=== PATIENT | female | born 1940 | race Caucasian/White ===

== ENCOUNTER 2018-11-26 09:30 | Inpatient (IN) | payer MEDICARE, OTHER ==
[2018-11-25 14:56] VITALS: BMI 33.2
[~2018-11-26] VITALS: Ht 152.4 cm; Wt 77.8 kg
[2018-12-07] MEDS ORDERED: AMLO-147 PO (13:09)
[2018-12-07] MEDS ORDERED: FLUT1AER INHALATION (13:09)
[2018-12-07] MEDS ORDERED: ALPR0.254 PO (13:09)
[2018-12-07] MEDS ORDERED: CYAN500T17 PO (13:09)
[2018-12-07] MEDS ORDERED: ROSU40TA35 PO (13:09)
[2018-12-07] MEDS ORDERED: ZOLP10TA5 PO (13:09)
[2018-12-07] MEDS ORDERED: [UNRECOGNIZED DRUG - CODE] IV (13:09)
[2018-12-07] MEDS ORDERED: ASPI-903 PO (13:09)
[2018-12-07] MEDS ORDERED: CHOL100062 PO (13:12)
[2018-12-07] MEDS ORDERED: MAGN400T27 PO (13:12)
[2018-12-07] MEDS ORDERED: DENO60DI SQ (13:12)
[2018-12-07] MEDS ORDERED: METO-448 PO (13:12)
[2018-12-07] MEDS ORDERED: OLME1TAB27 PO (13:14)
[2018-12-07] MEDS ORDERED: PREG50CA PO ×2 (13:15)
[2018-12-07] MEDS ORDERED: LACTATED RINGER'S 1,000 ML IV SCH (14:00)
[2018-12-07 14:08] VITALS: BP 141/63; PULSE 72; RESP 16; Ht 152.4 cm; Wt 77.8 kg
[2018-12-07] MEDS ORDERED: GELATIN SIZE 100 SPONGE ONE ×3 (14:15→20:48)
[2018-12-07] MEDS ORDERED: THROMBIN (BOVINE) 5,000 UNIT VIAL TP ONE ×5 (14:15→22:27)
[2018-12-07] MEDS ORDERED: HEPARIN 1000 UNITS/ML 10 ML INJ ONE ×4 (14:16→20:48)
[2018-12-07] MEDS ORDERED: CEFAZOLIN 1 GM INJ ONE ×3 (14:16→20:34)
[2018-12-07] MEDS ORDERED: ALBUTEROL 0.083% (NEB) 2.5 MG/3 ML AMP HHN PRN ×2 (15:30→19:30)
[2018-12-07] MEDS ORDERED: HYDROmorphONE 1 MG/5 ML IV SYRINGE IV PRN ×3 (15:30)
[2018-12-07] MEDS ORDERED: MEPERIDINE 25 MG INJ IV PRN ×2 (15:30→19:30)
[2018-12-07] MEDS ORDERED: hydrALAzine 20 MG INJ IV PRN ×2 (15:30→19:30)
[2018-12-07] MEDS ORDERED: IPRATROPIUM (NEB) 0.5 MG/2.5 ML AMP HHN PRN ×2 (15:30→19:30)
[2018-12-07] MEDS ORDERED: EPHEDrine 25 MG/5 ML SYG IV PRN ×2 (15:30→19:30)
[2018-12-07] MEDS ORDERED: FENTAnyl 50 MCG/ML VIAL IV PRN ×6 (15:30→19:30)
[2018-12-07] MEDS ORDERED: MIDAZOLAM 1 MG/ML 2 ML INJ IV PRN ×2 (15:30→19:30)
[2018-12-07] MEDS ORDERED: ONDANSETRON 4 MG INJ IV PRN ×2 (15:30→19:30)
[2018-12-07] MEDS ORDERED: DIPHENHYDRAMINE 50 MG INJ IV PRN ×2 (15:30→19:30)
[2018-12-07] MEDS ORDERED: TRIMETHOBENZAMIDE 100 MG/ML VIAL IM PRN ×2 (15:30→19:30)
[2018-12-07] MEDS ORDERED: LABETALOL HCL 20MG INJ IV PRN ×2 (15:30→19:30)
--- NOTE | 2018-12-07 15:30 | PREAC ---
Date/Time of Note Date/Time of Note DATE: 12/07/18 TIME: 15: Anesthesia Eval and Record Evaluation Time Pre-Procedure Interview DATE: 12/07/18 TIME: 15: Age 77 Sex female NPO: 8 hrs Preoperative diagnosis LUMBAR MECHANICAL PAIN Planned procedure ANTERIOR LUMBAR CORPECTOMY, DISCECTOMY AND POSSIBLE FUSION L2-S1 Past Medical History Past Medical History: Includes Cardio: HTN, Other (MVP) Pulm: Other (PULMONARY FIBROSIS) Musculoskeletal: Rheumatoid arthritis Renal: CKD Surgery & Anesthesia Issues No known issue Meds Anticoagulation: No Beta Eleni within 24 hr: Yes Reported Medications Pregabalin* (Lyrica*) 50 Mg Capsule, 100 MG PO QHS, CAP 12/07/18 Pregabalin* (Lyrica*) 50 Mg Capsule, 50 MG PO QAM, CAP 12/07/18 Olmesartan/Hydrochlorothiazide (Benicar Hct 40-25 mg Tablet) 1 Each Tablet, 1 TAB PO DAILY, TAB 12/07/18 Metoprolol Tartrate* (Lopressor*) 25 Mg Tab, 12.5 MG PO BID, #60 TAB 12/07/18 Denosumab (Prolia) 60 Mg/1 Ml Disp.syrin, 60 MG SQ [id number] 12/07/18 Cholecalciferol* (Vitamin D3*) 1,000 Unit Tablet, 1000 UNIT PO DAILY, TAB 12/07/18 Magnesium Oxide* (Mag-Oxide*) 400 Mg Tablet, 300 MG PO DAILY, TAB 12/07/18 Cyanocobalamin (Vitamin B-12) (B-12) 500 Mcg Tablet, 100 MCG PO DAILY, TAB 12/07/18 Rituximab (Rituxan) 10 Mg/Ml Soln, 500 MG IV as directed 12/07/18 Rosuvastatin Calcium* (Crestor*) 40 Mg Tablet, 40 MG PO QHS, #30 TAB 12/07/18 Aspirin* (Aspirin* Chew) 81 Mg Tab.chew, 81 MG PO DAILY, TAB.CHEW 12/07/18 Alprazolam* (Alprazolam*) 0.25 Mg Tablet, 0.25 MG PO TID PRN for ANXIETY, TAB 12/07/18 Zolpidem Tartrate* (Zolpidem Tartrate*) 10 Mg Tablet, 10 MG PO QHS PRN for INSOMNIA, #30 TAB 12/07/18 Amlodipine Besylate* (Amlodipine Besylate*) 10 Mg Tablet, 10 MG PO DAILY, #30 TAB 12/07/18 Fluticasone-Vilanterol (Breo Ellipta Inhaler) 100-25 Mcg/Actuation Aer.pow.ba, 1 PUFF INHALATION DAILY PRN for SHORTNESS OF BREATH, #1 INHALER 12/07/18 Current Medications Lactated Ringer's 1,000 ml @ 25 mls/hr Q24H IV Last administered on 12/07/18at 13:58; Admin Dose 25 MLS/HR; Start 12/07/18 at 14:00 Meds reviewed: Yes Allergies Coded Allergies: tramadol (Verified Allergy, Unknown, Rash, 12/07/18) Allergies Reviewed: Yes Labs/Studies Labs Reviewed: Reviewed by anesthesiologist Result Diagram: 12/07/18 1340 12/07/18 1340 Laboratory Tests 12/07/18 13:40 Blood Bank Test 12/07/18 13:40 Antibody Screen NEGATIVE Blood Product Summary Counts Blood Type A POSITIVE Crossmatch Red Blood Cells test: Negative Studies: ECG (SR AT 86 BPM, PVC), CXR (Two nodular opacities projecting over the right lower lung measuring 8 mm and 14 mm, suggestive of pulmonary nodules. MILD CARDIOMEGALY) Pre-procedure Exam Last vitals Vital Signs Date Temp Pulse Resp B/P (MAP) Pulse Ox O2 O2 Flow FiO2 Time Delivery Rate 12/07/18 97.7 72 16 141/63 96 Room Air 14:08 (89) Airway: Adequate mouth opening, Adequate thyromental dist Mallampati: Mallampati II Teeth: Normal Lung: Normal Heart: Normal ASA Physical Status ASA physical status: 3 Emergency: None Planned Anesthetic General/MAC: ETT, A Line Planned Pain Management Parenteral pain med Pre-operative Attestations Prior to commencing anesthesia and surgery, the patient was re-evaluated, there was verification of: *The patient's identity *The results of appropriate recent lab work and preoperative vital signs *The above evaluation not changing prior to induction *Anesthetic plan, risk benefits, alternative and complications discussed with patient/family; questions answered; patient/family understands, accepts and wishes to proceed. Drew Cannon M.D. Dec 07, 2018 15:30
--- NOTE | 2018-12-07 15:32 | HPN ---
Date/Time of Note Date/Time of Note DATE: 12/07/18 TIME: 15:30 Interval H&P Admission Note Pt. seen H&P reviewed: No system changes Neurosurgery Preop Note Patient seen and examined Extensive d/w patient during preop meeting about all available options including surgery vs no surgery. Overall risk/complications 3-5% as preprinted in my office consent form thoroughly discussed. All questions answered and no guarantees given. Patient understands her surgery will be staged with anterior portion today with posterior fixation to follow in 1-2 days. FAZAL CASTILLO MD Dec 07, 2018 15:32
[2018-12-07] MEDS ORDERED: MIDAZOLAM 1 MG/ML 2 ML INJ ONE ×2 (15:52→20:34)
[2018-12-07] MEDS ORDERED: GLYCOPYRROLATE 0.4 MG INJ ONE ×2 (15:52→20:34)
[2018-12-07] MEDS ORDERED: ROCURONIUM 50 MG INJ ONE ×2 (15:52→20:34)
[2018-12-07] MEDS ORDERED: PROPOFOL 20 ML ONE ×2 (15:52→20:34)
[2018-12-07] MEDS ORDERED: ONDANSETRON 4 MG INJ ONE ×2 (15:52→20:34)
[2018-12-07] MEDS ORDERED: NEOSTIGMINE 3 MG/3 ML SYRINGE ONE ×2 (15:52→20:34)
[2018-12-07] MEDS ORDERED: DEXAMETHASONE 4 MG/ML 5 ML INJ ONE ×2 (15:52→20:34)
[2018-12-07] MEDS ORDERED: EPHEDrine 25 MG/5 ML SYG ONE (16:00)
[2018-12-07] MEDS ORDERED: DESFLURANE 15 MIN ONE (16:00)
[2018-12-07] MEDS ORDERED: SUGAMMADEX SODIUM 200 MG/2 ML VIAL IV ONE ×2 (16:00→18:52)
[2018-12-07] MEDS ORDERED: HYDROmorphONE 0.2 MG/ML PCA IV SCH (17:30)
[2018-12-07] MEDS ORDERED: NACL 0.9% 3 ML SYG IV SCH (17:30)
[2018-12-07] MEDS ORDERED: NALOXONE (0.4 MG/ML) INJ IV PRN (17:30)
[2018-12-07] MEDS: DOCUSATE SODIUM 100 MG CAP PO SCH ×2 (17:30→21:00)
[2018-12-07] MEDS ORDERED: SURGIFOAM POWDER 1 GM KIT ONE (17:41)
[2018-12-07] MEDS: CEFAZOLIN 2 GM/50 ML (PMX) 50 ML IVPB SCH (18:00)
[2018-12-07] MEDS: NS + KCL 20 MEQ 1,000 ML IV SCH (18:30)
[2018-12-07] MEDS ORDERED: BACITRACIN/POLYMYXIN 28.35 GM OINT TOP ONE (18:41)
[2018-12-07] MEDS ORDERED: FENTAnyl 50 MCG/ML VIAL ONE (18:51)
--- NOTE | 2018-12-07 18:52 | OPPN ---
Date/Time of Note Date/Time of Note DATE: 12/07/18 TIME: 18:50 Operative Report Preoperative Diagnosis Mechanical LBP and LE radic Postoperative Diagnosis Same Operation/Procedure Performed ALIF L3,4 and L5 S1 Surgeon see signature line assistant boiler operator Malekmehr Second assist: SHERYL VELÁZQUEZ NP Anesthesia: general Estimated blood loss: 150 - 200 ml's Transfusion Required none Specimen Disk , bone, ligament L3,4 and L5S1 Grafts/Implants Peek cage screws, formagraft Complications none FAZAL CASTILLO MD Dec 07, 2018 18:52
[2018-12-07] MEDS ORDERED: HALOPERIDOL 5 MG INJ IV PRN (19:30)
[2018-12-07] MEDS ORDERED: HYDROmorphONE 0.5 MG/0.5 ML SYG IV PRN ×3 (19:30)
[2018-12-07] MEDS ORDERED: METOCLOPRAMIDE 10 MG INJ IV PRN (19:30)
[2018-12-07] MEDS: HYDROmorphONE 1 MG/ML SYG IV PRN ×2 (19:33→23:08)
--- NOTE | 2018-12-07 19:51 | PREAC ---
Date/Time of Note Date/Time of Note DATE: 12/07/18 TIME: 19:49 Anesthesia Eval and Record Evaluation Time Pre-Procedure Interview DATE: 12/07/18 TIME: 19:49 Age 77 Sex female NPO: 8 hrs Preoperative diagnosis POST ALIF, PULSELESS ON THE LEFT LEG Planned procedure EXPLORATORY LAP, POSSIBLE THROMBECTOMY Past Medical History Past Medical History: Includes Cardio: HTN Pulm: Other (PULMONARY FIBROSIS) Musculoskeletal: Rheumatoid arthritis Renal: CKD GI: Obesity Surgery & Anesthesia Issues No known issue Meds Anticoagulation: No Beta Eleni within 24 hr: Yes Reported Medications Pregabalin* (Lyrica*) 50 Mg Capsule, 100 MG PO QHS, CAP 12/07/18 Pregabalin* (Lyrica*) 50 Mg Capsule, 50 MG PO QAM, CAP 12/07/18 Olmesartan/Hydrochlorothiazide (Benicar Hct 40-25 mg Tablet) 1 Each Tablet, 1 TAB PO DAILY, TAB 12/07/18 Metoprolol Tartrate* (Lopressor*) 25 Mg Tab, 12.5 MG PO BID, #60 TAB 12/07/18 Denosumab (Prolia) 60 Mg/1 Ml Disp.syrin, 60 MG SQ [id number] 12/07/18 Cholecalciferol* (Vitamin D3*) 1,000 Unit Tablet, 1000 UNIT PO DAILY, TAB 12/07/18 Magnesium Oxide* (Mag-Oxide*) 400 Mg Tablet, 300 MG PO DAILY, TAB 12/07/18 Cyanocobalamin (Vitamin B-12) (B-12) 500 Mcg Tablet, 100 MCG PO DAILY, TAB 12/07/18 Rituximab (Rituxan) 10 Mg/Ml Soln, 500 MG IV as directed 12/07/18 Rosuvastatin Calcium* (Crestor*) 40 Mg Tablet, 40 MG PO QHS, #30 TAB 12/07/18 Aspirin* (Aspirin* Chew) 81 Mg Tab.chew, 81 MG PO DAILY, TAB.CHEW 12/07/18 Alprazolam* (Alprazolam*) 0.25 Mg Tablet, 0.25 MG PO TID PRN for ANXIETY, TAB 12/07/18 Zolpidem Tartrate* (Zolpidem Tartrate*) 10 Mg Tablet, 10 MG PO QHS PRN for INSOMNIA, #30 TAB 12/07/18 Amlodipine Besylate* (Amlodipine Besylate*) 10 Mg Tablet, 10 MG PO DAILY, #30 TA B 12/07/18 Fluticasone-Vilanterol (Breo Ellipta Inhaler) 100-25 Mcg/Actuation Aer.pow.ba, 1 PUFF INHALATION DAILY PRN for SHORTNESS OF BREATH, #1 INHALER 12/07/18 Current Medications Hydromorphone HCl (Dilaudid) 0.2 mg PACU PRN IV MILD PAIN 1-3; Start 12/07/18 at 15:30; Stop 12/07/18 at 21:00 Hydromorphone HCl (Dilaudid) 0.4 mg PACU PRN IV MOD PAIN 4-6; Start 12/07/18 at 15:30; Stop 12/07/18 at 21:00 Fentanyl (Sublimaze) 25 mcg PACU ORDER PRN IV MILD PAIN 1-3; Start 12/07/18 at 15:30; Stop 12/07/18 at 21:00 Fentanyl (Sublimaze) 50 mcg PACU ORDER PRN IV MOD PAIN 4-6; Start 12/07/18 at 15:30; Stop 12/07/18 at 21:00 Fentanyl (Sublimaze) 75 mcg PACU ORDER PRN IV SEVERE PAIN 7-10; Start 12/07/18 at 15:30; Stop 12/07/18 at 21:00 Ondansetron HCl (Zofran Inj) 4 mg PACU ORDER PRN IV NAUSEA/VOMITING; Start 12/07/18 at 15:30; Stop 12/07/18 at 21:00 Trimethobenzamide HCl (Tigan) 200 mg PACU ORDER PRN IM NAUSEA/VOMITING; Start 12/07/18 at 15:30; Stop 12/07/18 at 21:00 Labetalol HCl (Labetalol) 5 mg PACU ORDER PRN IV HIGH BLOOD PRESSURE; Start 12/07/18 at 15:30; Stop 12/07/18 at 21:00 Hydralazine HCl (Apresoline) 5 mg PACU ORDER PRN IV HIGH BLOOD PRESSURE; Start 12/07/18 at 15:30; Stop 12/07/18 at 21:00 Ephedrine Sulfate 5 mg PACU ORDER PRN IV BLOOD PRESSURE SUPPORT; Start 12/07/18 at 15:30; Stop 12/07/18 at 21:00 Albuterol (Proventil 0.083% (Neb)) 2.5 mg PACU ORDER PRN HHN .WHEEZING; Start 12/07/18 at 15:30; Stop 12/07/18 at 21:00 Ipratropium [place] (Atrovent 0.02% (Neb)) 0.5 mg PACU ORDER PRN HHN .WHEEZING; Start 12/07/18 at 15:30; Stop 12/07/18 at 21:00 Meperidine HCl (Demerol) 25 mg PACU ORDER PRN IV .RIGORS; Start 12/07/18 at 15:30; Stop 12/07/18 at 21:00 Diphenhydramine HCl (Benadryl) 25 mg PACU ORDER PRN IV .PRURITUS; Start 12/07/18 at 15:30; Stop 12/07/18 at 21:00 Midazolam HCl (Versed) 0.5 mg PACU ORDER PRN IV .ANXIETY; Start 12/07/18 at 15:30; Stop 12/07/18 at 21:00 Acetaminophen/ Hydrocodone Bitart ([place] (5/325)) 1 tab Q4H PRN PO .PAIN 1-5; Start 12/07/18 at 17:30 Docusate Sodium (Colace) 100 mg BID PO ; Start 12/07/18 at 17:30 IV Flush (NS 3 ml) 3 ml PER PROTOCOL IV ; Start 12/07/18 at 17:30 Hydromorphone HCl (Dilaudid CUSTOMS AGENT) Q4PCA IV ; Start 12/07/18 at 17:30 Naloxone HCl (Narcan) 0.2 mg Q2M PRN IV RR 8 BREATHS/MIN OR LESS; Start 12/07/18 at 17:30 Cefazolin Sodium/ Dextrose 50 ml @ 100 mls/hr Q8 IVPB ; Start 12/07/18 at 18:00; Stop 12/12/18 at 22:00 Potassium Chloride/Sodium Chloride 1,000 ml @ 100 mls/hr Q10H IV ; Start 12/07/18 at 18:30 Hydromorphone HCl (Dilaudid) 0.6 mg PACU PRN IV SEVERE PAIN 7-10 Last administered on 12/07/18at 19:33; Admin Dose 0.6 MG; Start 12/07/18 at 19:30; Stop 12/07/18 at 23:59 Hydromorphone HCl (Dilaudid) 0.2 mg ICU RECOVERY PRN IV MILD PAIN LEVEL 1-3; Start 12/07/18 at 19:30; Stop 12/08/18 at 01:30 Hydromorphone HCl (Dilaudid) 0.4 mg ICU RECOVERY PRN IV MODERATE PAIN LEVEL 4-6; Start 12/07/18 at 19:30; Stop 12/08/18 at 01:30 Hydromorphone HCl (Dilaudid) 0.6 mg ICU RECOVERY PRN IV SEVERE PAIN LEVEL 7-10; Start 12/07/18 at 19:30; Stop 12/08/18 at 01:30 Fentanyl (Sublimaze) 25 mcg ICU RECOVERY PRN IV MILD PAIN LEVEL 1-3; Start 12/07/18 at 19:30; Stop 12/08/18 at 01:30 Fentanyl (Sublimaze) 50 mcg ICU RECOVERY PRN IV MODERATE PAIN LEVEL 4-6; Start 12/07/18 at 19:30; Stop 12/08/18 at 01:30 Fentanyl (Sublimaze) 75 mcg ICU RECOVERY PRN IV SEVERE PAIN LEVEL 7-10; Start at 19:30; Stop 12/08/18 at 01:30 Ondansetron HCl (Zofran Inj) 4 mg ICU RECOVERY PRN IV NAUSEA/VOMITING; Start 12/07/18 at 19:30; Stop 12/08/18 at 01:30 Metoclopramide HCl (Reglan) 10 mg ICU RECOVERY PRN IV NAUSEA AND/OR VOMITING; Start 12/07/18 at 19:30; Stop 12/08/18 at 01:30 Trimethobenzamide HCl (Tigan) 200 mg ICU RECOVERY PRN IM NAUSEA AND/OR VOMITING; Start 12/07/18 at 19:30; Stop 12/08/18 at 01:30 Haloperidol (Haldol) 1 mg ICU RECOVERY PRN IV NAUSEA AND/OR VOMITING; Start 12/07/18 at 19:30; Stop 12/08/18 at 01:30 Labetalol HCl (Labetalol) 5 mg ICU RECOVERY PRN IV HIGH BLOOD PRESSURE; Start 12/07/18 at 19:30; Stop 12/08/18 at 01:30 Hydralazine HCl (Apresoline) 5 mg ICU RECOVERY PRN IV HIGH BLOOD PRESSURE; Start 12/07/18 at 19:30; Stop 12/08/18 at 01:30 Ephedrine Sulfate 5 mg PACU ORDER PRN IV BLOOD PRESSURRE SUPPORT; Start 12/07/18 at 19:30; Stop 12/08/18 at 01:30 Albuterol (Proventil 0.083% (Neb)) 2.5 mg ICU RECOVERY PRN HHN .WHEEZING; Start 12/07/18 at 19:30; Stop 12/08/18 at 01:30 Ipratropium [place] (Atrovent 0.02% (Neb)) 0.5 mg ICU RECOVERY PRN HHN .WHEEZING; Start 12/07/18 at 19:30; Stop 12/08/18 at 01:30 Meperidine HCl (Demerol) 25 mg ICU RECOVERY PRN IV .RIGORS; Start 12/07/18 at 19:30; Stop 12/08/18 at 01:30 Diphenhydramine HCl (Benadryl) 25 mg ICU RECOVERY PRN IV .PRURITUS; Start 12/07/18 at 19:30; Stop 12/08/18 at 01:30 Midazolam HCl (Versed) 0.5 mg ICU RECOVERY PRN IV .ANXIETY; Start 12/07/18 at 19:30; Stop 12/08/18 at 01:30 Meds reviewed: Yes Allergies Coded Allergies: tramadol (Verified Allergy, Unknown, Rash, 12/07/18) Allergies Reviewed: Yes Labs/Studies Labs Reviewed: Reviewed by anesthesiologist Result Diagram: 12/07/18 1340 12/07/18 1340 Laboratory Tests 12/07/18 13:40 Blood Bank Test 12/07/18 13:40 Antibody Screen NEGATIVE Blood Product Summary Counts Blood Type A POSITIVE Crossmatch Red Blood Cells test: N/A Pre-procedure Exam Last vitals Vital Signs Date Temp Pulse Resp B/P (MAP) Pulse Ox O2 O2 Flow FiO2 Time Delivery Rate 12/07/18 98.0 19:15 12/07/18 72 16 141/63 96 Room Air 14:08 (89) Airway: Adequate mouth opening, Adequate thyromental dist Mallampati: Mallampati II Teeth: Normal Lung: Normal Heart: Normal ASA Physical Status ASA physical status: 3 Emergency: E Planned Anesthetic General/MAC: ETT Planned Pain Management Parenteral pain med Pre-operative Attestations Prior to commencing anesthesia and surgery, the patient was re-evaluated, there was verification of: *The patient's identity *The results of appropriate recent lab work and preoperative vital signs *The above evaluation not changing prior to induction *Anesthetic plan, risk benefits, alternative and complications discussed with patient/family; questions answered; patient/family understands, accepts and wishes to proceed. Drew Cannon M.D. Dec 07, 2018 19:51
[2018-12-07] MEDS ORDERED: IOHEXOL 300MG/ML 30 ML BTL ONE ×2 (20:21→22:52)
[2018-12-07] MEDS ORDERED: PAPAVERINE 60 MG INJ ONE (22:53)
[2018-12-08] VITALS (78 sets, daily range): BP systolic 81–139; BP diastolic 43–78; PULSE 61–108; RESP 8–26
[2018-12-08] MEDS: NS + KCL 20 MEQ 1,000 ML IV SCH ×4 (05:10→23:56)
[2018-12-08] MEDS: CEFAZOLIN 2 GM/50 ML (PMX) 50 ML IVPB SCH ×3 (05:10→21:53)
[2018-12-08] MEDS: HYDROmorphONE 0.5 MG/0.5 ML SYG IV PRN ×5 (08:57→23:57)
[2018-12-08] MEDS: DOCUSATE SODIUM 100 MG CAP PO SCH ×2 (09:00→20:03)
--- NOTE | 2018-12-08 10:31 | CONS ---
DATE OF ADMISSION: 12/07/2018 DATE OF CONSULTATION: REASON FOR CONSULTATION: Evaluation for an anterior retroperitoneal exposure, interbody fusion of maritza mbosacral spine. HISTORY OF PRESENT ILLNESS: This is a 77-year-old female with a history of degenerative disk disease , lumbosacral spine, who is being evaluated by the neurosurgery service to undergo anterior retroperi toneal exposure and interbody fusion of lumbosacral spine. The patient previously has had a fusion f rom the back at the level of L4-L5. PAST MEDICAL HISTORY: Significant for hypertension. PAST SURGICAL HISTORY: 1. Fusion posteriorly L4-L5. 2. Hysterectomy. ALLERGIES: NONE. SOCIAL HISTORY: No smoking, drinking, or drug use. MEDICATIONS: List reviewed. PHYSICAL EXAMINATION: VITAL SIGNS: Blood pressure is 132/68, pulse is 80, respirations 18, temperature is 98.2. HEENT: Normocephalic, atraumatic. PERRLA. NECK: Supple. No JVD. No carotid bruits. CARDIOVASCULAR: Normal S1, S2. No murmurs, gallops, or rubs. LUNGS: Clear. ABDOMEN: Soft. EXTREMITIES: Warm. There are palpable pedal pulses. IMPRESSION: Degenerative disk disease, lumbosacral spine. RECOMMENDATIONS: We will proceed with anterior retroperitoneal exposure, interbody fusion, L3-L4 and L5-S1. Risks, benefits, complications, and alternative therapies explained to the patient, consent obtained. Risks and benefits of the exposure that were explained to the patient included, but were n ot limited to, bleeding, infection, damage to bowel, damage to ureter, wound infection, wound dehisce nce, DVT, PE, loss of limb, loss of life, high-risk nature of the operation fully explained to the pa jessica. All questions answered. Dictated By: EVIE ARTHUR MD FM/NTS Conf#: [id number] DID#: [id number] CC: FAZAL CASTILLO MD;*EndCC*
--- NOTE | 2018-12-08 11:17 | OPR ---
DATE OF OPERATION: PREOPERATIVE DIAGNOSIS: Degenerative disk disease, lumbosacral spine. POSTOPERATIVE DIAGNOSIS: Degenerative disk disease, lumbosacral spine. OPERATIONS PERFORMED: 1. Anterior retroperitoneal exposure, interbody fusion, L3-L4. 2. Anterior retroperitoneal exposure, interbody fusion, L5-S1. SURGEON: Evie Ibrahim MD CO-SURGEON: Rashaad Castillo MD ESTIMATED BLOOD LOSS: 150 mL. INFORMED CONSENT: Risks, benefits, complications, alternative therapies, high-risk nature of the ope ration fully explained to the patient, consent obtained. Risks and benefits that were explained to t he patient included, but were not limited to, bleeding, infection, damage to the bowel, damage to the ureter, wound infection, wound dehiscence, DVT, PE, loss of limb, loss of life, need for further driss geries. High-risk nature of the operation fully explained and stressed. Adequate time was given to the patient to ask all her questions and we proceeded. DESCRIPTION OF PROCEDURE: The patient was placed in supine position. I made a 12 cm incision in lef t paramedian lower abdomen longitudinally. The incision was taken down to subcutaneous tissue, which was then opened using electrocautery. Left anterior rectus sheath was opened in the direction of th e wound. The tissues appeared to have very poor integrity. The left rectus muscle was gently dissec leo laterally and the posterior rectus sheath was incised superiorly. At this time, retroperitoneal space was entered. Again, the tissue turgor appeared to be very poor. Bookwalter retractor was plac ed, gently retracting the bowel contents to the right, left rectus muscle to the left. I identified the left ureter, psoas muscle, sympathetic chain and the left common iliac artery and vein were gentl y dissected using a peanut dissector. The left iliolumbar veins and the middle sacral vessels were l igated using 2-0 silk ties and titanium clips. The lowest segmental vessels on the left side, both t he artery and the vein, were ligated using titanium clips. At this time, very gently the iliac vesse ls on the left and the vena cava and aorta were dissected off of the spine using a peanut dissector. Mobilization of the aorta and vena cava superiorly and left iliac vessels inferiorly was completed. Gently, the aorta and vena cava were retracted to the right side. Exposure for L3-L4 was obtained i n this manner. Exposure for L5-S1 was obtained between the right and left common iliac artery and ve in. We used Hernandez retractors to gently retract the vessels back for exposure. At this time, we p roceeded with the diskectomy and placement of the new cages. Please refer to Dr. Castillo's dictation f or the details of that operation. After all x-rays were satisfactorily read by Dr. Castillo, needle cou nts and sponge counts were correct. There was good pulsation in the left common iliac artery and ex ternal iliac artery. There was no evidence of any bleeding. Posterior rectus sheath was closed usin g 0 Vicryl suture in running fashion. Anterior rectus sheath was closed using number 1 Vicryl suture in a running fashion, interrupted sutures in the middle. Subcutaneous tissues were closed using 2-0 Vicryl suture in running fashion and the skin was closed using marcos. Dictated By: EVIE SHAVER/CARMINA Conf#: [id number] DID#: [id number] CC: RASHAAD CASTILLO MD;*EndCC*
--- NOTE | 2018-12-08 11:40 | OPR ---
DATE OF OPERATION: PREOPERATIVE DIAGNOSIS: Ischemic left lower extremity. POSTOPERATIVE DIAGNOSIS: Ischemic left lower extremity. OPERATIONS PERFORMED: 1. Thrombectomy, left iliac artery. 2. Intraoperative left lower extremity angiogram. 3. Interpretation and supervision of angiogram. SURGEON: Evie Ibrahim MD TREE SCOUT: Rashaad Castillo MD INDICATIONS FOR PROCEDURE: This is a 77-year-old female with a history of rheumatoid arthritis and d egenerative disk disease, pulmonary fibrosis, mild renal failure who had undergone an anterior retrop eritoneal exposure, interbody fusion at the levels of L3-L4 and L5-S1. Subsequently, immediately pos toperatively, the patient had weakness in the left lower extremity. It was initially thought that th e patient had neurological deficits related to the spine surgery. There was a weak left femoral puls e. The patient was transported to the intensive care unit in anticipation to getting a CAT scan; how ever, upon my examination, again in the ICU, the patient's pulses in the left lower extremity could n ot be obtained. Left foot appeared to be cold compared to the right side. Pulses on the right side were intact. The patient was immediately taken back to the operating room for exploration and establ ishment of the circulation. I had a short talk with the patient and explained the procedure to her. INFORMED CONSENT: Risks, benefits, complications, alternative therapies, high-risk nature of the ope ration explained to the patient. Again, the possibility of infection, bleeding, DVT, PE, loss of vaca b, loss of life, and neurological deficits explained and stressed. DESCRIPTION OF PROCEDURE: The patient was taken to the operating room. The patient was prepped and draped in usual sterile fashion. An antibiotic was given. The abdominal wound was opened. Bookwalt er retractor was placed, retracting the bowel contents to the right, left rectus muscle to the left. I palpated the left common iliac artery, external iliac artery. There was no pulsation in it. The patient was given 5000 units of IV heparin and the left external iliac artery was opened perpendicula r to the vessel. Large amounts of clot were removed. Junior catheter first 4-Japanese, next 3-Japanese were applied distally. Large amounts of clot were removed. The same was applied proximally. There appeared to be also a local dissection and endarterectomy had to be done as well. The plaque was ta cked down using multiple interrupted 6-0 Prolene distally, and the vessel was reapproximated using in terrupted 6-0 Prolene in a horizontal mattress fashion. This was done after giving the patient 5000 units of IV heparin, and after injecting heparinized saline into the vessels just before they were be ing closed, a vascular clamp had been applied, which were now removed after the repair was done. The re was a good pulsation in the external iliac artery all the way in the pelvis. At this time, I coul d also palpate the femoral artery in the groin, which I could not palpate before. An arterial line w as placed in the left common femoral artery using ultrasound guidance. Angiogram was done, which was completely patent - left external iliac artery, femoral artery, superficial femoral artery, poplitea l artery, and trifurcation with 3-vessel runoff to the foot with the posterior tibial artery wrapped around all the way down to the toes as the major blood vessel flow to the foot. Doppler signals were also obtained at the posterior tibial artery, which appeared to be biphasic. Doppler signals in the femoral artery appeared to be triphasic. The femoral line was immediately removed. No evidence of any bleeding was noted. The Bookwalter retractor was removed. Anterior rectus sheath was closed usi ng a number 1 Vicryl suture in running fashion. Subcutaneous tissues were irrigated and closed in 2 layers of 2-0 Vicryl suture for subcutaneous and marcos for the skin. The patient woke up in the op erating room and was able to follow command, move the toes, wiggle the toes bilaterally, dorsiflex an d plantar flex the foot bilaterally, and bend the knee bilaterally - all on command. EBL was 450 mL. Son was contacted. The condition was reported to him. Dictated By: EVIE SHAVER/CARMINA Conf#: [id number] DID#: [id number] CC: RASHAAD CASTILLO MD;*EndCC*
--- NOTE | 2018-12-08 12:20 | PN ---
Date/Time of Note Date/Time of Note DATE: 12/08/18 TIME: 12:12 Assessment/Plan VTE Prophylaxis Risk score ([place] [facility] risk: 12 SCD applied (from [facility] [place] Yes SCD contraindicated: low risk/ambulating Pharmacological prophylaxis: NA/contraindicated Pharm contraindication: low risk/ambulating Lines/Catheters IV C[facility]ter Type (from [facility] A Line Central line still needed: No Urinary Cath still in place: No Assessment/Plan Assessment/Plan Neurosurgery Progress S: s/p ALIF and Ex lap . POD #1 increasing strength to left leg and strong left PT/DP slight numbness/tingling plan Cont icu obs neurovascular / doppler checks Q1h cont supportive care will eventually need posterior fixation early next week to complete fusion. Result Diagram: 12/08/18 0500 12/08/18 0500 Results 24hrs Laboratory Tests Test 12/07/18 13:40 12/07/18 20:42 12/08/18 01:27 12/08/18 04:56 White Blood Count 13.2 H 13.9 H 18.1 #H Red Blood Count 4.22 2.83 #L 3.84 #L Hemoglobin 12.3 8.4 #L 11.2 #L Hematocrit 38.7 26.2 #L 35.5 #L Mean Corpuscular 91.7 92.6 92.4 Volume Mean Corpuscular 29.1 29.7 29.2 Hemoglobin Mean Corpuscular 31.8 L 32.1 31.5 L Hemoglobin Concen t Red Cell 14.1 13.8 14.8 H Distribution Width Platelet Count 274 160 # 169 Mean Platelet 12.0 H 12.4 H 11.8 H Volume Immature 0.300 0.700 H 0.800 H Granulocytes % Neutrophils % 61.4 84.4 H 86.4 H Lymphocytes % 24.0 8.8 L 6.7 L Monocytes % 11.2 H 5.3 5.6 Eosinophils % 2.4 0.5 0.1 Basophils % 0.7 0.3 0.4 Nucleated Red 0.0 0.0 0.0 Blood Cells % Immature 0.040 H 0.100 H 0.140 H Granulocytes # Neutrophils # 8.1 H 11.7 H 15.7 H Lymphocytes # 3.2 H 1.2 1.2 Monocytes # 1.5 H 0.7 1.0 H Eosinophils # 0.3 0.1 0.0 Basophils # 0.1 0.0 0.1 Nucleated Red 0.0 0.0 0.0 Blood Cells # CBC Results 1 *H Faxed/Phoned Prothrombin Time 12.9 Prothrombin Time 1.0 Ratio INR International 0.96 Normalized Ratio Activated 35.4 H Partial Thrombopl ast Time Sodium Level 140 145 H Potassium Level 3.9 4.2 Chloride Level 105 111 H Carbon Dioxide 27 23 Level Anion Gap 8 11 Blood Urea 33 H 22 #H Nitrogen Creatinine 1.31 H 0.88 Est Glomerular Filtrat Rate mL/min Glucose Level 108 171 Calcium Level 9.3 6.8 L Total Bilirubin 0.5 Direct Bilirubin 0.00 Indirect 0.5 Bilirubin Aspartate Amino 17 Transf (AST/SGOT) Alanine 25 Aminotransferase (ALT/SGPT) Alkaline 36 L Phosphatase Total Protein 6.9 Albumin 3.7 Globulin 3.20 Albumin/Globulin 1.15 Ratio Lab Scanned BLOOD TRANSFUSIO Report N Test 12/08/18 05:00 Hemoglobin 11.2 L Hematocrit 34.8 L Sodium Level 141 Potassium Level 4.4 Chloride Level 111 H Carbon Dioxide 24 Level Anion Gap 6 Blood Urea 21 H Nitrogen Creatinine 0.98 Est Glomerular Filtrat Rate mL/min Glucose Level 154 Calcium Level 7.0 L Subjective 24 Hr Interval Summary Free Text/Dictation Neurosurgery Progress S: s/p ALIF and Ex lap . POD #1 increasing strength to left leg and strong left PT/DP slight numbness/tingling Exam/Review of Systems Exam Vitals Vital Signs Date Temp Pulse Resp B/P (MAP) Pulse Ox O2 O2 Flow FiO2 Time Delivery Rate 12/08/18 62 13 107/48 98 Nasal 2.0 11:45 (67) Cannula 12/08/18 98.4 08:00 Intake and Output 12/07/18 12/07/18 12/08/18 1515:00 23:00 07:00 IntakeIntake Total 3100 ml 3810 ml OutputOutput Total 450 ml 1910 ml BalanceBalance 2650 ml 1900 ml Constitutional: alert Psych: no complaints Neurological: other (MS: AAOX4 no slurred speach noted CN: PERRL M: FC x 4, left leg anti-gravity with good strength 4+/5 , 5/5 DP/PT S: slight numbness/tinglng strong Left DP/PT doppler ) Results Results 24hrs Laboratory Tests Test 12/07/18 13:40 12/07/18 20:42 12/08/18 01:27 12/08/18 04:56 White Blood Count 13.2 H 13.9 H 18.1 #H Red Blood Count 4.22 2.83 #L 3.84 #L Hemoglobin 12.3 8.4 #L 11.2 #L Hematocrit 38.7 26.2 #L 35.5 #L Mean Corpuscular 91.7 92.6 92.4 Volume Mean Corpuscular 29.1 29.7 29.2 Hemoglobin Mean Corpuscular 31.8 L 32.1 31.5 L Hemoglobin Concen t Red Cell 14.1 13.8 14.8 H Distribution Width Platelet Count 274 160 # 169 Mean Platelet 12.0 H 12.4 H 11.8 H Volume Immature 0.300 0.700 H 0.800 H Granulocytes % Neutrophils % 61.4 84.4 H 86.4 H Lymphocytes % 24.0 8.8 L 6.7 L Monocytes % 11.2 H 5.3 5.6 Eosinophils % 2.4 0.5 0.1 Basophils % 0.7 0.3 0.4 Nucleated Red 0.0 0.0 0.0 Blood Cells % Immature 0.040 H 0.100 H 0.140 H Granulocytes # Neutrophils # 8.1 H 11.7 H 15.7 H Lymphocytes # 3.2 H 1.2 1.2 Monocytes # 1.5 H 0.7 1.0 H Eosinophils # 0.3 0.1 0.0 Basophils # 0.1 0.0 0.1 Nucleated Red 0.0 0.0 0.0 Blood Cells # CBC Results 1 *H Faxed/Phoned Prothrombin Time 12.9 Prothrombin Time 1.0 Ratio INR International 0.96 Normalized Ratio Activated 35.4 H Partial Thrombopl ast Time Sodium Level 140 145 H Potassium Level 3.9 4.2 Chloride Level 105 111 H Carbon Dioxide 27 23 Level Anion Gap 8 11 Blood Urea 33 H 22 #H Nitrogen Creatinine 1.31 H 0.88 Est Glomerular Filtrat Rate mL/min Glucose Level 108 171 Calcium Level 9.3 6.8 L Total Bilirubin 0.5 Direct Bilirubin 0.00 Indirect 0.5 Bilirubin Aspartate Amino 17 Transf (AST/SGOT) Alanine 25 Aminotransferase (ALT/SGPT) Alkaline 36 L Phosphatase Total Protein 6.9 Albumin 3.7 Globulin 3.20 Albumin/Globulin 1.15 Ratio Lab Scanned BLOOD TRANSFUSIO Report N Test 12/08/18 05:00 Hemoglobin 11.2 L Hematocrit 34.8 L Sodium Level 141 Potassium Level 4.4 Chloride Level 111 H Carbon Dioxide 24 Level Anion Gap 6 Blood Urea 21 H Nitrogen Creatinine 0.98 Est Glomerular Filtrat Rate mL/min Glucose Level 154 Calcium Level 7.0 L Medications Medication Current Medications Acetaminophen/ Hydrocodone Bitart ([place] (5/325)) 1 tab Q4H PRN PO .PAIN 1-5; Start 12/07/18 at 17:30 Docusate Sodium (Colace) 100 mg BID PO ; Start 12/07/18 at 17:30 IV Flush (NS 3 ml) 3 ml PER PROTOCOL IV ; Start 12/07/18 at 17:30 Naloxone HCl (Narcan) 0.2 mg Q2M PRN IV RR 8 BREATHS/MIN OR LESS; Start 12/07/18 at 17:30 Cefazolin Sodium/ Dextrose 50 ml @ 100 mls/hr Q8 IVPB Last administered on 12/08/18at 05:10; Admin Dose 100 MLS/HR; Start 12/07/18 at 18:00; Stop 12/12/18 at 22:00 Potassium Chloride/Sodium Chloride 1,000 ml @ 100 mls/hr Q10H IV Last administ ered on 12/08/18at 11:43; Admin Dose 100 MLS/HR; Start 12/07/18 at 18:30 Hydromorphone HCl (Dilaudid) 0.5 mg Q1H PRN IV SEVERE PAIN LEVEL 7-10 Last administered on 12/08/18at 08:57; Admin Dose 0.5 MG; Start 12/08/18 at 09:00 SHERYL VELÁZQUEZ NP Dec 08, 2018 12:20
--- NOTE | 2018-12-08 13:25 | PN ---
Date/Time of Note Date/Time of Note DATE: 12/08/18 TIME: 13:24 Assessment/Plan Lines/Catheters IV Catheter Type (from Nrsg): A Line Robbins in Place (from Nrsg): Yes Assessment/Plan Assessment/Plan SP ALIF and thrombectomt left CA pt with palpable left DPA and strong PT doppler signals will continue supp care Start Diet Subjective 24 Hr Interval Summary Constitutional: improved Pain Control: mild Exam/Review of Systems Vital Signs Vitals Vital Signs Date Temp Pulse Resp B/P (MAP) Pulse Ox O2 O2 Flow FiO2 Time Delivery Rate 12/08/18 64 21 133/48 98 Nasal 2.0 12:15 (76) Cannula 12/08/18 98.2 12:00 Intake and Output 12/07/18 12/07/18 12/08/18 1515:00 23:00 07:00 IntakeIntake Total 3100 ml 3810 ml OutputOutput Total 450 ml 1985 ml BalanceBalance 2650 ml 1825 ml Exam Eyes: nl conjunctiva, EOMI, nl lids, nl sclera ENMT: nl external ears & nose, nl lips & teeth, nl nasal mucosa & septum, mucosa pink and moist Neck: supple, non-tender Respiratory: clear to auscultation, normal air movement Cardiovascular: regular rate and rhythm, nl pulses Gastrointestinal: soft, nl liver, spleen, non-tender Musculoskeletal: nl extremities to inspection, nl gait and stance Extremities: normal pulses Results Result Diagram: 12/08/18 0500 12/08/18 0500 EVIE ARTHUR MD Dec 08, 2018 13:25
[2018-12-08] MEDS ORDERED: ALPRAZOLAM 0.25 MG TAB PO PRN (14:30)
--- NOTE | 2018-12-08 14:41 | HP ---
Date/Time of Note Date/Time of Note DATE: 12/08/18 TIME: 14:33 Assessment/Plan VTE Prophylaxis Risk score (from Ns)>0 risk: 12 SCD applied (from Ns): Yes Pharmacological prophylaxis: NA/contraindicated Pharm contraindication: surgical contra Lines/Catheters IV [facility] Type (from [facility]): A Line Urinary Cath still in place: Yes Reason Cath still needed: urinary retention Assessment/Plan Hospital Course Patient is awake alert, complains of mild left hip pain, denies any shortness of breath denies any chest pain. Continue ICU monitoring. Assessment/Plan - S/p anterior retroperitoneal interbody fusion of L3-S1 by Dr. Lobato. Continue IV fluids and postoperative antibiotic. - Status post left iliac artery thrombectomy by Dr. Ibrahim. Neurovascular check bilateral lower extremities every hour. - HTN, continue metoprolol. - RA, patient follows with Dr. Saldivar in rheumatology consultation, gets injection with rituximab - Asthma, stable, continue Breo Ellipta as needed. Further recommendations based on clinical course. Plan of care discussed with Dr. Whatley. Result Diagram: 12/08/18 0500 12/08/18 0500 Results 24hrs Laboratory Tests Test 12/07/18 20:42 12/08/18 01:27 12/08/18 04:56 12/08/18 05:00 White Blood Count 13.9 H 18.1 #H Red Blood Count 2.83 #L 3.84 #L Hemoglobin 8.4 #L 11.2 #L 11.2 L Hematocrit 26.2 #L 35.5 #L 34.8 L Mean Corpuscular 92.6 92.4 Volume Mean Corpuscular 29.7 29.2 Hemoglobin Mean Corpuscular 32.1 31.5 L Hemoglobin Concen t Red Cell 13.8 14.8 H Distribution Width Platelet Count 160 # 169 Mean Platelet 12.4 H 11.8 H Volume Immature 0.700 H 0.800 H Granulocytes % Neutrophils % 84.4 H 86.4 H Lymphocytes % 8.8 L 6.7 L Monocytes % 5.3 5.6 Eosinophils % 0.5 0.1 Basophils % 0.3 0.4 Nucleated Red 0.0 0.0 Blood Cells % Immature 0.100 H 0.140 H Granulocytes # Neutrophils # 11.7 H 15.7 H Lymphocytes # 1.2 1.2 Monocytes # 0.7 1.0 H Eosinophils # 0.1 0.0 Basophils # 0.0 0.1 Nucleated Red 0.0 0.0 Blood Cells # Sodium Level 145 H 141 Potassium Level 4.2 4.4 Chloride Level 111 H 111 H Carbon Dioxide 23 24 Level Anion Gap 11 6 Blood Urea 22 #H 21 H Nitrogen Creatinine 0.88 0.98 Est Glomerular Filtrat Rate mL/min Glucose Level 171 154 Calcium Level 6.8 L 7.0 L Lab Scanned BLOOD TRANSFUSIO Report N HPI/ROS Admit Date/Time Admit Date/Time Dec 07, 2018 at 12:52 Hx of Present Illness The patient is a very pleasant 78-year-old female with history of hypertension, rheumatoid arthritis, asthma, osteoporosis, and GERD. Patient with prior lumbar surgery was evaluated by Dr Lobato for mechanical lower back pain with lower extremities a radiculopathy. Patient was brought to the hospital and underwent anterior retroperitoneal interbody fusion of L3-S1 by Dr. Lobato with anterior retroperitoneal exposure by Dr. Ibrahim. Postoperatively patient was noted to have left lower extremity weakness and ischemia. Patient was brought to the operating room and underwent intraoperative left lower extremity angiogram followed by left iliac artery thrombectomy b Dr Ibrahim. Patient is seen in the ICU, patient pain is adequately controlled pulses present bilaterally, bilateral lower extremities warm to touch. Patient denies any fever chills denies any nausea vomiting denies any shortness of breath denies any chest pain. ROS 12 point review of systems negative except for that mentioned in HPI PMH/Family/Social Past Medical History Medical History: GERD, hypertension, other (Asthma, rheumatoid arthritis, osteoporosis) Medications Current Medications Acetaminophen/ Hydrocodone Bitart ([place] (5/325)) 1 tab Q4H PRN PO .PAIN 1-5; Start 12/07/18 at 17:30 Docusate Sodium (Colace) 100 mg BID PO ; Start 12/07/18 at 17:30 IV Flush (NS 3 ml) 3 ml PER PROTOCOL IV ; Start 12/07/18 at 17:30 Naloxone HCl (Narcan) 0.2 mg Q2M PRN IV RR 8 BREATHS/MIN OR LESS; Start 12/07/18 at 17:30 Cefazolin Sodium/ Dextrose 50 ml @ 100 mls/hr Q8 IVPB Last administered on 12/08/18at 05:10; Admin Dose 100 MLS/HR; Start 12/07/18 at 18:00; Stop 12/12/18 at 22:00 Potassium Chloride/Sodium Chloride 1,000 ml @ 100 mls/hr Q10H IV Last administered on 12/08/18at 11:43; Admin Dose 100 MLS/HR; Start 12/07/18 at 18:30 Hydromorphone HCl (Dilaudid) 0.5 mg Q1H PRN IV SEVERE PAIN LEVEL 7-10 Last administered on 12/08/18at 14:17; Admin Dose 0.5 MG; Start 12/08/18 at 09:00 Alprazolam (Xanax) 0.25 mg TID PRN PO ANXIETY; Start 12/08/18 at 14:30 Metoprolol Tartrate (Lopressor) 12.5 mg BID PO ; Start 12/08/18 at 21:00 Pregabalin (Lyrica) 50 mg QAM PO ; Start 12/09/18 at 09:00 Pregabalin (Lyrica) 100 mg QHS PO ; Start 12/08/18 at 21:00 Rosuvastatin Calcium (Crestor) 40 mg QHS PO ; Start 12/08/18 at 21:00 Zolpidem Tartrate (Ambien) 10 mg QHS PRN PO INSOMNIA; Start 12/08/18 at 14:30 Coded Allergies: tramadol (Verified Allergy, Unknown, Rash, 12/07/18) Past Surgical History Past Surgical Hx: other (Status post lumbar surgery, status post hysterectomy, status post right knee replacement, status post left ankle surgery) Family History Significant Family History: no pertinent family hx Social History Alcohol Use: rarely Smoking Status: Never smoker Drug Use: none Exam/Review of Systems Vital Signs Vitals Vital Signs Date Temp Pulse Resp B/P (MAP) Pulse Ox O2 O2 Flow FiO2 Time Delivery Rate 12/08/18 108 13:17 12/08/18 21 133/48 98 Nasal 2.0 12:15 (76) Cannula 12/08/18 98.2 12:00 Intake and Output 12/07/18 12/07/18 12/08/18 1515:00 23:00 07:00 IntakeIntake Total 3100 ml 3810 ml OutputOutput Total 450 ml 1985 ml BalanceBalance 2650 ml 1825 ml Exam Constitutional: alert, oriented Head: normocephalic Neck: supple Respiratory: clear to auscultation Cardiovascular: regular rate and rhythm Gastrointestinal: soft, non-tender Musculoskeletal: nl extremities to inspection, other (Status post lumbar spine surgery with midline abdominal incision covered with dressing) Extremities: normal pulses, other Skin: nl JEMAL Frias Dec 08, 2018 14:41
[2018-12-08] MEDS: PREGABALIN 50 MG CAP PO SCH (20:04)
[2018-12-08] MEDS: ROSUVASTATIN CALCIUM 40 MG TABLET PO SCH (20:06)
[2018-12-08] MEDS: METOPROLOL 25 MG TAB PO SCH (20:06)
--- NOTE | 2018-12-08 20:07 | PAC ---
Date/Time of Note Date/Time of Note DATE: 12/08/18 TIME: 20:07 Post-Anesthesia Notes Post-Anesthesia Note Last documented vital signs Vital Signs Date Temp Pulse Resp B/P (MAP) Pulse Ox O2 O2 Flow FiO2 Time Delivery Rate 12/08/18 71 16 95/65 (75) 98 Nasal 2.0 19:00 Cannula 12/08/18 98.3 16:00 Activity: WNL Respiratory function: WNL Cardiovascular function: WNL Mental status: Baseline Pain reasonably controlled: Yes Hydration appropriate: Yes Nausea/Vomiting absent: Yes Drew Cannon M.D. Dec 08, 2018 20:07
[2018-12-09] VITALS (21 sets, daily range): BP systolic 92–150; BP diastolic 47–78; PULSE 60–95; RESP 13–33
[2018-12-09] MEDS: ZOLPIDEM 5 MG TAB PO PRN (02:35)
[2018-12-09] MEDS: CEFAZOLIN 2 GM/50 ML (PMX) 50 ML IVPB SCH ×3 (05:17→22:47)
[2018-12-09] MEDS: HYDROmorphONE 0.5 MG/0.5 ML SYG IV PRN ×5 (06:52→21:23)
[2018-12-09] MEDS: DOCUSATE SODIUM 100 MG CAP PO SCH ×2 (09:22→21:22)
[2018-12-09] MEDS: PREGABALIN 50 MG CAP PO SCH ×2 (09:22→23:09)
[2018-12-09] MEDS: METOPROLOL 25 MG TAB PO SCH ×2 (09:23→21:22)
[2018-12-09] MEDS: NS + KCL 20 MEQ 1,000 ML IV SCH ×2 (09:25→22:47)
--- NOTE | 2018-12-09 11:50 | PN ---
Date/Time of Note Date/Time of Note DATE: 12/09/18 TIME: 11:45 Assessment/Plan VTE Prophylaxis Risk score (from Ns)>0 risk: 8 SCD applied (from Ns): Yes Pharmacological prophylaxis: NA/contraindicated Pharm contraindication: surgical contra Lines/Catheters IV Catheter Type (from Nrsg): A Line Urinary Cath still in place: Yes Reason Cath still needed: urinary retention Assessment/Plan Hospital Course Patient is awake alert, stated that she is hungry and asking to progress diet patient is currently on clear liquid, okay to progress diet to full liquids. Right lower extremity is warm to touch with present pulse, continue ICU care. Assessment/Plan - S/p anterior retroperitoneal interbody fusion of L3-S1 by Dr. Lobato. Continue IV fluids and postoperative antibiotic. Continue [place] and Dilaudid for pain. Plan for posterior fusion next week. - Status post left iliac artery thrombectomy by Dr. Ibrahim. Neurovascular check bilateral lower extremities every hour. - HTN, continue metoprolol. Will resume patient's Norvasc, Cozaar, and hydrochlorothiazide with parameters. - RA, patient gets injection with rituximab, follows with Dr. Saldivar as an outpatient. - Asthma, stable, continue Breo Ellipta as needed. Further recommendations based on clinical course. Plan of care discussed with Dr. Whatley. Result Diagram: 12/08/18 0500 12/08/18 0500 Exam/Review of Systems Exam Vitals Vital Signs Date Temp Pulse Resp B/P (MAP) Pulse Ox O2 O2 Flow FiO2 Time Delivery Rate 12/09/18 86 17 143/56 09:00 (85) 12/09/18 97 Nasal 08:00 Cannula 12/09/18 3.0 08:00 12/09/18 98.9 04:00 Intake and Output 12/08/18 12/08/18 12/09/18 1515:00 23:00 07:00 IntakeIntake Total 900 ml 800 ml 400 ml OutputOutput Total 700 ml 465 ml 425 ml BalanceBalance 200 ml 335 ml -25 ml Exam Constitutional: alert, oriented Head: normocephalic Neck: supple Respiratory: clear to auscultation Cardiovascular: regular rate and rhythm Gastrointestinal: soft, non-tender Musculoskeletal: nl extremities to inspection, other (Status post surgery with midline abdominal incision covered with dry clean dressing) Extremities: normal pulses, other Skin: nl turgor Medications Medication Current Medications Acetaminophen/ Hydrocodone Bitart ([place] (5/325)) 1 tab Q4H PRN PO .PAIN 1-5; Start 12/07/18 at 17:30 Docusate Sodium (Colace) 100 mg BID PO Last administered on 12/09/18 09:22; Admin Dose 100 MG; Start 12/07/18 at 17:30 IV Flush (NS 3 ml) 3 ml PER PROTOCOL IV ; Start 12/07/18 at 17:30 Naloxone HCl (Narcan) 0.2 mg Q2M PRN IV RR 8 BREATHS/MIN OR LESS; Start 12/07/18 at 17:30 Cefazolin Sodium/ Dextrose 50 ml @ 100 mls/hr Q8 IVPB Last administered on at 05:17; Admin Dose 100 MLS/HR; Start 12/07/18 at 18:00; Stop 12/12/18 at 22:00 Potassium Chloride/Sodium Chloride 1,000 ml @ 100 mls/hr Q10H IV Last administered on 12/09/18 09:25; Admin Dose 100 MLS/HR; Start 12/07/18 at 18:30 Hydromorphone HCl (Dilaudid) 0.5 mg Q1H PRN IV SEVERE PAIN LEVEL 7-10 Last administered on 12/09/18 11:13; Admin Dose 0.5 MG; Start 12/08/18 at 09:00 Alprazolam (Xanax) 0.25 mg TID PRN PO ANXIETY; Start 12/08/18 at 14:30 Metoprolol Tartrate (Lopressor) 12.5 mg BID PO Last administered on 12/09/18 09:23; Admin Dose 12.5 MG; Start 12/08/18 at 21:00 Pregabalin (Lyrica) 50 mg QAM PO Last administered on 12/09/18 09:22; Admin Dose 50 MG; Start 12/09/18 at 09:00 Pregabalin (Lyrica) 100 mg QHS PO Last administered on 12/08/18 20:04; Admin Dose 100 MG; Start 12/08/18 at 21:00 Rosuvastatin Calcium (Crestor) 40 mg QHS PO Last administered on 12/08/18at 2 0:06; Admin Dose 40 MG; Start 12/08/18 at 21:00 Zolpidem Tartrate (Ambien) 10 mg QHS PRN PO INSOMNIA Last administered on 12/09/18at 02:35; Admin Dose 10 MG; Start 12/08/18 at 14:30 Amlodipine Besylate (Norvasc) 10 mg DAILY PO ; Start 12/10/18 at 09:00 Losartan Potassium (Cozaar) 100 mg DAILY PO ; Start 12/10/18 at 09:00 Hydrochlorothiazide (Hydrochlorothiazide) 25 mg DAILY PO ; Start 12/10/18 at 09:00 JEMAL THOMPSON Dec 09, 2018 11:50
--- NOTE | 2018-12-09 13:40 | PN ---
Date/Time of Note Date/Time of Note DATE: 12/09/18 TIME: 13:37 Assessment/Plan VTE Prophylaxis Risk score (from Ns)>0 risk: 8 SCD applied (from Ns): Yes SCD contraindicated: low risk/ambulating Pharmacological prophylaxis: NA/contraindicated Pharm contraindication: low risk/ambulating Lines/Catheters IV Catheter Type (from Nrsg): A Line Central line still needed: No Urinary Cath still in place: No Assessment/Plan Assessment/Plan impression anterior lumbar decompression and fusion s/p thrombectomy vss hh stable plan cont supportive care okay for oob with lso brace plan for posterior fixation next week Thursday or Thursday Result Diagram: 12/08/18 0500 12/08/18 0500 Subjective 24 Hr Interval Summary Free Text/Dictation Neurosurgery S: patient doing well Lower ext pulses now palpable. Exam/Review of Systems Exam Vitals Vital Signs Date Temp Pulse Resp B/P (MAP) Pulse Ox O2 O2 Flow FiO2 Time Delivery Rate 12/09/18 89 12:00 12/09/18 99.2 16 95/53 (67) 98 Nasal 12:00 Cannula 12/09/18 3.0 08:00 Intake and Output 12/08/18 12/08/18 12/09/18 1515:00 23:00 07:00 IntakeIntake Total 900 ml 800 ml 400 ml OutputOutput Total 700 ml 465 ml 425 ml BalanceBalance 200 ml 335 ml -25 ml Neurological: other (MS: AAOX4 CN:PERRL M: FC x 4 , incresing strength Left DP/PT now palpable , good cap refill and warm to touch ) Medications Medication Current Medications Acetaminophen/ Hydrocodone Bitart ([place] (5/325)) 1 tab Q4H PRN PO .PAIN 1-5; Start 12/07/18 at 17:30 Docusate Sodium (Colace) 100 mg BID PO Last administered on 12/09/18at 09:22; Admin Dose 100 MG; Start 12/07/18 at 17:30 IV Flush (NS 3 ml) 3 ml PER PROTOCOL IV ; Start 12/07/18 at 17:30 Naloxone HCl (Narcan) 0.2 mg Q2M PRN IV RR 8 BREATHS/MIN OR LESS; Start 12/07/18 at 17:30 Cefazolin Sodium/ Dextrose 50 ml @ 100 mls/hr Q8 IVPB Last administered on 12/09/18 05:17; Admin Dose 100 MLS/HR; Start 12/07/18 at 18:00; Stop 12/12/18 at 22:00 Potassium Chloride/Sodium Chloride 1,000 ml @ 100 mls/hr Q10H IV Last administered on 12/09/18at 09:25; Admin Dose 100 MLS/HR; Start 12/07/18 at 18:30 Hydromorphone HCl (Dilaudid) 0.5 mg Q1H PRN IV SEVERE PAIN LEVEL 7-10 Last administered on 12/09/18 11:13; Admin Dose 0.5 MG; Start 12/08/18 at 09:00 Alprazolam (Xanax) 0.25 mg TID PRN PO ANXIETY; Start 12/08/18 at 14:30 Metoprolol Tartrate (Lopressor) 12.5 mg BID PO Last administered on 12/09/18 09:23; Admin Dose 12.5 MG; Start 12/08/18 at 21:00 Pregabalin (Lyrica) 50 mg QAM PO Last administered on 12/09/18 09:22; Admin Dose 50 MG; Start 12/09/18 at 09:00 Pregabalin (Lyrica) 100 mg QHS PO Last administered on 12/08/18at 20:04; Admin Dose 100 MG; Start 12/08/18 at 21:00 Rosuvastatin Calcium (Crestor) 40 mg QHS PO Last administered on 12/08/18at 20:06; Admin Dose 40 MG; Start 12/08/18 at 21:00 Zolpidem Tartrate (Ambien) 10 mg QHS PRN PO INSOMNIA Last administered on 12/09/18at 02:35; Admin Dose 10 MG; Start 12/08/18 at 14:30 Amlodipine Besylate (Norvasc) 10 mg DAILY PO ; Start 12/10/18 at 09:00 Losartan Potassium (Cozaar) 100 mg DAILY PO ; Start 12/10/18 at 09:00 Hydrochlorothiazide (Hydrochlorothiazide) 25 mg DAILY PO ; Start 12/10/18 at 09:00 Aspirin (Aspirin) 81 mg DAILY PO ; Start 12/10/18 at 09:00 SHERYL VELÁZQUEZ NP Dec 09, 2018 13:40
[2018-12-09] MEDS: HYDROCODONE/APAP (5/325) TAB PO PRN (16:05)
[2018-12-09] MEDS: ROSUVASTATIN CALCIUM 40 MG TABLET PO SCH (21:22)
--- NOTE | 2018-12-09 21:33 | PN ---
Date/Time of Note Date/Time of Note DATE: 12/09/18 TIME: 21:31 Assessment/Plan Lines/Catheters IV Catheter Type (from Nrsg): A Line Robbins in Place (from Nrsg): No Assessment/Plan Assessment/Plan SP ALIF and thrombectomy left CA pt with palpable left DPA and strong PT doppler signals will continue supp care Adv Diet Subjective 24 Hr Interval Summary Constitutional: improved Pain Control: mild Exam/Review of Systems Vital Signs Vitals Vital Signs Date Temp Pulse Resp B/P (MAP) Pulse Ox O2 O2 Flow FiO2 Time Delivery Rate 12/09/18 98.8 72 20 125/69 100 20:00 (87) 12/09/18 Nasal 12:00 Cannula 12/09/18 3.0 08:00 Intake and Output 12/08/18 12/08/18 12/09/18 1515:00 23:00 07:00 IntakeIntake Total 900 ml 800 ml 400 ml OutputOutput Total 700 ml 465 ml 425 ml BalanceBalance 200 ml 335 ml -25 ml Exam Neck: supple, non-tender Respiratory: clear to auscultation, normal air movement Cardiovascular: regular rate and rhythm, nl pulses Gastrointestinal: soft, nl liver, spleen, non-tender Musculoskeletal: nl extremities to inspection, nl gait and stance Extremities: normal pulses Results Result Diagram: 12/08/18 0500 12/08/18 0500 EVIE ARTHUR MD Dec 09, 2018 21:33
[2018-12-10] VITALS (10 sets, daily range): BP systolic 121–150; BP diastolic 57–63; PULSE 72–151; RESP 19–20
[2018-12-10] MEDS: HYDROmorphONE 0.5 MG/0.5 ML SYG IV PRN (00:30)
[2018-12-10] MEDS: ZOLPIDEM 5 MG TAB PO PRN (02:21)
[2018-12-10] MEDS: HYDROCODONE/APAP (5/325) TAB PO PRN ×5 (05:22→22:43)
[2018-12-10] MEDS: NS + KCL 20 MEQ 1,000 ML IV SCH ×2 (06:30→13:21)
[2018-12-10] MEDS: CEFAZOLIN 2 GM/50 ML (PMX) 50 ML IVPB SCH ×3 (06:32→21:01)
--- NOTE | 2018-12-10 07:34 | PN ---
Date/Time of Note Date/Time of Note DATE: 12/10/18 TIME: 07:33 Assessment/Plan VTE Prophylaxis Risk score (from Nsg)>0 risk: 8 SCD applied (from Nsg): Yes Lines/Catheters IV Catheter Type (from Nrsg): A Line Urinary Cath still in place: Yes Reason Cath still needed: urinary retention Assessment/Plan Assessment/Plan - S/p anterior retroperitoneal interbody fusion of L3-S1 by Dr. Lobato. Continue IV fluids and postoperative antibiotic. Continue [place] and Dilaudid for pain. Plan for posterior fusion next week. - Status post left iliac artery thrombectomy by Dr. Ibrahim. Neurovascular check bilateral lower extremities every hour. - HTN, continue metoprolol. Will resume patient's Norvasc, Cozaar, and hydrochlorothiazide with parameters. - RA, patient gets injection with rituximab, follows with Dr. Saldivar as an outpatient. - Asthma, stable, continue Breo Ellipta as needed. Further recommendations based on clinical course. Plan of care discussed with Dr. Whatley. Result Diagram: 12/10/18 0620 12/10/18 0620 Results 24hrs Laboratory Tests Test 12/10/18 06:20 White Blood Count 13.4 #H Red Blood Count 3.34 L Hemoglobin 9.9 L Hematocrit 31.7 L Mean Corpuscular Volume 94.9 Mean Corpuscular Hemoglobin 29.6 Mean Corpuscular Hemoglobin Concent 31.2 L Red Cell Distribution Width 15.3 H Platelet Count 124 #L Mean Platelet Volume 12.1 H Immature Granulocytes % 0.900 H Neutrophils % 69.4 Lymphocytes % 17.0 Monocytes % 11.6 H Eosinophils % 0.7 Basophils % 0.4 Nucleated Red Blood Cells % 0.0 Immature Granulocytes # 0.120 H Neutrophils # 9.3 H Lymphocytes # 2.3 Monocytes # 1.6 H Eosinophils # 0.1 Basophils # 0.1 Nucleated Red Blood Cells # 0.0 Sodium Level 143 Potassium Level 4.3 Chloride Level 112 H Carbon Dioxide Level 23 Anion Gap 8 Blood Urea Nitrogen 14 Creatinine 0.89 Est Glomerular Filtrat Rate mL/min Glucose Level 75 Calcium Level 6.6 L Exam/Review of Systems Exam Vitals Vital Signs Date Temp Pulse Resp B/P (MAP) Pulse Ox O2 O2 Flow FiO2 Time Delivery Rate 12/10/18 100.6 88 20 125/58 96 07:19 (80) 12/09/18 Nasal 12:00 Cannula 12/09/18 3.0 08:00 Intake and Output 12/09/18 12/09/18 12/10/18 1515:00 23:00 07:00 IntakeIntake Total 1195 ml 250 ml 250 ml OutputOutput Total 520 ml 300 ml 900 ml BalanceBalance 675 ml -50 ml -650 ml Results Results 24hrs Laboratory Tests Test 12/10/18 06:20 White Blood Count 13.4 #H Red Blood Count 3.34 L Hemoglobin 9.9 L Hematocrit 31.7 L Mean Corpuscular Volume 94.9 Mean Corpuscular Hemoglobin 29.6 Mean Corpuscular Hemoglobin Concent 31.2 L Red Cell Distribution Width 15.3 H Platelet Count 124 #L Mean Platelet Volume 12.1 H Immature Granulocytes % 0.900 H Neutrophils % 69.4 Lymphocytes % 17.0 Monocytes % 11.6 H Eosinophils % 0.7 Basophils % 0.4 Nucleated Red Blood Cells % 0.0 Immature Granulocytes # 0.120 H Neutrophils # 9.3 H Lymphocytes # 2.3 Monocytes # 1.6 H Eosinophils # 0.1 Basophils # 0.1 Nucleated Red Blood Cells # 0.0 Sodium Level 143 Potassium Level 4.3 Chloride Level 112 H Carbon Dioxide Level 23 Anion Gap 8 Blood Urea Nitrogen 14 Creatinine 0.89 Est Glomerular Filtrat Rate mL/min Glucose Level 75 Calcium Level 6.6 L Medications Medication Current Medications Acetaminophen/ Hydrocodone Bitart ([place] (5/325)) 1 tab Q4H PRN PO .PAIN 1-5 Last administered on 12/10/18at 05:22; Admin Dose 1 TAB; Start 12/07/18 at 17:30 Docusate Sodium (Colace) 100 mg BID PO Last administered on 12/09/18at 21:22; Admin Dose 100 MG; Start 12/07/18 at 17:30 IV Flush (NS 3 ml) 3 ml PER PROTOCOL IV ; Start 12/07/18 at 17:30 Naloxone HCl (Narcan) 0.2 mg Q2M PRN IV RR 8 BREATHS/MIN OR LESS; Start 12/07/18 at 17:30 Cefazolin Sodium/ Dextrose 50 ml @ 100 mls/hr Q8 IVPB Last administered on 12/10/18at 06:32; Admin Dose 100 MLS/HR; Start 12/07/18 at 18:00; Stop 12/12/18 at 22:00 Potassium Chloride/Sodium Chloride 1,000 ml @ 100 mls/hr Q10H IV Last administered on 12/09/18at 22:47; Admin Dose 100 MLS/HR; Start 12/07/18 at 18:30 Alprazolam (Xanax) 0.25 mg TID PRN PO ANXIETY; Start 12/08/18 at 14:30 Metoprolol Tartrate (Lopressor) 12.5 mg BID PO Last administered on 12/09/18 21:22; Admin Dose 12.5 MG; Start 12/08/18 at 21:00 Pregabalin (Lyrica) 50 mg QAM PO Last administered on 12/09/18 09:22; Admin Dose 50 MG; Start 12/09/18 at 09:00 Pregabalin (Lyrica) 100 mg QHS PO Last administered on 12/09/18at 23:09; Admin Dose 100 MG; Start 12/08/18 at 21:00 Rosuvastatin Calcium (Crestor) 40 mg QHS PO Last administered on 12/09/18 21:22; Admin Dose 40 MG; Start 12/08/18 at 21:00 Zolpidem Tartrate (Ambien) 10 mg QHS PRN PO INSOMNIA Last administered on 12/10/18at 02:21; Admin Dose 10 MG; Start 12/08/18 at 14:30 Amlodipine Besylate (Norvasc) 10 mg DAILY PO ; Start 12/10/18 at 09:00 Losartan Potassium (Cozaar) 100 mg DAILY PO ; Start 12/10/18 at 09:00 Hydrochlorothiazide (Hydrochlorothiazide) 25 mg DAILY PO ; Start 12/10/18 at 09:00 Aspirin (Aspirin) 81 mg DAILY PO ; Start 12/10/18 at 09:00 Hydromorphone HCl (Dilaudid) 0.5 mg Q3 PRN IV SEVERE PAIN LEVEL 7-10 Last administered on 12/10/18 00:30; Admin Dose 0.5 MG; Start 12/09/18 at 15:30 DEJA HERRERA Dec 10, 2018 07:34
[2018-12-10] MEDS: AMLODIPINE 10 MG TAB PO SCH (08:46)
[2018-12-10] MEDS: HYDROCHLOROTHIAZIDE 25 MG TAB PO SCH (08:47)
[2018-12-10] MEDS: LOSARTAN 50 MG TAB PO SCH (08:47)
[2018-12-10] MEDS: METOPROLOL 25 MG TAB PO SCH ×2 (08:48→20:50)
[2018-12-10] MEDS: ASPIRIN 81 MG TAB PO SCH (08:49)
[2018-12-10] MEDS: PREGABALIN 50 MG CAP PO SCH ×2 (08:49→20:50)
[2018-12-10] MEDS: DOCUSATE SODIUM 100 MG CAP PO SCH ×2 (08:49→20:49)
[2018-12-10] MEDS ORDERED: HYDROCHLOROTHIAZIDE PO SCH (09:00)
[2018-12-10] MEDS ORDERED: OLMESARTAN PO SCH (09:00)
[2018-12-10] MEDS ORDERED: [UNRECOGNIZED DRUG - OTHER] PO SCH (09:00)
--- NOTE | 2018-12-10 12:01 | PN ---
Date/Time of Note Date/Time of Note DATE: 12/10/18 TIME: 12:00 Assessment/Plan Lines/Catheters IV Catheter Type (from Nrsg): A Line Robbins in Place (from Nrsg): Yes Assessment/Plan Assessment/Plan SP ALIF and thrombectomy left CA pt with palpable left DPA and strong PT doppler signals will continue supp care Adv Diet Subjective 24 Hr Interval Summary Constitutional: improved Pain Control: mild Exam/Review of Systems Vital Signs Vitals Vital Signs Date Temp Pulse Resp B/P (MAP) Pulse Ox O2 O2 Flow FiO2 Time Delivery Rate 12/10/18 97.5 72 20 128/61 95 Nasal 11:08 (83) Cannula 12/09/18 3.0 08:00 Intake and Output 12/09/18 12/09/18 12/10/18 1515:00 23:00 07:00 IntakeIntake Total 1195 ml 250 ml 250 ml OutputOutput Total 520 ml 300 ml 900 ml BalanceBalance 675 ml -50 ml -650 ml Exam ENMT: nl external ears & nose, nl lips & teeth, nl nasal mucosa & septum, mucosa pink and moist Neck: supple, non-tender Respiratory: clear to auscultation, normal air movement Cardiovascular: regular rate and rhythm, nl pulses Gastrointestinal: soft, nl liver, spleen, non-tender Musculoskeletal: nl extremities to inspection, nl gait and stance Results Result Diagram: 12/10/1861912/10/18619 EVIE ARTHUR MD Dec 10, 2018 12:01
[2018-12-10] MEDS: ROSUVASTATIN CALCIUM 40 MG TABLET PO SCH (20:50)
[2018-12-11] VITALS (13 sets, daily range): BP systolic 115–159; BP diastolic 58–80; PULSE 75–152; RESP 18–20
[2018-12-11] MEDS: CALCIUM GLUCONATE 10% 1 GM in DEXTROSE 5% 100 ML IVPB SCH ×2 (01:14→03:09)
[2018-12-11] MEDS: ZOLPIDEM 5 MG TAB PO PRN ×2 (01:14→21:37)
[2018-12-11] MEDS: CEFAZOLIN 2 GM/50 ML (PMX) 50 ML IVPB SCH ×3 (05:51→22:21)
[2018-12-11] MEDS: ASPIRIN 81 MG TAB PO SCH (08:59)
[2018-12-11] MEDS: DOCUSATE SODIUM 100 MG CAP PO SCH ×2 (08:59→21:31)
[2018-12-11] MEDS ORDERED: POTASSIUM PHOSPHATE 20 MM in SOD CHLORIDE 0.9% 250 ML IVPB ONE (09:00)
[2018-12-11] MEDS ORDERED: MAGNESIUM SULFATE 4 GM/100 ML 100 ML IVPB ONE (09:00)
[2018-12-11] MEDS: PREGABALIN 50 MG CAP PO SCH ×2 (09:00→21:00)
[2018-12-11] MEDS: AMLODIPINE 10 MG TAB PO SCH (09:00)
[2018-12-11] MEDS: HYDROCHLOROTHIAZIDE 25 MG TAB PO SCH (09:01)
[2018-12-11] MEDS: METOPROLOL 25 MG TAB PO SCH ×2 (09:01→21:32)
[2018-12-11] MEDS: LOSARTAN 50 MG TAB PO SCH (09:02)
[2018-12-11] MEDS: HYDROCODONE/APAP (5/325) TAB PO PRN ×2 (09:02→21:37)
--- NOTE | 2018-12-11 13:38 | CONS ---
Consultation Date/Type/Reason Admit Date/Time Dec 07, 2018 at 12:52 Type of Consult Cardiology Date/Time of Note DATE: 12/11/18 TIME: 13:37 Hx of Present Illness 78 yo with known arrhythmia per self report - here with SVT at 150 - likely a. tach vs MAT - related to pulmonary physiology most likely - BB ok for now, avoid albuterol, will follow with ECHO - not a. fib - no indication for global anti- coag based on SVT - full note dictated # [id number] thank you Past Medical History Home Meds Reported Medications Pregabalin* (Lyrica*) 50 Mg Capsule, 100 MG PO QHS, CAP 12/07/18 Pregabalin* (Lyrica*) 50 Mg Capsule, 50 MG PO QAM, CAP 12/07/18 Olmesartan/Hydrochlorothiazide (Benicar Hct 40-25 mg Tablet) 1 Each Tablet, 1 TAB PO DAILY, TAB 12/07/18 Metoprolol Tartrate* (Lopressor*) 25 Mg Tab, 12.5 MG PO BID, #60 TAB 12/07/18 Denosumab (Prolia) 60 Mg/1 Ml Disp.syrin, 60 MG SQ [id number] 12/07/18 Cholecalciferol* (Vitamin D3*) 1,000 Unit Tablet, 1000 UNIT PO DAILY, TAB 12/07/18 Magnesium Oxide* (Mag-Oxide*) 400 Mg Tablet, 300 MG PO DAILY, TAB 12/07/18 Cyanocobalamin (Vitamin B-12) (B-12) 500 Mcg Tablet, 100 MCG PO DAILY, TAB 12/07/18 Rituximab (Rituxan) 10 Mg/Ml Soln, 500 MG IV as directed 12/07/18 Rosuvastatin Calcium* (Crestor*) 40 Mg Tablet, 40 MG PO QHS, #30 TAB 12/07/18 Aspirin* (Aspirin* Chew) 81 Mg Tab.chew, 81 MG PO DAILY, TAB.CHEW 12/07/18 Alprazolam* (Alprazolam*) 0.25 Mg Tablet, 0.25 MG PO TID PRN for ANXIETY, TAB 12/07/18 Zolpidem Tartrate* (Zolpidem Tartrate*) 10 Mg Tablet, 10 MG PO QHS PRN for INSOMNIA, #30 TAB 12/07/18 Amlodipine Besylate* (Amlodipine Besylate*) 10 Mg Tablet, 10 MG PO DAILY, #30 TAB 12/07/18 Fluticasone-Vilanterol (Breo Ellipta Inhaler) 100-25 Mcg/Actuation Aer.pow.ba, 1 PUFF INHALATION DAILY PRN for SHORTNESS OF BREATH, #1 INHALER 12/07/18 Medications Current Medications Acetaminophen/ Hydrocodone Bitart ([place] (5/325)) 1 tab Q4H PRN PO .PAIN 1-5 Last administered on 12/11/18 09:02; Admin Dose 1 TAB; Start 12/07/18 at 17:30 Docusate Sodium (Colace) 100 mg BID PO Last administered on 12/11/18 08:59; Admin Dose 100 MG; Start 12/07/18 at 17:30 IV Flush (NS 3 ml) 3 ml PER PROTOCOL IV ; Start 12/07/18 at 17:30 Naloxone HCl (Narcan) 0.2 mg Q2M PRN IV RR 8 BREATHS/MIN OR LESS; Start 12/07/18 at 17:30 Cefazolin Sodium/ Dextrose 50 ml @ 100 mls/hr Q8 IVPB Last administered on 12/11/18 13:33; Admin Dose 100 MLS/HR; Start 12/07/18 at 18:00; Stop 12/12/18 at 22:00 Alprazolam (Xanax) 0.25 mg TID PRN PO ANXIETY; Start 12/08/18 at 14:30 Metoprolol Tartrate (Lopressor) 12.5 mg BID PO Last administered on 12/11/18 09:01; Admin Dose 12.5 MG; Start 12/08/18 at 21:00 Pregabalin (Lyrica) 50 mg QAM PO Last administered on 12/10/18 08:49; Admin Dose 50 MG; Start 12/09/18 at 09:00 Pregabalin (Lyrica) 100 mg QHS PO Last administered on 12/10/18 20:50; Admin Dose 100 MG; Start 12/08/18 at 21:00 Rosuvastatin Calcium (Crestor) 40 mg QHS PO Last administered on 12/10/18 20:5 0; Admin Dose 40 MG; Start 12/08/18 at 21:00 Zolpidem Tartrate (Ambien) 10 mg QHS PRN PO INSOMNIA Last administered on 12/11/18 01:14; Admin Dose 10 MG; Start 12/08/18 at 14:30 Amlodipine Besylate (Norvasc) 10 mg DAILY PO Last administered on 12/11/18 09:00; Admin Dose 10 MG; Start 12/10/18 at 09:00 Losartan Potassium (Cozaar) 100 mg DAILY PO Last administered on 12/11/18 09:02; Admin Dose 100 MG; Start 12/10/18 at 09:00 Hydrochlorothiazide (Hydrochlorothiazide) 25 mg DAILY PO Last administered on 12/11/18 09:01; Admin Dose 25 MG; Start 12/10/18 at 09:00 Aspirin (Aspirin) 81 mg DAILY PO Last administered on 12/11/18 08:59; Admin Dose 81 MG; Start 12/10/18 at 09:00 Hydromorphone HCl (Dilaudid) 0.5 mg Q3 PRN IV SEVERE PAIN LEVEL 7-10 Last administered on 12/10/18at 00:30; Admin Dose 0.5 MG; Start 12/09/18 at 15:30 Allergies: Coded Allergies: tramadol (Verified Allergy, Unknown, Rash, 12/07/18) Past Surgical History Past Surgical Hx: other (Status post lumbar surgery, status post hysterectomy, status post right knee replacement, status post left ankle surgery) Social History Alcohol Use: rarely Smoking Status: Never smoker Drug Use: none Exam/Review of Systems Vital Signs Vitals Vital Signs Date Temp Pulse Resp B/P (MAP) Pulse Ox O2 O2 Flow FiO2 Time Delivery Rate 12/11/18 82 12:00 12/11/18 98.9 20 115/58 96 Nasal 11:22 (77) Cannula 12/11/18 2.0 06:00 Intake and Output 12/10/18 12/10/18 12/11/18 1515:00 23:00 07:00 IntakeIntake Total 1250 ml 450 ml OutputOutput Total 1450 ml 2100 ml BalanceBalance -200 ml -1650 ml Labs Result Diagram: 12/11/18 0530 12/11/18 0530 Results 24hrs Laboratory Tests Test 12/11/18 05:30 White Blood Count 10.5 # Red Blood Count 3.75 L Hemoglobin 10.8 L Hematocrit 34.5 L Mean Corpuscular Volume 92.0 Mean Corpuscular Hemoglobin 28.8 L Mean Corpuscular Hemoglobin Concent 31.3 L Red Cell Distribution Width 14.6 H Platelet Count 136 L Mean Platelet Volume 11.9 H Immature Granulocytes % 0.800 H Neutrophils % 65.1 Lymphocytes % 19.2 Monocytes % 11.1 H Eosinophils % 3.3 Basophils % 0.5 Nucleated Red Blood Cells % 0.0 Immature Granulocytes # 0.080 H Neutrophils # 6.8 Lymphocytes # 2.0 Monocytes # 1.2 H Eosinophils # 0.4 Basophils # 0.1 Nucleated Red Blood Cells # 0.0 Sodium Level 137 Potassium Level 3.7 Chloride Level 104 Carbon Dioxide Level 25 Anion Gap 8 Blood Urea Nitrogen 12 Creatinine 0.78 Est Glomerular Filtrat Rate mL/min Glucose Level 93 Calcium Level 7.7 L Phosphorus Level 1.4 L Magnesium Level 1.4 L Medications Medications Current Medications Acetaminophen/ Hydrocodone Bitart ([place] (5/325)) 1 tab Q4H PRN PO .PAIN 1-5 Last administered on 12/11/18 09:02; Admin Dose 1 TAB; Start 12/07/18 at 17:30 Docusate Sodium (Colace) 100 mg BID PO Last administered on 12/11/18 08:59; Admin Dose 100 MG; Start 12/07/18 at 17:30 IV Flush (NS 3 ml) 3 ml PER PROTOCOL IV ; Start 12/07/18 at 17:30 Naloxone HCl (Narcan) 0.2 mg Q2M PRN IV RR 8 BREATHS/MIN OR LESS; Start 12/07/18 at 17:30 Cefazolin Sodium/ Dextrose 50 ml @ 100 mls/hr Q8 IVPB Last administered on 12/11/18 13:33; Admin Dose 100 MLS/HR; Start 12/07/18 at 18:00; Stop 12/12/18 at 22:00 Alprazolam (Xanax) 0.25 mg TID PRN PO ANXIETY; Start 12/08/18 at 14:30 Metoprolol Tartrate (Lopressor) 12.5 mg BID PO Last administered on 12/11/18 09:01; Admin Dose 12.5 MG; Start 12/08/18 at 21:00 Pregabalin (Lyrica) 50 mg QAM PO Last administered on 12/10/18 08:49; Admin Dose 50 MG; Start 12/09/18 at 09:00 Pregabalin (Lyrica) 100 mg QHS PO Last administered on 12/10/18 20:50; Admin Dose 100 MG; Start 12/08/18 at 21:00 Rosuvastatin Calcium (Crestor) 40 mg QHS PO Last administered on 12/10/18 20:50; Admin Dose 40 MG; Start 12/08/18 at 21:00 Zolpidem Tartrate (Ambien) 10 mg QHS PRN PO INSOMNIA Last administered on 12/11/18 01:14; Admin Dose 10 MG; Start 12/08/18 at 14:30 Amlodipine Besylate (Norvasc) 10 mg DAILY PO Last administered on 12/11/18 09 :00; Admin Dose 10 MG; Start 12/10/18 at 09:00 Losartan Potassium (Cozaar) 100 mg DAILY PO Last administered on 12/11/18 09:02; Admin Dose 100 MG; Start 12/10/18 at 09:00 Hydrochlorothiazide (Hydrochlorothiazide) 25 mg DAILY PO Last administered on 12/11/18 09:01; Admin Dose 25 MG; Start 12/10/18 at 09:00 Aspirin (Aspirin) 81 mg DAILY PO Last administered on 12/11/18 08:59; Admin Dose 81 MG; Start 12/10/18 at 09:00 Hydromorphone HCl (Dilaudid) 0.5 mg Q3 PRN IV SEVERE PAIN LEVEL 7-10 Last administered on 12/10/18 00:30; Admin Dose 0.5 MG; Start 12/09/18 at 15:30 NATASHA STEELE MD Dec 11, 2018 13:38
[2018-12-11] MEDS ORDERED: BISACODYL (EC) 5 MG TAB PO ONE (14:30)
--- NOTE | 2018-12-11 18:51 | PN ---
Date/Time of Note Date/Time of Note DATE: 12/11/18 TIME: 18:49 Assessment/Plan Lines/Catheters IV Catheter Type (from Nrsg): Saline Lock Robbins in Place (from Nrsg): Yes Assessment/Plan Assessment/Plan SP ALIF and thrombectomy left CA pt with palpable left DPA and strong PT doppler signals Patient is able to dorsiflex and plantarflex left foot No signs of ischemia will continue supp care Further care with neurosurgery service Subjective 24 Hr Interval Summary Constitutional: no complaints, improved, ambulates, BM, flatus, urine output Pain Control: mild Exam/Review of Systems Vital Signs Vitals Vital Signs Date Temp Pulse Resp B/P (MAP) Pulse Ox O2 O2 Flow FiO2 Time Delivery Rate 12/11/18 93 16:00 12/11/18 98.0 20 131/66 96 Nasal 15:26 (87) Cannula 12/11/18 2.0 06:00 Intake and Output 12/10/18 12/10/18 12/11/18 1515:00 23:00 07:00 IntakeIntake Total 1250 ml 450 ml OutputOutput Total 1450 ml 2100 ml BalanceBalance -200 ml -1650 ml Exam Eyes: nl conjunctiva, EOMI, nl lids, nl sclera ENMT: nl external ears & nose, nl lips & teeth, nl nasal mucosa & septum, mucosa pink and moist Neck: supple, non-tender Respiratory: clear to auscultation, normal air movement Cardiovascular: regular rate and rhythm, nl pulses Gastrointestinal: soft, nl liver, spleen, non-tender Musculoskeletal: nl extremities to inspection, nl gait and stance Results Result Diagram: 12/11/1830 12/11/1830 EVIE ARTHUR MD Dec 11, 2018 18:51
[2018-12-11] MEDS: ROSUVASTATIN CALCIUM 40 MG TABLET PO SCH (21:31)
--- NOTE | 2018-12-11 21:33 | CONS ---
DATE OF ADMISSION: 12/07/2018 DATE OF CONSULTATION: 12/11/2018 TYPE OF CONSULTATION: Cardiology. REFERRING PHYSICIAN: Dr. Brendon Whatley MD REASON FOR EVALUATION: Supraventricular tachycardia. HISTORY OF PRESENT ILLNESS: Ms. Alvarado is a 77-year-old woman with history of hypertension, dyslipid emia, history of rheumatoid arthritis, history of asthma, history of recent back surgery as well as D VT, who comes into hospital now for evaluation of back pain. I have been asked to see patient in [facility] because she had several episodes of supraventricular tachycardia with tachycardic rate abou t 150. It is not really sustained for greater than 10 seconds. I do appreciate a sinus impulse whic h is most consistent with atrial tachycardia, like possibly multifocal atrial tachycardia. There are not enough beats to make a diagnosis. The patient has known pulmonary disease and this is the most likely precipitating cause. The patient tells me that she has a bed worker in outpatient, Dr. Jorge ravi, who has been treating her for some kind of arrhythmia, so I do think the finding is new. Currentl y, the patient is hemodynamically stable. I do not think we should try to harshly to maintain her in sinus rhythm as the episodes of brief. I think a small dose of beta josefina and albuterol avoidance might be the most reasonable strategy at this particular point. I am going to see if the patient cohen d a recent 2D echo to assess ejection fraction and provide recommendation as necessary. PAST MEDICAL HISTORY: 1. Hypertension. 2. Dyslipidemia. 3. History of asthma. 4. History of rheumatoid arthritis. 5. History of recent back surgery. 6. Recent history of DVT. ALLERGIES: PATIENT ALLERGIC TO TRAMADOL. SOCIAL HISTORY: The patient does not smoke, does not drink, does not use drugs. FAMILY HISTORY: Negative for sudden cardiac or premature coronary artery disease. MEDICATIONS: Include: 1. Amlodipine 10 mg p.o. once a day. 2. Losartan 100 mg p.o. once a day for high blood pressure. 3. Aspirin 81 mg a day. 4. Lyrica 50 mg. 5. Metoprolol titrate 12.5 mg p.o. b.i.d. 6. Lovastatin. 7. Alprazolam. 8. Zolpidem. 9. Naloxone. REVIEW OF SYSTEMS: CONSTITUTIONAL: No fevers, no chills, no recent weight changes. HEENT: No change in vision or hearing. CARDIAC: Chest pain reported now. GASTROINTESTINAL: No nausea, vomiting, diarrhea, constipation. GENITOURINARY: No dysuria, hematuria. NEUROLOGIC: Status post back surgery with left-sided weakness. PHYSICAL EXAMINATION: VITAL SIGNS: Temperature 98.9, heart rate is 82, blood pressure 115/58. GENERAL: She is a well-nourished woman in no acute distress, alert and oriented x2 to 3, although so mewhat forgetful. HEENT: Head is normocephalic. Eyes anicteric. NECK: Supple. JVD 6 to 7 cm. There is no lymphadenopathy or thyromegaly. HEART: Regular, soft holosystolic murmur. PMI is minimally displaced. There is no S3. LUNGS: Coarse to bases. ABDOMEN: Distended. Bowel sounds are present. There is no hepatosplenomegaly. EXTREMITIES: Show trace edema. LABORATORY DATA: White blood cell count 10.5, hemoglobin is 10.8, platelets 136. INR is 0.9. Sodiu m 137, potassium 3.7. Her BUN 12, creatinine 0.7. ASSESSMENT AND PLAN: 1. Supraventricular tachycardia. Her supraventricular tachycardia is most likely atrial tachycardia versus multifocal atrial tachycardia, which is a fairly similar diagnosis. Both of these rhythms ar e related to likely increased pulmonary pressures and pulmonary physiology. I think at this point th e patient is hemodynamically stable. I think beta josefina is a good idea for now. I would recommend avoidance of albuterol. We will follow up with a 2D echo per recommendation as necessary. There is no indication for global anticoagulation in regards to this supraventricular arrhythmia. 2. Hypertension. Blood pressure modestly well controlled. Continue to adjust medications as needed . 3. History of deep vein thrombosis/pulmonary embolus, status post thrombectomy. Primary team follow s. Dr. Ibrahim is assessing after the procedure. 4. Laboratory studies per primary team. Continue to adjust medications as needed. 5. Anemia. Hemoglobin is stable, no signs of bleeding now. I would like to thank Dr. Whatley for referring this patient for my evaluation. Dictated By: NATASHA STEELE MD ML/CARMINA Conf#: [id number] DID#: [id number] CC: FAZAL CASTILLO MD;*EndCC*
[2018-12-12] VITALS (14 sets, daily range): BP systolic 98–153; BP diastolic 52–82; PULSE 76–164; RESP 18–20
[2018-12-12] MEDS: HYDROCODONE/APAP (5/325) TAB PO PRN ×2 (05:50→18:07)
[2018-12-12] MEDS: CEFAZOLIN 2 GM/50 ML (PMX) 50 ML IVPB SCH ×3 (05:50→21:21)
--- NOTE | 2018-12-12 07:39 | PN ---
Date/Time of Note Date/Time of Note DATE: 12/12/18 TIME: 07:35 Assessment/Plan VTE Prophylaxis Risk score (from Nsg)>0 risk: 16 SCD applied (from Nsg): Yes Lines/Catheters IV Catheter Type (from Nrsg): Saline Lock Urinary Cath still in place: Yes Assessment/Plan Assessment/Plan -Hypomag - Mag replaced -- Hypophosphatemia - K Phos given - S/p anterior retroperitoneal interbody fusion of L3-S1 by Dr. Lobato. Continue IV fluids and postoperative antibiotic. Continue [place] and Dilaudid for pain. Plan for posterior fusion next week. - Status post left iliac artery thrombectomy by Dr. Ibrahim. Neurovascular check bilateral lower extremities every hour. - HTN, continue metoprolol. Will resume patient's Norvasc, Cozaar, and hydrochlorothiazide with parameters. - RA, patient gets injection with rituximab, follows with Dr. Saldivar as an outpatient. - Asthma, stable, continue Breo Ellipta as needed. Further recommendations based on clinical course. Plan of care discussed with Dr. Whatley. Result Diagram: 12/11/1830 12/12/1831 Results 24hrs Laboratory Tests Test 12/12/18 05:31 Sodium Level 139 Potassium Level 3.9 Chloride Level 98 Carbon Dioxide Level 33 H Anion Gap 8 Blood Urea Nitrogen 11 Creatinine 0.82 Est Glomerular Filtrat Rate mL/min Glucose Level 94 Calcium Level 8.5 Phosphorus Level 2.1 L Magnesium Level 1.7 Thyroid Stimulating Hormone (TSH) Pending Subjective 24 Hr Interval Summary Free Text/Dictation 12/11/2018 eNTRY Exam/Review of Systems Exam Vitals Vital Signs Date Temp Pulse Resp B/P (MAP) Pulse Ox O2 O2 Flow FiO2 Time Delivery Rate 12/12/18 2.0 04:20 12/12/18 93 04:04 12/12/18 99.1 20 153/73 96 04:00 (99) 12/11/18 Nasal 15:26 Cannula Intake and Output 12/11/18 12/11/18 12/12/18 1515:00 23:00 07:00 IntakeIntake Total 150 ml 905 ml 400 ml OutputOutput Total 1800 ml 400 ml 2700 ml BalanceBalance -1650 ml 505 ml -2300 ml Results Results 24hrs Laboratory Tests Test 12/12/18 05:31 Sodium Level 139 Potassium Level 3.9 Chloride Level 98 Carbon Dioxide Level 33 H Anion Gap 8 Blood Urea Nitrogen 11 Creatinine 0.82 Est Glomerular Filtrat Rate mL/min Glucose Level 94 Calcium Level 8.5 Phosphorus Level 2.1 L Magnesium Level 1.7 Thyroid Stimulating Hormone (TSH) Pending Medications Medication Current Medications Acetaminophen/ Hydrocodone Bitart ([place] (5/325)) 1 tab Q4H PRN PO .PAIN 1-5 Last administered on 12/12/18 05:50; Admin Dose 1 TAB; Start 12/07/18 at 17:30 Docusate Sodium (Colace) 100 mg BID PO Last administered on 12/11/18 21:31; Admin Dose 100 MG; Start 12/07/18 at 17:30 IV Flush (NS 3 ml) 3 ml PER PROTOCOL IV ; Start 12/07/18 at 17:30 Naloxone HCl (Narcan) 0.2 mg Q2M PRN IV RR 8 BREATHS/MIN OR LESS; Start 12/07/18 at 17:30 Cefazolin Sodium/ Dextrose 50 ml @ 100 mls/hr Q8 IVPB Last administered on 12/12/18 05:50; Admin Dose 100 MLS/HR; Start 12/07/18 at 18:00; Stop 12/12/18 at 22:00 Alprazolam (Xanax) 0.25 mg TID PRN PO ANXIETY; Start 12/08/18 at 14:30 Metoprolol Tartrate (Lopressor) 12.5 mg BID PO Last administered on 12/11/18 21:32; Admin Dose 12.5 MG; Start 12/08/18 at 21:00 Pregabalin (Lyrica) 50 mg QAM PO Last administered on 12/10/18 08:49; Admin Dose 50 MG; Start 12/09/18 at 09:00 Pregabalin (Lyrica) 100 mg QHS PO Last administered on 12/10/18 20:50; Admin Dose 100 MG; Start 12/08/18 at 21:00 Rosuvastatin Calcium (Crestor) 40 mg QHS PO Last administered on 12/11/18at 2 1:31; Admin Dose 40 MG; Start 12/08/18 at 21:00 Zolpidem Tartrate (Ambien) 10 mg QHS PRN PO INSOMNIA Last administered on 12/11/18 21:37; Admin Dose 10 MG; Start 12/08/18 at 14:30 Amlodipine Besylate (Norvasc) 10 mg DAILY PO Last administered on 12/11/18 09:00; Admin Dose 10 MG; Start 12/10/18 at 09:00 Losartan Potassium (Cozaar) 100 mg DAILY PO Last administered on 12/11/18 09:02; Admin Dose 100 MG; Start 12/10/18 at 09:00 Hydrochlorothiazide (Hydrochlorothiazide) 25 mg DAILY PO Last administered on 12/11/18 09:01; Admin Dose 25 MG; Start 12/10/18 at 09:00 Aspirin (Aspirin) 81 mg DAILY PO Last administered on 12/11/18 08:59; Admin Dose 81 MG; Start 12/10/18 at 09:00 Hydromorphone HCl (Dilaudid) 0.5 mg Q3 PRN IV SEVERE PAIN LEVEL 7-10 Last administered on 12/10/18 00:30; Admin Dose 0.5 MG; Start 12/09/18 at 15:30 DEJA HERRERA Dec 12, 2018 07:38
--- NOTE | 2018-12-12 07:40 | PN ---
Date/Time of Note Date/Time of Note DATE: 12/12/18 TIME: 07:39 Assessment/Plan VTE Prophylaxis Risk score (from Nsg)>0 risk: 16 SCD applied (from Nsg): Yes Lines/Catheters IV Catheter Type (from Nrsg): Saline Lock Urinary Cath still in place: Yes Assessment/Plan Assessment/Plan -Hypomagnesium- resolved -- Hypophosphatemia - will give K Phos; am phos level - S/p anterior retroperitoneal interbody fusion of L3-S1 by Dr. Lobato. Continue IV fluids and postoperative antibiotic. Continue [place] and Dilaudid for pain. Plan for posterior fusion next week. - Status post left iliac artery thrombectomy by Dr. Ibrahim. Neurovascular check bilateral lower extremities every hour. - HTN, continue metoprolol. Will resume patient's Norvasc, Cozaar, and hydrochlorothiazide with parameters. - RA, patient gets injection with rituximab, follows with Dr. Saldivar as an outpatient. - Asthma, stable, continue Breo Ellipta as needed. Further recommendations based on clinical course. Plan of care discussed with Dr. Whatley. Result Diagram: 12/11/1830 12/12/18 0531 Results 24hrs Laboratory Tests Test 12/12/18 05:31 Sodium Level 139 Potassium Level 3.9 Chloride Level 98 Carbon Dioxide Level 33 H Anion Gap 8 Blood Urea Nitrogen 11 Creatinine 0.82 Est Glomerular Filtrat Rate mL/min Glucose Level 94 Calcium Level 8.5 Phosphorus Level 2.1 L Magnesium Level 1.7 Thyroid Stimulating Hormone (TSH) Pending Exam/Review of Systems Exam Vitals Vital Signs Date Temp Pulse Resp B/P (MAP) Pulse Ox O2 O2 Flow FiO2 Time Delivery Rate 12/12/18 2.0 04:20 12/12/18 93 04:04 12/12/18 99.1 20 153/73 96 04:00 (99) 12/11/18 Nasal 15:26 Cannula Intake and Output 12/11/18 12/11/18 12/12/18 1515:00 23:00 07:00 IntakeIntake Total 150 ml 905 ml 400 ml OutputOutput Total 1800 ml 400 ml 2700 ml BalanceBalance -1650 ml 505 ml -2300 ml Results Results 24hrs Laboratory Tests Test 12/12/18 05:31 Sodium Level 139 Potassium Level 3.9 Chloride Level 98 Carbon Dioxide Level 33 H Anion Gap 8 Blood Urea Nitrogen 11 Creatinine 0.82 Est Glomerular Filtrat Rate mL/min Glucose Level 94 Calcium Level 8.5 Phosphorus Level 2.1 L Magnesium Level 1.7 Thyroid Stimulating Hormone (TSH) Pending Medications Medication Current Medications Acetaminophen/ Hydrocodone Bitart ([place] (5/325)) 1 tab Q4H PRN PO .PAIN 1-5 Last administered on 12/12/18 05:50; Admin Dose 1 TAB; Start 12/07/18 at 17:30 Docusate Sodium (Colace) 100 mg BID PO Last administered on 12/11/18 21:31; Admin Dose 100 MG; Start 12/07/18 at 17:30 IV Flush (NS 3 ml) 3 ml PER PROTOCOL IV ; Start 12/07/18 at 17:30 Naloxone HCl (Narcan) 0.2 mg Q2M PRN IV RR 8 BREATHS/MIN OR LESS; Start 12/07/18 at 17:30 Cefazolin Sodium/ Dextrose 50 ml @ 100 mls/hr Q8 IVPB Last administered on 12/12/18 05:50; Admin Dose 100 MLS/HR; Start 12/07/18 at 18:00; Stop 12/12/18 at 22:00 Alprazolam (Xanax) 0.25 mg TID PRN PO ANXIETY; Start 12/08/18 at 14:30 Metoprolol Tartrate (Lopressor) 12.5 mg BID PO Last administered on 12/11/18 21:32; Admin Dose 12.5 MG; Start 12/08/18 at 21:00 Pregabalin (Lyrica) 50 mg QAM PO Last administered on 12/10/18 08:49; Admin Dose 50 MG; Start 12/09/18 at 09:00 Pregabalin (Lyrica) 100 mg QHS PO Last administered on 12/10/18 20:50; Admin Dose 100 MG; Start 12/08/18 at 21:00 Rosuvastatin Calcium (Crestor) 40 mg QHS PO Last administered on 12/11/18 21:31; Admin Dose 40 MG; Start 12/08/18 at 21:00 Zolpidem Tartrate (Ambien) 10 mg QHS PRN PO INSOMNIA Last administered on 12/11/18 21:37; Admin Dose 10 MG; Start 12/08/18 at 14:30 Amlodipine Besylate (Norvasc) 10 mg DAILY PO Last administered on 12/11/18 09:00; Admin Dose 10 MG; Start 12/10/18 at 09:00 Losartan Potassium (Cozaar) 100 mg DAILY PO Last administered on 12/11/18 09:02; Admin Dose 100 MG; Start 12/10/18 at 09:00 Hydrochlorothiazide (Hydrochlorothiazide) 25 mg DAILY PO Last administered on 12/11/18 09:01; Admin Dose 25 MG; Start 12/10/18 at 09:00 Aspirin (Aspirin) 81 mg DAILY PO Last administered on 12/11/18 08:59; Admin Dose 81 MG; Start 12/10/18 at 09:00 Hydromorphone HCl (Dilaudid) 0.5 mg Q3 PRN IV SEVERE PAIN LEVEL 7-10 Last administered on 12/10/18 00:30; Admin Dose 0.5 MG; Start 12/09/18 at 15:30 DEJA HERRERA Dec 12, 2018 07:40
[2018-12-12] MEDS: HYDROmorphONE 0.5 MG/0.5 ML SYG IV PRN (08:15)
[2018-12-12] MEDS: LOSARTAN 50 MG TAB PO SCH (08:15)
[2018-12-12] MEDS: DOCUSATE SODIUM 100 MG CAP PO SCH ×2 (08:15→21:20)
[2018-12-12] MEDS: ASPIRIN 81 MG TAB PO SCH (08:16)
[2018-12-12] MEDS: AMLODIPINE 10 MG TAB PO SCH (08:16)
[2018-12-12] MEDS: HYDROCHLOROTHIAZIDE 25 MG TAB PO SCH (08:16)
[2018-12-12] MEDS: METOPROLOL 25 MG TAB PO SCH ×2 (08:16→21:20)
[2018-12-12] MEDS: PREGABALIN 50 MG CAP PO SCH ×2 (08:37→21:20)
[2018-12-12] MEDS: AMIODARONE 200 MG TAB PO SCH ×3 (08:38→21:21)
[2018-12-12] MEDS: ENOXAPARIN 80 MG/0.8 ML SYG SC SCH ×2 (08:46→21:39)
[2018-12-12] MEDS ORDERED: AMIODARONE 200 MG TAB PO SCH (09:00)
[2018-12-12] MEDS ORDERED: ENOXAPARIN 100 MG/ML SYG SC SCH (09:00)
[2018-12-12] MEDS ORDERED: POTASSIUM PHOSPHATE 15 MM in SOD CHLORIDE 0.9% 250 ML IVPB ONE (09:00)
--- NOTE | 2018-12-12 14:47 | CONS ---
Consult Date/Type/Reason Admit Date/Time Dec 07, 2018 at 12:52 Initial Consult Date Date/Time of Note DATE: 12/12/18 TIME: 14:44 Subjective I was called by tele staff to tell me pt is in a. fib with RVR - loaded with amiodarone and Lovenox for CVA protection - I reviewd rhythm strips carefully - still feel that regularity supports a. tach vs atypical a. f more then a. fib - now converted to sinus - will complete amio Rx - outpt EPS advised. ROS: No fever, no chills, no nausea, no vomiting, no diarrhea/constipation No recent weight changes No chest pain, no PND, no orthopnea No dizziness, blurred vision No thirst, no heat or cold intolerance Objective Vitals Vital Signs Date Temp Pulse Resp B/P (MAP) Pulse Ox O2 O2 Flow FiO2 Time Delivery Rate 12/12/18 98.0 76 18 98/52 (67) 98 12:15 12/12/18 Nasal 3.0 10:16 Cannula Intake and Output 12/11/18 12/11/18 12/12/18 1515:00 23:00 07:00 IntakeIntake Total 150 ml 905 ml 400 ml OutputOutput Total 1800 ml 400 ml 2700 ml BalanceBalance -1650 ml 505 ml -2300 ml Exam General: WN/WD/NAD, AOx 3 HEENT: Unicetric/atraumatic/EOMI (follow commands) NECK: JVD elevated, no thyromegaly Lymph: no lymphadenopathy HEART: regular with no S3, II/ systolic murmur at apex LUNGS: Coarse sounds ABD: soft, NT, ND, +BS : Intact Neuro: non focal SKIN: chronic changes EXT: trace edema Results/Medications Result Diagram: 12/11/1852912/12/18 0531 Results 24 hrs Laboratory Tests Test 12/12/18 05:31 Sodium Level 139 Potassium Level 3.9 Chloride Level 98 Carbon Dioxide Level 33 H Anion Gap 8 Blood Urea Nitrogen 11 Creatinine 0.82 Est Glomerular Filtrat Rate mL/min Glucose Level 94 Calcium Level 8.5 Phosphorus Level 2.1 L Magnesium Level 1.7 Thyroid Stimulating Hormone (TSH) 1.610 Home Meds Reported Medications Pregabalin* (Lyrica*) 50 Mg Capsule, 100 MG PO QHS, CAP 12/07/18 Pregabalin* (Lyrica*) 50 Mg Capsule, 50 MG PO QAM, CAP 12/07/18 Olmesartan/Hydrochlorothiazide (Benicar Hct 40-25 mg Tablet) 1 Each Tablet, 1 TAB PO DAILY, TAB 12/07/18 Metoprolol Tartrate* (Lopressor*) 25 Mg Tab, 12.5 MG PO BID, #60 TAB 12/07/18 Denosumab (Prolia) 60 Mg/1 Ml Disp.syrin, 60 MG SQ [id number] 12/07/18 Cholecalciferol* (Vitamin D3*) 1,000 Unit Tablet, 1000 UNIT PO DAILY, TAB 12/07/18 Magnesium Oxide* (Mag-Oxide*) 400 Mg Tablet, 300 MG PO DAILY, TAB 12/07/18 Cyanocobalamin (Vitamin B-12) (B-12) 500 Mcg Tablet, 100 MCG PO DAILY, TAB 12/07/18 Rituximab (Rituxan) 10 Mg/Ml Soln, 500 MG IV as directed 12/07/18 Rosuvastatin Calcium* (Crestor*) 40 Mg Tablet, 40 MG PO QHS, #30 TAB 12/07/18 Aspirin* (Aspirin* Chew) 81 Mg Tab.chew, 81 MG PO DAILY, TAB.CHEW 12/07/18 Alprazolam* (Alprazolam*) 0.25 Mg Tablet, 0.25 MG PO TID PRN for ANXIETY, TAB 12/07/18 Zolpidem Tartrate* (Zolpidem Tartrate*) 10 Mg Tablet, 10 MG PO QHS PRN for INS OMNIA, #30 TAB 12/07/18 Amlodipine Besylate* (Amlodipine Besylate*) 10 Mg Tablet, 10 MG PO DAILY, #30 TAB 12/07/18 Fluticasone-Vilanterol (Breo Ellipta Inhaler) 100-25 Mcg/Actuation Aer.pow.ba, 1 PUFF INHALATION DAILY PRN for SHORTNESS OF BREATH, #1 INHALER 12/07/18 Medications Current Medications Acetaminophen/ Hydrocodone Bitart ([place] (5/325)) 1 tab Q4H PRN PO .PAIN 1-5 Last administered on 12/12/18at 05:50; Admin Dose 1 TAB; Start 12/07/18 at 17:30 Docusate Sodium (Colace) 100 mg BID PO Last administered on 12/12/18 08:15; Admin Dose 100 MG; Start 12/07/18 at 17:30 IV Flush (NS 3 ml) 3 ml PER PROTOCOL IV ; Start 12/07/18 at 17:30 Naloxone HCl (Narcan) 0.2 mg Q2M PRN IV RR 8 BREATHS/MIN OR LESS; Start 12/07/18 at 17:30 Cefazolin Sodium/ Dextrose 50 ml @ 100 mls/hr Q8 IVPB Last administered on 11/21 13:58; Admin Dose 100 MLS/HR; Start 12/07/18 at 18:00; Stop 12/12/18 at 22:00 Alprazolam (Xanax) 0.25 mg TID PRN PO ANXIETY; Start 12/08/18 at 14:30 Metoprolol Tartrate (Lopressor) 12.5 mg BID PO Last administered on 12/12/18 08:16; Admin Dose 12.5 MG; Start 12/08/18 at 21:00 Pregabalin (Lyrica) 50 mg QAM PO Last administered on 12/12/18 08:37; Admin Dose 50 MG; Start 12/09/18 at 09:00 Pregabalin (Lyrica) 100 mg QHS PO Last administered on 12/10/18 20:50; Admin Dose 100 MG; Start 12/08/18 at 21:00 Rosuvastatin Calcium (Crestor) 40 mg QHS PO Last administered on 12/11/18 21:31; Admin Dose 40 MG; Start 12/08/18 at 21:00 Zolpidem Tartrate (Ambien) 10 mg QHS PRN PO INSOMNIA Last administered on 12/11/18 21:37; Admin Dose 10 MG; Start 12/08/18 at 14:30 Amlodipine Besylate (Norvasc) 10 mg DAILY PO Last administered on 12/12/18 08:16; Admin Dose 10 MG; Start 12/10/18 at 09:00 Losartan Potassium (Cozaar) 100 mg DAILY PO Last administered on 12/12/18 08:15; Admin Dose 100 MG; Start 12/10/18 at 09:00 Hydrochlorothiazide (Hydrochlorothiazide) 25 mg DAILY PO Last administered on 12/12/18 08:16; Admin Dose 25 MG; Start 12/10/18 at 09:00 Aspirin (Aspirin) 81 mg DAILY PO Last administered on 12/12/18at 08:16; Admin Dose 81 MG; Start 12/10/18 at 09:00 Hydromorphone HCl (Dilaudid) 0.5 mg Q3 PRN IV SEVERE PAIN LEVEL 7-10 Last administered on 12/12/18at 08:15; Admin Dose 0.5 MG; Start 12/09/18 at 15:30 Amiodarone HCl (Cordarone) 200 mg BID PO ; Start 12/13/18 at 09:00; Stop 12/20/18 at 08:59 Enoxaparin Sodium (Lovenox) 80 mg Q12 SC Last administered on 12/12/18at 08:46; Admin Dose 80 MG; Start 12/12/18 at 08:30 Amiodarone HCl (Cordarone) 400 mg TID PO Last administered on 12/12/18at 13:58; Admin Dose 400 MG; Start 12/12/18 at 08:30; Stop 12/13/18 at 08:29 Assessment/Plan Hospital Course (Demo Recall) 1. Supraventricular tachycardia. Her supraventricular tachycardia is most likely atrial tachycardia versus multifocal atrial tachycardia, which is a fairly similar diagnosis. Both of these rhythms are related to likely increased pulmonary pressures and pulmonary physiology. I think at this point the patient is hemodynamically stable. I think beta josefina is a good idea for now. I would recommend avoidance of albuterol. We will follow up with a 2D echo per recommendation as necessary. There is no indication for global anticoagulation in regards to this supraventricular arrhythmia- I was called by tele staff to tell me pt is in a. fib with RVR - loaded with amiodarone and Lovenox for CVA protection - I reviewd rhythm strips carefully - still feel that regularity supports a. tach vs atypical a. f more then a. fib - now converted to sinus - will complete amio Rx - outpt EPS advised. 2. Hypertension. Blood pressure modestly well controlled. Continue to adjust medications as needed. Well controlled. 3. History of deep vein thrombosis/pulmonary embolus, status post thrombectomy. Primary team follows. Dr. Ibrahim is assessing after the procedure. Hope tolerated lovenox now. 4. Laboratory studies per primary team. Continue to adjust medications as needed. 5. Anemia. Hemoglobin is stable, no signs of bleeding now. Monitor H/H daily. NATASHA STEELE MD Dec 12, 2018 14:47
[2018-12-12] MEDS: ROSUVASTATIN CALCIUM 40 MG TABLET PO SCH (21:19)
[2018-12-12] MEDS: ZOLPIDEM 5 MG TAB PO PRN (23:59)
[2018-12-13] VITALS (12 sets, daily range): BP systolic 105–134; BP diastolic 56–68; PULSE 60–84; RESP 18–20
[2018-12-13] MEDS: AMLODIPINE 10 MG TAB PO SCH (08:43)
[2018-12-13] MEDS: AMIODARONE 200 MG TAB PO SCH ×2 (08:43→21:19)
[2018-12-13] MEDS: DOCUSATE SODIUM 100 MG CAP PO SCH ×2 (08:43→21:20)
[2018-12-13] MEDS: PREGABALIN 50 MG CAP PO SCH ×2 (08:44→21:21)
[2018-12-13] MEDS: HYDROCHLOROTHIAZIDE 25 MG TAB PO SCH (08:44)
[2018-12-13] MEDS: METOPROLOL 25 MG TAB PO SCH ×2 (08:44→21:20)
[2018-12-13] MEDS: LOSARTAN 50 MG TAB PO SCH (08:44)
[2018-12-13] MEDS: HYDROCODONE/APAP (5/325) TAB PO PRN ×3 (08:45→19:17)
[2018-12-13] MEDS: ASPIRIN 81 MG TAB PO SCH (08:45)
[2018-12-13] MEDS: ENOXAPARIN 80 MG/0.8 ML SYG SC SCH ×2 (08:52→21:39)
--- NOTE | 2018-12-13 11:14 | CONS ---
Assessment/Plan Assessment/Plan Hospital Course (Demo Recall) IMP: 1.SVT-? AT versus MFAT per EP. No recurrence. NL TSH 2.Arterial insuff LLE s/p thrombectomy 3.HTN 4.H/O CAD Recc: -Tele -Continue BB with slight increase -Continue losartan/CCB/HCTZ -Continue statin -Will f/u echo -Continue po amio loading for now on lovenox Consultation Date/Type/Reason Admit Date/Time Dec 07, 2018 at 12:52 Initial Consult Date 12/11/18 Type of Consult Cardiology Reason for Consultation SVT Requesting Provider: BRIAN GRIFFIN MD Date/Time of Note DATE: 12/13/18 TIME: 11:10 Exam/Review of Systems Vital Signs Vitals Vital Signs Date Temp Pulse Resp B/P (MAP) Pulse Ox O2 O2 Flow FiO2 Time Delivery Rate 12/13/18 3.0 09:07 12/13/18 84 08:03 12/13/18 Nasal 07:43 Cannula 12/13/18 98.0 18 133/62 98 07:30 (85) Intake and Output 12/12/18 12/12/18 12/13/18 1515:00 23:00 07:00 IntakeIntake Total 1195 ml 360 ml OutputOutput Total 1000 ml 1450 ml BalanceBalance 195 ml -1090 ml Exam Exam Review of Systems: CONSTITUTIONAL: No fevers, chills. PULMONARY: No sob CARDIOVASCULAR: No chest pain/palpitations GASTROINTESTINAL: No nausea/vomiting. GENITOURINARY: No hematuria/dysuria. MUSCULOSKELETAL: No myagias/arthalgias. PSYCHIATRIC: The patient denies depression. NEUROLOGIC: No weakness Constitutional: alert, oriented Psych: no complaints Head: normocephalic ENMT: mucosa pink and moist Neck: supple, jvd Respiratory: clear to auscultation (9 cm water) Cardiovascular: regular rate and rhythm Gastrointestinal: soft, non-tender Musculoskeletal: muscle tone (normal) Extremities: edema (none) Labs Result Diagram: 12/13/18 0548 12/13/18 0548 Results 24hrs Laboratory Tests Test 12/13/18 05:48 White Blood Count 8.5 Red Blood Count 3.88 L Hemoglobin 11.2 L Hematocrit 35.0 L Mean Corpuscular Volume 90.2 Mean Corpuscular Hemoglobin 28.9 L Mean Corpuscular Hemoglobin Concent 32.0 Red Cell Distribution Width 14.3 Platelet Count 198 # Mean Platelet Volume 11.3 H Immature Granulocytes % 1.100 H Neutrophils % 57.3 Lymphocytes % 19.9 Monocytes % 15.4 H Eosinophils % 5.6 Basophils % 0.7 Nucleated Red Blood Cells % 0.0 Immature Granulocytes # 0.090 H Neutrophils # 4.9 Lymphocytes # 1.7 Monocytes # 1.3 H Eosinophils # 0.5 Basophils # 0.1 Nucleated Red Blood Cells # 0.0 Sodium Level 137 Potassium Level 3.5 Chloride Level 98 Carbon Dioxide Level 30 Anion Gap 9 Blood Urea Nitrogen 16 Creatinine 0.86 Est Glomerular Filtrat Rate mL/min Glucose Level 77 Calcium Level 7.8 L Phosphorus Level 2.6 Medications Medications Current Medications Acetaminophen/ Hydrocodone Bitart ([place] (5/325)) 1 tab Q4H PRN PO .PAIN 1-5 Last administered on 12/13/18 08:45; Admin Dose 1 TAB; Start 12/07/18 at 17:30 Docusate Sodium (Colace) 100 mg BID PO Last administered on 12/13/18 08:43; Admin Dose 100 MG; Start 12/07/18 at 17:30 IV Flush (NS 3 ml) 3 ml PER PROTOCOL IV ; Start 12/07/18 at 17:30 Naloxone HCl (Narcan) 0.2 mg Q2M PRN IV RR 8 BREATHS/MIN OR LESS; Start 12/07/18 at 17:30 Alprazolam (Xanax) 0.25 mg TID PRN PO ANXIETY; Start 12/08/18 at 14:30 Metoprolol Tartrate (Lopressor) 12.5 mg BID PO Last administered on 12/13/18 08:44; Admin Dose 12.5 MG; Start 12/08/18 at 21:00 Pregabalin (Lyrica) 50 mg QAM PO Last administered on 12/13/18 08:44; Admin Dose 50 MG; Start 12/09/18 at 09:00 Pregabalin (Lyrica) 100 mg QHS PO Last administered on 12/12/18 21:20; Admin Dose 100 MG; Start 12/08/18 at 21:00 Rosuvastatin Calcium (Crestor) 40 mg QHS PO Last administered on 12/12/18 21:19; Admin Dose 40 MG; Start 12/08/18 at 21:00 Zolpidem Tartrate (Ambien) 10 mg QHS PRN PO INSOMNIA Last administered on 12/12/18 23:59; Admin Dose 10 MG; Start 12/08/18 at 14:30 Amlodipine Besylate (Norvasc) 10 mg DAILY PO Last administered on 12/13/18 08:43; Admin Dose 10 MG; Start 12/10/18 at 09:00 Losartan Potassium (Cozaar) 100 mg DAILY PO Last administered on 12/13/18 08:44; Admin Dose 100 MG; Start 12/10/18 at 09:00 Hydrochlorothiazide (Hydrochlorothiazide) 25 mg DAILY PO Last administered on 12/13/18 08:44; Admin Dose 25 MG; Start 12/10/18 at 09:00 Aspirin (Aspirin) 81 mg DAILY PO Last administered on 12/13/18 08:45; Admin Dose 81 MG; Start 12/10/18 at 09:00 Hydromorphone HCl (Dilaudid) 0.5 mg Q3 PRN IV SEVERE PAIN LEVEL 7-10 Last administered on 12/12/18 08:15; Admin Dose 0.5 MG; Start 12/09/18 at 15:30 Amiodarone HCl (Cordarone) 200 mg BID PO Last administered on 12/13/18 08:43; Admin Dose 200 MG; Start 12/13/18 at 09:00; Stop 12/20/18 at 08:59 Enoxaparin Sodium (Lovenox) 80 mg Q12 SC Last administered on 12/13/18 08:52; Admin Dose 80 MG; Start 12/12/18 at 08:30 BALTA DAVIDSON Dec 13, 2018 11:14
--- NOTE | 2018-12-13 16:59 | PN ---
Date/Time of Note Date/Time of Note DATE: 12/13/18 TIME: 16:54 Assessment/Plan VTE Prophylaxis Risk score (from Nsg)>0 risk: 16 SCD applied (from Nsg): Yes Pharmacological prophylaxis: LMWH Lines/Catheters IV Catheter Type (from Nrsg): Saline Lock Urinary Cath still in place: Yes Reason Cath still needed: urinary retention Assessment/Plan Hospital Course Patient is awake alert, pain is adequately controlled, left lower extremity is warm to touch, pulses present. Continue patient's on full liquid diet. plan for posterior fusion this week. Assessment/Plan -Episode of SVT on 12/11, continue amiodarone and metoprolol. Dr. Soriano is following in cardiology consultation. - S/p anterior retroperitoneal interbody fusion of L3-S1 by Dr. Lobato. Continue IV fluids and postoperative antibiotic. Continue [place] and Dilaudid for pain. Plan for posterior fusion this week. - Status post left iliac artery thrombectomy by Dr. Ibrahim. Neurovascular check bilateral lower extremities every hour. - HTN, continue metoprolol, Norvasc, Cozaar, and hydrochlorothiazide with parameters. - RA, patient gets injection with rituximab, follows with Dr. Saldivar as an outpatient. - Asthma, stable, continue Breo Ellipta as needed. Further recommendations based on clinical course. Plan of care discussed with Dr. Whatley. Result Diagram: 12/13/18 0548 12/13/18 0548 Results 24hrs Laboratory Tests Test 12/13/18 05:48 White Blood Count 8.5 Red Blood Count 3.88 L Hemoglobin 11.2 L Hematocrit 35.0 L Mean Corpuscular Volume 90.2 Mean Corpuscular Hemoglobin 28.9 L Mean Corpuscular Hemoglobin Concent 32.0 Red Cell Distribution Width 14.3 Platelet Count 198 # Mean Platelet Volume 11.3 H Immature Granulocytes % 1.100 H Neutrophils % 57.3 Lymphocytes % 19.9 Monocytes % 15.4 H Eosinophils % 5.6 Basophils % 0.7 Nucleated Red Blood Cells % 0.0 Immature Granulocytes # 0.090 H Neutrophils # 4.9 Lymphocytes # 1.7 Monocytes # 1.3 H Eosinophils # 0.5 Basophils # 0.1 Nucleated Red Blood Cells # 0.0 Sodium Level 137 Potassium Level 3.5 Chloride Level 98 Carbon Dioxide Level 30 Anion Gap 9 Blood Urea Nitrogen 16 Creatinine 0.86 Est Glomerular Filtrat Rate mL/min Glucose Level 77 Calcium Level 7.8 L Phosphorus Level 2.6 Exam/Review of Systems Exam Vitals Vital Signs Date Temp Pulse Resp B/P (MAP) Pulse Ox O2 O2 Flow FiO2 Time Delivery Rate 12/13/18 98.0 69 18 105/56 98 16:06 (72) 12/13/18 3.0 09:07 12/13/18 Nasal 07:43 Cannula Intake and Output 12/12/18 12/12/18 12/13/18 1515:00 23:00 07:00 IntakeIntake Total 1195 ml 360 ml OutputOutput Total 1000 ml 1450 ml BalanceBalance 195 ml -1090 ml Exam Constitutional: alert, oriented Respiratory: clear to auscultation Cardiovascular: regular rate and rhythm Gastrointestinal: soft, non-tender Musculoskeletal: nl extremities to inspection, other (Status post surgery with midline abdominal incision covered with dry clean dressing) Extremities: normal pulses, other Skin: nl turgor Results Results 24hrs Laboratory Tests Test 12/13/18 05:48 White Blood Count 8.5 Red Blood Count 3.88 L Hemoglobin 11.2 L Hematocrit 35.0 L Mean Corpuscular Volume 90.2 Mean Corpuscular Hemoglobin 28.9 L Mean Corpuscular Hemoglobin Concent 32.0 Red Cell Distribution Width 14.3 Platelet Count 198 # Mean Platelet Volume 11.3 H Immature Granulocytes % 1.100 H Neutrophils % 57.3 Lymphocytes % 19.9 Monocytes % 15.4 H Eosinophils % 5.6 Basophils % 0.7 Nucleated Red Blood Cells % 0.0 Immature Granulocytes # 0.090 H Neutrophils # 4.9 Lymphocytes # 1.7 Monocytes # 1.3 H Eosinophils # 0.5 Basophils # 0.1 Nucleated Red Blood Cells # 0.0 Sodium Level 137 Potassium Level 3.5 Chloride Level 98 Carbon Dioxide Level 30 Anion Gap 9 Blood Urea Nitrogen 16 Creatinine 0.86 Est Glomerular Filtrat Rate mL/min Glucose Level 77 Calcium Level 7.8 L Phosphorus Level 2.6 Medications Medication Current Medications Acetaminophen/ Hydrocodone Bitart ([place] (5/325)) 1 tab Q4H PRN PO .PAIN 1-5 Last administered on 12/13/18at 13:23; Admin Dose 1 TAB; Start 12/07/18 at 17:30 Docusate Sodium (Colace) 100 mg BID PO Last administered on 12/13/18 08:43; Admin Dose 100 MG; Start 12/07/18 at 17:30 IV Flush (NS 3 ml) 3 ml PER PROTOCOL IV ; Start 12/07/18 at 17:30 Naloxone HCl (Narcan) 0.2 mg Q2M PRN IV RR 8 BREATHS/MIN OR LESS; Start at 17:30 Alprazolam (Xanax) 0.25 mg TID PRN PO ANXIETY; Start 12/08/18 at 14:30 Pregabalin (Lyrica) 50 mg QAM PO Last administered on 12/13/18 08:44; Admin Dose 50 MG; Start 12/09/18 at 09:00 Pregabalin (Lyrica) 100 mg QHS PO Last administered on 12/12/18 21:20; Admin Dose 100 MG; Start 12/08/18 at 21:00 Rosuvastatin Calcium (Crestor) 40 mg QHS PO Last administered on 12/12/18 21:19; Admin Dose 40 MG; Start 12/08/18 at 21:00 Zolpidem Tartrate (Ambien) 10 mg QHS PRN PO INSOMNIA Last administered on 12/12/18 23:59; Admin Dose 10 MG; Start 12/08/18 at 14:30 Amlodipine Besylate (Norvasc) 10 mg DAILY PO Last administered on 12/13/18 08:43; Admin Dose 10 MG; Start 12/10/18 at 09:00 Losartan Potassium (Cozaar) 100 mg DAILY PO Last administered on 12/13/18 08:44; Admin Dose 100 MG; Start 12/10/18 at 09:00 Hydrochlorothiazide (Hydrochlorothiazide) 25 mg DAILY PO Last administered on 12/13/18 08:44; Admin Dose 25 MG; Start 12/10/18 at 09:00 Aspirin (Aspirin) 81 mg DAILY PO Last administered on 12/13/18 08:45; Admin Dose 81 MG; Start 12/10/18 at 09:00 Hydromorphone HCl (Dilaudid) 0.5 mg Q3 PRN IV SEVERE PAIN LEVEL 7-10 Last administered on 12/12/18 08:15; Admin Dose 0.5 MG; Start 12/09/18 at 15:30 Amiodarone HCl (Cordarone) 200 mg BID PO Last administered on 12/13/18at 08:43; Admin Dose 200 MG; Start 12/13/18 at 09:00; Stop 12/20/18 at 08:59 Enoxaparin Sodium (Lovenox) 80 mg Q12 SC Last administered on 12/13/18at 08:52; Admin Dose 80 MG; Start 12/12/18 at 08:30 Metoprolol Tartrate (Lopressor) 25 mg BID PO ; Start 12/13/18 at 21:00 JEMAL THOMPSON Dec 13, 2018 16:59
[2018-12-13] MEDS: ROSUVASTATIN CALCIUM 40 MG TABLET PO SCH (21:18)
[2018-12-14] VITALS (10 sets, daily range): BP systolic 107–133; BP diastolic 52–67; PULSE 60–90; RESP 18–20
[2018-12-14] MEDS: ZOLPIDEM 5 MG TAB PO PRN (00:14)
--- NOTE | 2018-12-14 08:00 | RADRPT ---
Echocardiogram Report Patient Name: MELYSSA AVITIAPatient ID: [id number] : 1940 ([id number] )Study Date: 12/11/2018 9:27:12 AM Gender: FAccession #: [id number] Tech: Erika Patrick [facility] Location: [id number]- Ref.Physician: BRIAN GRIFFIN Height(Cm): BSA: Weight(Kg): Quality: Technically Difficult StudyOrder Physician: BRIAN GRIFFIN Account #: Procedures: Echocardiographic Report: Transthoracic echocardiogram with complete 2D, M-Mode, and doppler examination. Indications: Arrythmia. Measurements: 2D/M Mode Doppler Measurement Value Normal Range Measurement Value Normal Range LVIDd 2D 4.2 [ 3.8 - 5.2 ] cm AV Peak Robinson 1.8 [ 100.0 - 170.0 ] cm/sec LVIDs 2D 2.8 [ 2.2 - 3.5 ] cm AV Peak PG 13.0 [ 2.0 - 9.0 ] mmHg LVPWd 2D 0.9 [ 0.6 - 0.9 ] cm LVOT Peak Robinson 0.8 [ 70.0 - 110.0 ] cm/sec IVSd 2D 1.1 [ 0.6 - 0.9 ] cm LVOT Peak PG 2.0 [ 2.0 - 6.0 ] mmHg IVS/LVPW 2D 1.1 ratio TR Peak Robinson 2.2 [ 100.0 - 280.0 ] cm/sec AoR Diam 2D 3.0 [ 2.3 - 3.1 ] cm TR Peak PG 19.0 mmHg LA/Ao 2D 1 ratio LA Dimen 2D 3.2 [ 2.7 - 3.8 ] cm Findings: Left Ventricle: Normal left ventricular systolic function. Normal left ventricular cavity size. Normal left ventricular wall thickness. Ejection fraction is visually estimated at 55-60 %. Right Ventricle: Normal right ventricular size. Normal right ventricular systolic function. Left Atrium: The left atrium is normal in size. Right Atrium: The right atrium is normal in size. Mitral Valve: Normal appearance of the mitral valve. Trace mitral regurgitation. Aortic Valve: Normal appearance of the aortic valve. No aortic regurgitation. Tricuspid Valve: Normal appearance of the tricuspid valve. There is trace tricuspid regurgitation. Pulmonic Valve: Normal pulmonic valve appearance. No evidence of pulmonic regurgitation. Pericardium: Normal pericardium with no significant pericardial effusion. Aorta: Normal aortic root. IVC: The IVC is not well visualized. Conclusions: Normal left ventricular systolic function. Normal left ventricular cavity size. Normal left ventricular wall thickness. Ejection fraction is visually estimated at 55-60 %. Normal appearance of the mitral valve. Trace mitral regurgitation. Normal appearance of the tricuspid valve. There is trace tricuspid regurgitation. Electronically Signed By: Jabari Soriano 2018-12-13 14:05:27 PDT
[2018-12-14] MEDS: HYDROCHLOROTHIAZIDE 25 MG TAB PO SCH (08:28)
[2018-12-14] MEDS: ASPIRIN 81 MG TAB PO SCH (08:29)
[2018-12-14] MEDS: DOCUSATE SODIUM 100 MG CAP PO SCH ×2 (08:29→21:41)
[2018-12-14] MEDS: HYDROCODONE/APAP (5/325) TAB PO PRN ×4 (08:29→21:57)
[2018-12-14] MEDS: LOSARTAN 50 MG TAB PO SCH (08:29)
[2018-12-14] MEDS: PREGABALIN 50 MG CAP PO SCH ×2 (08:29→21:41)
[2018-12-14] MEDS: METOPROLOL 25 MG TAB PO SCH ×2 (08:29→21:00)
[2018-12-14] MEDS: AMLODIPINE 10 MG TAB PO SCH (08:29)
[2018-12-14] MEDS: AMIODARONE 200 MG TAB PO SCH ×2 (08:30→21:42)
[2018-12-14] MEDS: ENOXAPARIN 80 MG/0.8 ML SYG SC SCH ×2 (08:32→21:53)
--- NOTE | 2018-12-14 13:42 | CONS ---
Consult Date/Type/Reason Admit Date/Time Dec 07, 2018 at 12:52 Initial Consult Date Requesting Provider: BRIAN GRIFFIN MD Date/Time of Note DATE: 12/14/18 TIME: 13:40 Subjective NO acute events - pt converted to sinus - con't amio load as per prior orders - no CP now - feels better overall - outpt EPS advised ROS: No fever, no chills, no nausea, no vomiting, no diarrhea/constipation No recent weight changes No chest pain, no PND, no orthopnea No dizziness, blurred vision No thirst, no heat or cold intolerance Objective Vitals Vital Signs Date Temp Pulse Resp B/P (MAP) Pulse Ox O2 O2 Flow FiO2 Time Delivery Rate 12/14/18 61 12:01 12/14/18 98.0 18 107/56 98 11:39 (73) 12/14/18 Nasal 2.0 07:33 Cannula Intake and Output 12/13/18 12/13/18 12/14/18 1515:00 23:00 07:00 IntakeIntake Total 800 ml 100 ml OutputOutput Total 1000 ml 1400 ml BalanceBalance -200 ml -1300 ml Exam General: WN/WD/NAD, AOx 3 HEENT: Unicetric/atraumatic/EOMI (follow commands) NECK: JVD elevated, no thyromegaly Lymph: no lymphadenopathy HEART: regular with no S3, II/ systolic murmur at apex LUNGS: Coarse sounds ABD: soft, NT, ND, +BS : Intact Neuro: non focal - post op SKIN: chronic changes EXT: trace edema Results/Medications Result Diagram: 12/13/18 0548 12/14/18 0539 Results 24 hrs Laboratory Tests Test 12/14/18 05:39 Sodium Level 136 Potassium Level 3.6 Chloride Level 96 L Carbon Dioxide Level 35 H Anion Gap 5 Blood Urea Nitrogen 18 Creatinine 0.91 Est Glomerular Filtrat Rate mL/min Glucose Level 92 Calcium Level 8.0 L Home Meds Reported Medications Pregabalin* (Lyrica*) 50 Mg Capsule, 100 MG PO QHS, CAP 12/07/18 Pregabalin* (Lyrica*) 50 Mg Capsule, 50 MG PO QAM, CAP 12/07/18 Olmesartan/Hydrochlorothiazide (Benicar Hct 40-25 mg Tablet) 1 Each Tablet, 1 TAB PO DAILY, TAB 12/07/18 Metoprolol Tartrate* (Lopressor*) 25 Mg Tab, 12.5 MG PO BID, #60 TAB 12/07/18 Denosumab (Prolia) 60 Mg/1 Ml Disp.syrin, 60 MG SQ [id number] 12/07/18 Cholecalciferol* (Vitamin D3*) 1,000 Unit Tablet, 1000 UNIT PO DAILY, TAB 12/07/18 Magnesium Oxide* (Mag-Oxide*) 400 Mg Tablet, 300 MG PO DAILY, TAB 12/07/18 Cyanocobalamin (Vitamin B-12) (B-12) 500 Mcg Tablet, 100 MCG PO DAILY, TAB 12/07/18 Rituximab (Rituxan) 10 Mg/Ml Soln, 500 MG IV as directed 12/07/18 Rosuvastatin Calcium* (Crestor*) 40 Mg Tablet, 40 MG PO QHS, #30 TAB 12/07/18 Aspirin* (Aspirin* Chew) 81 Mg Tab.chew, 81 MG PO DAILY, TAB.CHEW 12/07/18 Alprazolam* (Alprazolam*) 0.25 Mg Tablet, 0.25 MG PO TID PRN for ANXIETY, TAB 12/07/18 Zolpidem Tartrate* (Zolpidem Tartrate*) 10 Mg Tablet, 10 MG PO QHS PRN for INSOMNIA, #30 TAB 12/07/18 Amlodipine Besylate* (Amlodipine Besylate*) 10 Mg Tablet, 10 MG PO DAILY, #30 TAB 12/07/18 Fluticasone-Vilanterol (Breo Ellipta Inhaler) 100-25 Mcg/Actuation Aer.pow.ba, 1 PUFF INHALATION DAILY PRN for SHORTNESS OF BREATH, #1 INHALER 12/07/18 Medications Current Medications Acetaminophen/ Hydrocodone Bitart ([place] (5/325)) 1 tab Q4H PRN PO .PAIN 1-5 Last administered on 12/14/18at 08:29; Admin Dose 1 TAB; Start 12/07/18 at 17:30 Docusate Sodium (Colace) 100 mg BID PO Last administered on 12/14/18at 08:29; Admin Dose 100 MG; Start 12/07/18 at 17:30 IV Flush (NS 3 ml) 3 ml PER PROTOCOL IV ; Start 12/07/18 at 17:30 Naloxone HCl (Narcan) 0.2 mg Q2M PRN IV RR 8 BREATHS/MIN OR LESS; Start 12/07/18 at 17:30 Alprazolam (Xanax) 0.25 mg TID PRN PO ANXIETY; Start 12/08/18 at 14:30 Pregabalin (Lyrica) 50 mg QAM PO Last administered on 12/14/18 08:29; Admin Dose 50 MG; Start 12/09/18 at 09:00 Pregabalin (Lyrica) 100 mg QHS PO Last administered on 12/13/18 21:21; Admin Dose 100 MG; Start 12/08/18 at 21:00 Rosuvastatin Calcium (Crestor) 40 mg QHS PO Last administered on 12/13/18 21:18; Admin Dose 40 MG; Start 12/08/18 at 21:00 Zolpidem Tartrate (Ambien) 10 mg QHS PRN PO INSOMNIA Last administered on 12/14/18 00:14; Admin Dose 10 MG; Start 12/08/18 at 14:30 Amlodipine Besylate (Norvasc) 10 mg DAILY PO Last administered on 12/14/18 08:29; Admin Dose 10 MG; Start 12/10/18 at 09:00 Losartan Potassium (Cozaar) 100 mg DAILY PO Last administered on 12/14/18 08 :29; Admin Dose 100 MG; Start 12/10/18 at 09:00 Hydrochlorothiazide (Hydrochlorothiazide) 25 mg DAILY PO Last administered on 12/14/18 08:28; Admin Dose 25 MG; Start 12/10/18 at 09:00 Aspirin (Aspirin) 81 mg DAILY PO Last administered on 12/14/18 08:29; Admin Dose 81 MG; Start 12/10/18 at 09:00 Hydromorphone HCl (Dilaudid) 0.5 mg Q3 PRN IV SEVERE PAIN LEVEL 7-10 Last administered on 12/12/18 08:15; Admin Dose 0.5 MG; Start 12/09/18 at 15:30 Amiodarone HCl (Cordarone) 200 mg BID PO Last administered on 12/14/18 08:30; Admin Dose 200 MG; Start 12/13/18 at 09:00; Stop 7/1/19 at 08:59 Enoxaparin Sodium (Lovenox) 80 mg Q12 SC Last administered on 12/14/18at 08:32; Admin Dose 80 MG; Start 12/12/18 at 08:30 Metoprolol Tartrate (Lopressor) 25 mg BID PO Last administered on 12/14/18at 08:29; Admin Dose 25 MG; Start 12/13/18 at 21:00 Assessment/Plan Hospital Course (Demo Recall) 1. Supraventricular tachycardia. Her supraventricular tachycardia is most likely atrial tachycardia versus multifocal atrial tachycardia, which is a fairly similar diagnosis. Both of these rhythms are related to likely increased pulmonary pressures and pulmonary physiology. I think at this point the patient is hemodynamically stable. I think beta josefina is a good idea for now. I would recommend avoidance of albuterol. We will follow up with a 2D echo per recommendation as necessary. There is no indication for global anticoagulation in regards to this supraventricular arrhythmia- I was called by tele staff to tell me pt is in a. fib with RVR - loaded with amiodarone and Lovenox for CVA protection - I reviewd rhythm strips carefully - still feel that regularity supports a. tach vs atypical a. f more then a. fib - now converted to sinus - will complete amio Rx - outpt EPS advised. In sinus now . 2. Hypertension. Blood pressure modestly well controlled. Continue to adjust medications as needed. Well controlled. Rate controlled. 3. History of deep vein thrombosis/pulmonary embolus, status post thrombectomy. Primary team follows. Dr. Ibrahim is assessing after the procedure - anti- coag per vascular team. 4. Laboratory studies per primary team. Continue to adjust medications as needed. 5. Anemia. Hemoglobin is stable, no signs of bleeding now. Monitor H/H daily. NO bleeding. NATASHA STEELE MD Dec 14, 2018 13:42
--- NOTE | 2018-12-14 16:47 | PN ---
Date/Time of Note Date/Time of Note DATE: 12/14/18 TIME: 16:46 Assessment/Plan VTE Prophylaxis Risk score (from Ns)>0 risk: 16 SCD applied (from Ns): Yes Pharmacological prophylaxis: NA/contraindicated Pharm contraindication: surgical contra Lines/Catheters IV Catheter Type (from Nrsg): Saline Lock Urinary Cath still in place: Yes Reason Cath still needed: urinary retention Assessment/Plan Hospital Course Field remains hemodynamically stable, afebrile, pain is adequately controlled, plan for posterior fusion tomorrow. Assessment/Plan -Episode of SVT on 12/11, continue amiodarone and metoprolol. Dr. Soriano is fol lowing in cardiology consultation. - S/p anterior retroperitoneal interbody fusion of L3-S1 by Dr. Lobato. Continue IV fluids and postoperative antibiotic. Continue [place] and Dilaudid for pain. Plan for posterior fusion this week. - Status post left iliac artery thrombectomy by Dr. Ibrahim. Neurovascular check bilateral lower extremities every hour. - HTN, continue metoprolol, Norvasc, Cozaar, and hydrochlorothiazide with parameters. - RA, patient gets injection with rituximab, follows with Dr. Saldivar as an outpatient. - Asthma, stable, continue Breo Ellipta as needed. Further recommendations based on clinical course. Plan of care discussed with Dr. Whatley. Result Diagram: 12/13/18 0548 12/14/18 0539 Results 24hrs Laboratory Tests Test 12/14/18 05:39 Sodium Level 136 Potassium Level 3.6 Chloride Level 96 L Carbon Dioxide Level 35 H Anion Gap 5 Blood Urea Nitrogen 18 Creatinine 0.91 Est Glomerular Filtrat Rate mL/min Glucose Level 92 Calcium Level 8.0 L Exam/Review of Systems Exam Vitals Vital Signs Date Temp Pulse Resp B/P (MAP) Pulse Ox O2 O2 Flow FiO2 Time Delivery Rate 12/14/18 98.0 78 18 112/67 98 16:15 (82) 12/14/18 Nasal 2.0 07:33 Cannula Intake and Output 12/13/18 12/13/18 12/14/18 1515:00 23:00 07:00 IntakeIntake Total 800 ml 100 ml OutputOutput Total 1000 ml 1400 ml BalanceBalance -200 ml -1300 ml Exam Constitutional: alert, oriented Respiratory: clear to auscultation Cardiovascular: regular rate and rhythm Gastrointestinal: soft, non-tender Musculoskeletal: nl extremities to inspection, other (Status post surgery with midline abdominal incision covered with dry clean dressing) Extremities: normal pulses, other Skin: nl turgor Results Results 24hrs Laboratory Tests Test 12/14/18 05:39 Sodium Level 136 Potassium Level 3.6 Chloride Level 96 L Carbon Dioxide Level 35 H Anion Gap 5 Blood Urea Nitrogen 18 Creatinine 0.91 Est Glomerular Filtrat Rate mL/min Glucose Level 92 Calcium Level 8.0 L Medications Medication Current Medications Acetaminophen/ Hydrocodone Bitart ([place] (5/325)) 1 tab Q4H PRN PO .PAIN 1-5 Last administered on 12/14/18 13:47; Admin Dose 1 TAB; Start 12/07/18 at 17:30 Docusate Sodium (Colace) 100 mg BID PO Last administered on 12/14/18 08:29; Admin Dose 100 MG; Start 12/07/18 at 17:30 IV Flush (NS 3 ml) 3 ml PER PROTOCOL IV ; Start 12/07/18 at 17:30 Naloxone HCl (Narcan) 0.2 mg Q2M PRN IV RR 8 BREATHS/MIN OR LESS; Start 12/07/18 at 17:30 Alprazolam (Xanax) 0.25 mg TID PRN PO ANXIETY; Start 12/08/18 at 14:30 Pregabalin (Lyrica) 50 mg QAM PO Last administered on 12/14/18 08:29; Admin Dose 50 MG; Start 12/09/18 at 09:00 Pregabalin (Lyrica) 100 mg QHS PO Last administered on 12/13/18 21:21; Admin Dose 100 MG; Start 12/08/18 at 21:00 Rosuvastatin Calcium (Crestor) 40 mg QHS PO Last administered on 12/13/18 21:18; Admin Dose 40 MG; Start 12/08/18 at 21:00 Zolpidem Tartrate (Ambien) 10 mg QHS PRN PO INSOMNIA Last administered on 12/14/18 00:14; Admin Dose 10 MG; Start 12/08/18 at 14:30 Amlodipine Besylate (Norvasc) 10 mg DAILY PO Last administered on 12/14/18 08:29; Admin Dose 10 MG; Start 12/10/18 at 09:00 Losartan Potassium (Cozaar) 100 mg DAILY PO Last administered on 12/14/18 08:29; Admin Dose 100 MG; Start 12/10/18 at 09:00 Hydrochlorothiazide (Hydrochlorothiazide) 25 mg DAILY PO Last administered on 12/14/18 08:28; Admin Dose 25 MG; Start 12/10/18 at 09:00 Aspirin (Aspirin) 81 mg DAILY PO Last administered on 12/14/18 08:29; Admin Dose 81 MG; Start 12/10/18 at 09:00 Hydromorphone HCl (Dilaudid) 0.5 mg Q3 PRN IV SEVERE PAIN LEVEL 7-10 Last administered on 12/12/18 08:15; Admin Dose 0.5 MG; Start 12/09/18 at 15:30 Amiodarone HCl (Cordarone) 200 mg BID PO Last administered on 12/14/18 08:30; Admin Dose 200 MG; Start 12/13/18 at 09:00; Stop 12/20/18 at 08:59 Enoxaparin Sodium (Lovenox) 80 mg Q12 SC Last administered on 12/14/18 08:32; Admin Dose 80 MG; Start 12/12/18 at 08:30 Metoprolol Tartrate (Lopressor) 25 mg BID PO Last administered on 12/14/18 08:29; Admin Dose 25 MG; Start 12/13/18 at 21:00 JEMAL THOMPSON Dec 14, 2018 16:47
--- NOTE | 2018-12-14 18:22 | PREAC ---
Date/Time of Note Date/Time of Note DATE: 12/14/18 TIME: 18:20 Anesthesia Eval and Record Evaluation Time Pre-Procedure Interview DATE: 12/14/18 TIME: 18:20 Age 78 Sex female NPO: 8 hrs Preoperative diagnosis MECHANICAL PAIN Planned procedure BILATERAL POSTERIOR LUMBAR LAMINECTOMY Past Medical History Past Medical History: Includes Cardio: HTN, Dyslipidemia Endo: Other (PULMONARY FIBROSIS) Pulm: Asthma Musculoskeletal: Rheumatoid arthritis Renal: CKD GI: Obesity Heme: Anemia Surgery & Anesthesia Issues No known issue Meds Anticoagulation: No Beta Eleni within 24 hr: Yes Reported Medications Pregabalin* (Lyrica*) 50 Mg Capsule, 100 MG PO QHS, CAP 12/07/18 Pregabalin* (Lyrica*) 50 Mg Capsule, 50 MG PO QAM, CAP 12/07/18 Olmesartan/Hydrochlorothiazide (Benicar Hct 40-25 mg Tablet) 1 Each Tablet, 1 TAB PO DAILY, TAB 12/07/18 Metoprolol Tartrate* (Lopressor*) 25 Mg Tab, 12.5 MG PO BID, #60 TAB 12/07/18 Denosumab (Prolia) 60 Mg/1 Ml Disp.syrin, 60 MG SQ [id number] 12/07/18 Cholecalciferol* (Vitamin D3*) 1,000 Unit Tablet, 1000 UNIT PO DAILY, TAB 12/07/18 Magnesium Oxide* (Mag-Oxide*) 400 Mg Tablet, 300 MG PO DAILY, TAB 12/07/18 Cyanocobalamin (Vitamin B-12) (B-12) 500 Mcg Tablet, 100 MCG PO DAILY, TAB 12/07/18 Rituximab (Rituxan) 10 Mg/Ml Soln, 500 MG IV as directed 12/07/18 Rosuvastatin Calcium* (Crestor*) 40 Mg Tablet, 40 MG PO QHS, #30 TAB 12/07/18 Aspirin* (Aspirin* Chew) 81 Mg Tab.chew, 81 MG PO DAILY, TAB.CHEW 12/07/18 Alprazolam* (Alprazolam*) 0.25 Mg Tablet, 0.25 MG PO TID PRN for ANXIETY, TAB 12/07/18 Zolpidem Tartrate* (Zolpidem Tartrate*) 10 Mg Tablet, 10 MG PO QHS PRN for INSOMNIA, #30 TAB 12/07/18 Amlodipine Besylate* (Amlodipine Besylate*) 10 Mg Tablet, 10 MG PO DAILY, #30 TAB 12/07/18 Fluticasone-Vilanterol (Breo Ellipta Inhaler) 100-25 Mcg/Actuation Aer.pow.ba, 1 PUFF INHALATION DAILY PRN for SHORTNESS OF BREATH, #1 INHALER 12/07/18 Current Medications Acetaminophen/ Hydrocodone Bitart ([place] (5/325)) 1 tab Q4H PRN PO .PAIN 1-5 Last administered on 12/14/18 17:41; Admin Dose 1 TAB; Start 12/07/18 at 17:30 Docusate Sodium (Colace) 100 mg BID PO Last administered on 12/14/18 08:29; Admin Dose 100 MG; Start 12/07/18 at 17:30 IV Flush (NS 3 ml) 3 ml PER PROTOCOL IV ; Start 12/07/18 at 17:30 Naloxone HCl (Narcan) 0.2 mg Q2M PRN IV RR 8 BREATHS/MIN OR LESS; Start 12/07/18 at 17:30 Alprazolam (Xanax) 0.25 mg TID PRN PO ANXIETY; Start 12/08/18 at 14:30 Pregabalin (Lyrica) 50 mg QAM PO Last administered on 12/14/18 08:29; Admin Dose 50 MG; Start 12/09/18 at 09:00 Pregabalin (Lyrica) 100 mg QHS PO Last administered on 12/13/18 21:21; Admin Dose 100 MG; Start 12/08/18 at 21:00 Rosuvastatin Calcium (Crestor) 40 mg QHS PO Last administered on 12/13/18 21:18; Admin Dose 40 MG; Start 12/08/18 at 21:00 Zolpidem Tartrate (Ambien) 10 mg QHS PRN PO INSOMNIA Last administered on 12/14/18 00:14; Admin Dose 10 MG; Start 12/08/18 at 14:30 Amlodipine Besylate (Norvasc) 10 mg DAILY PO Last administered on 12/14/18 08:29; Admin Dose 10 MG; Start 12/10/18 at 09:00 Losartan Potassium (Cozaar) 100 mg DAILY PO Last administered on 12/14/18 08:29; Admin Dose 100 MG; Start 12/10/18 at 09:00 Hydrochlorothiazide (Hydrochlorothiazide) 25 mg DAILY PO Last administered on 12/14/18 08:28; Admin Dose 25 MG; Start 12/10/18 at 09:00 Aspirin (Aspirin) 81 mg DAILY PO Last administered on 12/14/18 08:29; Admin Dose 81 MG; Start 12/10/18 at 09:00 Hydromorphone HCl (Dilaudid) 0.5 mg Q3 PRN IV SEVERE PAIN LEVEL 7-10 Last administered on 12/12/18at 08:15; Admin Dose 0.5 MG; Start 12/09/18 at 15:30 Amiodarone HCl (Cordarone) 200 mg BID PO Last administered on 12/14/18 08:30; Admin Dose 200 MG; Start 12/13/18 at 09:00; Stop 12/20/18 at 08:59 Enoxaparin Sodium (Lovenox) 80 mg Q12 SC Last administered on 12/14/18 08:32; Admin Dose 80 MG; Start 12/12/18 at 08:30 Metoprolol Tartrate (Lopressor) 25 mg BID PO Last administered on 12/14/18 08:29; Admin Dose 25 MG; Start 12/13/18 at 21:00 Meds reviewed: Yes Allergies Coded Allergies: tramadol (Verified Allergy, Unknown, Rash, 12/07/18) Allergies Reviewed: Yes Labs/Studies Labs Reviewed: Reviewed by anesthesiologist Result Diagram: 12/13/18 0548 12/14/18 0539 Laboratory Tests 12/14/18 05:39 test: N/A Studies: ECG (a-fib), CXR (Mild cardiomegaly. Aortic atherosclerosis.), 2D Echo (EF 55-60%) Pre-procedure Exam Last vitals Vital Signs Date Temp Pulse Resp B/P (MAP) Pulse Ox O2 O2 Flow FiO2 Time Delivery Rate 12/14/18 3.0 18:01 12/14/18 98.0 78 18 112/67 98 16:15 (82) 12/14/18 Nasal 07:33 Cannula Airway: Adequate mouth opening Mallampati: Mallampati II Teeth: Normal Lung: Normal Heart: Normal ASA Physical Status ASA physical status: 3 Emergency: None Planned Anesthetic General/MAC: ETT Pre-operative Attestations Prior to commencing anesthesia and surgery, the patient was re-evaluated, there was verification of: *The patient's identity *The results of appropriate recent lab work and preoperative vital signs *The above evaluation not changing prior to induction *Anesthetic plan, risk benefits, alternative and complications discussed with patient/family; questions answered; patient/family understands, accepts and wishes to proceed. LISA MCCORMICK Dec 14, 2018 18:22
--- NOTE | 2018-12-14 19:54 | PN ---
Date/Time of Note Date/Time of Note DATE: 12/14/18 TIME: 19:46 Assessment/Plan VTE Prophylaxis Risk score (from Ns)>0 risk: 16 SCD applied (from Ns): Yes SCD contraindicated: DVT Pharmacological prophylaxis: other (lovenox) Pharm contraindication: low risk/ambulating Lines/Catheters IV Catheter Type (from Nrsg): Saline Lock Central line still needed: No Urinary Cath still in place: No Reason Cath still needed: urinary retention (dc when ambulai) Assessment/Plan Assessment/Plan Impression s/p anterior lumbar interbody and fusion s/p Left common iliac artery thrombectomy increasing strength to left lower ext left dp/pt pulses palpable Plan cont supportive care candidate for posterior fixation L2-S1 . Discussed in detail with Dr. Ibrahim and suggest posterior fixation be placed on hold x 10 days to allow full recovery of thrombectomy surgical site. cont asa and lovenox pt/ot with LSO brace dc silver when appropriate Rehab vs SNF placement and will bring back in 10 -12 days post thrombectomy Result Diagram: 12/13/18 0548 12/14/18 0539 Results 24hrs Laboratory Tests Test 12/14/18 05:39 Sodium Level 136 Potassium Level 3.6 Chloride Level 96 L Carbon Dioxide Level 35 H Anion Gap 5 Blood Urea Nitrogen 18 Creatinine 0.91 Est Glomerular Filtrat Rate mL/min Glucose Level 92 Calcium Level 8.0 L Subjective 24 Hr Interval Summary Free Text/Dictation Neurosurgery Update Left leg increasing strength and improving numbness/tingling. Exam/Review of Systems Exam Vitals Vital Signs Date Temp Pulse Resp B/P (MAP) Pulse Ox O2 O2 Flow FiO2 Time Delivery Rate 12/14/18 3.0 18:01 12/14/18 98.0 78 18 112/67 98 16:15 (82) 12/14/18 Nasal 07:33 Cannula Intake and Output 12/13/18 12/13/18 12/14/18 1515:00 23:00 07:00 IntakeIntake Total 800 ml 100 ml OutputOutput Total 1000 ml 1400 ml BalanceBalance -200 ml -1300 ml Neurological: other (MS: AAOX4 CN: PERRL M: fc x 4 , increasing stength x 4, Left left hip flexor/ham/quad 4+/5 left DP/PT good palpable pulses ) Results Results 24hrs Laboratory Tests Test 12/14/18 05:39 Sodium Level 136 Potassium Level 3.6 Chloride Level 96 L Carbon Dioxide Level 35 H Anion Gap 5 Blood Urea Nitrogen 18 Creatinine 0.91 Est Glomerular Filtrat Rate mL/min Glucose Level 92 Calcium Level 8.0 L Medications Medication Current Medications Acetaminophen/ Hydrocodone Bitart ([place] (5/325)) 1 tab Q4H PRN PO .PAIN 1-5 Last administered on 12/14/18 17:41; Admin Dose 1 TAB; Start 12/07/18 at 17:30 Docusate Sodium (Colace) 100 mg BID PO Last administered on 12/14/18 08:29; Admin Dose 100 MG; Start 12/07/18 at 17:30 IV Flush (NS 3 ml) 3 ml PER PROTOCOL IV ; Start 12/07/18 at 17:30 Naloxone HCl (Narcan) 0.2 mg Q2M PRN IV RR 8 BREATHS/MIN OR LESS; Start 12/07/18 at 17:30 Alprazolam (Xanax) 0.25 mg TID PRN PO ANXIETY; Start 12/08/18 at 14:30 Pregabalin (Lyrica) 50 mg QAM PO Last administered on 12/14/18 08:29; Admin Dose 50 MG; Start 12/09/18 at 09:00 Pregabalin (Lyrica) 100 mg QHS PO Last administered on 12/13/18 21:21; Admin Dose 100 MG; Start 12/08/18 at 21:00 Rosuvastatin Calcium (Crestor) 40 mg QHS PO Last administered on 12/13/18 21:18; Admin Dose 40 MG; Start 12/08/18 at 21:00 Zolpidem Tartrate (Ambien) 10 mg QHS PRN PO INSOMNIA Last administered on 12/14/18 00:14; Admin Dose 10 MG; Start 12/08/18 at 14:30 Amlodipine Besylate (Norvasc) 10 mg DAILY PO Last administered on 12/14/18 08:29; Admin Dose 10 MG; Start 12/10/18 at 09:00 Losartan Potassium (Cozaar) 100 mg DAILY PO Last administered on 12/14/18 08:29; Admin Dose 100 MG; Start 12/10/18 at 09:00 Hydrochlorothiazide (Hydrochlorothiazide) 25 mg DAILY PO Last administered on 12/14/18 08:28; Admin Dose 25 MG; Start 12/10/18 at 09:00 Hydromorphone HCl (Dilaudid) 0.5 mg Q3 PRN IV SEVERE PAIN LEVEL 7-10 Last administered on 12/12/18 08:15; Admin Dose 0.5 MG; Start 12/09/18 at 15:30 Amiodarone HCl (Cordarone) 200 mg BID PO Last administered on 12/14/18 08:30; Admin Dose 200 MG; Start 12/13/18 at 09:00; Stop 12/20/18 at 08:59 Metoprolol Tartrate (Lopressor) 25 mg BID PO Last administered on 12/14/18 08:29; Admin Dose 25 MG; Start 12/13/18 at 21:00 FAZAL CASTILLO MD Dec 14, 2018 19:54
[2018-12-14] MEDS: ROSUVASTATIN CALCIUM 40 MG TABLET PO SCH (21:41)
[2018-12-15] VITALS (10 sets, daily range): BP systolic 93–144; BP diastolic 46–65; PULSE 61–82; RESP 18–22
[2018-12-15] MEDS: ZOLPIDEM 5 MG TAB PO PRN ×2 (01:57→23:49)
[2018-12-15] MEDS: DOCUSATE SODIUM 100 MG CAP PO SCH ×2 (09:12→20:13)
[2018-12-15] MEDS: AMLODIPINE 10 MG TAB PO SCH (09:12)
[2018-12-15] MEDS: METOPROLOL 25 MG TAB PO SCH ×2 (09:13→20:13)
[2018-12-15] MEDS: HYDROCHLOROTHIAZIDE 25 MG TAB PO SCH (09:13)
[2018-12-15] MEDS: LOSARTAN 50 MG TAB PO SCH (09:14)
[2018-12-15] MEDS: ASPIRIN 81 MG TAB PO SCH (09:14)
[2018-12-15] MEDS: ENOXAPARIN 80 MG/0.8 ML SYG SC SCH ×2 (09:14→20:28)
[2018-12-15] MEDS: AMIODARONE 200 MG TAB PO SCH (09:14)
[2018-12-15] MEDS: PREGABALIN 50 MG CAP PO SCH ×2 (09:14→20:12)
[2018-12-15] MEDS: HYDROCODONE/APAP (5/325) TAB PO PRN (12:38)
--- NOTE | 2018-12-15 14:38 | CONS ---
Assessment/Plan Assessment/Plan Hospital Course (Demo Recall) IMP: 1.SVT-? AT versus MFAT per EP. No significant recurrence. NL TSH. Having occasional PAC's and PVC's but no sig runs 2.Arterial insuff LLE s/p thrombectomy 3.HTN 4.H/O CAD 5. post-op s/p anterior lumbar interbody and fusion Recc: -Tele -Continue BB and follow HR/rhythm -Continue losartan/CCB/HCTZ -Continue statin -Continue po amio but will decrease to daily and continue lovenox Consultation Date/Type/Reason Admit Date/Time Dec 07, 2018 at 12:52 Initial Consult Date 12/11/18 Type of Consult Cardiology Reason for Consultation SVT Requesting Provider: BRIAN GRIFFIN MD Date/Time of Note DATE: 12/15/18 TIME: 14:35 Exam/Review of Systems Vital Signs Vitals Vital Signs Date Temp Pulse Resp B/P (MAP) Pulse Ox O2 O2 Flow FiO2 Time Delivery Rate 12/15/18 71 12:00 12/15/18 98.0 20 116/52 96 Nasal 2.0 11:26 (73) Cannula Intake and Output 12/14/18 12/14/18 12/15/18 1515:00 23:00 07:00 IntakeIntake Total 340 ml 820 ml 60 ml OutputOutput Total 1300 ml 950 ml BalanceBalance 340 ml -480 ml -890 ml Exam Exam Review of Systems: CONSTITUTIONAL: No fevers, chills. PULMONARY: No sob CARDIOVASCULAR: No chest pain/palpitations GASTROINTESTINAL: No nausea/vomiting. GENITOURINARY: No hematuria/dysuria. MUSCULOSKELETAL: mild back pain PSYCHIATRIC: The patient denies depression. NEUROLOGIC: No weakness Constitutional: alert Psych: no complaints Head: normocephalic ENMT: mucosa pink and moist Neck: supple, jvd (9 cm water) Respiratory: clear to auscultation Cardiovascular: regular rate and rhythm Gastrointestinal: soft, non-tender Musculoskeletal: muscle tone (normal) Extremities: edema (none) Neurological: other (No focal deficits) Labs Result Diagram: 12/13/18 0548 12/14/18 0539 Medications Medications Current Medications Acetaminophen/ Hydrocodone Bitart ([place] (5/325)) 1 tab Q4H PRN PO .PAIN 1-5 Last administered on 12/15/18 12:38; Admin Dose 1 TAB; Start 12/07/18 at 17:30 Docusate Sodium (Colace) 100 mg BID PO Last administered on 12/15/18 09:12; Admin Dose 100 MG; Start 12/07/18 at 17:30 IV Flush (NS 3 ml) 3 ml PER PROTOCOL IV ; Start 12/07/18 at 17:30 Naloxone HCl (Narcan) 0.2 mg Q2M PRN IV RR 8 BREATHS/MIN OR LESS; Start 12/07/18 at 17:30 Alprazolam (Xanax) 0.25 mg TID PRN PO ANXIETY; Start 12/08/18 at 14:30 Pregabalin (Lyrica) 50 mg QAM PO Last administered on 12/15/18 09:14; Admin Dose 50 MG; Start 12/09/18 at 09:00 Pregabalin (Lyrica) 100 mg QHS PO Last administered on 12/14/18 21:41; Admin Dose 100 MG; Start 12/08/18 at 21:00 Rosuvastatin Calcium (Crestor) 40 mg QHS PO Last administered on 12/14/18 21:41; Admin Dose 40 MG; Start 12/08/18 at 21:00 Zolpidem Tartrate (Ambien) 10 mg QHS PRN PO INSOMNIA Last administered on 12/15/18 01:57; Admin Dose 10 MG; Start 12/08/18 at 14:30 Amlodipine Besylate (Norvasc) 10 mg DAILY PO Last administered on 12/15/18 09:12; Admin Dose 10 MG; Start 12/10/18 at 09:00 Losartan Potassium (Cozaar) 100 mg DAILY PO Last administered on 12/15/18 09:14; Admin Dose 100 MG; Start 12/10/18 at 09:00 Hydrochlorothiazide (Hydrochlorothiazide) 25 mg DAILY PO Last administered on 12/15/18 09:13; Admin Dose 25 MG; Start 12/10/18 at 09:00 Hydromorphone HCl (Dilaudid) 0.5 mg Q3 PRN IV SEVERE PAIN LEVEL 7-10 Last administered on 12/12/18 08:15; Admin Dose 0.5 MG; Start 12/09/18 at 15:30 Amiodarone HCl (Cordarone) 200 mg BID PO Last administered on 12/15/18 09:14; Admin Dose 200 MG; Start 12/13/18 at 09:00; Stop 12/20/18 at 08:59 Metoprolol Tartrate (Lopressor) 25 mg BID PO Last administered on 12/15/18 09:13; Admin Dose 25 MG; Start 12/13/18 at 21:00 Enoxaparin Sodium (Lovenox) 80 mg BID SC Last administered on 12/15/18 09:14; Admin Dose 80 MG; Start 12/14/18 at 21:00 Aspirin (Aspirin) 81 mg DAILY PO Last administered on 12/15/18 09:14; Admin Dose 81 MG; Start 12/15/18 at 09:00 BALTA DAVIDSON Dec 15, 2018 14:38
[2018-12-15] MEDS: HYDROmorphONE 0.5 MG/0.5 ML SYG IV PRN ×2 (14:52→20:13)
--- NOTE | 2018-12-15 18:08 | PN ---
Date/Time of Note Date/Time of Note DATE: 12/15/18 TIME: 18:04 Assessment/Plan VTE Prophylaxis Risk score (from Ns)>0 risk: 17 [place] [facility] [place] contraindicated: other Pharmacological prophylaxis: LMWH Lines/Catheters [facility] [place] Lock [place] line still needed: Yes Urinary Cath still in place: No Assessment/Plan Hospital Course Per vascular surgery recommendation posterior portion of the surgery can be performed in 10 days after thrombectomy. Patient remains hemodynamically stable afebrile, sinus rhythm with occasional PVCs. Acute rehab eval versus short term SNF. Assessment/Plan - Episode of SVT on 12/11, continue amiodarone and metoprolol. Dr. Soriano is following in cardiology consultation. - S/p anterior retroperitoneal interbody fusion of L3-S1 by Dr. Lobato. Continue IV fluids and postoperative antibiotic. Continue [place] and Dilaudid for pain. - Status post left iliac artery thrombectomy by Dr. Ibrahim. Neurovascular check bilateral lower extremities every hour. - HTN, continue metoprolol, Norvasc, Cozaar, and hydrochlorothiazide with parameters. - RA, patient gets injection with rituximab, follows with Dr. Saldivar as an outpatient. - Asthma, stable, continue Breo Ellipta as needed. Further recommendations based on clinical course. Plan of care discussed with Dr. Whatley. Result Diagram: 12/13/18 0548 12/14/18 0539 Exam/Review of Systems Exam Vitals Vital Signs Date Temp Pulse Resp B/P (MAP) Pulse Ox O2 O2 Flow FiO2 Time Delivery Rate 12/15/18 98.0 72 18 93/55 (68) 92 Nasal 2.0 14:59 Cannula Intake and Output 12/14/18 12/14/18 12/15/18 1515:00 23:00 07:00 IntakeIntake Total 340 ml 820 ml 60 ml OutputOutput Total 1300 ml 950 ml BalanceBalance 340 ml -480 ml -890 ml Exam Constitutional: alert, oriented Respiratory: clear to auscultation Cardiovascular: regular rate and rhythm Gastrointestinal: soft, non-tender Musculoskeletal: nl extremities to inspection, other (Status post surgery with midline abdominal incision covered with dry clean dressing) Extremities: normal pulses, other Skin: nl turgor Medications Medication Current Medications Acetaminophen/ Hydrocodone Bitart ([place] (5/325)) 1 tab Q4H PRN PO .PAIN 1-5 Last administered on 12/15/18 12:38; Admin Dose 1 TAB; Start 12/07/18 at 17:30 Docusate Sodium (Colace) 100 mg BID PO Last administered on 12/15/18 09:12; Admin Dose 100 MG; Start 12/07/18 at 17:30 IV Flush (NS 3 ml) 3 ml PER PROTOCOL IV ; Start 12/07/18 at 17:30 Naloxone HCl (Narcan) 0.2 mg Q2M PRN IV RR 8 BREATHS/MIN OR LESS; Start 12/07/18 at 17:30 Alprazolam (Xanax) 0.25 mg TID PRN PO ANXIETY; Start 12/08/18 at 14:30 Pregabalin (Lyrica) 50 mg QAM PO Last administered on 12/15/18 09:14; Admin Dose 50 MG; Start 12/09/18 at 09:00 Pregabalin (Lyrica) 100 mg QHS PO Last administered on 12/14/18 21:41; Admin Dose 100 MG; Start 12/08/18 at 21:00 Rosuvastatin Calcium (Crestor) 40 mg QHS PO Last administered on 12/14/18 21:41; Admin Dose 40 MG; Start 12/08/18 at 21:00 Zolpidem Tartrate (Ambien) 10 mg QHS PRN PO INSOMNIA Last administered on 12/15/18 01:57; Admin Dose 10 MG; Start 12/08/18 at 14:30 Amlodipine Besylate (Norvasc) 10 mg DAILY PO Last administered on 12/15/18 09:12; Admin Dose 10 MG; Start 12/10/18 at 09:00 Losartan Potassium (Cozaar) 100 mg DAILY PO Last administered on 12/15/18 09:14; Admin Dose 100 MG; Start 12/10/18 at 09:00 Hydrochlorothiazide (Hydrochlorothiazide) 25 mg DAILY PO Last administered on 12/15/18 09:13; Admin Dose 25 MG; Start 12/10/18 at 09:00 Hydromorphone HCl (Dilaudid) 0.5 mg Q3 PRN IV SEVERE PAIN LEVEL 7-10 Last administered on 12/15/18 14:52; Admin Dose 0.5 MG; Start 12/09/18 at 15:30 Metoprolol Tartrate (Lopressor) 25 mg BID PO Last administered on 12/15/18 09:13; Admin Dose 25 MG; Start 12/13/18 at 21:00 Enoxaparin Sodium (Lovenox) 80 mg BID SC Last administered on 12/15/18 09:14; Admin Dose 80 MG; Start 12/14/18 at 21:00 Aspirin (Aspirin) 81 mg DAILY PO Last administered on 12/15/18at 09:14; Admin Dose 81 MG; Start 12/15/18 at 09:00 Amiodarone HCl (Cordarone) 200 mg DAILY PO ; Start 12/16/18 at 09:00 JEMAL THOMPSON Dec 15, 2018 18:08
[2018-12-15] MEDS: ROSUVASTATIN CALCIUM 40 MG TABLET PO SCH (20:13)
[2018-12-16] VITALS (9 sets, daily range): BP systolic 105–144; BP diastolic 52–88; PULSE 58–79; RESP 18–20
[2018-12-16] MEDS: ASPIRIN 81 MG TAB PO SCH (08:50)
[2018-12-16] MEDS: DOCUSATE SODIUM 100 MG CAP PO SCH ×2 (08:50→20:34)
[2018-12-16] MEDS: PREGABALIN 50 MG CAP PO SCH ×2 (08:55→20:34)
[2018-12-16] MEDS: AMLODIPINE 10 MG TAB PO SCH (08:55)
[2018-12-16] MEDS: HYDROCODONE/APAP (5/325) TAB PO PRN ×2 (08:56→14:22)
[2018-12-16] MEDS: AMIODARONE 200 MG TAB PO SCH (08:56)
[2018-12-16] MEDS: HYDROCHLOROTHIAZIDE 25 MG TAB PO SCH (08:57)
[2018-12-16] MEDS: METOPROLOL 25 MG TAB PO SCH ×2 (08:57→20:35)
[2018-12-16] MEDS: LOSARTAN 50 MG TAB PO SCH (08:57)
[2018-12-16] MEDS: ENOXAPARIN 80 MG/0.8 ML SYG SC SCH ×2 (09:24→20:57)
[2018-12-16] MEDS ORDERED: POTASSIUM CHLORIDE (SR) 20 MEQ TAB PO STA (12:57)
--- NOTE | 2018-12-16 12:57 | CONS ---
Assessment/Plan Assessment/Plan Hospital Course (Demo Recall) IMP: 1.SVT-? AT versus MFAT per EP. No significant recurrence. NL TSH. Still having occasional PAC's and PVC's but no sig runs 2.Arterial insuff LLE s/p thrombectomy 3.HTN 4.H/O CAD 5. post-op s/p anterior lumbar interbody and fusion Recc: -Tele -Continue BB and follow HR/rhythm -Continue losartan/CCB/HCTZ -Continue statin -Continue po amio daily and continue lovenox Consultation Date/Type/Reason Admit Date/Time Dec 07, 2018 at 12:52 Initial Consult Date 12/11/18 Type of Consult Cardiology Reason for Consultation SVT Requesting Provider: BRIAN GRIFFIN MD Date/Time of Note DATE: 12/16/18 TIME: 12:55 Exam/Review of Systems Vital Signs Vitals Vital Signs Date Temp Pulse Resp B/P (MAP) Pulse Ox O2 O2 Flow FiO2 Time Delivery Rate 12/16/18 97.9 70 20 122/59 90 Nasal 11:03 (80) Cannula 12/16/18 2.0 07:32 Intake and Output 12/15/18 12/15/18 12/16/18 1515:00 23:00 07:00 IntakeIntake Total 250 ml 660 ml 300 ml OutputOutput Total 720 ml 950 ml BalanceBalance 250 ml -60 ml -650 ml Exam Exam Review of Systems: CONSTITUTIONAL: No fevers, chills. PULMONARY: No sob CARDIOVASCULAR: No chest pain/palpitations GASTROINTESTINAL: No nausea/vomiting. GENITOURINARY: No hematuria/dysuria. MUSCULOSKELETAL: No myagias/arthalgias. PSYCHIATRIC: The patient denies depression. NEUROLOGIC: No weakness Constitutional: alert Psych: no complaints Head: normocephalic ENMT: mucosa pink and moist Neck: supple, jvd (9 cm water) Respiratory: diminished breath sounds (at bases/B) Cardiovascular: regular rate and rhythm, other (PAC's) Gastrointestinal: soft, non-tender Musculoskeletal: muscle weakness (mild generalized) Extremities: edema (none) Neurological: other (No focal deficits) Labs Result Diagram: 12/13/18 0548 12/16/18 0628 Results 24hrs Laboratory Tests Test 12/16/18 06:28 Sodium Level 138 Potassium Level 3.2 L Chloride Level 95 L Carbon Dioxide Level 34 H Anion Gap 9 Blood Urea Nitrogen 21 H Creatinine 1.04 H Est Glomerular Filtrat Rate mL/min Glucose Level 98 Calcium Level 8.1 L Magnesium Level 1.6 L Medications Medications Current Medications Acetaminophen/ Hydrocodone Bitart ([place] (5/325)) 1 tab Q4H PRN PO .PAIN 1-5 Last administered on 12/16/18 08:56; Admin Dose 1 TAB; Start 12/07/18 at 17:30 Docusate Sodium (Colace) 100 mg BID PO Last administered on 12/16/18 08:50; Admin Dose 100 MG; Start 12/07/18 at 17:30 IV Flush (NS 3 ml) 3 ml PER PROTOCOL IV ; Start 12/07/18 at 17:30 Naloxone HCl (Narcan) 0.2 mg Q2M PRN IV RR 8 BREATHS/MIN OR LESS; Start 12/07/18 at 17:30 Alprazolam (Xanax) 0.25 mg TID PRN PO ANXIETY; Start 12/08/18 at 14:30 Pregabalin (Lyrica) 50 mg QAM PO Last administered on 12/16/18 08:55; Admin Dose 50 MG; Start 12/09/18 at 09:00 Pregabalin (Lyrica) 100 mg QHS PO Last administered on 12/15/18 20:12; Admin Dose 100 MG; Start 12/08/18 at 21:00 Rosuvastatin Calcium (Crestor) 40 mg QHS PO Last administered on 12/15/18 20:13; Admin Dose 40 MG; Start 12/08/18 at 21:00 Zolpidem Tartrate (Ambien) 10 mg QHS PRN PO INSOMNIA Last administered on 12/15/18 23:49; Admin Dose 10 MG; Start 12/08/18 at 14:30 Amlodipine Besylate (Norvasc) 10 mg DAILY PO Last administered on 12/16/18 08:55; Admin Dose 10 MG; Start 12/10/18 at 09:00 Losartan Potassium (Cozaar) 100 mg DAILY PO Last administered on 12/16/18 08:57; Admin Dose 100 MG; Start 12/10/18 at 09:00 Hydrochlorothiazide (Hydrochlorothiazide) 25 mg DAILY PO Last administered on 12/16/18 08:57; Admin Dose 25 MG; Start 12/10/18 at 09:00 Hydromorphone HCl (Dilaudid) 0.5 mg Q3 PRN IV SEVERE PAIN LEVEL 7-10 Last administered on 12/15/18 20:13; Admin Dose 0.5 MG; Start 12/09/18 at 15:30 Metoprolol Tartrate (Lopressor) 25 mg BID PO Last administered on 12/16/18 08:57; Admin Dose 25 MG; Start 12/13/18 at 21:00 Enoxaparin Sodium (Lovenox) 80 mg BID SC Last administered on 12/16/18 09:24; Admin Dose 80 MG; Start 12/14/18 at 21:00 Aspirin (Aspirin) 81 mg DAILY PO Last administered on 12/16/18 08:50; Admin Dose 81 MG; Start 12/15/18 at 09:00 Amiodarone HCl (Cordarone) 200 mg DAILY PO Last administered on 12/16/18 08:56; Admin Dose 200 MG; Start 12/16/18 at 09:00 BALTA DAVIDSON Dec 16, 2018 12:57
[2018-12-16] MEDS ORDERED: MAGNESIUM SULFATE 3 GM in DEXTROSE 5% 100 ML IVPB ONE (14:00)
--- NOTE | 2018-12-16 20:29 | PN ---
Date/Time of Note Date/Time of Note DATE: 12/16/18 TIME: 20:24 Assessment/Plan VTE Prophylaxis Risk score (from Ns)>0 risk: 14 SCD applied (from Ns): Yes SCD contraindicated: other Pharmacological prophylaxis: LMWH Lines/Catheters [facility] Saline Lock Urinary Cath still in place: No Assessment/Plan Hospital Course Potassium and magnesium replaced in a.m., patient remains hemodynamically stable, continues to be in sinus rhythm. DC [place]. Continue physical therapy. Pending placement to halfway facility for short-term recovery after thrombectomy with plan to bring patient back for completion of posterior portion of the lumbar spine surgery in 9 days. Assessment/Plan - Episode of SVT on 12/11, no episodes of SVT, patient is currently in sinus rhythm with occasional PACs and PVCs, continue telemetry monitoring, continue amiodarone and metoprolol. Dr. Soriano is following in cardiology consultation. - S/p anterior retroperitoneal interbody fusion of L3-S1 by Dr. Lobato. Plan to complete posterior portion of the surgery in 9 days vascular surgery recommendations. Continue [place] and Dilaudid for pain. Continue PT. - Status post left iliac artery thrombectomy by Dr. Ibrahim. - HTN, continue metoprolol, Norvasc, Cozaar, and hydrochlorothiazide with parameters. - RA, patient gets injection with rituximab, follows with Dr. Saldivar as an outpatient. - Asthma, stable, continue Breo Ellipta as needed. Further recommendations based on clinical course. Plan of care discussed with Dr. Whatley. Result Diagram: 12/13/18 0548 12/16/18 0628 Results 24hrs Laboratory Tests Test 12/16/18 06:28 Sodium Level 138 Potassium Level 3.2 L Chloride Level 95 L Carbon Dioxide Level 34 H Anion Gap 9 Blood Urea Nitrogen 21 H Creatinine 1.04 H Est Glomerular Filtrat Rate mL/min Glucose Level 98 Calcium Level 8.1 L Magnesium Level 1.6 L Exam/Review of Systems Exam Vitals Vital Signs Date Temp Pulse Resp B/P (MAP) Pulse Ox O2 O2 Flow FiO2 Time Delivery Rate 12/16/18 98.7 66 20 118/58 98 Nasal 20:07 (78) Cannula 12/16/18 2.0 19:34 Intake and Output 612/15/18 12/16/18 1515:00 23:00 07:00 IntakeIntake Total 250 ml 660 ml 300 ml OutputOutput Total 720 ml 950 ml BalanceBalance 250 ml -60 ml -650 ml Exam Constitutional: alert, oriented Respiratory: clear to auscultation Cardiovascular: regular rate and rhythm Gastrointestinal: soft, non-tender Musculoskeletal: nl extremities to inspection, other (Status post surgery with midline abdominal incision covered with dry clean dressing) Extremities: normal pulses, other Skin: nl turgor Results Results 24hrs Laboratory Tests Test 12/16/18 06:28 Sodium Level 138 Potassium Level 3.2 L Chloride Level 95 L Carbon Dioxide Level 34 H Anion Gap 9 Blood Urea Nitrogen 21 H Creatinine 1.04 H Est Glomerular Filtrat Rate mL/min Glucose Level 98 Calcium Level 8.1 L Magnesium Level 1.6 L Medications Medication Current Medications Acetaminophen/ Hydrocodone Bitart ([place] (5/325)) 1 tab Q4H PRN PO .PAIN 1-5 Last administered on 12/16/18at 14:22; Admin Dose 1 TAB; Start 12/07/18 at 17:30 Docusate Sodium (Colace) 100 mg BID PO Last administered on 12/16/18 08:50; Admin Dose 100 MG; Start 12/07/18 at 17:30 IV Flush (NS 3 ml) 3 ml PER PROTOCOL IV ; Start 12/07/18 at 17:30 Naloxone HCl (Narcan) 0.2 mg Q2M PRN IV RR 8 BREATHS/MIN OR LESS; Start 9 at 17:30 Alprazolam (Xanax) 0.25 mg TID PRN PO ANXIETY; Start 12/08/18 at 14:30 Pregabalin (Lyrica) 50 mg QAM PO Last administered on 12/16/18 08:55; Admin Dose 50 MG; Start 12/09/18 at 09:00 Pregabalin (Lyrica) 100 mg QHS PO Last administered on 12/15/18at 20:12; Admin Dose 100 MG; Start 12/08/18 at 21:00 Rosuvastatin Calcium (Crestor) 40 mg QHS PO Last administered on 12/15/18at 20:13; Admin Dose 40 MG; Start 12/08/18 at 21:00 Zolpidem Tartrate (Ambien) 10 mg QHS PRN PO INSOMNIA Last administered on 12/15/18 23:49; Admin Dose 10 MG; Start 12/08/18 at 14:30 Amlodipine Besylate (Norvasc) 10 mg DAILY PO Last administered on 12/16/18 08:55; Admin Dose 10 MG; Start 12/10/18 at 09:00 Losartan Potassium (Cozaar) 100 mg DAILY PO Last administered on 12/16/18 08:57; Admin Dose 100 MG; Start 12/10/18 at 09:00 Hydrochlorothiazide (Hydrochlorothiazide) 25 mg DAILY PO Last administered on 12/16/18 08:57; Admin Dose 25 MG; Start 12/10/18 at 09:00 Hydromorphone HCl (Dilaudid) 0.5 mg Q3 PRN IV SEVERE PAIN LEVEL 7-10 Last administered on 12/15/18 20:13; Admin Dose 0.5 MG; Start 12/09/18 at 15:30 Metoprolol Tartrate (Lopressor) 25 mg BID PO Last administered on 12/16/18 08:57; Admin Dose 25 MG; Start 12/13/18 at 21:00 Enoxaparin Sodium (Lovenox) 80 mg BID SC Last administered on 12/16/18 09:24; Admin Dose 80 MG; Start 12/14/18 at 21:00 Aspirin (Aspirin) 81 mg DAILY PO Last administered on 12/16/18 08:50; Admin Dose 81 MG; Start 12/15/18 at 09:00 Amiodarone HCl (Cordarone) 200 mg DAILY PO Last administered on 12/16/18 08:56; Admin Dose 200 MG; Start 12/16/18 at 09:00 JEMAL THOMPSON Dec 16, 2018 20:29
[2018-12-16] MEDS: ROSUVASTATIN CALCIUM 40 MG TABLET PO SCH (20:34)
[2018-12-16] MEDS: HYDROmorphONE 0.5 MG/0.5 ML SYG IV PRN (20:35)
[2018-12-17] MEDS: ZOLPIDEM 5 MG TAB PO PRN (00:21)
[2018-12-17 03:52] VITALS: BP 126/59; PULSE 59; RESP 20
[2018-12-17 07:20] VITALS: BP 120/58; PULSE 65; RESP 20
[2018-12-17] MEDS: HYDROmorphONE 0.5 MG/0.5 ML SYG IV PRN ×3 (07:33→16:14)
[2018-12-17] MEDS: PREGABALIN 50 MG CAP PO SCH ×2 (08:07→20:37)
[2018-12-17] MEDS: DOCUSATE SODIUM 100 MG CAP PO SCH ×2 (08:08→20:36)
[2018-12-17] MEDS: LOSARTAN 50 MG TAB PO SCH (08:09)
[2018-12-17] MEDS: METOPROLOL 25 MG TAB PO SCH ×2 (08:09→20:37)
[2018-12-17] MEDS: AMIODARONE 200 MG TAB PO SCH (08:09)
[2018-12-17] MEDS: AMLODIPINE 10 MG TAB PO SCH (08:10)
[2018-12-17] MEDS: HYDROCHLOROTHIAZIDE 25 MG TAB PO SCH (08:10)
[2018-12-17] MEDS: ASPIRIN 81 MG TAB PO SCH (08:10)
[2018-12-17] MEDS: ENOXAPARIN 80 MG/0.8 ML SYG SC SCH ×2 (08:17→21:27)
--- NOTE | 2018-12-17 10:14 | PN ---
Date/Time of Note Date/Time of Note DATE: 12/17/18 TIME: 10:12 Assessment/Plan VTE Prophylaxis Risk score (from Nsg)>0 risk: 6 SCD applied (from Nsg): Yes Lines/Catheters IV Catheter Type (from Nrsg): Saline Lock Urinary Cath still in place: No Assessment/Plan Assessment/Plan Potassium and magnesium replaced in a.m., patient remains hemodynamically stable, continues to be in sinus rhythm. DC [place]. Continue physical therapy. [facility] after thrombectomy with plan to bring patient back for completion of posterior portion of the lumbar spine surgery in 9 days. Assessment/Plan - Episode of SVT on 12/11, no episodes of SVT, patient is currently in sinus rhythm with occasional PACs and PVCs, continue telemetry monitoring, continue amiodarone and metoprolol. Dr. Soriano is following in cardiology consultation. - S/p anterior retroperitoneal interbody fusion of L3-S1 by Dr. Lobato. Plan to complete posterior portion of the surgery in 9 days vascular surgery recommendations. Continue [place] and Dilaudid for pain. Continue PT. - Status post left iliac artery thrombectomy by Dr. Ibrahim. - HTN, continue metoprolol, Norvasc, Cozaar, and hydrochlorothiazide with parameters. - RA, patient gets injection with rituximab, follows with Dr. Saldivar as an outpatient. - Asthma, stable, continue Breo Ellipta as needed. Further recommendations based on clinical course. Plan of care discussed with Dr. Whatley. Result Diagram: 12/13/18 0548 12/17/18 0738 Results 24hrs Laboratory Tests Test 12/17/18 07:38 Sodium Level 138 Potassium Level 4.0 Chloride Level 96 L Carbon Dioxide Level 36 H Anion Gap 6 Blood Urea Nitrogen 25 H Creatinine 1.14 H Est Glomerular Filtrat Rate mL/min Glucose Level 97 Calcium Level 8.2 L Exam/Review of Systems Exam Vitals Vital Signs Date Temp Pulse Resp B/P (MAP) Pulse Ox O2 O2 Flow FiO2 Time Delivery Rate 12/17/18 98.0 65 20 120/58 98 Nasal 07:20 (78) Cannula 12/17/18 3.0 00:14 Intake and Output 12/16/18 12/16/18 12/17/18 1515:00 23:00 07:00 IntakeIntake Total 800 ml OutputOutput Total 600 ml BalanceBalance 200 ml Results Results 24hrs Laboratory Tests Test 12/17/18 07:38 Sodium Level 138 Potassium Level 4.0 Chloride Level 96 L Carbon Dioxide Level 36 H Anion Gap 6 Blood Urea Nitrogen 25 H Creatinine 1.14 H Est Glomerular Filtrat Rate mL/min Glucose Level 97 Calcium Level 8.2 L Medications Medication Current Medications Acetaminophen/ Hydrocodone Bitart ([place] (5/325)) 1 tab Q4H PRN PO .PAIN 1-5 Last administered on 12/16/18 14:22; Admin Dose 1 TAB; Start 12/07/18 at 17:30 Docusate Sodium (Colace) 100 mg BID PO Last administered on 12/17/18 08:08; Admin Dose 100 MG; Start 12/07/18 at 17:30 IV Flush (NS 3 ml) 3 ml PER PROTOCOL IV ; Start 12/07/18 at 17:30 Naloxone HCl (Narcan) 0.2 mg Q2M PRN IV RR 8 BREATHS/MIN OR LESS; Start 12/07/18 at 17:30 Alprazolam (Xanax) 0.25 mg TID PRN PO ANXIETY; Start 12/08/18 at 14:30 Pregabalin (Lyrica) 50 mg QAM PO Last administered on 12/17/18 08:07; Admin Dose 50 MG; Start 12/09/18 at 09:00 Pregabalin (Lyrica) 100 mg QHS PO Last administered on 12/16/18 20:34; Admin Dose 100 MG; Start 12/08/18 at 21:00 Rosuvastatin Calcium (Crestor) 40 mg QHS PO Last administered on 12/16/18 20:34; Admin Dose 40 MG; Start 12/08/18 at 21:00 Zolpidem Tartrate (Ambien) 10 mg QHS PRN PO INSOMNIA Last administered on 12/17/18 00:21; Admin Dose 10 MG; Start 12/08/18 at 14:30 Amlodipine Besylate (Norvasc) 10 mg DAILY PO Last administered on 12/17/18 08:10; Admin Dose 10 MG; Start 12/10/18 at 09:00 Losartan Potassium (Cozaar) 100 mg DAILY PO Last administered on 12/17/18 08:0 9; Admin Dose 100 MG; Start 12/10/18 at 09:00 Hydrochlorothiazide (Hydrochlorothiazide) 25 mg DAILY PO Last administered on 12/17/18 08:10; Admin Dose 25 MG; Start 12/10/18 at 09:00 Hydromorphone HCl (Dilaudid) 0.5 mg Q3 PRN IV SEVERE PAIN LEVEL 7-10 Last administered on 12/17/18 07:33; Admin Dose 0.5 MG; Start 12/09/18 at 15:30 Metoprolol Tartrate (Lopressor) 25 mg BID PO Last administered on 12/17/18 08:09; Admin Dose 25 MG; Start 12/13/18 at 21:00 Enoxaparin Sodium (Lovenox) 80 mg BID SC Last administered on 12/17/18 08:17; Admin Dose 80 MG; Start 12/14/18 at 21:00 Aspirin (Aspirin) 81 mg DAILY PO Last administered on 12/17/18 08:10; Admin Dose 81 MG; Start 12/15/18 at 09:00 Amiodarone HCl (Cordarone) 200 mg DAILY PO Last administered on 12/17/18 08:09; Admin Dose 200 MG; Start 12/16/18 at 09:00 DEJA HERRERA Dec 17, 2018 10:14
[2018-12-17 11:15] VITALS: BP 116/56; PULSE 69; RESP 20
--- NOTE | 2018-12-17 12:24 | CONS ---
Consult Date/Type/Reason Admit Date/Time Dec 07, 2018 at 12:52 Initial Consult Date Requesting Provider: BRIAN GRIFFIN MD Date/Time of Note DATE: 12/17/18 TIME: 12:22 Subjective NO acute events - pt comfortable - BP in good range -no CP now - will monitor clinically now. NO more SVT recurrences. ROS: No fever, no chills, no nausea, no vomiting, no diarrhea/constipation No recent weight changes No chest pain, no PND, no orthopnea + back pain, con't pain Rx No dizziness, blurred vision No thirst, no heat or cold intolerance Objective Vitals Vital Signs Date Temp Pulse Resp B/P (MAP) Pulse Ox O2 O2 Flow FiO2 Time Delivery Rate 12/17/18 98.0 69 20 116/56 91 Nasal 11:15 (76) Cannula 12/17/18 3.0 00:14 Intake and Output 12/16/18 12/16/18 12/17/18 1515:00 23:00 07:00 IntakeIntake Total 800 ml OutputOutput Total 600 ml BalanceBalance 200 ml Exam General: WN/WD/NAD, AOx 3 HEENT: Unicetric/atraumatic/EOMI ( follow commands) NECK: JVD elevated, no thyromegaly Lymph: no lymphadenopathy HEART: regular with no S3, II/ systolic murmur at apex, PMI L LUNGS: Coarse sounds ABD: soft, NT, ND, +BS : Intact Neuro: non focal SKIN: chronic changes EXT: trace edema Results/Medications Result Diagram: 12/13/18 0548 12/17/18 0738 Results 24 hrs Laboratory Tests Test 12/17/18 07:35 12/17/18 07:38 Magnesium Level 2.2 Sodium Level 138 Potassium Level 4.0 Chloride Level 96 L Carbon Dioxide Level 36 H Anion Gap 6 Blood Urea Nitrogen 25 H Creatinine 1.14 H Est Glomerular Filtrat Rate mL/min Glucose Level 97 Calcium Level 8.2 L Home Meds Reported Medications Pregabalin* (Lyrica*) 50 Mg Capsule, 100 MG PO QHS, CAP 12/07/18 Pregabalin* (Lyrica*) 50 Mg Capsule, 50 MG PO QAM, CAP 12/07/18 Olmesartan/Hydrochlorothiazide (Benicar Hct 40-25 mg Tablet) 1 Each Tablet, 1 TAB PO DAILY, TAB 12/07/18 Metoprolol Tartrate* (Lopressor*) 25 Mg Tab, 12.5 MG PO BID, #60 TAB 12/07/18 Denosumab (Prolia) 60 Mg/1 Ml Disp.syrin, 60 MG SQ [id number] 12/07/18 Cholecalciferol* (Vitamin D3*) 1,000 Unit Tablet, 1000 UNIT PO DAILY, TAB 12/07/18 Magnesium Oxide* (Mag-Oxide*) 400 Mg Tablet, 300 MG PO DAILY, TAB 12/07/18 Cyanocobalamin (Vitamin B-12) (B-12) 500 Mcg Tablet, 100 MCG PO DAILY, TAB 12/07/18 Rituximab (Rituxan) 10 Mg/Ml Soln, 500 MG IV as directed 12/07/18 Rosuvastatin Calcium* (Crestor*) 40 Mg Tablet, 40 MG PO QHS, #30 TAB 12/07/18 Aspirin* (Aspirin* Chew) 81 Mg Tab.chew, 81 MG PO DAILY, TAB.CHEW 12/07/18 Alprazolam* (Alprazolam*) 0.25 Mg Tablet, 0.25 MG PO TID PRN for ANXIETY, TAB 12/07/18 Zolpidem Tartrate* (Zolpidem Tartrate*) 10 Mg Tablet, 10 MG PO QHS PRN for INSOMNIA, #30 TAB 12/07/18 Amlodipine Besylate* (Amlodipine Besylate*) 10 Mg Tablet, 10 MG PO DAILY, #30 TAB 12/07/18 Fluticasone-Vilanterol (Breo Ellipta Inhaler) 100-25 Mcg/Actuation Aer.pow.ba, 1 PUFF INHALATION DAILY PRN for SHORTNESS OF BREATH, #1 INHALER 12/07/18 Medications Current Medications Acetaminophen/ Hydrocodone Bitart ([place] (5/325)) 1 tab Q4H PRN PO .PAIN 1-5 Last administered on 12/16/18at 14:22; Admin Dose 1 TAB; Start 12/07/18 at 17:30 Docusate Sodium (Colace) 100 mg BID PO Last administered on 12/17/18at 08:08; Admin Dose 100 MG; Start 12/07/18 at 17:30 IV Flush (NS 3 ml) 3 ml PER PROTOCOL IV ; Start 12/07/18 at 17:30 Naloxone HCl (Narcan) 0.2 mg Q2M PRN IV RR 8 BREATHS/MIN OR LESS; Start 12/07/18 at 17:30 Alprazolam (Xanax) 0.25 mg TID PRN PO ANXIETY; Start 12/08/18 at 14:30 Pregabalin (Lyrica) 50 mg QAM PO Last administered on 12/17/18 08:07; Admin Dose 50 MG; Start 12/09/18 at 09:00 Pregabalin (Lyrica) 100 mg QHS PO Last administered on 12/16/18 20:34; Admin Dose 100 MG; Start 12/08/18 at 21:00 Rosuvastatin Calcium (Crestor) 40 mg QHS PO Last administered on 12/16/18 20:34; Admin Dose 40 MG; Start 12/08/18 at 21:00 Zolpidem Tartrate (Ambien) 10 mg QHS PRN PO INSOMNIA Last administered on 12/17/18 00:21; Admin Dose 10 MG; Start 12/08/18 at 14:30 Amlodipine Besylate (Norvasc) 10 mg DAILY PO Last administered on 12/17/18 08:10; Admin Dose 10 MG; Start 12/10/18 at 09:00 Losartan Potassium (Cozaar) 100 mg DAILY PO Last administered on 12/17/18 08:09; Admin Dose 100 MG; Start 12/10/18 at 09:00 Hydrochlorothiazide (Hydrochlorothiazide) 25 mg DAILY PO Last administered on 12/17/18 08:10; Admin Dose 25 MG; Start 12/10/18 at 09:00 Hydromorphone HCl (Dilaudid) 0.5 mg Q3 PRN IV SEVERE PAIN LEVEL 7-10 Last administered on 12/17/18 11:47; Admin Dose 0.5 MG; Start 12/09/18 at 15:30 Metoprolol Tartrate (Lopressor) 25 mg BID PO Last administered on 12/17/18 08:09; Admin Dose 25 MG; Start 12/13/18 at 21:00 Enoxaparin Sodium (Lovenox) 80 mg BID SC Last administered on 12/17/18 08:17; Admin Dose 80 MG; Start 12/14/18 at 21:00 Aspirin (Aspirin) 81 mg DAILY PO Last administered on 12/17/18at 08:10; Admin Dose 81 MG; Start 12/15/18 at 09:00 Amiodarone HCl (Cordarone) 200 mg DAILY PO Last administered on 12/17/18at 08:09; Admin Dose 200 MG; Start 12/16/18 at 09:00 Assessment/Plan Hospital Course (Demo Recall) 1. Supraventricular tachycardia. Her supraventricular tachycardia is most lik madelyn atrial tachycardia versus multifocal atrial tachycardia, which is a fairly similar diagnosis. Both of these rhythms are related to likely increased pulmonary pressures and pulmonary physiology. I think at this point the patient is hemodynamically stable. I think beta josefina is a good idea for now. I would recommend avoidance of albuterol. We will follow up with a 2D echo per recommendation as necessary. There is no indication for global anticoagulation in regards to this supraventricular arrhythmia- I was called by tele staff to tell me pt is in a. fib with RVR - loaded with amiodarone and Lovenox for CVA protection - I reviewd rhythm strips carefully - still feel that regularity supports a. tach vs atypical a. f more then a. fib - now converted to sinus - will complete amio Rx - outpt EPS advised. In sinus now .Con't current Rx as sinus rhythm is maintained. 2. Hypertension. Blood pressure modestly well controlled. Continue to adjust medications as needed. Well controlled. Rate controlled. On meds. 3. History of deep vein thrombosis/pulmonary embolus, status post thrombectomy. Primary team follows. Dr. Ibrahim is assessing after the procedure - anti-coag per vascular team. 4. Laboratory studies per primary team. Continue to adjust medications as n eeded. 5. Anemia. Hemoglobin is stable, no signs of bleeding now. Monitor H/H daily. NO bleeding. 6. Back pain - con't PT and pain Rx. NATASHA STEELE MD Dec 17, 2018 12:24
[2018-12-17 15:41] VITALS: BP 99/58; PULSE 55; RESP 20
[2018-12-17 20:07] VITALS: BP 117/55; PULSE 60; RESP 20
[2018-12-17] MEDS: ROSUVASTATIN CALCIUM 40 MG TABLET PO SCH (20:36)
== END 2018-12-17 20:55 | DRG 460 ==
LOC: REC 12-07 12:52 → ICU 12-07 19:05 → TEL 12-09 15:43
PROVIDERS: ADMIT Neurological Surgery; ATTEND Neurological Surgery
PROC: 0SG00A0 Fusion of Lumbar Vertebral Joint with Interbody Fusion Device, Anterior Approach, Anterior Column, Open Approach (ICD-10-PCS; 2018-12-07)
PROC: 04CJ0ZZ Extirpation of Matter from Left External Iliac Artery, Open Approach (ICD-10-PCS; 2018-12-07)
PROC: 4A11X4G Monitoring of Peripheral Nervous Electrical Activity, Intraoperative, External Approach (ICD-10-PCS; 2018-12-07)
PROC: 30233N1 Transfusion of Nonautologous Red Blood Cells into Peripheral Vein, Percutaneous Approach (ICD-10-PCS; 2018-12-07)
PROC: 0SG30A0 Fusion of Lumbosacral Joint with Interbody Fusion Device, Anterior Approach, Anterior Column, Open Approach (ICD-10-PCS; principal; 2018-12-07 15:00)
DX: M51.17 Intervertebral disc disorders with radiculopathy, lumbosacral region (principal); I74.5 Embolism and thrombosis of iliac artery; J84.10 Pulmonary fibrosis, unspecified; M06.9 Rheumatoid arthritis, unspecified; N18.9 Chronic kidney disease, unspecified; M19.90 Unspecified osteoarthritis, unspecified site; E66.9 Obesity, unspecified; Z68.33 Body mass index [BMI] 33.0-33.9, adult; M48.07 Spinal stenosis, lumbosacral region; J45.909 Unspecified asthma, uncomplicated; I12.9 Hypertensive chronic kidney disease with stage 1 through stage 4 chronic kidney disease, or unspecified chronic kidney disease
CPT/HCPCS: 36430; 71045; 72114; 72131; 75716; 80048; 80053; 83735; 84100; 84443; 85014; 85018; 85025; 85610; 85730; 86850; 86900; 86901; 86920; 87081; 88304; 93005; 93306; 97110; 97116; 97161; 97530; C1762; J0610; J0690; J1100; J1170; J1644; J2250; J2405; J2440; J2710; J3010; J3475; J3480; J7050; P9016; Q9967

== ENCOUNTER 2019-01-03 13:19 | Inpatient (IN) | payer MEDICARE, OTHER ==
[2019-01-03] VITALS (15 sets, daily range): BP systolic 97–127; BP diastolic 37–83; PULSE 66–98; RESP 11–26; Ht 152.4 cm; Wt 75.3 kg
[~2019-01-03] VITALS: Ht 152.4 cm; Wt 75.3 kg
[~2019-01-03 13:19] MED LIST: ALPR0.254 PO; AMLO-147 PO; ASPI-903 PO; CHOL100062 PO; CYAN500T17 PO; DENO60DI SQ; FLUT1AER INHALATION; MAGN400T27 PO; METO-448 PO; OLME1TAB27 PO; PREG50CA PO; ROSU40TA35 PO; ZOLP10TA5 PO; [UNRECOGNIZED DRUG - CODE] IV
[2019-01-03] MEDS ORDERED: GUAI5SYR2 PO (14:13)
[2019-01-03] MEDS ORDERED: PROT946L PO (14:14)
[2019-01-03] MEDS ORDERED: HYDR-4011 PO (14:14)
[2019-01-03] MEDS ORDERED: MULTI PO (14:15)
[2019-01-03] MEDS ORDERED: LOSA100T15 PO (14:16)
[2019-01-03] MEDS ORDERED: HYDR25TA6 PO (14:17)
[2019-01-03] MEDS ORDERED: ENOX40DI2 SC (14:18)
[2019-01-03] MEDS ORDERED: DOCU-159 PO (14:20)
[2019-01-03] MEDS ORDERED: NA P133E10 RC (14:21)
[2019-01-03] MEDS ORDERED: BISA10SU55 RC (14:21)
[2019-01-03] MEDS ORDERED: MAGN400O19 PO (14:22)
[2019-01-03] MEDS ORDERED: AMIO200T4 PO (14:23)
[2019-01-03] MEDS ORDERED: ZOLP5TAB PO (14:23)
[2019-01-03] MEDS ORDERED: ALBUTEROL 0.083% (NEB) 2.5 MG/3 ML AMP HHN STA (16:33)
[2019-01-03] MEDS ORDERED: POLYMYXIN/BACITRACIN 1L IRRIG ONE (16:48)
[2019-01-03] MEDS ORDERED: THROMBIN 5000 UNIT (RECOTHROM) VIAL ONE (16:48)
[2019-01-03] MEDS ORDERED: ROPIVACAINE 0.5 % 30 ML VIAL ONE ×2 (16:48→18:09)
[2019-01-03] MEDS ORDERED: GELATIN SIZE 100 SPONGE ONE (16:48)
--- NOTE | 2019-01-03 16:51 | PREAC ---
Date/Time of Note Date/Time of Note DATE: 01/03/19 TIME: 16:46 Anesthesia Eval and Record Evaluation Time Pre-Procedure Interview DATE: 01/03/19 TIME: 16:46 Age 78 Sex female NPO: 8 hrs Preoperative diagnosis lumbar radiculopathy Planned procedure L2 to S1 bilateral laminectomies with fusion Past Medical History Past Medical History: Includes Cardio: HTN Endo: Diabetes Pulm: Other (pulmonary fibrosis ) Neuro: Other (back pain ) Renal: CKD (resolved ) GI: Obesity Psych: Anxiety Surgery & Anesthesia Issues Other issues (hx of arterial thrombosis/clot post surgery ) Meds Anticoagulation: No Beta Eleni within 24 hr: Yes Reported Medications Zolpidem Tartrate* (Ambien*) 5 Mg Tablet, 5 MG PO QHS PRN for INSOMNIA, #30 TAB 01/03/19 Amiodarone Hcl* (Amiodarone Hcl*) 200 Mg Tablet, 200 MG PO DAILY, #30 TAB 01/03/19 Magnesium Hydroxide* (Milk Of Magnesia*) 400 Mg/5 Ml Oral.susp, 30 ML PO DAILY PRN for CONSTIPATION, ML 01/03/19 Bisacodyl (Dulcolax) 10 Mg Supp.rect, 10 MG RC DAILY PRN for CONSTIPATION, SUPP.RECT 01/03/19 Na Phos,M-B/Na Phos,Di-Ba (ENEMA [id number]) 133 Ml Enema, 133 ML RC EVERY 72 HOURS PRN for CONSTIPATION, ENEMA 01/03/19 Docusate Sodium* (Docusate Sodium*) 100 Mg Capsule, 100 MG PO BID, #60 CAP 01/03/19 Enoxaparin Sodium* (Enoxaparin Sodium*) 40 Mg/0.4 Ml Syringe, 40 MG SC BID, SYR 01/03/19 Hydrochlorothiazide* (Hydrochlorothiazide*) 25 Mg Tab, 25 MG PO DAILY, #30 TAB HOLD FOR SBP LESS THAN 110 OR HEART RATE LESS THAN 60 01/03/19 Losartan Potassium* (Losartan Potassium*) 100 Mg Tablet, 100 MG PO DAILY, TAB HOLD IF SBP LESS THAN 110 OR HR LESS THAN 60 01/03/19 Multivitamins* (Theragran*) 1 Tab Tab, 1 TAB PO DAILY, TAB 01/03/19 Hydrocodone/Acetaminophen ([place] 5-325 Tablet) 1 Each Tablet, 1 EACH PO Q4 PRN for PAIN, TAB 01/03/19 Protein Supplement (Promod) 946 Ml Liquid, 30 ML PO DAILY 01/03/19 Guaifenesin-Dextromethorphan* (Robitussin* DM) 100MG/10MG/5ML Syrup, 10 ML PO Q8 PRN for COUGH, ML 01/03/19 Pregabalin* (Lyrica*) 50 Mg Capsule, 100 MG PO QHS, CAP 12/07/18 Pregabalin* (Lyrica*) 50 Mg Capsule, 50 MG PO QAM, CAP 12/07/18 Metoprolol Tartrate* (Lopressor*) 25 Mg Tab, 12.5 MG PO BID, #60 TAB 12/07/18 Rosuvastatin Calcium* (Crestor*) 40 Mg Tablet, 40 MG PO QHS, #30 TAB 12/07/18 Aspirin* (Aspirin* Chew) 81 Mg Tab.chew, 81 MG PO DAILY, TAB.CHEW 12/07/18 Alprazolam* (Alprazolam*) 0.25 Mg Tablet, 0.25 MG PO TID PRN for ANXIETY, TAB 12/07/18 Amlodipine Besylate* (Amlodipine Besylate*) 10 Mg Tablet, 10 MG PO DAILY, #30 TAB 12/07/18 Fluticasone-Vilanterol (Breo Ellipta Inhaler) 100-25 Mcg/Actuation Aer.pow.ba, 1 PUFF INHALATION DAILY PRN for SHORTNESS OF BREATH, #1 INHALER 12/07/18 Discontinued Reported Medications Olmesartan/Hydrochlorothiazide (Benicar Hct 40-25 mg Tablet) 1 Each Tablet, 1 TAB PO DAILY, TAB 12/07/18 Denosumab (Prolia) 60 Mg/1 Ml Disp.syrin, 60 MG SQ [id number] 12/07/18 Cholecalciferol* (Vitamin D3*) 1,000 Unit Tablet, 1000 UNIT PO DAILY, TAB 12/07/18 Magnesium Oxide* (Mag-Oxide*) 400 Mg Tablet, 300 MG PO DAILY, TAB 12/07/18 Cyanocobalamin (Vitamin B-12) (B-12) 500 Mcg Tablet, 100 MCG PO DAILY, TAB 12/07/18 Rituximab (Rituxan) 10 Mg/Ml Soln, 500 MG IV as directed 6/18/19 Zolpidem Tartrate* (Zolpidem Tartrate*) 10 Mg Tablet, 10 MG PO QHS PRN for INSOMNIA, #30 TAB 12/07/18 Meds reviewed: Yes Allergies Coded Allergies: tramadol (Verified Allergy, Unknown, Rash, 01/03/19) Allergies Reviewed: Yes Labs/Studies Labs Reviewed: Reviewed by anesthesiologist Result Diagram: 01/03/19 1513 Laboratory Tests 01/03/19 15:13 test: N/A Pre-procedure Exam Last vitals Vital Signs Date Temp Pulse Resp B/P (MAP) Pulse Ox O2 O2 Flow FiO2 Time Delivery Rate 01/03/19 18 117/56 94 Room Air 16:31 (76) 01/03/19 97.8 66 15:28 Airway: Adequate mouth opening, Adequate thyromental dist Mallampati: Mallampati IV Teeth: Normal Lung: Normal Heart: Normal ASA Physical Status ASA physical status: 4 Emergency: None Pre-operative Attestations Prior to commencing anesthesia and surgery, the patient was re-evaluated, there was verification of: *The patient's identity *The results of appropriate recent lab work and preoperative vital signs *The above evaluation not changing prior to induction *Anesthetic plan, risk benefits, alternative and complications discussed with patient/family; questions answered; patient/family understands, accepts and wishes to proceed. KAMAR MINA DO Jan 03, 2019 16:50
[2019-01-03] MEDS ORDERED: LIDOCAINE 2% (SDV) 5 ML INJ ONE (16:59)
[2019-01-03] MEDS ORDERED: MIDAZOLAM 1 MG/ML 2 ML INJ ONE (16:59)
[2019-01-03] MEDS ORDERED: ETOMIDATE 20 MG INJ ONE (16:59)
[2019-01-03] MEDS ORDERED: ROCURONIUM 50 MG INJ ONE (16:59)
[2019-01-03] MEDS ORDERED: DIPHENHYDRAMINE 50 MG INJ IV PRN (17:00)
[2019-01-03] MEDS ORDERED: HYDROmorphONE 1 MG/5 ML IV SYRINGE IV PRN ×3 (17:00)
[2019-01-03] MEDS ORDERED: hydrALAzine 20 MG INJ IV PRN ×2 (17:00→20:30)
[2019-01-03] MEDS ORDERED: ONDANSETRON 4 MG INJ IV PRN ×2 (17:00→20:30)
[2019-01-03] MEDS ORDERED: LABETALOL HCL 20MG INJ IV PRN ×2 (17:00→20:30)
[2019-01-03] MEDS ORDERED: MEPERIDINE 25 MG INJ IV PRN (17:00)
[2019-01-03] MEDS ORDERED: LORAZEPAM 2 MG INJ IV PRN (17:00)
--- NOTE | 2019-01-03 17:05 | HPN ---
Date/Time of Note Date/Time of Note DATE: 01/03/19 TIME: 17:00 Interval H&P Admission Note Pt. seen H&P reviewed: No system changes Neurosurgery follow up Patient seen and examined Off lovenox and ASA Cleared by CT surgery post thrombectomy Extensive d/w patient about all available options including surgery vs no surgery. All risk /complications 3-5%, & benefits thoroughly discussed. All questions answered and no guarantees given. Dispo: ICU overnight FAZAL CASTILLO MD Jan 03, 2019 17:05
[2019-01-03] MEDS ORDERED: CEFAZOLIN 1 GM INJ ONE (17:09)
[2019-01-03] MEDS ORDERED: ONDANSETRON 4 MG INJ ONE (17:10)
[2019-01-03] MEDS ORDERED: DEXAMETHASONE 4 MG/ML 5 ML INJ ONE (17:10)
[2019-01-03] MEDS ORDERED: PHENYLephrine (100 MCG/ML) 10ML SYG ONE (19:43)
[2019-01-03] MEDS ORDERED: EPHEDrine 25 MG/5 ML SYG ONE (19:43)
--- NOTE | 2019-01-03 19:55 | OPPN ---
Date/Time of Note Date/Time of Note DATE: 01/03/19 TIME: 19:53 Operative Report Preoperative Diagnosis Mechanical LBP Postoperative Diagnosis Same Operation/Procedure Performed 1. Lumbar Hardware Removal (Rods/Screws) 2. L3-S1 Decompression with ISF Placement Surgeon see signature line assistive technology specialist LITA Zavala, ACNP-BC Anesthesia: general Estimated blood loss: 50 - 100 ml's Transfusion Required none Specimen Explant Hardware Grafts/Implants none Complications none FAZAL CASTILLO MD Jan 03, 2019 19:55
[2019-01-03] MEDS ORDERED: AL HYDROX/MG HYDROX/SIMETH 30 ML CUP PO PRN (20:00)
[2019-01-03] MEDS ORDERED: ACETAMINOPHEN 325 MG TAB PO PRN (20:00)
[2019-01-03] MEDS ORDERED: NACL 0.9% 3 ML SYG IV SCH (20:00)
[2019-01-03] MEDS ORDERED: NALOXONE (0.4 MG/ML) INJ IV PRN (20:00)
[2019-01-03] MEDS ORDERED: FLUMAZENIL 0.5 MG INJ ONE (20:11)
--- NOTE | 2019-01-03 20:28 | PAC ---
Date/Time of Note Date/Time of Note DATE: 01/03/19 TIME: 20:27 Post-Anesthesia Notes Post-Anesthesia Note Last documented vital signs Vital Signs Date Temp Pulse Resp B/P (MAP) Pulse Ox O2 O2 Flow FiO2 Time Delivery Rate 01/03/19 98.4 75 16 120/63 97 21 202701/03/19 117/56 Room Air 16:31 (76) 01/03/19 97.8 15:28 Activity: WNL Respiratory function: WNL Cardiovascular function: WNL Mental status: Baseline Pain reasonably controlled: Yes Hydration appropriate: Yes Nausea/Vomiting absent: Yes KAMAR MINA DO Jan 03, 2019 20:28
[2019-01-03] MEDS ORDERED: FLUMAZENIL 0.5 MG INJ IV ONE ×2 (20:30)
[2019-01-03] MEDS ORDERED: HYDROmorphONE 0.5 MG/0.5 ML SYG IV PRN (20:30)
[2019-01-03] MEDS ORDERED: ALBUTEROL 0.083% (NEB) 2.5 MG/3 ML AMP HHN PRN ×2 (20:30)
[2019-01-03] MEDS ORDERED: ALBUTEROL/IPRATROPIUM (NEB) 3 ML AMP HHN PRN (20:30)
[2019-01-03] MEDS: NS + KCL 20 MEQ 1,000 ML IV SCH (20:43)
[2019-01-03] MEDS: HYDROmorphONE 0.5 MG/0.5 ML SYG IV PRN (22:03)
[2019-01-03] MEDS: CEFAZOLIN 2 GM/50 ML (PMX) 50 ML IVPB SCH (22:47)
[2019-01-04] VITALS (34 sets, daily range): BP systolic 100–133; BP diastolic 42–83; PULSE 65–81; RESP 11–26
[2019-01-04] MEDS: HYDROmorphONE 0.5 MG/0.5 ML SYG IV PRN ×4 (02:51→20:26)
[2019-01-04] MEDS: CEFAZOLIN 2 GM/50 ML (PMX) 50 ML IVPB SCH ×3 (05:15→21:53)
[2019-01-04] MEDS: NS + KCL 20 MEQ 1,000 ML IV SCH ×2 (07:00→09:15)
--- NOTE | 2019-01-04 12:30 | PN ---
Date/Time of Note Date/Time of Note DATE: 01/04/19 TIME: 12:27 Assessment/Plan VTE Prophylaxis Risk score (from Ns)>0 risk: 12 SCD applied (from Ns): Yes SCD contraindicated: low risk/ambulating Pharmacological prophylaxis: NA/contraindicated, other (contraindicated, recent spine surgery ) Pharm contraindication: other (recent spine surgery ) Lines/Catheters IV [facility] Peripheral IV Central line still needed: No Urinary Cath still in place: No Assessment/Plan Assessment/Plan Impression s/p Lspine hardware removal with decompression and ISF Placement L3-S1. POD #1 doing well LE radic pain improving Surgical site:CDI GONZALES with min. drainage Palpable pulses bilat PT/DP Plan dc gonzales drain dc silver in am downgrade today and rehab/SNF placement in am okay from NS point of view. Follow up with Dr. Lobato in 2 weeks pt/ot with LSO brace IS x 10 d/w RN and patient Result Diagram: 01/04/19 0441 01/04/19 0441 Results 24hrs Laboratory Tests Test 01/03/19 15:13 01/04/19 04:41 01/04/19 04:55 White Blood Count 11.1 #H Red Blood Count 3.79 L Hemoglobin 11.0 L 9.2 L Hematocrit 35.6 L 30.5 L Mean Corpuscular Volume 93.9 Mean Corpuscular Hemoglobin 29.0 Mean Corpuscular 30.9 L Hemoglobin Concent Red Cell Distribution Width 15.4 H Platelet Count 285 # Mean Platelet Volume 11.8 H Immature Granulocytes % 0.400 Neutrophils % 48.5 Lymphocytes % 30.7 Monocytes % 14.5 H Eosinophils % 5.1 Basophils % 0.8 Nucleated Red Blood Cells % 0.0 Immature Granulocytes # 0.040 H Neutrophils # 5.4 Lymphocytes # 3.4 H Monocytes # 1.6 H Eosinophils # 0.6 H Basophils # 0.1 Nucleated Red Blood Cells # 0.0 Sodium Level 143 Potassium Level 3.8 Chloride Level 111 H Carbon Dioxide Level 25 Anion Gap 7 Blood Urea Nitrogen 21 H Creatinine 0.88 Est Glomerular Filtrat Rate mL/min Glucose Level 166 Calcium Level 7.1 L Lab Scanned Report REFERENCE LAB Subjective 24 Hr Interval Summary Free Text/Dictation Neurosurgery S: s/p hardware removal with decompression and L3-S1 ISF Placement. POD #1 Bilat LE Radic pain improving No new weakness noted Exam/Review of Systems Exam Vitals Vital Signs Date Temp Pulse Resp B/P (MAP) Pulse Ox O2 O2 Flow FiO2 Time Delivery Rate 01/04/19 73 12:00 01/04/19 14 133/53 97 Room Air 12:00 (79) 01/04/19 1.0 10:00 01/04/19 98.0 07:00 01/03/19 21 16:49 Intake and Output 01/03/19 01/03/19 01/04/19 1515:00 23:00 07:00 IntakeIntake Total 3150 ml 830 ml OutputOutput Total 890 ml 690 ml BalanceBalance 2260 ml 140 ml Neurological: other (MS: AAOX4 CN: PERRL M: FC x 4 , 5/5 strength ) Results Results 24hrs Laboratory Tests Test 01/03/19 15:13 01/04/19 04:41 01/04/19 04:55 White Blood Count 11.1 #H Red Blood Count 3.79 L Hemoglobin 11.0 L 9.2 L Hematocrit 35.6 L 30.5 L Mean Corpuscular Volume 93.9 Mean Corpuscular Hemoglobin 29.0 Mean Corpuscular 30.9 L Hemoglobin Concent Red Cell Distribution Width 15.4 H Platelet Count 285 # Mean Platelet Volume 11.8 H Immature Granulocytes % 0.400 Neutrophils % 48.5 Lymphocytes % 30.7 Monocytes % 14.5 H Eosinophils % 5.1 Basophils % 0.8 Nucleated Red Blood Cells % 0.0 Immature Granulocytes # 0.040 H Neutrophils # 5.4 Lymphocytes # 3.4 H Monocytes # 1.6 H Eosinophils # 0.6 H Basophils # 0.1 Nucleated Red Blood Cells # 0.0 Sodium Level 143 Potassium Level 3.8 Chloride Level 111 H Carbon Dioxide Level 25 Anion Gap 7 Blood Urea Nitrogen 21 H Creatinine 0.88 Est Glomerular Filtrat Rate mL/min Glucose Level 166 Calcium Level 7.1 L Lab Scanned Report REFERENCE LAB Medications Medication Current Medications Acetaminophen/ Hydrocodone Bitart ([place] (5/325)) 1 tab Q4H PRN PO .PAIN 1-5; Start 01/03/19 at 21:01 Al Hydrox/Mg Hydrox/Simethicone (Mag-Al Plus) 15 ml Q4H PRN PO .CONSTIPATION; Start 01/03/19 at 20:00 Acetaminophen (Tylenol Tab) 650 mg Q4H PRN PO TEMP GREATER THAN 101F OR JHA; Start 01/03/19 at 20:00 IV Flush (NS 3 ml) 3 ml PER PROTOCOL IV ; Start 01/03/19 at 20:00 Naloxone HCl (Narcan) 0.2 mg Q2M PRN IV RR 8 BREATHS/MIN OR LESS; Start at 20:00 Potassium Chloride/Sodium Chloride 1,000 ml @ 100 mls/hr Q10H IV Last administered on 01/04/19at 09:15; Admin Dose 100 MLS/HR; Start 01/03/19 at 21:00 Cefazolin Sodium/ Dextrose 50 ml @ 100 mls/hr Q8 IVPB Last administered on 01/04/19at 05:15; Admin Dose 100 MLS/HR; Start 01/03/19 at 22:00; Stop 01/05/19 at 22:00 Hydromorphone HCl (Dilaudid) 0.5 mg Q4H PRN IV SEVERE PAIN LEVEL 7-10 Last administered on 01/04/19at 07:29; Admin Dose 0.5 MG; Start 01/03/19 at 21:01 Albuterol (Proventil 0.083% (Neb)) 2.5 mg Q6H RESP THERAPY PRN HHN SHORTNESS OF BREATH; Start 01/03/19 at 20:30 Albuterol/ Ipratropium (Duoneb) 3 ml Q6H RESP THERAPY PRN HHN SHORTNESS OF BREATH; Start 01/03/19 at 20:30 SHERYL VELÁZQUEZ NP Jan 04, 2019 12:30
[2019-01-04] MEDS: HYDROCODONE/APAP (5/325) TAB PO PRN (17:53)
[2019-01-05] MEDS: HYDROCODONE/APAP (5/325) TAB PO PRN ×6 (00:49→21:52)
[2019-01-05 00:59] VITALS: BP 116/56; PULSE 75; RESP 18
[2019-01-05] MEDS: HYDROmorphONE 0.5 MG/0.5 ML SYG IV PRN ×3 (03:55→14:18)
[2019-01-05] MEDS: CEFAZOLIN 2 GM/50 ML (PMX) 50 ML IVPB SCH ×3 (06:13→21:54)
[2019-01-05 07:32] VITALS: BP 128/58; PULSE 70; RESP 17
[2019-01-05 14:13] VITALS: BP 135/63; PULSE 75; RESP 18
--- NOTE | 2019-01-05 14:51 | HP ---
Date/Time of Note Date/Time of Note DATE: 01/05/19 TIME: 14:50 Assessment/Plan VTE Prophylaxis Risk score (from Ns)>0 risk: 9 SCD applied (from Ns): Yes Pharmacological prophylaxis: NA/contraindicated Pharm contraindication: surgical contra Lines/Catheters IV Catheter Type (from Nrsg): Saline Lock Urinary Cath still in place: Yes Reason Cath still needed: urinary retention Assessment/Plan Assessment/Plan - Mechanical LBP, s/p lumbar Hardware Removal (Rods/Screws), L3-S1 Decompression with ISF Placement by Dr Lobato on 01/03/19. Continue postoperative antibiotic, continue [place] and morphine as needed for pain and Zofran as needed for nausea. LSO brace when out of bed. Continue physical therapy. - HTN, patient is currently normotensive, continue metoprolol and hydrochlorothiazide. - Asthma, stable, continue Breo Ellipta as needed. - RA, no acute issues, patient gets injection with rituximab as an outpatient, follows with Dr. Saldivar in rheumatology consultation. - History of anterior retroperitoneal interbody fusion of L3-S1 by Dr. Lobato on 12/08/18. - History of left iliac artery thrombectomy on 12/08/[address] Ibrahim. Further recommendations based on clinical course. Plan of care discussed with Dr. Whatley. Result Diagram: 01/04/1944001/04/19440 HPI/ROS Admit Date/Time Admit Date/Time Jan 03, 2019 at 20:22 Hx of Present Illness The patient is 78-year-old female known to me from previous admission. Patient with history of hypertension, asthma, rheumatoid arthritis, GERD and osteoporosis. Patient underwent anterior retroperitoneal interbody fusion of L3-S1 by Dr. Lobato for lower back pain with lower extremity radiculopathy on Nov. Patient developed left lower extremity weakness and ischemia and underwent intraoperative left lower extremity angiogram followed by left ear iliac artery thrombectomy by Dr. Ibrahim. Patient recovered well and [facility] and physical therapy. Patient was brought to the hospital on January 03 for completion of the second part of the lumbar surgery. Patient underwent hardware removal, L3 S1 decompression with eyes safe placement. Patient is seen on medical surgical floor, patient is awake alert pain is adequately controlled. Patient's complaints of nonproductive cough, denies any chest pain denies shortness of breath, denies na usea vomiting diarrhea. ROS 12 point review of systems negative except for that mentioned in HPI PMH/Family/Social Past Medical History Medical History: GERD, hypertension, other (Asthma, rheumatoid arthritis, osteoporosis) Medications Current Medications Acetaminophen/ Hydrocodone Bitart ([place] (5/325)) 1 tab Q4H PRN PO .PAIN 1-5 Last administered on 01/05/19at 12:31; Admin Dose 1 TAB; Start 01/03/19 at 21:01 Al Hydrox/Mg Hydrox/Simethicone (Mag-Al Plus) 15 ml Q4H PRN PO .CONSTIPATION; Start 01/03/19 at 20:00 Acetaminophen (Tylenol Tab) 650 mg Q4H PRN PO TEMP GREATER THAN 101F OR JHA; Start 01/03/19 at 20:00 IV Flush (NS 3 ml) 3 ml PER PROTOCOL IV ; Start 01/03/19 at 20:00 Naloxone HCl (Narcan) 0.2 mg Q2M PRN IV RR 8 BREATHS/MIN OR LESS; Start 01/03/19 at 20:00 Cefazolin Sodium/ Dextrose 50 ml @ 100 mls/hr Q8 IVPB Last administered on 01/05/19at 14:33; Admin Dose 100 MLS/HR; Start 01/03/19 at 22:00; Stop 01/05/19 at 22:00 Hydromorphone HCl (Dilaudid) 0.5 mg Q4H PRN IV SEVERE PAIN LEVEL 7-10 Last administered on 01/05/19at 14:18; Admin Dose 0.5 MG; Start 01/03/19 at 21:01 Albuterol (Proventil 0.083% (Neb)) 2.5 mg Q6H RESP THERAPY PRN HHN SHORTNESS OF BREATH; Start 01/03/19 at 20:30 Albuterol/ Ipratropium (Duoneb) 3 ml Q6H RESP THERAPY PRN HHN SHORTNESS OF BREATH Last administered on 01/05/19at 13:55; Admin Dose 3 ML; Start 01/03/19 at 20:30 Coded Allergies: tramadol (Verified Allergy, Unknown, Rash, 01/03/19) Past Surgical History Per HPI Past Surgical Hx: other (Status post lumbar surgery, status post hysterectomy, status post right knee replacement, status post left ankle surgery) Family History Significant Family History: no pertinent family hx Social History Alcohol Use: occasionally Smoking Status: Never smoker Drug Use: none Exam/Review of Systems Vital Signs Vitals Vital Signs Date Temp Pulse Resp B/P (MAP) Pulse Ox O2 O2 Flow FiO2 Time Delivery Rate 01/05/19 98.1 75 18 135/63 94 14:13 (87) 01/05/19 21 13:57 01/05/19 Room Air 07:32 01/04/19 1.0 10:00 Intake and Output 01/04/19 01/04/19 01/05/19 1414:59 22:59 06:59 IntakeIntake Total 800 ml 340 ml 430 ml OutputOutput Total 355 ml 130 ml 700 ml BalanceBalance 445 ml 210 ml -270 ml Exam Constitutional: alert, oriented Head: normocephalic Neck: supple Respiratory: clear to auscultation Cardiovascular: nl pulses Gastrointestinal: soft, non-tender Musculoskeletal: nl extremities to inspection, other (Low back status post surgery) Neurological: nl mental status Skin: nl JEMAL Frias Jan 05, 2019 14:51
[2019-01-05] MEDS ORDERED: ONDANSETRON 4 MG INJ IV PRN (15:30)
[2019-01-05] MEDS ORDERED: ZOLPIDEM 5 MG TAB PO PRN (15:30)
[2019-01-05] MEDS ORDERED: GUAIFENESIN/DM 5ML CUP PO PRN (15:30)
[2019-01-05] MEDS ORDERED: BISACODYL 10 MG SUPP PR PRN (15:30)
[2019-01-05] MEDS ORDERED: FLUTICASONE/VILANTEROL 100-25 INH PRN (15:30)
[2019-01-05] MEDS ORDERED: NA PHOSPHATE/BIPHOS 133 ML ENEMA PR PRN (15:30)
[2019-01-05] MEDS: HYDROCHLOROTHIAZIDE 25 MG TAB PO SCH (16:22)
[2019-01-05] MEDS: ASPIRIN 81 MG TAB PO SCH (16:22)
[2019-01-05] MEDS: MULTIVITAMINS THERAPEUTIC TAB PO SCH (16:23)
[2019-01-05 20:11] VITALS: BP 144/66; PULSE 92; RESP 18
[2019-01-05] MEDS: DOCUSATE SODIUM 100 MG CAP PO SCH (20:48)
[2019-01-05] MEDS: ROSUVASTATIN CALCIUM 40 MG TABLET PO SCH (20:49)
[2019-01-05] MEDS: METOPROLOL 25 MG TAB PO SCH (20:49)
[2019-01-05] MEDS: PREGABALIN 100 MG CAP PO SCH (20:49)
[2019-01-06] MEDS: HYDROmorphONE 0.5 MG/0.5 ML SYG IV PRN ×3 (01:01→23:39)
[2019-01-06 01:56] VITALS: BP 141/64; PULSE 67; RESP 18
[2019-01-06 06:16] VITALS: BP 140/65; PULSE 86
[2019-01-06] MEDS: HYDROCODONE/APAP (5/325) TAB PO PRN ×3 (06:17→20:16)
[2019-01-06] MEDS: HYDROCHLOROTHIAZIDE 25 MG TAB PO SCH (06:17)
[2019-01-06 07:59] VITALS: BP 140/67; PULSE 87; RESP 16
[2019-01-06] MEDS: ASPIRIN 81 MG TAB PO SCH (08:45)
[2019-01-06] MEDS: MULTIVITAMINS THERAPEUTIC TAB PO SCH (08:45)
[2019-01-06] MEDS: PREGABALIN 50 MG CAP PO SCH (08:46)
[2019-01-06] MEDS: DOCUSATE SODIUM 100 MG CAP PO SCH ×2 (08:46→20:19)
[2019-01-06] MEDS: METOPROLOL 25 MG TAB PO SCH ×2 (08:47→20:19)
[2019-01-06] MEDS ORDERED: MAGNESIUM SULFATE 2 GM/50 ML 50 ML IVPB ONE (10:30)
[2019-01-06 15:08] VITALS: BP 140/66; PULSE 67; RESP 16
--- NOTE | 2019-01-06 17:09 | PN ---
Date/Time of Note Date/Time of Note DATE: 01/06/19 TIME: 16:55 Assessment/Plan VTE Prophylaxis Risk score (from Nsg)>0 risk: 11 SCD applied (from Nsg): Yes Pharmacological prophylaxis: other Lines/Catheters IV Catheter Type (from Nrsg): Saline Lock Urinary Cath still in place: No Assessment/Plan Hospital Course Patient had a slow recovery with physical therapy. Patient is compliant and cooperative, was dependent to living at home prior to anterior retroperitoneal interbody fusion in November, would benefit for ARU, pending ARU reevaluation. Assessment/Plan - Mechanical LBP, s/p lumbar Hardware Removal (Rods/Screws), L3-S1 Decompression with ISF Placement by Dr Lobato on 01/03/19. Continue postoperative antibiotic, continue Platinum and morphine as needed for pain and Zofran as needed for nausea. LSO brace when out of bed. Continue physical therapy. - HTN, patient is currently normotensive, continue metoprolol and hydrochlorothiazide. - Asthma, stable, continue Breo Ellipta as needed. - RA, no acute issues, patient gets injection with rituximab as an outpatient, follows with Dr. Saldivar in rheumatology consultation. - History of anterior retroperitoneal interbody fusion of L3-S1 by Dr. Lobato on 12/08/18. - History of left iliac artery thrombectomy on 12/08/[address] Ibrahim. Further recommendations based on clinical course. Plan of care discussed with Dr. Whatley. Result Diagram: 01/06/19 0421 01/06/19 0421 Results 24hrs Laboratory Tests Test 01/06/19 04:21 White Blood Count 11.1 H Red Blood Count 3.21 L Hemoglobin 9.3 L Hematocrit 30.4 L Mean Corpuscular Volume 94.7 Mean Corpuscular Hemoglobin 29.0 Mean Corpuscular Hemoglobin Concent 30.6 L Red Cell Distribution Width 15.7 H Platelet Count 219 # Mean Platelet Volume 11.5 H Immature Granulocytes % 1.300 H Neutrophils % 57.4 Lymphocytes % 23.0 Monocytes % 14.0 H Eosinophils % 3.7 Basophils % 0.6 Nucleated Red Blood Cells % 0.0 Immature Granulocytes # 0.150 H Neutrophils # 6.4 Lymphocytes # 2.6 Monocytes # 1.6 H Eosinophils # 0.4 Basophils # 0.1 Nucleated Red Blood Cells # 0.0 Sodium Level 141 Potassium Level 3.8 Chloride Level 105 Carbon Dioxide Level 32 H Anion Gap 4 L Blood Urea Nitrogen 12 # Creatinine 0.85 Est Glomerular Filtrat Rate mL/min Glucose Level 93 # Calcium Level 7.9 L Magnesium Level 1.4 L Exam/Review of Systems Exam Vitals Vital Signs Date Temp Pulse Resp B/P (MAP) Pulse Ox O2 O2 Flow FiO2 Time Delivery Rate 01/06/19 98.7 67 16 140/66 96 Room Air 15:08 (90) 01/05/19 21 13:57 01/04/19 1.0 10:00 Intake and Output 01/05/19 01/05/19 01/06/19 1515:00 23:00 07:00 IntakeIntake Total 560 ml 780 ml 120 ml BalanceBalance 560 ml 780 ml 120 ml Exam Constitutional: alert, oriented Respiratory: clear to auscultation Cardiovascular: nl pulses Gastrointestinal: soft, non-tender, healed surgical incision. Musculoskeletal: nl extremities to inspection, other (Low back status post surgery) Neurological: nl mental status Skin: nl turgor Results Results 24hrs Laboratory Tests Test 01/06/19 04:21 White Blood Count 11.1 H Red Blood Count 3.21 L Hemoglobin 9.3 L Hematocrit 30.4 L Mean Corpuscular Volume 94.7 Mean Corpuscular Hemoglobin 29.0 Mean Corpuscular Hemoglobin Concent 30.6 L Red Cell Distribution Width 15.7 H Platelet Count 219 # Mean Platelet Volume 11.5 H Immature Granulocytes % 1.300 H Neutrophils % 57.4 Lymphocytes % 23.0 Monocytes % 14.0 H Eosinophils % 3.7 Basophils % 0.6 Nucleated Red Blood Cells % 0.0 Immature Granulocytes # 0.150 H Neutrophils # 6.4 Lymphocytes # 2.6 Monocytes # 1.6 H Eosinophils # 0.4 Basophils # 0.1 Nucleated Red Blood Cells # 0.0 Sodium Level 141 Potassium Level 3.8 Chloride Level 105 Carbon Dioxide Level 32 H Anion Gap 4 L Blood Urea Nitrogen 12 # Creatinine 0.85 Est Glomerular Filtrat Rate mL/min Glucose Level 93 # Calcium Level 7.9 L Magnesium Level 1.4 L Medications Medication Current Medications Acetaminophen/ Hydrocodone Bitart (Platinum (5/325)) 1 tab Q4H PRN PO .PAIN 1-5 Last administered on 01/06/19at 13:55; Admin Dose 1 TAB; Start 01/03/19 at 21:01 Al Hydrox/Mg Hydrox/Simethicone (Mag-Al Plus) 15 ml Q4H PRN PO .CONSTIPATION; Start 01/03/19 at 20:00 Acetaminophen (Tylenol Tab) 650 mg Q4H PRN PO TEMP GREATER THAN 101F OR JHA; Start 01/03/19 at 20:00 IV Flush (NS 3 ml) 3 ml PER PROTOCOL IV ; Start 01/03/19 at 20:00 Naloxone HCl (Narcan) 0.2 mg Q2M PRN IV RR 8 BREATHS/MIN OR LESS; Start 01/03/19 at 20:00 Hydromorphone HCl (Dilaudid) 0.5 mg Q4H PRN IV SEVERE PAIN LEVEL 7-10 Last administered on 01/06/19at 09:06; Admin Dose 0.5 MG; Start 01/03/19 at 21:01 Albuterol (Proventil 0.083% (Neb)) 2.5 mg Q6H RESP THERAPY PRN HHN SHORTNESS OF BREATH; Start 01/03/19 at 20:30 Albuterol/ Ipratropium (Duoneb) 3 ml Q6H RESP THERAPY PRN HHN SHORTNESS OF BREATH Last administered on 01/05/19at 13:55; Admin Dose 3 ML; Start 01/03/19 at 20:30 Aspirin (Aspirin) 81 mg DAILY PO Last administered on 01/06/19at 08:45; Admin Dose 81 MG; Start 01/05/19 at 15:30 Bisacodyl (Dulcolax Supp) 10 mg DAILY PRN [place] CONSTIPATION; Start 01/05/19 at 15:30 Docusate Sodium (Colace) 100 mg BID PO Last administered on 01/06/19at 08:46; Admin Dose 100 MG; Start 01/05/19 at 21:00 Guaifenesin/ Dextromethorphan (Robitussin Dm Liquid Cup) 10 ml Q8H PRN PO COUGH Last administered on 01/06/19at 16:16; Admin Dose 10 ML; Start 01/05/19 at 15:30 Hydrochlorothiazide (Hydrochlorothiazide) 25 mg DAILY@0600 PO Last administered on 01/06/19 06:17; Admin Dose 25 MG; Start 01/05/19 at 15:30 Metoprolol Tartrate (Lopressor) 12.5 mg BID PO Last administered on 01/06/19 08:47; Admin Dose 12.5 MG; Start 01/05/19 at 21:00 Multivitamins Therapeutic (Theragran) 1 tab DAILY PO Last administered on 01/06/19 08:45; Admin Dose 1 TAB; Start 01/05/19 at 15:30 Sodium Biphosphate/ Sodium Phosphate (Fleet Enema) 133 ml DAILY PRN [place] CONSTIPATION; Start 01/05/19 at 15:30 Pregabalin (Lyrica) 50 mg QAM PO Last administered on 01/06/19 08:46; Admin Dose 50 MG; Start 01/06/19 at 09:00 Pregabalin (Lyrica) 100 mg QHS PO Last administered on 01/05/19 20:49; Admin Dose 100 MG; Start 01/05/19 at 21:00 Rosuvastatin Calcium (Crestor) 40 mg QHS PO Last administered on 01/05/19at 20:49; Admin Dose 40 MG; Start 01/05/19 at 21:00 Zolpidem Tartrate (Ambien) 5 mg QHS PRN PO INSOMNIA; Start 01/05/19 at 15:30 Ondansetron HCl (Zofran Inj) 4 mg Q6H PRN IV NAUSEA AND/OR VOMITING; Start 01/05/19 at 15:30 JEMAL THOMPSON Jan 06, 2019 17:05
[2019-01-06] MEDS: LOSARTAN 50 MG TAB PO SCH (17:53)
[2019-01-06 19:40] VITALS: BP 164/70; PULSE 73; RESP 18
[2019-01-06] MEDS: PREGABALIN 100 MG CAP PO SCH (20:19)
[2019-01-06] MEDS: ROSUVASTATIN CALCIUM 40 MG TABLET PO SCH (20:19)
[2019-01-07 03:02] VITALS: BP 134/61; PULSE 65; RESP 18
[2019-01-07] MEDS: HYDROCODONE/APAP (5/325) TAB PO PRN ×2 (05:07→08:46)
[2019-01-07] MEDS: HYDROCHLOROTHIAZIDE 25 MG TAB PO SCH (05:07)
[2019-01-07 07:34] VITALS: BP 132/58; PULSE 72; RESP 19
[2019-01-07] MEDS: MULTIVITAMINS THERAPEUTIC TAB PO SCH (08:47)
[2019-01-07] MEDS: METOPROLOL 25 MG TAB PO SCH (08:47)
[2019-01-07] MEDS: PREGABALIN 50 MG CAP PO SCH (08:47)
[2019-01-07] MEDS: ASPIRIN 81 MG TAB PO SCH (08:47)
[2019-01-07] MEDS: DOCUSATE SODIUM 100 MG CAP PO SCH (08:47)
[2019-01-07] MEDS: LOSARTAN 50 MG TAB PO SCH (08:48)
--- NOTE | 2019-01-07 12:08 | PN ---
Date/Time of Note Date/Time of Note DATE: 01/07/19 TIME: 12:07 Assessment/Plan VTE Prophylaxis Risk score (from Ns)>0 risk: 6 SCD applied (from Ns): Yes SCD contraindicated: other Pharmacological prophylaxis: other Pharm contraindication: other Lines/Catheters IV Catheter Type (from Nrsg): Saline Lock Urinary Cath still in place: No Assessment/Plan Assessment/Plan - hypomagnesium- will do labs today - Mechanical LBP, s/p lumbar Hardware Removal (Rods/Screws), L3-S1 Decompression with ISF Placement by Dr Lobato on 01/03/19. Continue postoperative antibiotic, continue Merom and morphine as needed for pain and Zofran as needed for nausea. LSO brace when out of bed. Continue physical therapy. - HTN, patient is currently normotensive, continue metoprolol and hydrochlorothiazide. - Asthma, stable, continue Breo Ellipta as needed. - RA, no acute issues, patient gets injection with rituximab as an outpatient, follows with Dr. Saldivar in rheumatology consultation. - History of anterior retroperitoneal interbody fusion of L3-S1 by Dr. Lobato on 12/08/18. - History of left iliac artery thrombectomy on 12/08/[address] Ibrahim. Further recommendations based on clinical course. Plan of care discussed with Dr. Whatley. Result Diagram: 01/06/19 04201/06/19 042 Subjective 24 Hr Interval Summary Free Text/Dictation nad afebrile Going to acute rehab today no events last night dw staff Eyes: no complaints ENT: no complaints Respiratory: no complaints Cardiovascular: no complaints Gastrointestinal: no complaints Genitourinary: no complaints Musculoskeletal: back pain Skin: no complaints Neurologic: no complaints Endocrine: no complaints Lymphatic: no complaints Psychological: nl mood/affect Immunologic: no complaints Exam/Review of Systems Exam Vitals Vital Signs Date Temp Pulse Resp B/P (MAP) Pulse Ox O2 O2 Flow FiO2 Time Delivery Rate 01/07/19 98.2 72 19 132/58 98 07:34 (82) 01/06/19 Room Air 15:08 01/05/19 21 13:57 01/04/19 1.0 10:00 Intake and Output 01/06/19 01/06/19 01/07/19 1515:00 23:00 07:00 IntakeIntake Total 550 ml 240 ml BalanceBalance 550 ml 240 ml Constitutional: alert, well developed Psych: nl mood/affect Head: normocephalic Eyes: nl lids, nl sclera ENMT: nl external ears & nose Neck: non-tender Respiratory: clear to auscultation Cardiovascular: nl pulses, other (s1s2) Gastrointestinal: soft, non-tender Musculoskeletal: joint tenderness, range of motion (lower back 2/2 surgery) Neurological: nl speech, other (alert/responsive) Medications Medication Current Medications Acetaminophen/ Hydrocodone Bitart (Merom (5/325)) 1 tab Q4H PRN PO .PAIN 1-5 Last administered on 01/07/19at 08:46; Admin Dose 1 TAB; Start 01/03/19 at 21:01 Al Hydrox/Mg Hydrox/Simethicone (Mag-Al Plus) 15 ml Q4H PRN PO .CONSTIPATION; Start 01/03/19 at 20:00 Acetaminophen (Tylenol Tab) 650 mg Q4H PRN PO TEMP GREATER THAN 101F OR JHA; Start 01/03/19 at 20:00 IV Flush (NS 3 ml) 3 ml PER PROTOCOL IV ; Start 01/03/19 at 20:00 Naloxone HCl (Narcan) 0.2 mg Q2M PRN IV RR 8 BREATHS/MIN OR LESS; Start 01/03/19 at 20:00 Hydromorphone HCl (Dilaudid) 0.5 mg Q4H PRN IV SEVERE PAIN LEVEL 7-10 Last administered on 01/06/19at 23:39; Admin Dose 0.5 MG; Start 01/03/19 at 21:01 Albuterol (Proventil 0.083% (Neb)) 2.5 mg Q6H RESP THERAPY PRN HHN SHORTNESS OF BREATH; Start 01/03/19 at 20:30 Albuterol/ Ipratropium (Duoneb) 3 ml Q6H RESP THERAPY PRN HHN SHORTNESS OF BREATH Last administered on 01/05/19at 13:55; Admin Dose 3 ML; Start 01/03/19 at 20:30 Aspirin (Aspirin) 81 mg DAILY PO Last administered on 01/07/19at 08:47; Admin Dose 81 MG; Start 01/05/19 at 15:30 Bisacodyl (Dulcolax Supp) 10 mg DAILY PRN [place] CONSTIPATION; Start 01/05/19 at 15:30 Docusate Sodium (Colace) 100 mg BID PO Last administered on 01/07/19 08:47; Admin Dose 100 MG; Start 01/05/19 at 21:00 Guaifenesin/ Dextromethorphan (Robitussin Dm Liquid Cup) 10 ml Q8H PRN PO COUGH Last administered on 01/06/19 16:16; Admin Dose 10 ML; Start 01/05/19 at 15:30 Hydrochlorothiazide (Hydrochlorothiazide) 25 mg DAILY@0600 PO Last administered on 01/07/19 05:07; Admin Dose 25 MG; Start 01/05/19 at 15:30 Metoprolol Tartrate (Lopressor) 12.5 mg BID PO Last administered on 01/07/19 08:47; Admin Dose 12.5 MG; Start 01/05/19 at 21:00 Multivitamins Therapeutic (Theragran) 1 tab DAILY PO Last administered on 01/07/19 08:47; Admin Dose 1 TAB; Start 01/05/19 at 15:30 Sodium Biphosphate/ Sodium Phosphate (Fleet Enema) 133 ml DAILY PRN [place] CONSTIPATION; Start 01/05/19 at 15:30 Pregabalin (Lyrica) 50 mg QAM PO Last administered on 01/07/19 08:47; Admin Dose 50 MG; Start 01/06/19 at 09:00 Pregabalin (Lyrica) 100 mg QHS PO Last administered on 01/06/19 20:19; Admin Dose 100 MG; Start 01/05/19 at 21:00 Rosuvastatin Calcium (Crestor) 40 mg QHS PO Last administered on 01/06/19 20:19; Admin Dose 40 MG; Start 01/05/19 at 21:00 Zolpidem Tartrate (Ambien) 5 mg QHS PRN PO INSOMNIA; Start 01/05/19 at 15:30 Ondansetron HCl (Zofran Inj) 4 mg Q6H PRN IV NAUSEA AND/OR VOMITING; Start 01/05/19 at 15:30 Losartan Potassium (Cozaar) 100 mg DAILY PO Last administered on 01/07/19 08:48; Admin Dose 100 MG; Start 01/06/19 at 17:30 DEJA HERRERA Jan 07, 2019 12:08
== END 2019-01-07 13:05 | DRG 460 ==
LOC: SDS 13:19 → ICU 20:22 → MS1 01-04 17:28
PROVIDERS: ADMIT Internal Medicine; ATTEND Neurological Surgery
PROC: 0SG30K1 Fusion of Lumbosacral Joint with Nonautologous Tissue Substitute, Posterior Approach, Posterior Column, Open Approach (ICD-10-PCS; 2019-01-03)
PROC: 01NB0ZZ Release Lumbar Nerve, Open Approach (ICD-10-PCS; 2019-01-03)
PROC: 01NR0ZZ Release Sacral Nerve, Open Approach (ICD-10-PCS; 2019-01-03)
PROC: 0SP004Z Removal of Internal Fixation Device from Lumbar Vertebral Joint, Open Approach (ICD-10-PCS; 2019-01-03)
PROC: 0SG10K1 Fusion of 2 or more Lumbar Vertebral Joints with Nonautologous Tissue Substitute, Posterior Approach, Posterior Column, Open Approach (ICD-10-PCS; principal; 2019-01-03 17:00)
DX: M54.16 Radiculopathy, lumbar region (principal); M06.9 Rheumatoid arthritis, unspecified; I10 Essential (primary) hypertension; J45.909 Unspecified asthma, uncomplicated; K21.9 Gastro-esophageal reflux disease without esophagitis; M81.0 Age-related osteoporosis without current pathological fracture; E83.42 Hypomagnesemia; E66.9 Obesity, unspecified; F41.9 Anxiety disorder, unspecified; Z96.651 Presence of right artificial knee joint; Z68.32 Body mass index [BMI] 32.0-32.9, adult; Z98.1 Arthrodesis status; Z86.718 Personal history of other venous thrombosis and embolism; Z79.01 Long term (current) use of anticoagulants; Z79.82 Long term (current) use of aspirin
CPT/HCPCS: 72114; 72131; 80048; 83735; 85014; 85018; 85025; 86850; 86900; 86901; 87081; 88300; 94664; 97110; 97116; 97162; 97530; J0690; J1100; J1170; J2250; J2370; J2405; J2795; J3010; J3475; J3480

== ENCOUNTER 2019-01-07 09:03 | Inpatient (IN) | payer MEDICARE, OTHER ==
[~2019-01-07] VITALS: Ht 152.4 cm; Wt 75.3 kg
[~2019-01-07 09:03] MED LIST changes: +AMIO200T4 PO; +BISA10SU55 RC; -CHOL100062 PO; -CYAN500T17 PO; -DENO60DI SQ; +DOCU-159 PO; +ENOX40DI2 SC; +GUAI5SYR2 PO; +HYDR-4011 PO; +HYDR25TA6 PO; +LOSA100T15 PO; +MAGN400O19 PO; -MAGN400T27 PO; +MULTI PO; +NA P133E10 RC; -OLME1TAB27 PO; +PROT946L PO; -ZOLP10TA5 PO; +ZOLP5TAB PO; -[UNRECOGNIZED DRUG - CODE] IV
[2019-01-07] MEDS: HYDROCODONE/APAP (5/325) TAB PO PRN ×2 (14:22→17:36)
[2019-01-07] MEDS ORDERED: PENDING SANTYL ORDER FOR WOUND CARE XX PRN (14:30)
[2019-01-07 15:51] VITALS: BP 131/59; PULSE 64; RESP 18
[2019-01-07] MEDS ORDERED: BISACODYL 10 MG SUPP PR PRN (16:30)
[2019-01-07] MEDS ORDERED: FLUTICASONE/VILANTEROL 100-25 INH PRN (16:30)
[2019-01-07] MEDS ORDERED: AL HYDROX/MG HYDROX/SIMETH 30 ML CUP PO PRN (16:30)
[2019-01-07] MEDS ORDERED: NA PHOSPHATE/BIPHOS 133 ML ENEMA PR PRN (16:30)
[2019-01-07] MEDS ORDERED: ACETAMINOPHEN 325 MG TAB PO PRN (16:30)
[2019-01-07] MEDS ORDERED: LACTULOSE 30ML CUP PO PRN (16:30)
[2019-01-07] MEDS ORDERED: GUAIFENESIN/DM 5ML CUP PO PRN (16:30)
[2019-01-07] MEDS ORDERED: MAGNESIUM HYDROXIDE 30ML CUP PO PRN (16:30)
[2019-01-07] MEDS: ALBUTEROL/IPRATROPIUM (NEB) 3 ML AMP HHN SCH (19:40)
[2019-01-07] MEDS ORDERED: ALBUTEROL 0.083% (NEB) 2.5 MG/3 ML AMP HHN SCH (20:00)
[2019-01-07 20:08] VITALS: BP 131/68; PULSE 67; RESP 18
[2019-01-07] MEDS: METOPROLOL 25 MG TAB PO SCH (20:37)
[2019-01-07] MEDS: SENNA TAB PO SCH (20:37)
[2019-01-07] MEDS: ROSUVASTATIN CALCIUM 40 MG TABLET PO SCH (20:37)
[2019-01-07] MEDS: DOCUSATE SODIUM 100 MG CAP PO SCH (20:37)
[2019-01-07] MEDS: PREGABALIN 50 MG CAP PO SCH (20:37)
[2019-01-07] MEDS ORDERED: SPECIAL NON-STANDARD MEDICATION PO SCH (21:00)
[2019-01-08] MEDS: HYDROCODONE/APAP (5/325) TAB PO PRN ×4 (00:15→20:48)
[2019-01-08] MEDS: ALBUTEROL/IPRATROPIUM (NEB) 3 ML AMP HHN SCH ×4 (01:09→20:00)
[2019-01-08] MEDS: ZOLPIDEM 5 MG TAB PO PRN (01:16)
[2019-01-08 02:02] VITALS: BP 114/63; PULSE 68; RESP 20
[2019-01-08] MEDS ORDERED: HYDROCHLOROTHIAZIDE 25 MG TAB PO SCH (06:00)
[2019-01-08 07:54] VITALS: BP 146/59; PULSE 71; RESP 18
[2019-01-08] MEDS ORDERED: SPECIAL NON-STANDARD MEDICATION PO SCH (09:00)
[2019-01-08] MEDS: FLUTICASONE/VILANTEROL 100-25 INH SCH (09:20)
[2019-01-08] MEDS: MULTIVITAMINS THERAPEUTIC TAB PO SCH (09:21)
[2019-01-08] MEDS: DOCUSATE SODIUM 100 MG CAP PO SCH ×2 (09:21→21:00)
[2019-01-08] MEDS: HYDROCHLOROTHIAZIDE 12.5 MG CAP PO SCH (09:21)
[2019-01-08] MEDS: PREGABALIN 50 MG CAP PO SCH ×2 (09:21→20:48)
[2019-01-08] MEDS: ASPIRIN 81 MG TAB PO SCH (09:21)
[2019-01-08] MEDS: LOSARTAN 50 MG TAB PO SCH (09:22)
[2019-01-08] MEDS: METOPROLOL 25 MG TAB PO SCH ×2 (09:23→20:49)
--- NOTE | 2019-01-08 10:32 | HP ---
DATE OF ADMISSION: 01/07/2019 REFERRING PHYSICIAN: Dr. Griffin. CONSULTANTS: Dr. Lobato of, neurosurgery. CHIEF COMPLAINT: Low back pain, difficulty walking. 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 The patient was initially admitted to [facility] on 12/08/2018 for a planned 2-stage lumbosacral decompression fusion revision surgery. The patient was brought to the operating room by Dr. Lobato on 12/08/2018 where she had the anterior portion of her surgery performed. This was via a retroperitoneal approach. She had a decompression and fusion from L3-S1. The patient postoperatively developed a left iliac artery thrombus. She had a left iliac thrombectomy on 01/07/2019. The patient was unable to have the second stage of her surgery performed. She was transferred to an extended care facility for several weeks and then re-presented to [facility] on 01/03/2019. On 01/03/2019 Dr. Lobato performed the posterior portion of her surgery including removal of old hardware and an L3-S1 decompression fusion along with L3-S1 decompression along with posterior fusion. Postoperative issues included pain requiring narcotic analgesics including IV narcotics. Her Robbins catheter was discontinued several days ago. She denies any urinary frequency or dysuria. The patient is being followed by Dr. Griffin of internal medicine. The patient was completely independent prior to recent events. She was initiated on activities on the medical/surgical unit and found to have a significant decline in her functional skills, evaluated for acute rehab, deemed an appropriate candidate, meeting all CMS guidelines. She now transfers for definitive rehabilitation procedures. FUNCTIONAL HISTORY: Prior to recent events, she was independent with all mobility and ADLs without the use of assistive equipment. PAST MEDICAL HISTORY: Hypertension, COPD, polyarticular rheumatoid arthritis, GERD, osteoarthrosis, right total knee arthroplasty, obesity. FAMILY AND SOCIAL HISTORY: Prior to recent events she had lvied at home and she hopes to return there upon discharge. CURRENT MEDICATIONS: At this time include the followin. Aspirin. 2. Multivitamin. 3. Lyrica. 4. Cozaar. 5. Breo. 6. Ellipta. 7. Hydrochlorothiazide. 8. Colace. 9. Senokot. 10. Lopressor. 11. Lyrica. 12. Crestor. 13. DuoNeb, 14. [place] p.r.n. 15. Tylenol p.r.n. 16. Robitussin p.r.n. 17. Ambien p.r.n. SOCIAL HISTORY: The patient lives with family and unclear if there are any stairs at residence. Plan is to return back to her residence. REVIEW OF SYSTEMS: CARDIOVASCULAR: Denies chest pain, palpitations. PULMONARY: Denies shortness of breath, cough. MUSCULOSKELETAL: She has low back postoperative pain, anterior postoperative pain. NEUROLOGIC: Complains of some mild dysesthesias bilateral lower extremities, right hip weakness. FAMILY HISTORY: Noncontributory. PHYSICAL EXAMINATION: VITAL SIGNS: Temperature 97.8, respiratory is 18, pulse is 65. BP 146/59. HEENT: Extraocular movements are intact. Head is atraumatic. LUNGS: Clear to auscultation bilaterally. COR: Normal heart sounds. No murmurs, rubs, or gallops. ABDOMEN: Soft, nontender. EXTREMITIES: Anterior surgical incision is well healed. LOWER EXTREMITIES: No clubbing, cyanosis, edema. Homans testing is negative. She has severe RA changes in bilateral hands. NEUROLOGIC: Cranial nerves II through XII are intact. MENTAL STATUS: She is alert and oriented x3. Bilateral upper extremity strength is 4+/5 right lower extremity, hip flexion 3+/5, knee extension 4+/5, dorsiflexion, plantar flexion, extensor hallucis longus 4+/5, left lower extremity hip flexion 4/5, knee extension, dorsiflexion, plantar flexion are all 4+/5, extensor hallucis longus 4-/5. She has patchy decreased light touch in bilateral lower extremities. There is no hypertonicity noted. CURRENT LEVEL OF FUNCTION: Upper extremity dressing, minimal assistance, lower extremity dressing, moderate assistance, toileting, minimal assistance with gait, standing, minimal assistance front-wheel walker. LAB RESULTS: CBC: WBC count 9, hematocrit 31, platelets 201. BMP: Sodium 140, potassium 3.1, chloride 102, BUN 21, creatinine 1.02, glucose 88. Urinalysis showed 2 WBCs. REHABILITATION IMPAIRMENT CATEGORY: Other orthopedic disorder. ETIOLOGIC DIAGNOSIS: Multilevel lumbosacral stenosis with polyradiculitis. MEDICAL AND REHABILITATION COMORBIDITIES: 1. Lumbosacral stenosis with lumbosacral polyradiculitis. 2. Anterior posterior L3-S1 decompression/fusion. 3. Traumatic pain syndrome. 4. Anemia secondary to acute blood loss. 5. Polyarticular rheumatoid arthritis. 6. Hypertension. 7. Chronic obstructive pulmonary disease. 8. Obesity. 9. Hypokalemia. 10. GERD. 11. Right total knee arthroplasty. 12. Status post left iliac artery thrombectomy. FUNCTIONAL DEFICITS: 1. Impaired mobility including bed mobility, transfers, sitting balance, standing balance, endurance, strength, gait, stairs. 2. Impaired ADLs including self-care activities, bathing, dressing, grooming, hygiene, toileting. 3. Impaired bowel and bladder status. 4. Impaired functional endurance, strength and safety. POTENTIAL REHABILITATION AND MEDICAL COMPLICATIONS: 1. Deep venous thrombosis. 2. Postoperative infection. 3. Urinary retention. 4. Urosepsis. 5. Labile hypertension. 6. Chronic obstructive pulmonary disease exacerbation. 7. Ventricular arrhythmia. 8. Falls. FUNCTIONAL BARRIERS TO DISCHARGE: 1. Impaired mobility. 2. Impaired ADLs. 3. Impaired safety. 4. Impaired bowel and bladder status. RECOMMENDATIONS AND DISCUSSION: This patient has had a complicated hospital course, now status post second stage of her lumbosacral decompression and fusion. The patient with significant decline in her functional skills. She does indeed meet acute inpatient rehabilitation criteria including being able to tolerate 3 hours of therapy a day, 5 days per week with a reasonable prognosis for significant functional recovery in a reasonable time frame. Given the patient's global functional deficits, she requires intensive acute rehabilitation program to optimize her function, decrease her length of stay and increase the likelihood of returning home. Also given the patient's multiple medical comorbidities, she is at risk for medical complications as outlined above. Given these circumstances, in my opinion as a board-certified physical medicine forestry biology specialist, it is reasonable and necessary for this patient's rehabilitation procedures to be performed on an acute rehabilitation unit for daily physician oversight, management and care. These needs cannot be met safely at a lower level of care such an extended care facility. This patient will benefit from acute interdisciplinary coronary rehabilitation program here at [facility] under the care, supervision, direction, daily oversight by a board-certified physical biochemist for the followin. Therapeutic interventions include physical therapy, occupational therapy 5 days per week for a total of 900 minutes per week for the following: A. Physical therapy, bed mobility, transfers, sitting balance, standing balance, endurance, strength, gait, stairs. B. Occupational therapy ADLs, adaptive equipment needs, energy conservation techniques, body mechanics, safety, endurance. 2. 24-hour rehabilitation nursing care for carryover of all mobility and ADL skills, facilitate out of bed to a chair as much as possible, maintain cardiac and pulmonary compliance, rehabilitation nursing also for bowel and bladder training, maintain skin integrity, optimize p.o. intake. Patient will require narcotic analgesics for pain management. Mental status, cardiovascular status and pulmonary status will be monitored with the use of opiates in this elderly female. 3. Rehabilitation older adult social work specialist support, adjustment counseling, disposition planning. 4. Continue close medical management for the following: A. Pain syndrome. We are going to start scheduled analgesics along with p.r.n. Pain will be her biggest barrier to her functionality. Continue with out of bed interventions. B. Anemia. Her hematocrit today is 31. This is slowly improving. C. Hypertension. Maintain systolic blood pressures less than 150. D. Chronic obstructive pulmonary disease. Continue bronchodilators. Maintain O2 saturations greater than or equal to 90% occluded with all out of bed interventions. E. Hyperkalemia. Supplement the patient's potassium today. F. Bowel and bladder. Bowel and bladder training with rehabilitation nursing, including scheduled toileting. Check post-void residuals. FUNCTIONAL GOALS: 1. Modified independent in all mobility skills including bed mobility, transfers, gait, gait up to 150 feet with use of a front-wheel walker. 2. Modified independent in all ADL skills including bathing, dressing, hygiene, toileting. 3. Increase functional endurance, strength and safety. 4. Recall of all body mechanics and spine precautions. 5. Family training with all therapeutic disciplines. DISPOSITION PLAN: Back home. ESTIMATED LENGTH OF STAY FOR PROCEDURES: 14 days. Post-acute rehab needs likely include home health physical therapy, occupational therapy and nursing. REHABILITATION PROGNOSIS: Good. Please note I personally performed this patient's rehabilitation history and physical status post admission evaluation. The patient with a reasonable prognosis for significant functional recovery in a reasonable time frame, agreeable to participate with acute rehabilitation program. Since the initial screen, the patient's functional levels and medical status are essentially unchanged. Dictated By: GAMALIEL CAVAZOS/CARMINA Conf#: [id number] DID#: [id number] CC: BRIAN GRIFFIN MD; MARIE POSADA MD;*EndCC* MTDD
[2019-01-08] MEDS ORDERED: POTASSIUM CHLORIDE (SR) 20 MEQ TAB PO STA (13:19)
[2019-01-08 14:00] VITALS: BP_SYST 117; BP_SYST 127; BP_DIAS 55; BP_DIAS 62; PULSE 73; PULSE 77; RESP 18
[2019-01-08] MEDS ORDERED: POTASSIUM CHLORIDE (SR) 20 MEQ TAB PO ONE (17:00)
--- NOTE | 2019-01-08 17:07 | HP ---
Date/Time of Note Date/Time of Note DATE: 01/08/19 TIME: 17:05 Assessment/Plan VTE Prophylaxis Risk score (from Ns)>0 risk: 7 SCD applied (from Ns): Yes SCD contraindicated: other Pharmacological prophylaxis: other Pharm contraindication: other Lines/Catheters IV Catheter Type (from Nrsg): Saline Lock Assessment/Plan Assessment/Plan - Mechanical LBP, s/p lumbar Hardware Removal (Rods/Screws), L3-S1 Decompression with ISF Placement by Dr Lobato on 01/03/19. Continue postoperative antibiotic, continue [place] and morphine as needed for pain and Zofran as needed for nausea. LSO brace when out of bed. Continue physical therapy. - HTN, patient is currently normotensive, continue metoprolol and hydrochlorothiazide. - Asthma, stable, continue Breo Ellipta as needed. - RA, no acute issues, patient gets injection with rituximab as an outpatient, follows with Dr. Saldivar in rheumatology consultation. - History of anterior retroperitoneal interbody fusion of L3-S1 by Dr. Lobato on 12/08/18. - History of left iliac artery thrombectomy on 12/08/[address] Ibrahim. Further recommendations based on clinical course. Plan of care discussed with Dr. Whatley. Result Diagram: 01/08/19 0605 01/08/19 0605 Results 24hrs Laboratory Tests Test 01/08/19 06:05 White Blood Count 9.2 Red Blood Count 3.32 L Hemoglobin 9.6 L Hematocrit 31.3 L Mean Corpuscular Volume 94.3 Mean Corpuscular Hemoglobin 28.9 L Mean Corpuscular Hemoglobin Concent 30.7 L Red Cell Distribution Width 15.2 H Platelet Count 201 Mean Platelet Volume 12.3 H Immature Granulocytes % 2.100 H Neutrophils % 53.0 Lymphocytes % 24.9 Monocytes % 12.6 H Eosinophils % 6.6 Basophils % 0.8 Nucleated Red Blood Cells % 0.0 Immature Granulocytes # 0.190 H Neutrophils # 4.9 Lymphocytes # 2.3 Monocytes # 1.2 H Eosinophils # 0.6 H Basophils # 0.1 Nucleated Red Blood Cells # 0.0 Sodium Level 140 Potassium Level 3.1 L Chloride Level 102 Carbon Dioxide Level 30 Anion Gap 8 Blood Urea Nitrogen 21 H Creatinine 1.02 H Est Glomerular Filtrat Rate mL/min Glucose Level 88 Calcium Level 8.4 Total Bilirubin 0.3 Direct Bilirubin 0.00 Indirect Bilirubin 0.3 Aspartate Amino Transf (AST/SGOT) 21 Alanine Aminotransferase (ALT/SGPT) 25 Alkaline Phosphatase 82 Total Protein 5.9 L Albumin 2.9 L Globulin 3.00 Albumin/Globulin Ratio 0.96 HPI/ROS Admit Date/Time Admit Date/Time Jan 07, 2019 at 13:16 Hx of Present Illness The patient is 78-year-old female with history of hypertension, asthma, rheumatoid arthritis, GERD and osteoporosis. Patient underwent anterior retroperitoneal interbody fusion of L3-S1 by Dr. Lobato for lower back pain with lower extremity radiculopathy on December 08, 2018. Patient developed left lower extremity weakness and ischemia and underwent intraoperative left lower extremity angiogram followed by left iliac artery thrombectomy by Dr. Ibrahim. Patient recovered well and was [facility]ation and physical therapy. Patient was brought to the hospital on December 20 for completion of the second part of the lumbar surgery. Patient underwent hardware removal, L3 S1 decompression with eyes safe placement. Patient is awake alert pain is adequately controlled. Patient denies any chest pain; denies shortness of breath, denies nausea vomiting diarrhea. Postoperative issues included pain requiring narcotic analgesics including IV narcotics. Her Robbins catheter was discontinued several days ago. She denies any urinary frequency or dysuria. The patient was completely independent prior to recent events. She was initiated on activities on the medical/surgical unit and found to have a significant decline in her functional skills, evaluated for acute rehab, deemed an appropriate candidate, meeting all CMS guidelines. Patient was transferred to Acute Rehab Unit for rehabilitation procedures. Dr Whatley /team follow patient in Internal Medicine. Plan of care dw staff ROS Eyes: no complaints ENT: no complaints Respiratory: no complaints Cardiovascular: no complaints Gastrointestinal: no complaints Genitourinary: no complaints Musculoskeletal: back pain Skin: no complaints Neurologic: focal-weakness Endocrine: no complaints Lymphatic: no complaints Psychological: nl mood/affect Immunologic: no complaints PMH/Family/Social Past Medical History Medications Current Medications Miscellaneous Information ([facility]) This patient cohen... PRN PRN XX WOUND CARE; Start 01/07/19 at 14:30 Acetaminophen/ Hydrocodone Bitart ([place] (5/325)) 1 tab Q4H PRN PO MODERATE PAIN LEVEL 4-6 Last administered on 01/07/19 14:22; Admin Dose 1 TAB; Start 01/07/19 at 14:30 Acetaminophen/ Hydrocodone Bitart ([place] (5/325)) 2 tab Q4H PRN PO SEVERE PAIN LEVEL 7-10 Last administered on 01/08/19 13:28; Admin Dose 2 TAB; Start 01/07/19 at 16:30 Docusate Sodium (Colace) 100 mg BID PO Last administered on 01/08/19 09:21; Admin Dose 100 MG; Start 01/07/19 at 21:00 Senna (Senokot) 1 tab QHS PO Last administered on 01/07/19 20:37; Admin Dose 1 TAB; Start 01/07/19 at 21:00 Acetaminophen (Tylenol Tab) 650 mg Q4H PRN PO MILD PAIN(1-3)OR ELEVATED TEMP; Start 01/07/19 at 16:30 Bisacodyl (Dulcolax Supp) 10 mg DAILY PRN [place] CONSTIPATION; Start 01/07/19 at 16:30 Magnesium Hydroxide (Milk Of Mag) 30 ml BID PRN PO CONSTIPATION; Start 01/07/19 at 16:30 Lactulose (Enulose) 20 gm DAILY PRN PO CONSTIPATION; Start 01/07/19 at 16:30 Al Hydrox/Mg Hydrox/Simethicone (Mag-Al Plus) 15 ml Q4H PRN PO GASTROINTESTINAL UPSET; Start 01/07/19 at 16:30 Albuterol/ Ipratropium (Duoneb) 3 ml Q6H RESP THERAPY HHN Last administered on 01/08/19 08:26; Admin Dose 3 ML; Start 01/07/19 at 20:00 Aspirin (Aspirin) 81 mg DAILY PO Last administered on 01/08/19 09:21; Admin Dose 81 MG; Start 01/08/19 at 09:00 Sodium Biphosphate/ Sodium Phosphate (Fleet Enema) 133 ml DAILY PRN [place] CONSTIPA TION; Start 01/07/19 at 16:30 Guaifenesin/ Dextromethorphan (Robitussin Dm Liquid Cup) 10 ml Q8H PRN PO COUGH; Start 01/07/19 at 16:30 Metoprolol Tartrate (Lopressor) 12.5 mg BID PO Last administered on 01/08/19 09:23; Admin Dose 12.5 MG; Start 01/07/19 at 21:00 Multivitamins Therapeutic (Theragran) 1 tab DAILY PO Last administered on 01/08/19 09:21; Admin Dose 1 TAB; Start 01/08/19 at 09:00 Pregabalin (Lyrica) 50 mg DAILY PO Last administered on 01/08/19 09:21; Admin Dose 50 MG; Start 01/08/19 at 09:00 Pregabalin (Lyrica) 100 mg QHS PO Last administered on 01/07/19 20:37; Admin Dose 100 MG; Start 01/07/19 at 21:00 Zolpidem Tartrate (Ambien) 5 mg HS MAY REPEAT X 1 PRN PO INSOMNIA Last administered on 01/08/19 01:16; Admin Dose 5 MG; Start 01/07/19 at 16:30 Losartan Potassium (Cozaar) 100 mg DAILY PO Last administered on 01/08/19 09:22; Admin Dose 100 MG; Start 01/08/19 at 09:00 Rosuvastatin Calcium (Crestor) 40 mg QHS PO Last administered on 01/07/19 20:37; Admin Dose 40 MG; Start 01/07/19 at 21:00 Fluticasone/ Vilanterol (Breo Ellipta 100-25 Mcg Inh) 1 inh DAILY INH Last administered on 01/08/19 09:20; Admin Dose 1 INH; Start 01/08/19 at 09:00 Hydrochlorothiazide (Hydrochlorothiazide) 25 mg DAILY PO Last administered on 01/08/19 09:21; Admin Dose 25 MG; Start 01/08/19 at 09:00 Morphine Sulfate (morphine) 2 mg Q4H PRN IV BREAKTHROUGH PAIN; Start 01/08/19 at 13:30 Acetaminophen/ Hydrocodone Bitart ([place] (5/325)) 1 tab BEFORE BREAKFAST PO ; Start 01/09/19 at 07:00 Acetaminophen/ Hydrocodone Bitart ([place] (5/325)) 1 tab WITH LUNCH PO ; Start 01/09/19 at 12:00 Coded Allergies: tramadol (Verified Allergy, Unknown, Rash, 01/03/19) Past Surgical History Past Surgical Hx: other Family History Significant Family History: no pertinent family hx Social History Smoking Status: Never smoker Exam/Review of Systems Vital Signs Vitals Vital Signs Date Temp Pulse Resp B/P (MAP) Pulse Ox O2 O2 Flow FiO2 Time Delivery Rate 01/08/19 97.8 77 18 117/55 96 Room Air 14:00 (75) 01/08/19 21 08:27 Intake and Output 01/07/19 01/07/19 01/08/19 1515:00 23:00 07:00 IntakeIntake Total 200 ml 650 ml BalanceBalance 200 ml 650 ml Exam Constitutional: alert, well developed Psych: nl mood/affect Head: normocephalic Eyes: nl lids, nl sclera ENMT: nl external ears & nose Neck: non-tender Respiratory: clear to auscultation Cardiovascular: nl pulses, other (s1s2) Gastrointestinal: soft, non-tender Musculoskeletal: nl extremities to inspection, range of motion (lower back) Extremities: normal pulses Neurological: focal weakness, other (alert/responsive) Skin: nl turgor Lymph: nontender DEJA HERRERA Jan 08, 2019 17:07
[2019-01-08 19:54] VITALS: BP 134/62; PULSE 72; RESP 18
[2019-01-08] MEDS: ROSUVASTATIN CALCIUM 40 MG TABLET PO SCH (20:48)
[2019-01-08] MEDS: SENNA TAB PO SCH (21:00)
[2019-01-09] MEDS: ALBUTEROL/IPRATROPIUM (NEB) 3 ML AMP HHN SCH ×4 (01:22→20:11)
[2019-01-09 02:51] VITALS: BP 118/63; PULSE 67; RESP 18
[2019-01-09] MEDS: HYDROCODONE/APAP (5/325) TAB PO SCH ×2 (06:50→11:57)
[2019-01-09 07:30] VITALS: BP 152/55; PULSE 70; RESP 20
[2019-01-09] MEDS: DOCUSATE SODIUM 100 MG CAP PO SCH ×2 (09:00→20:41)
[2019-01-09] MEDS: PREGABALIN 50 MG CAP PO SCH ×2 (09:06→20:41)
[2019-01-09] MEDS: MULTIVITAMINS THERAPEUTIC TAB PO SCH (09:06)
[2019-01-09] MEDS: ASPIRIN 81 MG TAB PO SCH (09:06)
[2019-01-09] MEDS: METOPROLOL 25 MG TAB PO SCH ×2 (09:07→20:42)
[2019-01-09] MEDS: LOSARTAN 50 MG TAB PO SCH (09:08)
[2019-01-09] MEDS: HYDROCHLOROTHIAZIDE 12.5 MG CAP PO SCH (09:08)
[2019-01-09] MEDS: FLUTICASONE/VILANTEROL 100-25 INH SCH (09:09)
[2019-01-09] MEDS: morphine 2 MG INJ IV PRN ×3 (09:18→21:20)
[2019-01-09 14:00] VITALS: BP 125/56; PULSE 66; RESP 20
--- NOTE | 2019-01-09 14:10 | PN ---
Date/Time of Note Date/Time of Note DATE: 01/09/19 TIME: 14:06 Assessment/Plan VTE Prophylaxis Risk score (from Ns)>0 risk: 5 SCD applied (from Ns): Yes SCD contraindicated: other Pharmacological prophylaxis: other Pharm contraindication: other Lines/Catheters IV Catheter Type (from Nrsg): Saline Lock Assessment/Plan Assessment/Plan - Mechanical LBP, s/p lumbar Hardware Removal (Rods/Screws), L3-S1 Decompression with ISF Placement by Dr Lobato on 01/03/19. Continue postoperative antibiotic, continue [place] and morphine as needed for pain and Zofran as needed for nausea. LSO brace when out of bed. Continue physical therapy. - HTN, patient is currently normotensive, continue metoprolol and hydrochlorothiazide. - Asthma, stable, continue Breo Ellipta as needed. - RA, no acute issues, patient gets injection with rituximab as an outpatient, follows with Dr. Saldivar in rheumatology consultation. - History of anterior retroperitoneal interbody fusion of L3-S1 by Dr. Lobato on 12/08/18. - History of left iliac artery thrombectomy on 12/08/[address] Ibrahim. Further recommendations based on clinical course. Plan of care discussed with Dr. Whatley. Result Diagram: 01/08/19 0605 01/08/19 0605 Subjective 24 Hr Interval Summary Free Text/Dictation feels better tolerates PT K low as of yesterday; will do BMP today no events last night Eyes: no complaints ENT: no complaints Respiratory: no complaints Cardiovascular: no complaints Gastrointestinal: no complaints Genitourinary: no complaints Musculoskeletal: bone/joint pain, restricted range of motion Skin: no complaints Neurologic: no complaints Endocrine: no complaints Psychological: nl mood/affect Immunologic: no complaints Exam/Review of Systems Exam Vitals Vital Signs Date Temp Pulse Resp B/P (MAP) Pulse Ox O2 O2 Flow FiO2 Time Delivery Rate 01/09/19 72 20 96 21 08:34 01/09/19 98.1 152/55 Room Air 07:30 (87) Intake and Output 01/08/19 01/08/19 01/09/19 1515:00 23:00 07:00 IntakeIntake Total 780 ml 1800 ml OutputOutput Total 123 ml 1114 ml 250 ml BalanceBalance 657 ml 686 ml -250 ml Constitutional: alert, well developed Psych: nl mood/affect Eyes: nl lids, nl sclera ENMT: nl external ears & nose Neck: supple Respiratory: clear to auscultation Cardiovascular: nl pulses, other (s1s2) Gastrointestinal: soft, non-tender Musculoskeletal: joint tenderness, range of motion (lower back) Extremities: normal pulses Neurological: nl mental status, nl speech Skin: nl turgor Lymph: nontender Medications Medication Current Medications Miscellaneous Information (Pending [facility] Order For Wound Care) This patient cohen... PRN PRN XX WOUND CARE; Start 01/07/19 at 14:30 Acetaminophen/ Hydrocodone Bitart ([place] (5/325)) 1 tab Q4H PRN PO MODERATE PAIN LEVEL 4-6 Last administered on 01/07/19at 14:22; Admin Dose 1 TAB; Start 01/07/19 at 14:30 Acetaminophen/ Hydrocodone Bitart ([place] (5/325)) 2 tab Q4H PRN PO SEVERE PAIN LEVEL 7-10 Last administered on 01/08/19at 20:48; Admin Dose 2 TAB; Start 01/07/19 at 16:30 Docusate Sodium (Colace) 100 mg BID PO Last administered on 01/08/19at 09:21; Admin Dose 100 MG; Start 01/07/19 at 21:00 Senna (Senokot) 1 tab QHS PO Last administered on 01/07/19at 20:37; Admin Dose 1 TAB; Start 01/07/19 at 21:00 Acetaminophen (Tylenol Tab) 650 mg Q4H PRN PO MILD PAIN(1-3)OR ELEVATED TEMP; Start 01/07/19 at 16:30 Bisacodyl (Dulcolax Supp) 10 mg DAILY PRN [place] CONSTIPATION; Start 01/07/19 at 16:30 Magnesium Hydroxide (Milk Of Mag) 30 ml BID PRN PO CONSTIPATION; Start 01/07/19 at 16:30 Lactulose (Enulose) 20 gm DAILY PRN PO CONSTIPATION; Start 01/07/19 at 16:30 Al Hydrox/Mg Hydrox/Simethicone (Mag-Al Plus) 15 ml Q4H PRN PO GASTROINTESTINAL UPSET; Start 01/07/19 at 16:30 Albuterol/ Ipratropium (Duoneb) 3 ml Q6H RESP THERAPY HHN Last administered on 01/09/19 01:22; Admin Dose 3 ML; Start 01/07/19 at 20:00 Aspirin (Aspirin) 81 mg DAILY PO Last administered on 01/09/19 09:06; Admin Do se 81 MG; Start 01/08/19 at 09:00 Sodium Biphosphate/ Sodium Phosphate (Fleet Enema) 133 ml DAILY PRN [place] CONSTIPATION; Start 01/07/19 at 16:30 Guaifenesin/ Dextromethorphan (Robitussin Dm Liquid Cup) 10 ml Q8H PRN PO COUGH; Start 01/07/19 at 16:30 Metoprolol Tartrate (Lopressor) 12.5 mg BID PO Last administered on 01/09/19 09:07; Admin Dose 12.5 MG; Start 01/07/19 at 21:00 Multivitamins Therapeutic (Theragran) 1 tab DAILY PO Last administered on 01/09/19 09:06; Admin Dose 1 TAB; Start 01/08/19 at 09:00 Pregabalin (Lyrica) 50 mg DAILY PO Last administered on 01/09/19 09:06; Admin Dose 50 MG; Start 01/08/19 at 09:00 Pregabalin (Lyrica) 100 mg QHS PO Last administered on 01/08/19 20:48; Admin Dose 100 MG; Start 01/07/19 at 21:00 Zolpidem Tartrate (Ambien) 5 mg HS MAY REPEAT X 1 PRN PO INSOMNIA Last administered on 01/08/19 01:16; Admin Dose 5 MG; Start 01/07/19 at 16:30 Losartan Potassium (Cozaar) 100 mg DAILY PO Last administered on 01/09/19 09:08; Admin Dose 100 MG; Start 01/08/19 at 09:00 Rosuvastatin Calcium (Crestor) 40 mg QHS PO Last administered on 01/08/19 20:48; Admin Dose 40 MG; Start 01/07/19 at 21:00 Fluticasone/ Vilanterol (Breo Ellipta 100-25 Mcg Inh) 1 inh DAILY INH Last administered on 01/09/19 09:09; Admin Dose 1 INH; Start 01/08/19 at 09:00 Hydrochlorothiazide (Hydrochlorothiazide) 25 mg DAILY PO Last administered on 01/09/19 09:08; Admin Dose 25 MG; Start 01/08/19 at 09:00 Morphine Sulfate (morphine) 2 mg Q4H PRN IV BREAKTHROUGH PAIN Last administered on 01/09/19 09:18; Admin Dose 2 MG; Start 01/08/19 at 13:30 Acetaminophen/ Hydrocodone Bitart ([place] (5/325)) 1 tab BEFORE BREAKFAST PO Last administered on 01/09/19 06:50; Admin Dose 1 TAB; Start 01/09/19 at 07:00 Acetaminophen/ Hydrocodone Bitart ([place] (5/325)) 1 tab WITH LUNCH PO Last administered on 01/09/19 11:57; Admin Dose 1 TAB; Start 01/09/19 at 12:00 DEJA HERRERA Jan 09, 2019 14:10
[2019-01-09] MEDS: HYDROCODONE/APAP (5/325) TAB PO PRN ×2 (14:38→19:51)
[2019-01-09] MEDS: ROSUVASTATIN CALCIUM 40 MG TABLET PO SCH (20:41)
[2019-01-09] MEDS: SENNA TAB PO SCH (20:45)
[2019-01-09 21:43] VITALS: BP 127/60; PULSE 63; RESP 18
[2019-01-10 02:00] VITALS: BP 141/64; PULSE 65; RESP 18
[2019-01-10] MEDS: ALBUTEROL/IPRATROPIUM (NEB) 3 ML AMP HHN SCH ×4 (02:00→20:02)
[2019-01-10] MEDS: HYDROCODONE/APAP (5/325) TAB PO PRN ×2 (02:09→20:53)
[2019-01-10] MEDS: HYDROCODONE/APAP (5/325) TAB PO SCH ×2 (06:48→11:32)
[2019-01-10 07:30] VITALS: BP 132/62; PULSE 60; RESP 20
[2019-01-10] MEDS: FLUTICASONE/VILANTEROL 100-25 INH SCH (08:25)
[2019-01-10] MEDS: HYDROCHLOROTHIAZIDE 12.5 MG CAP PO SCH (08:26)
[2019-01-10] MEDS: PREGABALIN 50 MG CAP PO SCH ×2 (08:26→20:51)
[2019-01-10] MEDS: ASPIRIN 81 MG TAB PO SCH (08:26)
[2019-01-10] MEDS: DOCUSATE SODIUM 100 MG CAP PO SCH ×2 (08:26→20:50)
[2019-01-10] MEDS: MULTIVITAMINS THERAPEUTIC TAB PO SCH (08:26)
[2019-01-10] MEDS: METOPROLOL 25 MG TAB PO SCH ×2 (08:27→20:50)
[2019-01-10] MEDS: LOSARTAN 50 MG TAB PO SCH (08:27)
[2019-01-10] MEDS: morphine 2 MG INJ IV PRN ×2 (09:49→18:23)
[2019-01-10 14:00] VITALS: BP 111/51; PULSE 69; RESP 18
--- NOTE | 2019-01-10 17:31 | PN ---
Date/Time of Note Date/Time of Note DATE: 01/10/19 TIME: 17:28 Subjective Motivated Objective Vital Signs Date Temp Pulse Resp B/P (MAP) Pulse Ox O2 O2 Flow FiO2 Time Delivery Rate 01/10/19 98.1 69 18 111/51 94 Room Air 14:00 (71) 01/10/19 21 13:40 Intake and Output 01/09/19 01/09/19 01/10/19 1515:00 23:00 07:00 IntakeIntake Total 1020 ml BalanceBalance 1020 ml Exam pulm-cta min ambulation Results/Medications Result Diagram: 01/10/19 0611 01/10/19 0611 Results 24 hrs Laboratory Tests Test 01/10/19 06:11 White Blood Count 11.0 H Red Blood Count 3.25 L Hemoglobin 9.4 L Hematocrit 31.1 L Mean Corpuscular Volume 95.7 Mean Corpuscular Hemoglobin 28.9 L Mean Corpuscular Hemoglobin Concent 30.2 L Red Cell Distribution Width 15.4 H Platelet Count 275 Mean Platelet Volume 11.1 H Immature Granulocytes % 2.200 H Neutrophils % 50.4 Lymphocytes % 22.2 Monocytes % 14.1 H Eosinophils % 10.1 H Basophils % 1.0 Nucleated Red Blood Cells % 0.0 Immature Granulocytes # 0.240 H Neutrophils # 5.5 Lymphocytes # 2.4 Monocytes # 1.6 H Eosinophils # 1.1 H Basophils # 0.1 Nucleated Red Blood Cells # 0.0 Sodium Level 142 Potassium Level 4.6 Chloride Level 103 Carbon Dioxide Level 31 Anion Gap 8 Blood Urea Nitrogen 20 Creatinine 1.07 H Est Glomerular Filtrat Rate mL/min Glucose Level 93 Calcium Level 8.6 Medications Current Medications Miscellaneous Information (Pending [facility] Order For Wound Care) This patient cohen... PRN PRN XX WOUND CARE; Start 01/07/19 at 14:30 Acetaminophen/ Hydrocodone Bitart ([place] (5/325)) 1 tab Q4H PRN PO MODERATE PAIN LEVEL 4-6 Last administered on 01/07/19at 14:22; Admin Dose 1 TAB; Start 01/07/19 at 14:30 Acetaminophen/ Hydrocodone Bitart ([place] (5/325)) 2 tab Q4H PRN PO SEVERE PAIN LEVEL 7-10 Last administered on 01/10/19at 02:09; Admin Dose 2 TAB; Start 01/07/19 at 16:30 Docusate Sodium (Colace) 100 mg BID PO Last administered on 01/10/19 08:26; Admin Dose 100 MG; Start 01/07/19 at 21:00 Senna (Senokot) 1 tab QHS PO Last administered on 01/07/19 20:37; Admin Dose 1 TAB; Start 01/07/19 at 21:00 Acetaminophen (Tylenol Tab) 650 mg Q4H PRN PO MILD PAIN(1-3)OR ELEVATED TEMP; Start 01/07/19 at 16:30 Bisacodyl (Dulcolax Supp) 10 mg DAILY PRN [place] CONSTIPATION; Start 01/07/19 at 16:30 Magnesium Hydroxide (Milk Of Mag) 30 ml BID PRN PO CONSTIPATION; Start 01/07/19 at 16:30 Lactulose (Enulose) 20 gm DAILY PRN PO CONSTIPATION; Start 01/07/19 at 16:30 Al Hydrox/Mg Hydrox/Simethicone (Mag-Al Plus) 15 ml Q4H PRN PO GASTROINTESTINAL UPSET; Start 01/07/19 at 16:30 Albuterol/ Ipratropium (Duoneb) 3 ml Q6H RESP THERAPY HHN Last administered on 01/10/19 13:40; Admin Dose 3 ML; Start 01/07/19 at 20:00 Aspirin (Aspirin) 81 mg DAILY PO Last administered on 01/10/19 08:26; Admin Dose 81 MG; Start 01/08/19 at 09:00 Sodium Biphosphate/ Sodium Phosphate (Fleet Enema) 133 ml DAILY PRN [place] CONSTIPATION; Start 01/07/19 at 16:30 Guaifenesin/ Dextromethorphan (Robitussin Dm Liquid Cup) 10 ml Q8H PRN PO COUGH; Start 01/07/19 at 16:30 Metoprolol Tartrate (Lopressor) 12.5 mg BID PO Last administered on 01/10/19 08:27; Admin Dose 12.5 MG; Start 01/07/19 at 21:00 Multivitamins Therapeutic (Theragran) 1 tab DAILY PO Last administered on 01/10/19 08:26; Admin Dose 1 TAB; Start 01/08/19 at 09:00 Pregabalin (Lyrica) 50 mg DAILY PO Last administered on 01/10/19 08:26; Admin Dose 50 MG; Start 01/08/19 at 09:00 Pregabalin (Lyrica) 100 mg QHS PO Last administered on 01/09/19 20:41; Admin Dose 100 MG; Start 01/07/19 at 21:00 Zolpidem Tartrate (Ambien) 5 mg HS MAY REPEAT X 1 PRN PO INSOMNIA Last administered on 01/08/19 01:16; Admin Dose 5 MG; Start 01/07/19 at 16:30 Losartan Potassium (Cozaar) 100 mg DAILY PO Last administered on 01/10/19 08:27; Admin Dose 100 MG; Start 01/08/19 at 09:00 Rosuvastatin Calcium (Crestor) 40 mg QHS PO Last administered on 01/09/19 20:41; Admin Dose 40 MG; Start 01/07/19 at 21:00 Fluticasone/ Vilanterol (Breo Ellipta 100-25 Mcg Inh) 1 inh DAILY INH Last administered on 01/10/19 08:25; Admin Dose 1 INH; Start 01/08/19 at 09:00 Hydrochlorothiazide (Hydrochlorothiazide) 25 mg DAILY PO Last administered on 01/10/19 08:26; Admin Dose 25 MG; Start 01/08/19 at 09:00 Morphine Sulfate (morphine) 2 mg Q4H PRN IV BREAKTHROUGH PAIN Last administered on 01/10/19 09:49; Admin Dose 2 MG; Start 01/08/19 at 13:30 Acetaminophen/ Hydrocodone Bitart ([place] (5/325)) 1 tab BEFORE BREAKFAST PO Last administered on 01/10/19 06:48; Admin Dose 1 TAB; Start 01/09/19 at 07:00 Acetaminophen/ Hydrocodone Bitart ([place] (5/325)) 1 tab WITH LUNCH PO Last administered on 01/10/19 11:32; Admin Dose 1 TAB; Start 01/09/19 at 12:00 Assessment/Plan Additional Assessment/Plan Rehab- Lumbosacral stenosis with lumbosacral polyradiculitis; Anterior posterior L3-S1 decompression/fusion; Polyarticular rheumatoid arthritis Continue rehab program Traumatic pain syndrome. Anemia secondary to acute blood loss. Hypertension. Chronic obstructive pulmonary disease. Obesity. Hypokalemia. GERD. h.o Right total knee arthroplasty. Status post left iliac artery thrombectomy. MARIE POSADA MD Jan 10, 2019 17:30
--- NOTE | 2019-01-10 18:11 | PN ---
Date/Time of Note Date/Time of Note DATE: 01/10/19 TIME: 18:10 Assessment/Plan VTE Prophylaxis Risk score (from Nsg)>0 risk: 6 SCD applied (from Nsg): Yes Pharmacological prophylaxis: other Lines/Catheters IV Catheter Type (from Nrsg): Saline Lock Assessment/Plan Hospital Course Patient participates in physical therapy using LSO brace when out of bed, continued on [place] for pain, patient remains hemodynamically stable afebrile. Assessment/Plan - Mechanical LBP, s/p lumbar Hardware Removal (Rods/Screws), L3-S1 Decompression with ISF Placement by Dr Lobato on 01/03/19. Continue postoperative antibiotic, continue [place] and morphine as needed for pain and Zofran as needed for nausea. LSO brace when out of bed. Continue physical therapy. - HTN, patient is currently normotensive, continue metoprolol and hydrochlorothiazide. - Asthma, stable, continue Breo Ellipta as needed. - RA, no acute issues, patient gets injection with rituximab as an outpatient, follows with Dr. Saldivar in rheumatology consultation. - History of anterior retroperitoneal interbody fusion of L3-S1 by Dr. Lobato on 12/08/18. - History of left iliac artery thrombectomy on 12/08/[address] Ibrahim. Further recommendations based on clinical course. Plan of care discussed with Dr. Whatley. Result Diagram: 01/10/19 0611 01/10/19 0611 Results 24hrs Laboratory Tests Test 01/10/19 06:11 White Blood Count 11.0 H Red Blood Count 3.25 L Hemoglobin 9.4 L Hematocrit 31.1 L Mean Corpuscular Volume 95.7 Mean Corpuscular Hemoglobin 28.9 L Mean Corpuscular Hemoglobin Concent 30.2 L Red Cell Distribution Width 15.4 H Platelet Count 275 Mean Platelet Volume 11.1 H Immature Granulocytes % 2.200 H Neutrophils % 50.4 Lymphocytes % 22.2 Monocytes % 14.1 H Eosinophils % 10.1 H Basophils % 1.0 Nucleated Red Blood Cells % 0.0 Immature Granulocytes # 0.240 H Neutrophils # 5.5 Lymphocytes # 2.4 Monocytes # 1.6 H Eosinophils # 1.1 H Basophils # 0.1 Nucleated Red Blood Cells # 0.0 Sodium Level 142 Potassium Level 4.6 Chloride Level 103 Carbon Dioxide Level 31 Anion Gap 8 Blood Urea Nitrogen 20 Creatinine 1.07 H Est Glomerular Filtrat Rate mL/min Glucose Level 93 Calcium Level 8.6 Exam/Review of Systems Exam Vitals Vital Signs Date Temp Pulse Resp B/P (MAP) Pulse Ox O2 O2 Flow FiO2 Time Delivery Rate 01/10/19 98.1 69 18 111/51 94 Room Air 14:00 (71) 01/10/19 21 13:40 Intake and Output 01/09/19 01/09/19 01/10/19 1414:59 22:59 06:59 IntakeIntake Total 1020 ml BalanceBalance 1020 ml Exam Constitutional: alert, oriented Respiratory: clear to auscultation Cardiovascular: nl pulses Gastrointestinal: soft, non-tender, healed surgical incision. Musculoskeletal: nl extremities to inspection, other (Low back status post surgery) Neurological: nl mental status Skin: nl turgor Results Results 24hrs Laboratory Tests Test 01/10/19 06:11 White Blood Count 11.0 H Red Blood Count 3.25 L Hemoglobin 9.4 L Hematocrit 31.1 L Mean Corpuscular Volume 95.7 Mean Corpuscular Hemoglobin 28.9 L Mean Corpuscular Hemoglobin Concent 30.2 L Red Cell Distribution Width 15.4 H Platelet Count 275 Mean Platelet Volume 11.1 H Immature Granulocytes % 2.200 H Neutrophils % 50.4 Lymphocytes % 22.2 Monocytes % 14.1 H Eosinophils % 10.1 H Basophils % 1.0 Nucleated Red Blood Cells % 0.0 Immature Granulocytes # 0.240 H Neutrophils # 5.5 Lymphocytes # 2.4 Monocytes # 1.6 H Eosinophils # 1.1 H Basophils # 0.1 Nucleated Red Blood Cells # 0.0 Sodium Level 142 Potassium Level 4.6 Chloride Level 103 Carbon Dioxide Level 31 Anion Gap 8 Blood Urea Nitrogen 20 Creatinine 1.07 H Est Glomerular Filtrat Rate mL/min Glucose Level 93 Calcium Level 8.6 Medications Medication Current Medications Miscellaneous Information (Pending [facility] Order For Wound Care) This patient cohen... PRN PRN XX WOUND CARE; Start 01/07/19 at 14:30 Acetaminophen/ Hydrocodone Bitart ([place] (5/325)) 1 tab Q4H PRN PO MODERATE PAIN LEVEL 4-6 Last administered on 01/07/19at 14:22; Admin Dose 1 TAB; Start 01/07/19 at 14:30 Acetaminophen/ Hydrocodone Bitart ([place] (5/325)) 2 tab Q4H PRN PO SEVERE PAIN LEVEL 7-10 Last administered on 01/10/19 02:09; Admin Dose 2 TAB; Start 9 at 16:30 Docusate Sodium (Colace) 100 mg BID PO Last administered on 01/10/19 08:26; Admin Dose 100 MG; Start 01/07/19 at 21:00 Senna (Senokot) 1 tab QHS PO Last administered on 01/07/19 20:37; Admin Dose 1 TAB; Start 01/07/19 at 21:00 Acetaminophen (Tylenol Tab) 650 mg Q4H PRN PO MILD PAIN(1-3)OR ELEVATED TEMP; Start 01/07/19 at 16:30 Bisacodyl (Dulcolax Supp) 10 mg DAILY PRN [place] CONSTIPATION; Start 01/07/19 at 16:30 Magnesium Hydroxide (Milk Of Mag) 30 ml BID PRN PO CONSTIPATION; Start 01/07/19 at 16:30 Lactulose (Enulose) 20 gm DAILY PRN PO CONSTIPATION; Start 01/07/19 at 16:30 Al Hydrox/Mg Hydrox/Simethicone (Mag-Al Plus) 15 ml Q4H PRN PO GASTROINTESTINAL UPSET; Start 01/07/19 at 16:30 Albuterol/ Ipratropium (Duoneb) 3 ml Q6H RESP THERAPY HHN Last administered on 01/10/19 13:40; Admin Dose 3 ML; Start 01/07/19 at 20:00 Aspirin (Aspirin) 81 mg DAILY PO Last administered on 01/10/19 08:26; Admin Dose 81 MG; Start 01/08/19 at 09:00 Sodium Biphosphate/ Sodium Phosphate (Fleet Enema) 133 ml DAILY PRN [place] CONSTIPATION; Start 01/07/19 at 16:30 Guaifenesin/ Dextromethorphan (Robitussin Dm Liquid Cup) 10 ml Q8H PRN PO COUGH; Start 01/07/19 at 16:30 Metoprolol Tartrate (Lopressor) 12.5 mg BID PO Last administered on 01/10/19 08:27; Admin Dose 12.5 MG; Start 01/07/19 at 21:00 Multivitamins Therapeutic (Theragran) 1 tab DAILY PO Last administered on 01/10/19 08:26; Admin Dose 1 TAB; Start 01/08/19 at 09:00 Pregabalin (Lyrica) 50 mg DAILY PO Last administered on 01/10/19 08:26; Admin Dose 50 MG; Start 01/08/19 at 09:00 Pregabalin (Lyrica) 100 mg QHS PO Last administered on 01/09/19 20:41; Admin Dose 100 MG; Start 01/07/19 at 21:00 Zolpidem Tartrate (Ambien) 5 mg HS MAY REPEAT X 1 PRN PO INSOMNIA Last administered on 01/08/19 01:16; Admin Dose 5 MG; Start 01/07/19 at 16:30 Losartan Potassium (Cozaar) 100 mg DAILY PO Last administered on 01/10/19 08:2 7; Admin Dose 100 MG; Start 01/08/19 at 09:00 Rosuvastatin Calcium (Crestor) 40 mg QHS PO Last administered on 01/09/19 20:41; Admin Dose 40 MG; Start 01/07/19 at 21:00 Fluticasone/ Vilanterol (Breo Ellipta 100-25 Mcg Inh) 1 inh DAILY INH Last administered on 01/10/19 08:25; Admin Dose 1 INH; Start 01/08/19 at 09:00 Hydrochlorothiazide (Hydrochlorothiazide) 25 mg DAILY PO Last administered on 01/10/19 08:26; Admin Dose 25 MG; Start 01/08/19 at 09:00 Morphine Sulfate (morphine) 2 mg Q4H PRN IV BREAKTHROUGH PAIN Last administered on 01/10/19 09:49; Admin Dose 2 MG; Start 01/08/19 at 13:30 Acetaminophen/ Hydrocodone Bitart ([place] (5/325)) 1 tab BEFORE BREAKFAST PO Last administered on 01/10/19 06:48; Admin Dose 1 TAB; Start 01/09/19 at 07:00 Acetaminophen/ Hydrocodone Bitart ([place] (5/325)) 1 tab WITH LUNCH PO Last administered on 01/10/19 11:32; Admin Dose 1 TAB; Start 01/09/19 at 12:00 JEMAL THOMPSON Jan 10, 2019 18:10
[2019-01-10 20:26] VITALS: BP 135/61; PULSE 67; RESP 18
[2019-01-10] MEDS: ROSUVASTATIN CALCIUM 40 MG TABLET PO SCH (20:50)
[2019-01-10] MEDS: SENNA TAB PO SCH (20:54)
[2019-01-10] MEDS: ZOLPIDEM 5 MG TAB PO PRN (23:20)
[2019-01-11] MEDS: ALBUTEROL/IPRATROPIUM (NEB) 3 ML AMP HHN SCH ×4 (01:30→20:27)
[2019-01-11 02:33] VITALS: BP 124/59; PULSE 60; RESP 18
[2019-01-11] MEDS: HYDROCODONE/APAP (5/325) TAB PO PRN ×2 (04:01→20:43)
[2019-01-11 07:00] VITALS: BP 109/57; PULSE 58; RESP 18
[2019-01-11] MEDS: FLUTICASONE/VILANTEROL 100-25 INH SCH (08:28)
[2019-01-11] MEDS: DOCUSATE SODIUM 100 MG CAP PO SCH ×2 (08:29→20:42)
[2019-01-11] MEDS: HYDROCODONE/APAP (5/325) TAB PO SCH ×2 (08:29→12:29)
[2019-01-11] MEDS: ASPIRIN 81 MG TAB PO SCH (08:31)
[2019-01-11] MEDS: MULTIVITAMINS THERAPEUTIC TAB PO SCH (08:32)
[2019-01-11] MEDS: PREGABALIN 50 MG CAP PO SCH ×2 (08:33→20:42)
[2019-01-11] MEDS: LOSARTAN 50 MG TAB PO SCH (08:35)
[2019-01-11] MEDS: HYDROCHLOROTHIAZIDE 12.5 MG CAP PO SCH (09:00)
[2019-01-11] MEDS: METOPROLOL 25 MG TAB PO SCH ×2 (09:00→20:43)
[2019-01-11] MEDS: morphine 2 MG INJ IV PRN ×2 (11:16→17:11)
[2019-01-11 14:00] VITALS: BP 112/53; PULSE 63; RESP 18
--- NOTE | 2019-01-11 15:23 | PN ---
Date/Time of Note Date/Time of Note DATE: 01/11/19 TIME: 15:21 Subjective Pain under adequate control Objective Vital Signs Date Temp Pulse Resp B/P (MAP) Pulse Ox O2 O2 Flow FiO2 Time Delivery Rate 01/11/19 98.7 58 18 109/57 92 Room Air 07:00 (74) 01/10/19 21 20:02 Intake and Output 01/10/19 01/10/19 01/11/19 1515:00 23:00 07:00 IntakeIntake Total 300 ml 1580 ml BalanceBalance 300 ml 1580 ml Exam pulm-cta abd-soft min assist 75 feet Results/Medications Result Diagram: 01/10/19 0611 01/10/19 0611 Medications Current Medications Miscellaneous Information (Pending [facility] Order For Wound Care) This patient cohen... PRN PRN XX WOUND CARE; Start 01/07/19 at 14:30 Acetaminophen/ Hydrocodone Bitart ([place] (5/325)) 1 tab Q4H PRN PO MODERATE PAIN LEVEL 4-6 Last administered on 01/07/19at 14:22; Admin Dose 1 TAB; Start 01/07/19 at 14:30 Acetaminophen/ Hydrocodone Bitart ([place] (5/325)) 2 tab Q4H PRN PO SEVERE PAIN LEVEL 7-10 Last administered on 01/11/19at 04:01; Admin Dose 2 TAB; Start 01/07/19 at 16:30 Docusate Sodium (Colace) 100 mg BID PO Last administered on 01/11/19at 08:29; Admin Dose 100 MG; Start 01/07/19 at 21:00 Senna (Senokot) 1 tab QHS PO Last administered on 01/07/19at 20:37; Admin Dose 1 TAB; Start 01/07/19 at 21:00 Acetaminophen (Tylenol Tab) 650 mg Q4H PRN PO MILD PAIN(1-3)OR ELEVATED TEMP; Start 01/07/19 at 16:30 Bisacodyl (Dulcolax Supp) 10 mg DAILY PRN [place] CONSTIPATION; Start 01/07/19 at 16:30 Magnesium Hydroxide (Milk Of Mag) 30 ml BID PRN PO CONSTIPATION; Start 01/07/19 at 16:30 Lactulose (Enulose) 20 gm DAILY PRN PO CONSTIPATION; Start 01/07/19 at 16:30 Al Hydrox/Mg Hydrox/Simethicone (Mag-Al Plus) 15 ml Q4H PRN PO GASTROINTESTINAL UPSET; Start 01/07/19 at 16:30 Albuterol/ Ipratropium (Duoneb) 3 ml Q6H RESP THERAPY HHN Last administered on 01/11/19 09:17; Admin Dose 3 ML; Start 01/07/19 at 20:00 Aspirin (Aspirin) 81 mg DAILY PO Last administered on 01/11/19 08:31; Admin Dose 81 MG; Start 01/08/19 at 09:00 Sodium Biphosphate/ Sodium Phosphate (Fleet Enema) 133 ml DAILY PRN [place] CONSTIPATION; Start 01/07/19 at 16:30 Guaifenesin/ Dextromethorphan (Robitussin Dm Liquid Cup) 10 ml Q8H PRN PO COUGH; Start 01/07/19 at 16:30 Metoprolol Tartrate (Lopressor) 12.5 mg BID PO Last administered on 01/10/19 20:50; Admin Dose 12.5 MG; Start 01/07/19 at 21:00 Multivitamins Therapeutic (Theragran) 1 tab DAILY PO Last administered on 01/11/19 08:32; Admin Dose 1 TAB; Start 01/08/19 at 09:00 Pregabalin (Lyrica) 50 mg DAILY PO Last administered on 01/11/19 08:33; Admin Dose 50 MG; Start 01/08/19 at 09:00 Pregabalin (Lyrica) 100 mg QHS PO Last administered on 01/10/19 20:51; Admin Dose 100 MG; Start 01/07/19 at 21:00 Zolpidem Tartrate (Ambien) 5 mg HS MAY REPEAT X 1 PRN PO INSOMNIA Last administered on 01/10/19 23:20; Admin Dose 5 MG; Start 01/07/19 at 16:30 Losartan Potassium (Cozaar) 100 mg DAILY PO Last administered on 01/10/19 08:27; Admin Dose 100 MG; Start 01/08/19 at 09:00 Rosuvastatin Calcium (Crestor) 40 mg QHS PO Last administered on 01/10/19 20:50; Admin Dose 40 MG; Start 01/07/19 at 21:00 Fluticasone/ Vilanterol (Breo Ellipta 100-25 Mcg Inh) 1 inh DAILY INH Last administered on 01/11/19 08:28; Admin Dose 1 INH; Start 01/08/19 at 09:00 Hydrochlorothiazide (Hydrochlorothiazide) 25 mg DAILY PO Last administered on 01/10/19 08:26; Admin Dose 25 MG; Start 01/08/19 at 09:00 Morphine Sulfate (morphine) 2 mg Q4H PRN IV BREAKTHROUGH PAIN Last administered on 01/11/19 11:16; Admin Dose 2 MG; Start 01/08/19 at 13:30 Acetaminophen/ Hydrocodone Bitart ([place] (5/325)) 1 tab BEFORE BREAKFAST PO Last administered on 01/11/19 08:29; Admin Dose 1 TAB; Start 01/09/19 at 07:00 Acetaminophen/ Hydrocodone Bitart ([place] (5/325)) 1 tab WITH LUNCH PO Last administered on 01/11/19 12:29; Admin Dose 1 TAB; Start 01/09/19 at 12:00 Assessment/Plan Additional Assessment/Plan Rehab- Lumbosacral stenosis with lumbosacral polyradiculitis; Anterior posterior L3-S1 decompression/fusion; Polyarticular rheumatoid arthritis Continue rehab activities, patient motivated for therapies Traumatic pain syndrome continue current meds Anemia secondary to acute blood loss. Hypertension. Chronic obstructive pulmonary disease. Obesity. Hypokalemia. GERD. h.o Right total knee arthroplasty. Status post left iliac artery thrombectomy. MARIE POSADA MD Jan 11, 2019 15:23
--- NOTE | 2019-01-11 19:22 | PN ---
Date/Time of Note Date/Time of Note DATE: 01/11/19 TIME: 19:20 Assessment/Plan VTE Prophylaxis Risk score (from Ns)>0 risk: 6 SCD applied (from Ns): Yes Pharmacological prophylaxis: NA/contraindicated Pharm contraindication: surgical contra Lines/Catheters IV Catheter Type (from Nrsg): Sal[place] Assessment/Plan Hospital Course No acute events overnight, patient complains of pain requiring medication, participates in PT. Assessment/Plan - Mechanical LBP, s/p lumbar Hardware Removal (Rods/Screws), L3-S1 Decompression with ISF Placement by Dr Lobato on 01/03/19. Continue postoperative antibiotic, continue [place] and morphine as needed for pain and Zofran as needed for nausea. LSO brace when out of bed. Continue physical therapy. - HTN, patient is currently normotensive, continue metoprolol and hydrochlorothiazide. - Asthma, stable, continue Breo Ellipta as needed. - RA, no acute issues, patient gets injection with rituximab as an outpatient, follows with Dr. Saldivar in rheumatology consultation. - History of anterior retroperitoneal interbody fusion of L3-S1 by Dr. Lobato on 12/08/18. - History of left iliac artery thrombectomy on 12/08/[address] Ibrahim. Further recommendations based on clinical course. Plan of care discussed with Dr. Whatley. Result Diagram: 01/10/19 0611 01/10/19 0611 Exam/Review of Systems Exam Vitals Vital Signs Date Temp Pulse Resp B/P (MAP) Pulse Ox O2 O2 Flow FiO2 Time Delivery Rate 01/11/19 71 20 96 21 15:02 01/11/19 98.1 112/53 Room Air 14:00 (72) Intake and Output 01/10/19 01/10/19 01/11/19 1515:00 23:00 07:00 IntakeIntake Total 300 ml 1580 ml BalanceBalance 300 ml 1580 ml Exam Constitutional: alert, oriented Respiratory: clear to auscultation Cardiovascular: nl pulses Gastrointestinal: soft, non-tender, healed surgical incision. Musculoskeletal: nl extremities to inspection, other (Low back status post surgery) Neurological: nl mental status Skin: nl turgor Medications Medication Current Medications Miscellaneous Information (Pending [facility] Order For Wound Care) This patient cohen... PRN PRN XX WOUND CARE; Start 01/07/19 at 14:30 Acetaminophen/ Hydrocodone Bitart ([place] (5/325)) 1 tab Q4H PRN PO MODERATE PAIN LEVEL 4-6 Last administered on 01/07/19 14:22; Admin Dose 1 TAB; Start 01/07/19 at 14:30 Acetaminophen/ Hydrocodone Bitart ([place] (5/325)) 2 tab Q4H PRN PO SEVERE PAIN LEVEL 7-10 Last administered on 01/11/19 04:01; Admin Dose 2 TAB; Start 01/07/19 at 16:30 Docusate Sodium (Colace) 100 mg BID PO Last administered on 01/11/19 08:29; Admin Dose 100 MG; Start 01/07/19 at 21:00 Senna (Senokot) 1 tab QHS PO Last administered on 01/07/19at 20:37; Admin Dose 1 TAB; Start 01/07/19 at 21:00 Acetaminophen (Tylenol Tab) 650 mg Q4H PRN PO MILD PAIN(1-3)OR ELEVATED TEMP; Start 01/07/19 at 16:30 Bisacodyl (Dulcolax Supp) 10 mg DAILY PRN [place] CONSTIPATION; Start 01/07/19 at 16:30 Magnesium Hydroxide (Milk Of Mag) 30 ml BID PRN PO CONSTIPATION; Start 01/07/19 at 16:30 Lactulose (Enulose) 20 gm DAILY PRN PO CONSTIPATION; Start 01/07/19 at 16:30 Al Hydrox/Mg Hydrox/Simethicone (Mag-Al Plus) 15 ml Q4H PRN PO GASTROINTESTINAL UPSET; Start 01/07/19 at 16:30 Albuterol/ Ipratropium (Duoneb) 3 ml Q6H RESP THERAPY HHN Last administered on 01/11/19 17:31; Admin Dose 3 ML; Start 01/07/19 at 20:00 Aspirin (Aspirin) 81 mg DAILY PO Last administered on 01/11/19 08:31; Admin Dose 81 MG; Start 01/08/19 at 09:00 Sodium Biphosphate/ Sodium Phosphate (Fleet Enema) 133 ml DAILY PRN [place] CONSTIPATION; Start 01/07/19 at 16:30 Guaifenesin/ Dextromethorphan (Robitussin Dm Liquid Cup) 10 ml Q8H PRN PO COUGH; Start 01/07/19 at 16:30 Metoprolol Tartrate (Lopressor) 12.5 mg BID PO Last administered on 01/10/19 20:50; Admin Dose 12.5 MG; Start 01/07/19 at 21:00 Multivitamins Therapeutic (Theragran) 1 tab DAILY PO Last administered on 01/11/19 08:32; Admin Dose 1 TAB; Start 01/08/19 at 09:00 Pregabalin (Lyrica) 50 mg DAILY PO Last administered on 01/11/19 08:33; Admin Dose 50 MG; Start 01/08/19 at 09:00 Pregabalin (Lyrica) 100 mg QHS PO Last administered on 01/10/19 20:51; Admin Dose 100 MG; Start 01/07/19 at 21:00 Zolpidem Tartrate (Ambien) 5 mg HS MAY REPEAT X 1 PRN PO INSOMNIA Last administered on 01/10/19 23:20; Admin Dose 5 MG; Start 01/07/19 at 16:30 Losartan Potassium (Cozaar) 100 mg DAILY PO Last administered on 01/10/19 08:27; Admin Dose 100 MG; Start 01/08/19 at 09:00 Rosuvastatin Calcium (Crestor) 40 mg QHS PO Last administered on 01/10/19 20:50; Admin Dose 40 MG; Start 01/07/19 at 21:00 Fluticasone/ Vilanterol (Breo Ellipta 100-25 Mcg Inh) 1 inh DAILY INH Last administered on 01/11/19 08:28; Admin Dose 1 INH; Start 01/08/19 at 09:00 Hydrochlorothiazide (Hydrochlorothiazide) 25 mg DAILY PO Last administered on 01/10/19 08:26; Admin Dose 25 MG; Start 01/08/19 at 09:00 Morphine Sulfate (morphine) 2 mg Q4H PRN IV BREAKTHROUGH PAIN Last administered on 01/11/19 17:11; Admin Dose 2 MG; Start 01/08/19 at 13:30 Acetaminophen/ Hydrocodone Bitart ([place] (5/325)) 1 tab BEFORE BREAKFAST PO Last administered on 01/11/19 08:29; Admin Dose 1 TAB; Start 01/09/19 at 07:00 Acetaminophen/ Hydrocodone Bitart ([place] (5/325)) 1 tab WITH LUNCH PO Last administered on 01/11/19at 12:29; Admin Dose 1 TAB; Start 01/09/19 at 12:00 JEMAL THOMPSON Jan 11, 2019 19:22
[2019-01-11 20:00] VITALS: BP 117/58; PULSE 71; RESP 18
[2019-01-11] MEDS: ROSUVASTATIN CALCIUM 40 MG TABLET PO SCH (20:42)
[2019-01-11] MEDS: SENNA TAB PO SCH (20:42)
[2019-01-11] MEDS: ZOLPIDEM 5 MG TAB PO PRN (22:53)
[2019-01-12] MEDS: ALBUTEROL/IPRATROPIUM (NEB) 3 ML AMP HHN SCH ×4 (01:13→21:57)
[2019-01-12 02:00] VITALS: BP 132/61; PULSE 71; RESP 18
[2019-01-12] MEDS: HYDROCODONE/APAP (5/325) TAB PO SCH ×2 (06:12→12:22)
[2019-01-12 07:00] VITALS: BP 154/69; PULSE 66; RESP 18
[2019-01-12] MEDS: morphine 2 MG INJ IV PRN (08:47)
[2019-01-12] MEDS: ASPIRIN 81 MG TAB PO SCH (08:52)
[2019-01-12] MEDS: DOCUSATE SODIUM 100 MG CAP PO SCH ×2 (08:52→20:29)
[2019-01-12] MEDS: PREGABALIN 50 MG CAP PO SCH ×2 (08:52→20:29)
[2019-01-12] MEDS: FLUTICASONE/VILANTEROL 100-25 INH SCH (08:52)
[2019-01-12] MEDS: MULTIVITAMINS THERAPEUTIC TAB PO SCH (08:52)
[2019-01-12] MEDS: METOPROLOL 25 MG TAB PO SCH ×2 (08:57→20:29)
[2019-01-12] MEDS: HYDROCHLOROTHIAZIDE 12.5 MG CAP PO SCH (08:57)
[2019-01-12] MEDS: LOSARTAN 50 MG TAB PO SCH (08:57)
[2019-01-12 14:00] VITALS: BP 124/58; PULSE 60; RESP 18
--- NOTE | 2019-01-12 15:10 | PN ---
Date/Time of Note Date/Time of Note DATE: 01/12/19 TIME: 15:09 Subjective Patient reports increased spasms Objective Vital Signs Date Temp Pulse Resp B/P (MAP) Pulse Ox O2 O2 Flow FiO2 Time Delivery Rate 01/12/19 69 97 21 13:14 01/12/19 98.0 66 154/69 Room Air 07:00 (97) Intake and Output 01/11/19 01/11/19 01/12/19 1515:00 23:00 07:00 IntakeIntake Total 1800 ml OutputOutput Total 600 ml BalanceBalance 1200 ml Exam pulm-cta abd-soft cga 90 feet Results/Medications Result Diagram: 01/10/19 0611 01/10/19 0611 Medications Current Medications Miscellaneous Information (Pending [facility] Order For Wound Care) This patient cohen... PRN PRN XX WOUND CARE; Start 01/07/19 at 14:30 Acetaminophen/ Hydrocodone Bitart ([place] (5/325)) 1 tab Q4H PRN PO MODERATE PAIN LEVEL 4-6 Last administered on 01/07/19at 14:22; Admin Dose 1 TAB; Start 01/07/19 at 14:30 Acetaminophen/ Hydrocodone Bitart ([place] (5/325)) 2 tab Q4H PRN PO SEVERE PAIN LEVEL 7-10 Last administered on 01/11/19at 20:43; Admin Dose 2 TAB; Start 01/07/19 at 16:30 Docusate Sodium (Colace) 100 mg BID PO Last administered on 01/12/19 08:52; Admin Dose 100 MG; Start 01/07/19 at 21:00 Senna (Senokot) 1 tab QHS PO Last administered on 01/11/19at 20:42; Admin Dose 1 TAB; Start 01/07/19 at 21:00 Acetaminophen (Tylenol Tab) 650 mg Q4H PRN PO MILD PAIN(1-3)OR ELEVATED TEMP; Start 01/07/19 at 16:30 Bisacodyl (Dulcolax Supp) [address] CONSTIPATION; Start 01/07/19 at 16:30 Magnesium Hydroxide (Milk Of Mag) 30 ml BID PRN PO CONSTIPATION; Start 01/07/19 at 16:30 Lactulose (Enulose) 20 gm DAILY PRN PO CONSTIPATION; Start 01/07/19 at 16:30 Al Hydrox/Mg Hydrox/Simethicone (Mag-Al Plus) 15 ml Q4H PRN PO GASTROINTESTINAL UPSET; Start 01/07/19 at 16:30 Albuterol/ Ipratropium (Duoneb) 3 ml Q6H RESP THERAPY HHN Last administered on 01/12/19 13:14; Admin Dose 3 ML; Start 01/07/19 at 20:00 Aspirin (Aspirin) 81 mg DAILY PO Last administered on 01/12/19 08:52; Admin Dose 81 MG; Start 01/08/19 at 09:00 Sodium Biphosphate/ Sodium Phosphate (Fleet Enema) [address] CONSTIPATION; Start 01/07/19 at 16:30 Guaifenesin/ Dextromethorphan (Robitussin Dm Liquid Cup) 10 ml Q8H PRN PO COUGH; Start 01/07/19 at 16:30 Metoprolol Tartrate (Lopressor) 12.5 mg BID PO Last administered on 01/12/19 08:57; Admin Dose 12.5 MG; Start 01/07/19 at 21:00 Multivitamins Therapeutic (Theragran) 1 tab DAILY PO Last administered on 01/12/19 08:52; Admin Dose 1 TAB; Start 01/08/19 at 09:00 Pregabalin (Lyrica) 50 mg DAILY PO Last administered on 01/12/19 08:52; Admin Dose 50 MG; Start 01/08/19 at 09:00 Pregabalin (Lyrica) 100 mg QHS PO Last administered on 01/11/19 20:42; Admin Dose 100 MG; Start 01/07/19 at 21:00 Zolpidem Tartrate (Ambien) 5 mg HS MAY REPEAT X 1 PRN PO INSOMNIA Last administered on 01/11/19 22:53; Admin Dose 5 MG; Start 01/07/19 at 16:30 Losartan Potassium (Cozaar) 100 mg DAILY PO Last administered on 01/12/19 08:57; Admin Dose 100 MG; Start 01/08/19 at 09:00 Rosuvastatin Calcium (Crestor) 40 mg QHS PO Last administered on 01/11/19 20:42; Admin Dose 40 MG; Start 01/07/19 at 21:00 Fluticasone/ Vilanterol (Breo Ellipta 100-25 Mcg Inh) 1 inh DAILY INH Last administered on 01/12/19 08:52; Admin Dose 1 INH; Start 01/08/19 at 09:00 Hydrochlorothiazide (Hydrochlorothiazide) 25 mg DAILY PO Last administered on 01/12/19 08:57; Admin Dose 25 MG; Start 01/08/19 at 09:00 Morphine Sulfate (morphine) 2 mg Q4H PRN IV BREAKTHROUGH PAIN Last administered on 01/12/19 08:47; Admin Dose 2 MG; Start 01/08/19 at 13:30 Acetaminophen/ Hydrocodone Bitart ([place] (5/325)) 1 tab BEFORE BREAKFAST PO Last administered on 01/12/19 06:12; Admin Dose 1 TAB; Start 01/09/19 at 07:00 Acetaminophen/ Hydrocodone Bitart ([place] (5/325)) 1 tab WITH LUNCH PO Last administered on 01/12/19 12:22; Admin Dose 1 TAB; Start 01/09/19 at 12:00 Assessment/Plan Additional Assessment/Plan Rehab- Lumbosacral stenosis with lumbosacral polyradiculitis; Anterior posterior L3-S1 decompression/fusion; Polyarticular rheumatoid arthritis Continue rehab. Will add baclofen for spasms Traumatic pain syndrome continue current meds Anemia secondary to acute blood loss. Hypertension. Chronic obstructive pulmonary disease. Obesity. Hypokalemia. GERD. h.o Right total knee arthroplasty. Status post left iliac artery thrombectomy. MARIE POSADA MD Jan 12, 2019 15:10
[2019-01-12] MEDS: HYDROCODONE/APAP (5/325) TAB PO PRN (15:34)
--- NOTE | 2019-01-12 17:40 | PN ---
Date/Time of Note Date/Time of Note DATE: 01/12/19 TIME: 17:38 Assessment/Plan VTE Prophylaxis Risk score (from Nsg)>0 risk: 6 SCD applied (from Nsg): Yes Pharmacological prophylaxis: NA/contraindicated Pharm contraindication: surgical contra Lines/Catheters IV Catheter Type (from Nrsg): [place] Assessment/Plan Hospital Course Patient is awake alert, continues to have gradual improvement with physical and occupational therapy, continued on Monon and and occasional use of morphine IV for breakthrough pain. Assessment/Plan - Mechanical LBP, s/p lumbar Hardware Removal (Rods/Screws), L3-S1 Decompression with ISF Placement by Dr Lobato on 01/03/19. Continue postoperative antibiotic, continue Monon and morphine as needed for pain and Zofran as needed for nausea. LSO brace when out of bed. Continue physical therapy. - HTN, patient is currently normotensive, continue metoprolol and hydrochlorothiazide. - Asthma, stable, continue Breo Ellipta as needed. - RA, no acute issues, patient gets injection with rituximab as an outpatient, follows with Dr. Saldivar in rheumatology consultation. - History of anterior retroperitoneal interbody fusion of L3-S1 by Dr. Lobato on 12/08/18. - History of left iliac artery thrombectomy on 12/08/[address] Ibrahim. Further recommendations based on clinical course. Plan of care discussed with Dr. Whatley. Result Diagram: 01/10/19 0611 01/10/19 0611 Exam/Review of Systems Exam Vitals Vital Signs Date Temp Pulse Resp B/P (MAP) Pulse Ox O2 O2 Flow FiO2 Time Delivery Rate 01/12/19 69 97 21 13:14 01/12/19 98.0 66 154/69 Room Air 07:00 (97) Intake and Output 01/11/19 01/11/19 01/12/19 1515:00 23:00 07:00 IntakeIntake Total 1800 ml OutputOutput Total 600 ml BalanceBalance 1200 ml Exam Constitutional: alert, oriented Respiratory: clear to auscultation Cardiovascular: nl pulses Gastrointestinal: soft, non-tender, healed surgical incision. Musculoskeletal: nl extremities to inspection, other (Low back status post surgery) Neurological: nl mental status Skin: nl turgor Medications Medication Current Medications Miscellaneous Information (Pending [facility] Order For Wound Care) This patient cohen... PRN PRN XX WOUND CARE; Start 01/07/19 at 14:30 Acetaminophen/ Hydrocodone Bitart ([place] (5/325)) 1 tab Q4H PRN PO MODERATE PAIN LEVEL 4-6 Last administered on 01/07/19 14:22; Admin Dose 1 TAB; Start 01/07/19 at 14:30 Acetaminophen/ Hydrocodone Bitart ([place] (5/325)) 2 tab Q4H PRN PO SEVERE PAIN LEVEL 7-10 Last administered on 01/12/19 15:34; Admin Dose 2 TAB; Start 01/07/19 at 16:30 Docusate Sodium (Colace) 100 mg BID PO Last administered on 01/12/19 08:52; Admin Dose 100 MG; Start 01/07/19 at 21:00 Senna (Senokot) 1 tab QHS PO Last administered on 01/11/19 20:42; Admin Dose 1 TAB; Start 01/07/19 at 21:00 Acetaminophen (Tylenol Tab) 650 mg Q4H PRN PO MILD PAIN(1-3)OR ELEVATED TEMP; Start 01/07/19 at 16:30 Bisacodyl (Dulcolax Supp) 10 mg DAILY PRN [place] CONSTIPATION; Start 01/07/19 at 16:30 Magnesium Hydroxide (Milk Of Mag) 30 ml BID PRN PO CONSTIPATION; Start 01/07/19 at 16:30 Lactulose (Enulose) 20 gm DAILY PRN PO CONSTIPATION; Start 01/07/19 at 16:30 Al Hydrox/Mg Hydrox/Simethicone (Mag-Al Plus) 15 ml Q4H PRN PO GASTROINTESTINAL UPSET; Start 01/07/19 at 16:30 Albuterol/ Ipratropium (Duoneb) 3 ml Q6H RESP THERAPY HHN Last administered on 01/12/19 13:14; Admin Dose 3 ML; Start 01/07/19 at 20:00 Aspirin (Aspirin) 81 mg DAILY PO Last administered on 01/12/19 08:52; Admin Dose 81 MG; Start 01/08/19 at 09:00 Sodium Biphosphate/ Sodium Phosphate (Fleet Enema) 133 ml DAILY PRN [place] CONSTIPATION; Start 01/07/19 at 16:30 Guaifenesin/ Dextromethorphan (Robitussin Dm Liquid Cup) 10 ml Q8H PRN PO COUGH; Start 01/07/19 at 16:30 Metoprolol Tartrate (Lopressor) 12.5 mg BID PO Last administered on 01/12/19 08:57; Admin Dose 12.5 MG; Start 01/07/19 at 21:00 Multivitamins Therapeutic (Theragran) 1 tab DAILY PO Last administered on 01/12/19 08:52; Admin Dose 1 TAB; Start 01/08/19 at 09:00 Pregabalin (Lyrica) 50 mg DAILY PO Last administered on 01/12/19 08:52; Admin Dose 50 MG; Start 01/08/19 at 09:00 Pregabalin (Lyrica) 100 mg QHS PO Last administered on 01/11/19 20:42; Admin Dose 100 MG; Start 01/07/19 at 21:00 Zolpidem Tartrate (Ambien) 5 mg HS MAY REPEAT X 1 PRN PO INSOMNIA Last administered on 01/11/19 22:53; Admin Dose 5 MG; Start 01/07/19 at 16:30 Losartan Potassium (Cozaar) 100 mg DAILY PO Last administered on 01/12/19 08:57; Admin Dose 100 MG; Start 01/08/19 at 09:00 Rosuvastatin Calcium (Crestor) 40 mg QHS PO Last administered on 01/11/19 20:42; Admin Dose 40 MG; Start 01/07/19 at 21:00 Fluticasone/ Vilanterol (Breo Ellipta 100-25 Mcg Inh) 1 inh DAILY INH Last administered on 01/12/19 08:52; Admin Dose 1 INH; Start 01/08/19 at 09:00 Hydrochlorothiazide (Hydrochlorothiazide) 25 mg DAILY PO Last administered on 01/12/19 08:57; Admin Dose 25 MG; Start 01/08/19 at 09:00 Morphine Sulfate (morphine) 2 mg Q4H PRN IV BREAKTHROUGH PAIN Last administered on 01/12/19 08:47; Admin Dose 2 MG; Start 01/08/19 at 13:30 Acetaminophen/ Hydrocodone Bitart ([place] (5/325)) 1 tab BEFORE BREAKFAST PO Last administered on 01/12/19 06:12; Admin Dose 1 TAB; Start 01/09/19 at 07:00 Acetaminophen/ Hydrocodone Bitart ([place] (5/325)) 1 tab WITH LUNCH PO Last administered on 01/12/19at 12:22; Admin Dose 1 TAB; Start 01/09/19 at 12:00 Baclofen (Lioresal) 10 mg BID PO ; Start 01/12/19 at 21:00 JEMAL THOMPSON Jan 12, 2019 17:39
[2019-01-12 19:42] VITALS: BP 136/63; PULSE 62; RESP 18
[2019-01-12] MEDS: ROSUVASTATIN CALCIUM 40 MG TABLET PO SCH (20:28)
[2019-01-12] MEDS: SENNA TAB PO SCH (20:29)
[2019-01-12] MEDS: BACLOFEN 10 MG TAB PO SCH (20:36)
[2019-01-12] MEDS: ZOLPIDEM 5 MG TAB PO PRN (22:15)
[2019-01-13] MEDS: ALBUTEROL/IPRATROPIUM (NEB) 3 ML AMP HHN SCH ×4 (01:28→21:31)
[2019-01-13 02:00] VITALS: BP 128/60; PULSE 65; RESP 18
[2019-01-13] MEDS: HYDROCODONE/APAP (5/325) TAB PO PRN ×3 (05:07→20:50)
[2019-01-13] MEDS: HYDROCODONE/APAP (5/325) TAB PO SCH ×2 (06:34→11:51)
[2019-01-13 07:30] VITALS: BP 136/57; PULSE 64; RESP 18
[2019-01-13] MEDS: FLUTICASONE/VILANTEROL 100-25 INH SCH (08:53)
[2019-01-13] MEDS: MULTIVITAMINS THERAPEUTIC TAB PO SCH (08:54)
[2019-01-13] MEDS: HYDROCHLOROTHIAZIDE 12.5 MG CAP PO SCH (08:54)
[2019-01-13] MEDS: ASPIRIN 81 MG TAB PO SCH (08:54)
[2019-01-13] MEDS: PREGABALIN 50 MG CAP PO SCH ×2 (08:54→20:09)
[2019-01-13] MEDS: DOCUSATE SODIUM 100 MG CAP PO SCH ×2 (08:54→20:09)
[2019-01-13] MEDS: METOPROLOL 25 MG TAB PO SCH ×2 (08:54→20:10)
[2019-01-13] MEDS: BACLOFEN 10 MG TAB PO SCH (08:55)
[2019-01-13] MEDS: LOSARTAN 50 MG TAB PO SCH (08:55)
[2019-01-13 14:00] VITALS: BP 115/53; RESP 18
[2019-01-13] MEDS ORDERED: BACLOFEN 10 MG TAB PO ONE (16:53)
--- NOTE | 2019-01-13 16:57 | PN ---
Date/Time of Note Date/Time of Note DATE: 01/13/19 TIME: 16:56 Objective Vital Signs Date Temp Pulse Resp B/P (MAP) Pulse Ox O2 O2 Flow FiO2 Time Delivery Rate 01/13/19 98.1 18 115/53 91 Room Air 14:00 (73) 01/13/19 21 13:54 01/13/19 64 07:30 Intake and Output 01/12/19 01/12/19 01/13/19 1515:00 23:00 07:00 IntakeIntake Total 2400 ml 850 ml OutputOutput Total 800 ml BalanceBalance 1600 ml 850 ml Exam INTERDISCIPLINARY TEAM CONFERENCE Attended by PT, OT, ST, Social Work, Rehabilitation Nursing, Brush Operator and Trimmer TailerGreenskeeper Laborer Exam: Pulm- Abd- BOWEL- Cont BLADDER-Cont SKIN- intact OT- DRESSING- min BATHING-min TOILETING-min PT- BED MOBILITY-cga TRANSFERS-cga AMBULATION-cga 90 feet A/P- Interdisciplinary team conference held today. Please see interdisciplinary sheet. Working toward d.c. on 01/19 with post discharge follow up of physical therapy, occupational therapy. Results/Medications Result Diagram: 01/10/19 0611 01/10/19 06 Medications Current Medications Miscellaneous Information (Pending [facility] Order For Wound Care) This patient cohen... PRN PRN XX WOUND CARE; Start 01/07/19 at 14:30 Acetaminophen/ Hydrocodone Bitart ([place] (5/325)) 1 tab Q4H PRN PO MODERATE PAIN LEVEL 4-6 Last administered on 01/07/19at 14:22; Admin Dose 1 TAB; Start 01/07/19 at 14:30 Acetaminophen/ Hydrocodone Bitart ([place] (5/325)) 2 tab Q4H PRN PO SEVERE PAIN LEVEL 7-10 Last administered on 01/13/19at 14:00; Admin Dose 2 TAB; Start 01/07/19 at 16:30 Docusate Sodium (Colace) 100 mg BID PO Last administered on 01/13/19at 08:54; Admin Dose 100 MG; Start 01/07/19 at 21:00 Senna (Senokot) 1 tab QHS PO Last administered on 01/12/19at 20:29; Admin Dose 1 TAB; Start 01/07/19 at 21:00 Acetaminophen (Tylenol Tab) 650 mg Q4H PRN PO MILD PAIN(1-3)OR ELEVATED TEMP; Start 01/07/19 at 16:30 Bisacodyl (Dulcolax Supp) 10 mg DAILY PRN [place] CONSTIPATION; Start 01/07/19 at 16:30 Magnesium Hydroxide (Milk Of Mag) 30 ml BID PRN PO CONSTIPATION; Start 01/07/19 at 16:30 Lactulose (Enulose) 20 gm DAILY PRN PO CONSTIPATION; Start 01/07/19 at 16:30 Al Hydrox/Mg Hydrox/Simethicone (Mag-Al Plus) 15 ml Q4H PRN PO GASTROINTESTINAL UPSET; Start 01/07/19 at 16:30 Albuterol/ Ipratropium (Duoneb) 3 ml Q6H RESP THERAPY HHN Last administered on 01/13/19 13:54; Admin Dose 3 ML; Start 01/07/19 at 20:00 Aspirin (Aspirin) 81 mg DAILY PO Last administered on 01/13/19 08:54; Admin Dose 81 MG; Start 01/08/19 at 09:00 Sodium Biphosphate/ Sodium Phosphate (Fleet Enema) 133 ml DAILY PRN [place] CONSTIPATION; Start 01/07/19 at 16:30 Guaifenesin/ Dextromethorphan (Robitussin Dm Liquid Cup) 10 ml Q8H PRN PO COUGH; Start 01/07/19 at 16:30 Metoprolol Tartrate (Lopressor) 12.5 mg BID PO Last administered on 01/13/19 08:54; Admin Dose 12.5 MG; Start 01/07/19 at 21:00 Multivitamins Therapeutic (Theragran) 1 tab DAILY PO Last administered on 01/13/19 08:54; Admin Dose 1 TAB; Start 01/08/19 at 09:00 Pregabalin (Lyrica) 50 mg DAILY PO Last administered on 01/13/19 08:54; Admin Dose 50 MG; Start 01/08/19 at 09:00 Pregabalin (Lyrica) 100 mg QHS PO Last administered on 01/12/19 20:29; Admin Dose 100 MG; Start 01/07/19 at 21:00 Zolpidem Tartrate (Ambien) 5 mg HS MAY REPEAT X 1 PRN PO INSOMNIA Last administered on 01/12/19 22:15; Admin Dose 5 MG; Start 01/07/19 at 16:30 Losartan Potassium (Cozaar) 100 mg DAILY PO Last administered on 01/13/19 08:55; Admin Dose 100 MG; Start 01/08/19 at 09:00 Rosuvastatin Calcium (Crestor) 40 mg QHS PO Last administered on 01/12/19 20:28; Admin Dose 40 MG; Start 01/07/19 at 21:00 Fluticasone/ Vilanterol (Breo Ellipta 100-25 Mcg Inh) 1 inh DAILY INH Last administered on 01/13/19 08:53; Admin Dose 1 INH; Start 01/08/19 at 09:00 Hydrochlorothiazide (Hydrochlorothiazide) 25 mg DAILY PO Last administered on 01/13/19 08:54; Admin Dose 25 MG; Start 01/08/19 at 09:00 Morphine Sulfate (morphine) 2 mg Q4H PRN IV BREAKTHROUGH PAIN Last administered on 01/12/19 08:47; Admin Dose 2 MG; Start 01/08/19 at 13:30 Acetaminophen/ Hydrocodone Bitart ([place] (5/325)) 1 tab BEFORE BREAKFAST PO Last administered on 01/12/19 06:12; Admin Dose 1 TAB; Start 01/09/19 at 07:00 Acetaminophen/ Hydrocodone Bitart ([place] (5/325)) 1 tab WITH LUNCH PO Last administered on 01/13/19 11:51; Admin Dose 1 TAB; Start 01/09/19 at 12:00 Lidocaine (Lidoderm) 1 patch DAILY TD ; Start 01/14/19 at 09:00 Baclofen (Lioresal) 10 mg TID PO ; Start 01/13/19 at 21:00 MARIE POSADA MD Jan 13, 2019 16:57
--- NOTE | 2019-01-13 18:10 | PN ---
Date/Time of Note Date/Time of Note DATE: 01/13/19 TIME: 18:09 Assessment/Plan VTE Prophylaxis Risk score (from Nsg)>0 risk: 4 SCD applied (from Nsg): Yes Pharmacological prophylaxis: NA/contraindicated Pharm contraindication: surgical contra Lines/Catheters IV Catheter Type (from Nrsg): Saline Lock Assessment/Plan Hospital Course Patient planes of occasional twitching started on baclofen, continue to improve with physical therapy, pain is adequately controlled. Assessment/Plan - Mechanical LBP, s/p lumbar Hardware Removal (Rods/Screws), L3-S1 Decompression with ISF Placement by Dr Lobato on 01/03/19. Continue postoperative antibiotic, continue [place] and morphine as needed for pain and Zofran as needed for nausea. LSO brace when out of bed. Continue physical therapy. - HTN, patient is currently normotensive, continue metoprolol and hydrochlorothiazide. - Asthma, stable, continue Breo Ellipta as needed. - RA, no acute issues, patient gets injection with rituximab as an outpatient, follows with Dr. Saldivar in rheumatology consultation. - History of anterior retroperitoneal interbody fusion of L3-S1 by Dr. Lobato on 12/08/18. - History of left iliac artery thrombectomy on 12/08/[address] Ibrahim. Further recommendations based on clinical course. Plan of care discussed with Dr. Whatley. Result Diagram: 01/10/19 0611 01/10/19 0611 Exam/Review of Systems Exam Vitals Vital Signs Date Temp Pulse Resp B/P (MAP) Pulse Ox O2 O2 Flow FiO2 Time Delivery Rate 01/13/19 98.1 18 115/53 91 Room Air 14:00 (73) 01/13/19 21 13:54 01/13/19 64 07:30 Intake and Output 01/12/19 01/12/19 01/13/19 1515:00 23:00 07:00 IntakeIntake Total 2400 ml 850 ml OutputOutput Total 800 ml BalanceBalance 1600 ml 850 ml Exam Constitutional: alert, oriented Respiratory: clear to auscultation Cardiovascular: nl pulses Gastrointestinal: soft, non-tender, healed surgical incision. Musculoskeletal: nl extremities to inspection, other (Low back status post surgery) Neurological: nl mental status Skin: nl turgor Medications Medication Current Medications Miscellaneous Information (Pending [facility] Order For Wound Care) This patient cohen... PRN PRN XX WOUND CARE; Start 01/07/19 at 14:30 Acetaminophen/ Hydrocodone Bitart ([place] (5/325)) 1 tab Q4H PRN PO MODERATE PAIN LEVEL 4-6 Last administered on 01/07/19 14:22; Admin Dose 1 TAB; Start 01/07/19 at 14:30 Acetaminophen/ Hydrocodone Bitart ([place] (5/325)) 2 tab Q4H PRN PO SEVERE PAIN LEVEL 7-10 Last administered on 01/13/19 14:00; Admin Dose 2 TAB; Start 01/07/19 at 16:30 Docusate Sodium (Colace) 100 mg BID PO Last administered on 01/13/19 08:54; Admin Dose 100 MG; Start 01/07/19 at 21:00 Senna (Senokot) 1 tab QHS PO Last administered on 01/12/19 20:29; Admin Dose 1 TAB; Start 01/07/19 at 21:00 Acetaminophen (Tylenol Tab) 650 mg Q4H PRN PO MILD PAIN(1-3)OR ELEVATED TEMP; Start 01/07/19 at 16:30 Bisacodyl (Dulcolax Supp) 10 mg DAILY PRN [place] CONSTIPATION; Start 01/07/19 at 16:30 Magnesium Hydroxide (Milk Of Mag) 30 ml BID PRN PO CONSTIPATION; Start 01/07/19 at 16:30 Lactulose (Enulose) 20 gm DAILY PRN PO CONSTIPATION; Start 01/07/19 at 16:30 Al Hydrox/Mg Hydrox/Simethicone (Mag-Al Plus) 15 ml Q4H PRN PO GASTROINTESTINAL UPSET; Start 01/07/19 at 16:30 Albuterol/ Ipratropium (Duoneb) 3 ml Q6H RESP THERAPY HHN Last administered on 01/13/19 13:54; Admin Dose 3 ML; Start 01/07/19 at 20:00 Aspirin (Aspirin) 81 mg DAILY PO Last administered on 01/13/19 08:54; Admin Dose 81 MG; Start 01/08/19 at 09:00 Sodium Biphosphate/ Sodium Phosphate (Fleet Enema) 133 ml DAILY PRN [place] CONSTIPATION; Start 01/07/19 at 16:30 Guaifenesin/ Dextromethorphan (Robitussin Dm Liquid Cup) 10 ml Q8H PRN PO COUGH; Start 01/07/19 at 16:30 Metoprolol Tartrate (Lopressor) 12.5 mg BID PO Last administered on 01/13/19 08:54; Admin Dose 12.5 MG; Start 01/07/19 at 21:00 Multivitamins Therapeutic (Theragran) 1 tab DAILY PO Last administered on 01/13/19 08:54; Admin Dose 1 TAB; Start 01/08/19 at 09:00 Pregabalin (Lyrica) 50 mg DAILY PO Last administered on 01/13/19 08:54; Admin Dose 50 MG; Start 01/08/19 at 09:00 Pregabalin (Lyrica) 100 mg QHS PO Last administered on 01/12/19 20:29; Admin Dose 100 MG; Start 01/07/19 at 21:00 Zolpidem Tartrate (Ambien) 5 mg HS MAY REPEAT X 1 PRN PO INSOMNIA Last administered on 01/12/19 22:15; Admin Dose 5 MG; Start 01/07/19 at 16:30 Losartan Potassium (Cozaar) 100 mg DAILY PO Last administered on 01/13/19 08:55; Admin Dose 100 MG; Start 01/08/19 at 09:00 Rosuvastatin Calcium (Crestor) 40 mg QHS PO Last administered on 01/12/19 20:28; Admin Dose 40 MG; Start 01/07/19 at 21:00 Fluticasone/ Vilanterol (Breo Ellipta 100-25 Mcg Inh) 1 inh DAILY INH Last administered on 01/13/19 08:53; Admin Dose 1 INH; Start 01/08/19 at 09:00 Hydrochlorothiazide (Hydrochlorothiazide) 25 mg DAILY PO Last administered on 01/13/19 08:54; Admin Dose 25 MG; Start 01/08/19 at 09:00 Morphine Sulfate (morphine) 2 mg Q4H PRN IV BREAKTHROUGH PAIN Last administered on 01/12/19 08:47; Admin Dose 2 MG; Start 01/08/19 at 13:30 Acetaminophen/ Hydrocodone Bitart ([place] (5/325)) 1 tab BEFORE BREAKFAST PO Last administered on 01/12/19 06:12; Admin Dose 1 TAB; Start 01/09/19 at 07:00 Acetaminophen/ Hydrocodone Bitart ([place] (5/325)) 1 tab WITH LUNCH PO Last administered on 01/13/19at 11:51; Admin Dose 1 TAB; Start 01/09/19 at 12:00 Lidocaine (Lidoderm) 1 patch DAILY TD ; Start 01/14/19 at 09:00 Baclofen (Lioresal) 10 mg TID PO ; Start 01/13/19 at 21:00 JEMAL THOMPSON Jan 13, 2019 18:10
[2019-01-13 19:26] VITALS: BP 116/58; PULSE 63; RESP 18
[2019-01-13] MEDS: ROSUVASTATIN CALCIUM 40 MG TABLET PO SCH (20:10)
[2019-01-13] MEDS: SENNA TAB PO SCH (20:10)
[2019-01-13] MEDS ORDERED: BACLOFEN 10 MG TAB PO SCH (21:00)
[2019-01-14] MEDS: ALBUTEROL/IPRATROPIUM (NEB) 3 ML AMP HHN SCH ×4 (01:32→20:18)
[2019-01-14 02:00] VITALS: BP 122/60; PULSE 65; RESP 18
[2019-01-14] MEDS: HYDROCODONE/APAP (5/325) TAB PO SCH ×2 (06:29→12:06)
[2019-01-14 07:00] VITALS: BP 179/79; PULSE 60; RESP 18
[2019-01-14] MEDS: DOCUSATE SODIUM 100 MG CAP PO SCH ×2 (08:23→20:36)
[2019-01-14] MEDS: HYDROCHLOROTHIAZIDE 12.5 MG CAP PO SCH (08:23)
[2019-01-14] MEDS: LIDOCAINE 5% PATCH TD SCH (08:23)
[2019-01-14] MEDS: MULTIVITAMINS THERAPEUTIC TAB PO SCH (08:23)
--- NOTE | 2019-01-14 08:23 | PN ---
Date/Time of Note Date/Time of Note DATE: 01/14/19 TIME: 08:21 Subjective AWAKE ALERT, EMOTIONALLY LABILE Objective Vital Signs Date Temp Pulse Resp B/P (MAP) Pulse Ox O2 O2 Flow FiO2 Time Delivery Rate 01/14/19 97.8 65 18 122/60 93 Room Air 02:00 (80) 01/13/19 21 21:32 Intake and Output 01/13/19 01/13/19 01/14/19 1515:00 23:00 07:00 IntakeIntake Total 300 ml 1380 ml BalanceBalance 300 ml 1380 ml Exam LUNGS CCTA COR RRR TRACE EDEMA CLOF BED MOB , XT AND GAIT CGA Results/Medications Result Diagram: 01/10/19 0601/10/19 06 Medications Current Medications Miscellaneous Information (Pending [facility] Order For Wound Care) This patient cohen... PRN PRN XX WOUND CARE; Start 01/07/19 at 14:30 Acetaminophen/ Hydrocodone Bitart ([place] (5/325)) 1 tab Q4H PRN PO MODERATE PAIN LEVEL 4-6 Last administered on 01/13/19at 20:50; Admin Dose 1 TAB; Start 01/07/19 at 14:30 Acetaminophen/ Hydrocodone Bitart ([place] (5/325)) 2 tab Q4H PRN PO SEVERE PAIN LEVEL 7-10 Last administered on 01/13/19at 14:00; Admin Dose 2 TAB; Start 01/07/19 at 16:30 Docusate Sodium (Colace) 100 mg BID PO Last administered on 01/13/19 20:09; Admin Dose 100 MG; Start 01/07/19 at 21:00 Senna (Senokot) 1 tab QHS PO Last administered on 01/13/19at 20:10; Admin Dose 1 TAB; Start 01/07/19 at 21:00 Acetaminophen (Tylenol Tab) 650 mg Q4H PRN PO MILD PAIN(1-3)OR ELEVATED TEMP; Start 01/07/19 at 16:30 Bisacodyl (Dulcolax Supp) 10 mg DAILY PRN [place] CONSTIPATION; Start 01/07/19 at 16:30 Magnesium Hydroxide (Milk Of Mag) 30 ml BID PRN PO CONSTIPATION; Start 01/07/19 at 16:30 Lactulose (Enulose) 20 gm DAILY PRN PO CONSTIPATION; Start 01/07/19 at 16:30 Al Hydrox/Mg Hydrox/Simethicone (Mag-Al Plus) 15 ml Q4H PRN PO GASTROINTESTINAL UPSET; Start 01/07/19 at 16:30 Albuterol/ Ipratropium (Duoneb) 3 ml Q6H RESP THERAPY HHN Last administered on 01/13/19 21:31; Admin Dose 3 ML; Start 01/07/19 at 20:00 Aspirin (Aspirin) 81 mg DAILY PO Last administered on 01/13/19 08:54; Admin Dose 81 MG; Start 01/08/19 at 09:00 Sodium Biphosphate/ Sodium Phosphate (Fleet Enema) 133 ml DAILY PRN [place] CONSTIPATION; Start 01/07/19 at 16:30 Guaifenesin/ Dextromethorphan (Robitussin Dm Liquid Cup) 10 ml Q8H PRN PO CO UGH; Start 01/07/19 at 16:30 Metoprolol Tartrate (Lopressor) 12.5 mg BID PO Last administered on 01/13/19 20:10; Admin Dose 12.5 MG; Start 01/07/19 at 21:00 Multivitamins Therapeutic (Theragran) 1 tab DAILY PO Last administered on 01/13/19 08:54; Admin Dose 1 TAB; Start 01/08/19 at 09:00 Pregabalin (Lyrica) 50 mg DAILY PO Last administered on 01/13/19 08:54; Admin Dose 50 MG; Start 01/08/19 at 09:00 Pregabalin (Lyrica) 100 mg QHS PO Last administered on 01/13/19 20:09; Admin Dose 100 MG; Start 01/07/19 at 21:00 Zolpidem Tartrate (Ambien) 5 mg HS MAY REPEAT X 1 PRN PO INSOMNIA Last adm inistered on 01/12/19 22:15; Admin Dose 5 MG; Start 01/07/19 at 16:30 Losartan Potassium (Cozaar) 100 mg DAILY PO Last administered on 01/13/19 08:55; Admin Dose 100 MG; Start 01/08/19 at 09:00 Rosuvastatin Calcium (Crestor) 40 mg QHS PO Last administered on 01/13/19 20:10; Admin Dose 40 MG; Start 01/07/19 at 21:00 Fluticasone/ Vilanterol (Breo Ellipta 100-25 Mcg Inh) 1 inh DAILY INH Last ad ministered on 01/13/19 08:53; Admin Dose 1 INH; Start 01/08/19 at 09:00 Hydrochlorothiazide (Hydrochlorothiazide) 25 mg DAILY PO Last administered on 01/13/19 08:54; Admin Dose 25 MG; Start 01/08/19 at 09:00 Morphine Sulfate (morphine) 2 mg Q4H PRN IV BREAKTHROUGH PAIN Last administered on 01/12/19 08:47; Admin Dose 2 MG; Start 01/08/19 at 13:30 Acetaminophen/ Hydrocodone Bitart ([place] (5/325)) 1 tab BEFORE BREAKFAST PO Last administered on 01/12/19 06:12; Admin Dose 1 TAB; Start 01/09/19 at 07:00 Acetaminophen/ Hydrocodone Bitart ([place] (5/325)) 1 tab WITH LUNCH PO Last administered on 01/13/19 11:51; Admin Dose 1 TAB; Start 01/09/19 at 12:00 Lidocaine (Lidoderm) 1 patch DAILY TD ; Start 01/14/19 at 09:00 Baclofen (Lioresal) 10 mg TID PO Last administered on 01/13/19 20:10; Admin Dose 10 MG; Start 01/13/19 at 21:00 Assessment/Plan Additional Assessment/Plan Rehab- Lumbosacral stenosis with lumbosacral polyradiculitis; Anterior posterior L3-S1 decompression/fusion; Polyarticular rheumatoid arthritis Continue rehab. Traumatic pain syndrome continue current meds Anemia secondary to acute blood loss. Hypertension. Chronic obstructive pulmonary disease. Obesity. Hypokalemia. GERD. h.o Right total knee arthroplasty. Status post left iliac artery thrombectomy. BEHAVIOR - LABILE WITH ANXIETY TEARFUL , QUESTION SECONDARY BACLOFEN WILL TAPER OFF GAMALIEL POSADA MD Jan 14, 2019 08:23
[2019-01-14] MEDS: LOSARTAN 50 MG TAB PO SCH (08:27)
[2019-01-14] MEDS: METOPROLOL 25 MG TAB PO SCH ×2 (08:27→20:41)
[2019-01-14 08:28] VITALS: BP 133/70; RESP 19
[2019-01-14] MEDS: FLUTICASONE/VILANTEROL 100-25 INH SCH (08:28)
[2019-01-14] MEDS: PREGABALIN 50 MG CAP PO SCH ×2 (08:28→20:37)
[2019-01-14] MEDS: HYDROCODONE/APAP (5/325) TAB PO PRN ×3 (08:28→20:42)
[2019-01-14] MEDS: ASPIRIN 81 MG TAB PO SCH (08:30)
[2019-01-14] MEDS: ALPRAZOLAM 0.25 MG TAB PO PRN (09:38)
--- NOTE | 2019-01-14 12:11 | PSY ---
Date/Time of Note Date/Time of Note DATE: 01/14/19 TIME: 12:06 Psychiatric Subjective Eval Consent Pt consented to telemedicine: No Subjective Evaluation Patient location: inpatient History of present illness This patient is a 78-year-old female, underlying medical history of rheumatoid arthritis and lumbosacral stenosis. On a [id number] evaluation, patient is very anxious preoccupied about being discharged, she is tearful repeating the same sentence over and over "I want to go home I want to go home" patient denies feeling of hopelessness and helplessness, denies suicidal ideation and contracted for safety. However patient had previous suicide attempts about 30 years ago when she had a break-up with her spouse. Discussed risk and benefits of alprazolam and she verbalized understanding. Past psychiatric history Patient had history of suicide 30 years ago Allergies: Coded Allergies: tramadol (Verified Allergy, Unknown, Rash, 01/03/19) Substance Abuse Substance abuse history: No Prior substance abuse treatmen: No Social History Marital status: other DPA/Conservatorship: No Psychiatric Objective Eval Physical Examination: Appetite: Adequate Energy: Adequate Mental Status Examination: Eye Contact: Fair Psychomotor Activity: Slow Behavior: Cooperative AFFECT: Anxious Mood: Anxious Though Process: Linear Thought Content: Normal Attention Span: Distractible Assessment and Plan Assessment/Diagnosis Diagnosis Anxiety NOS, major depressive disorder severe recurrent without psychosis. Recommendation/Plan Medication Management Xanax 0.25 mg every 8 hours as needed anxiety, Ambien 5 mg at bedtime for insomnia.. Patient declined antidepressants at this time states the last time she took antidepressant was 30 years ago and she would rather only take anxiety medication. Discharge Disposition: Other Legal Status: Voluntary (She does not meet criteria for 5150 hold) HELENE RICHMOND NP Jan 14, 2019 12:10
[2019-01-14 14:00] VITALS: BP 140/80; PULSE 58; RESP 18
--- NOTE | 2019-01-14 15:56 | PN ---
Date/Time of Note Date/Time of Note DATE: 01/14/19 TIME: 15:56 Assessment/Plan VTE Prophylaxis Risk score (from Ns)>0 risk: 4 SCD applied (from Ns): Yes SCD contraindicated: other Pharmacological prophylaxis: other Pharm contraindication: other Lines/Catheters IV Catheter Type (from Nrsg): Saline Lock Assessment/Plan Assessment/Plan - Mechanical LBP - s/p lumbar Hardware Removal (Rods/Screws), L3-S1 Decompression with ISF Placement by Dr Lobato on 01/03/19. - Continue postoperative antibiotic, continue [place] and morphine as needed for pain and Zofran as needed for nausea. - LSO brace when out of bed. Continue physical therapy. - Acute kidney injury- monitor renal functions - HTN, patient is currently normotensive, continue metoprolol and hydrochl orothiazide. - Asthma, stable, continue Breo Ellipta as needed. - RA, no acute issues, patient gets injection with rituximab as an outpatient, follows with Dr. Saldivar in rheumatology consultation. - History of anterior retroperitoneal interbody fusion of L3-S1 by Dr. Lobato on 12/08/18. - History of left iliac artery thrombectomy on 12/08/[address] Ibrahim. Further recommendations based on clinical course. Plan of care discussed with Dr. Whatley. Result Diagram: 01/10/19 0611 01/10/19 06 Subjective 24 Hr Interval Summary Free Text/Dictation c/o back pain; effective pain control - tolerates PT; uses LSO brace- feels better - no new events reported last night dw staff Eyes: no complaints ENT: no complaints Respiratory: no complaints Cardiovascular: no complaints Gastrointestinal: no complaints Genitourinary: no complaints Musculoskeletal: bone/joint pain, restricted range of motion Skin: no complaints Neurologic: no complaints Endocrine: no complaints Lymphatic: no complaints Psychological: no complaints Immunologic: no complaints Exam/Review of Systems Exam Vitals Vital Signs Date Temp Pulse Resp B/P (MAP) Pulse Ox O2 O2 Flow FiO2 Time Delivery Rate 01/14/19 97.5 60 18 179/79 98 Room Air 07:00 (112) 01/13/19 21 21:32 Intake and Output 01/13/19 01/13/19 01/14/19 1515:00 23:00 07:00 IntakeIntake Total 300 ml 1380 ml BalanceBalance 300 ml 1380 ml Constitutional: alert, well developed Psych: nl mood/affect Head: normocephalic Eyes: nl lids, nl sclera, PERRL ENMT: nl external ears & nose Neck: non-tender Respiratory: clear to auscultation Cardiovascular: nl pulses, other (s1s2) Gastrointestinal: soft, non-tender Musculoskeletal: joint tenderness, muscle weakness, range of motion Extremities: normal pulses Neurological: nl mental status, nl speech Skin: nl turgor Lymph: nontender Medications Medication Current Medications Miscellaneous Information (Pending [facility] Order For Wound Care) This patient cohen... PRN PRN XX WOUND CARE; Start 01/07/19 at 14:30 Acetaminophen/ Hydrocodone Bitart ([place] (5/325)) 1 tab Q4H PRN PO MODERATE PAIN LEVEL 4-6 Last administered on 01/13/19at 20:50; Admin Dose 1 TAB; Start 01/07/19 at 14:30 Acetaminophen/ Hydrocodone Bitart ([place] (5/325)) 2 tab Q4H PRN PO SEVERE PAIN LEVEL 7-10 Last administered on 01/14/19at 13:52; Admin Dose 2 TAB; Start 01/07/19 at 16:30 Docusate Sodium (Colace) 100 mg BID PO Last administered on 01/14/19at 08:23; Admin Dose 100 MG; Start 01/07/19 at 21:00 Senna (Senokot) 1 tab QHS PO Last administered on 01/13/19at 20:10; Admin Dose 1 TAB; Start 01/07/19 at 21:00 Acetaminophen (Tylenol Tab) 650 mg Q4H PRN PO MILD PAIN(1-3)OR ELEVATED TEMP; Start 01/07/19 at 16:30 Bisacodyl (Dulcolax Supp) 10 mg DAILY PRN [place] CONSTIPATION; Start 01/07/19 at 16:30 Magnesium Hydroxide (Milk Of Mag) 30 ml BID PRN PO CONSTIPATION; Start 01/07/19 at 16:30 Lactulose (Enulose) 20 gm DAILY PRN PO CONSTIPATION; Start 01/07/19 at 16:30 Al Hydrox/Mg Hydrox/Simethicone (Mag-Al Plus) 15 ml Q4H PRN PO GASTROINTESTINAL UPSET; Start 01/07/19 at 16:30 Albuterol/ Ipratropium (Duoneb) 3 ml Q6H RESP THERAPY HHN Last administered on 01/13/19 21:31; Admin Dose 3 ML; Start 01/07/19 at 20:00 Aspirin (Aspirin) 81 mg DAILY PO Last administered on 01/14/19 08:30; Admin Dose 81 MG; Start 01/08/19 at 09:00 Sodium Biphosphate/ Sodium Phosphate (Fleet Enema) 133 ml DAILY PRN [place] CONSTIPATION; Start 01/07/19 at 16:30 Guaifenesin/ Dextromethorphan (Robitussin Dm Liquid Cup) 10 ml Q8H PRN PO COUGH; Start 01/07/19 at 16:30 Metoprolol Tartrate (Lopressor) 12.5 mg BID PO Last administered on 01/14/19 08:27; Admin Dose 12.5 MG; Start 01/07/19 at 21:00 Multivitamins Therapeutic (Theragran) 1 tab DAILY PO Last administered on 01/14/19 08:23; Admin Dose 1 TAB; Start 01/08/19 at 09:00 Pregabalin (Lyrica) 50 mg DAILY PO Last administered on 01/14/19 08:28; Admin Dose 50 MG; Start 01/08/19 at 09:00 Pregabalin (Lyrica) 100 mg QHS PO Last administered on 01/13/19 20:09; Admin Dose 100 MG; Start 01/07/19 at 21:00 Zolpidem Tartrate (Ambien) 5 mg HS MAY REPEAT X 1 PRN PO INSOMNIA Last administered on 01/12/19 22:15; Admin Dose 5 MG; Start 01/07/19 at 16:30 Losartan Potassium (Cozaar) 100 mg DAILY PO Last administered on 01/14/19 08:27; Admin Dose 100 MG; Start 01/08/19 at 09:00 Rosuvastatin Calcium (Crestor) 40 mg QHS PO Last administered on 01/13/19 20:10; Admin Dose 40 MG; Start 01/07/19 at 21:00 Fluticasone/ Vilanterol (Breo Ellipta 100-25 Mcg Inh) 1 inh DAILY INH Last administered on 01/14/19 08:28; Admin Dose 1 INH; Start 7/20/19 at 09:00 Hydrochlorothiazide (Hydrochlorothiazide) 25 mg DAILY PO Last administered on 01/14/19 08:23; Admin Dose 25 MG; Start 01/08/19 at 09:00 Morphine Sulfate (morphine) 2 mg Q4H PRN IV BREAKTHROUGH PAIN Last administered on 01/12/19 08:47; Admin Dose 2 MG; Start 01/08/19 at 13:30 Acetaminophen/ Hydrocodone Bitart ([place] (5/325)) 1 tab BEFORE BREAKFAST PO Last administered on 01/12/19 06:12; Admin Dose 1 TAB; Start 01/09/19 at 07:00 Acetaminophen/ Hydrocodone Bitart ([place] (5/325)) 1 tab WITH LUNCH PO Last administered on 01/14/19 12:06; Admin Dose 1 TAB; Start 01/09/19 at 12:00 Lidocaine (Lidoderm) 1 patch DAILY TD Last administered on 01/14/19 08:23; Admin Dose 1 PATCH; Start 01/14/19 at 09:00 Alprazolam (Xanax) 0.25 mg Q8H PRN PO ANXIETY Last administered on 01/14/19 09:38; Admin Dose 0.25 MG; Start 01/14/19 at 09:00 DEJA HERRERA Jan 14, 2019 15:56
[2019-01-14 20:00] VITALS: BP 115/56; PULSE 54; RESP 17
[2019-01-14] MEDS: ROSUVASTATIN CALCIUM 40 MG TABLET PO SCH (20:37)
[2019-01-14] MEDS: SENNA TAB PO SCH (20:37)
[2019-01-14] MEDS ORDERED: BACLOFEN 10 MG TAB PO SCH (21:00)
[2019-01-14] MEDS: ZOLPIDEM 5 MG TAB PO PRN (23:41)
[2019-01-15] MEDS: ALBUTEROL/IPRATROPIUM (NEB) 3 ML AMP HHN SCH ×2 (01:33→08:00)
[2019-01-15 02:00] VITALS: BP 134/59; PULSE 56; RESP 19
[2019-01-15] MEDS: HYDROCODONE/APAP (5/325) TAB PO SCH ×2 (06:40→13:00)
[2019-01-15 08:27] VITALS: BP 135/64; PULSE 56; RESP 19
[2019-01-15] MEDS: DOCUSATE SODIUM 100 MG CAP PO SCH ×2 (08:43→20:22)
[2019-01-15] MEDS: FLUTICASONE/VILANTEROL 100-25 INH SCH (08:43)
[2019-01-15] MEDS: ASPIRIN 81 MG TAB PO SCH (08:43)
[2019-01-15] MEDS: LOSARTAN 50 MG TAB PO SCH (08:44)
[2019-01-15] MEDS: HYDROCHLOROTHIAZIDE 12.5 MG CAP PO SCH (08:44)
[2019-01-15] MEDS: PREGABALIN 50 MG CAP PO SCH ×2 (08:45→20:21)
[2019-01-15] MEDS: ALPRAZOLAM 0.25 MG TAB PO PRN (08:45)
[2019-01-15] MEDS: MULTIVITAMINS THERAPEUTIC TAB PO SCH (08:45)
[2019-01-15] MEDS: LIDOCAINE 5% PATCH TD SCH (08:46)
[2019-01-15] MEDS: METOPROLOL 25 MG TAB PO SCH ×2 (08:51→20:25)
--- NOTE | 2019-01-15 09:31 | PN ---
Date/Time of Note Date/Time of Note DATE: 01/15/19 TIME: 09:29 Subjective AWAKE ALERT , LESS LABILE Objective Vital Signs Date Temp Pulse Resp B/P (MAP) Pulse Ox O2 O2 Flow FiO2 Time Delivery Rate 01/15/19 98.0 56 19 135/64 95 Room Air 08:27 (87) 01/14/19 21 20:19 Intake and Output 01/14/19 01/14/19 01/15/19 1414:59 22:59 06:59 IntakeIntake Total 1200 ml 1200 ml 700 ml OutputOutput Total 600 ml BalanceBalance 1200 ml 600 ml 700 ml Exam LUNGS CTA COR RRR - EDEMA - HOMANS CLOF BED MOB, XT AND GAIT CGA Results/Medications Medications Current Medications Miscellaneous Information (Pending [facility] Order For Wound Care) This patient cohen... PRN PRN XX WOUND CARE; Start 01/07/19 at 14:30 Acetaminophen/ Hydrocodone Bitart ([place] (5/325)) 1 tab Q4H PRN PO MODERATE PAIN LEVEL 4-6 Last administered on 01/13/19at 20:50; Admin Dose 1 TAB; Start 01/07/19 at 14:30 Acetaminophen/ Hydrocodone Bitart ([place] (5/325)) 2 tab Q4H PRN PO SEVERE PAIN LEVEL 7-10 Last administered on 01/14/19at 20:42; Admin Dose 2 TAB; Start 01/07/19 at 16:30 Docusate Sodium (Colace) 100 mg BID PO Last administered on 01/15/19at 08:43; Admin Dose 100 MG; Start 01/07/19 at 21:00 Senna (Senokot) 1 tab QHS PO Last administered on 01/14/19at 20:37; Admin Dose 1 TAB; Start 01/07/19 at 21:00 Acetaminophen (Tylenol Tab) 650 mg Q4H PRN PO MILD PAIN(1-3)OR ELEVATED TEMP; Start 01/07/19 at 16:30 Bisacodyl (Dulcolax Supp) 10 mg DAILY PRN [place] CONSTIPATION; Start 01/07/19 at 16:30 Magnesium Hydroxide (Milk Of Mag) 30 ml BID PRN PO CONSTIPATION; Start 01/07/19 at 16:30 Lactulose (Enulose) 20 gm DAILY PRN PO CONSTIPATION; Start 01/07/19 at 16:30 Al Hydrox/Mg Hydrox/Simethicone (Mag-Al Plus) 15 ml Q4H PRN PO GASTROINTESTINAL UPSET; Start 01/07/19 at 16:30 Aspirin (Aspirin) 81 mg DAILY PO Last administered on 01/15/19 08:43; Admin Dose 81 MG; Start 01/08/19 at 09:00 Sodium Biphosphate/ Sodium Phosphate (Fleet Enema) 133 ml DAILY PRN [place] CONSTIPATION; Start 01/07/19 at 16:30 Guaifenesin/ Dextromethorphan (Robitussin Dm Liquid Cup) 10 ml Q8H PRN PO COUGH; Start 01/07/19 at 16:30 Metoprolol Tartrate (Lopressor) 12.5 mg BID PO Last administered on 01/14/19 08:27; Admin Dose 12.5 MG; Start 01/07/19 at 21:00 Multivitamins Therapeutic (Theragran) 1 tab DAILY PO Last administered on 01/15/19 08:45; Admin Dose 1 TAB; Start 01/08/19 at 09:00 Pregabalin (Lyrica) 50 mg DAILY PO Last administered on 01/15/19 08:45; Admin Dose 50 MG; Start 01/08/19 at 09:00 Pregabalin (Lyrica) 100 mg QHS PO Last administered on 01/14/19 20:37; Admin Dose 100 MG; Start 01/07/19 at 21:00 Zolpidem Tartrate (Ambien) 5 mg HS MAY REPEAT X 1 PRN PO INSOMNIA Last administered on 01/14/19 23:41; Admin Dose 5 MG; Start 01/07/19 at 16:30 Losartan Potassium (Cozaar) 100 mg DAILY PO Last administered on 01/15/19 08:44; Admin Dose 100 MG; Start 01/08/19 at 09:00 Rosuvastatin Calcium (Crestor) 40 mg QHS PO Last administered on 01/14/19 20:37; Admin Dose 40 MG; Start 01/07/19 at 21:00 Fluticasone/ Vilanterol (Breo Ellipta 100-25 Mcg Inh) 1 inh DAILY INH Last administered on 01/15/19 08:43; Admin Dose 1 INH; Start 01/08/19 at 09:00 Hydrochlorothiazide (Hydrochlorothiazide) 25 mg DAILY PO Last administered on 01/15/19 08:44; Admin Dose 25 MG; Start 01/08/19 at 09:00 Morphine Sulfate (morphine) 2 mg Q4H PRN IV BREAKTHROUGH PAIN Last administered on 01/12/19 08:47; Admin Dose 2 MG; Start 01/08/19 at 13:30 Acetaminophen/ Hydrocodone Bitart ([place] (5/325)) 1 tab BEFORE BREAKFAST PO Last administered on 01/15/19 06:40; Admin Dose 1 TAB; Start 01/09/19 at 07:00 Acetaminophen/ Hydrocodone Bitart ([place] (5/325)) 1 tab WITH LUNCH PO Last administered on 01/14/19 12:06; Admin Dose 1 TAB; Start 01/09/19 at 12:00 Lidocaine (Lidoderm) 1 patch DAILY TD Last administered on 01/15/19 08:46; Admin Dose 1 PATCH; Start 01/14/19 at 09:00 Alprazolam (Xanax) 0.25 mg Q8H PRN PO ANXIETY Last administered on 01/15/19 08:45; Admin Dose 0.25 MG; Start 01/14/19 at 09:00 Assessment/Plan Additional Assessment/Plan Rehab- Lumbosacral stenosis with lumbosacral polyradiculitis; Anterior posterior L3-S1 decompression/fusion; Polyarticular rheumatoid arthritis Continue rehab. Traumatic pain syndrome continue current meds Anemia secondary to acute blood loss. Hypertension.CONTROLLED Chronic obstructive pulmonary disease.SATS OK ON RA DC NEBULIZERS Obesity. Hypokalemia. GERD. h.o Right total knee arthroplasty. Status post left iliac artery thrombectomy. BEHAVIOR - EMOTIONAL LABILITY IMPROVED , BACLOFEN DCED LOW DOSE PRN XANAX GAMALIEL POSADA MD Jan 15, 2019 09:31
--- NOTE | 2019-01-15 12:38 | PN ---
Date/Time of Note Date/Time of Note DATE: 01/15/19 TIME: 12:37 Assessment/Plan VTE Prophylaxis Risk score (from Nsg)>0 risk: 6 SCD applied (from Nsg): Yes Pharmacological prophylaxis: LMWH Lines/Catheters IV Catheter Type (from Nrsg): Saline Lock Assessment/Plan Hospital Course - Mechanical LBP, s/p lumbar Hardware Removal (Rods/Screws), L3-S1 Decompression with ISF Placement by Dr Lobato on 01/03/19. Continue postoperative antibiotic, continue [place] and morphine as needed for pain and Zofran as needed for nausea. LSO brace when out of bed. Continue physical therapy. - HTN, patient is currently normotensive, continue metoprolol and hydrochlorothiazide. - Asthma, stable, continue Breo Ellipta as needed. - RA, no acute issues, patient gets injection with rituximab as an outpatient, follows with Dr. Saldivar in rheumatology consultation. - History of anterior retroperitoneal interbody fusion of L3-S1 by Dr. Lobato on 12/08/18. - History of left iliac artery thrombectomy on 12/08/[address] Ibrahim. Subjective 24 Hr Interval Summary Free Text/Dictation Patient still have some back pain but is working with physical therapy Exam/Review of Systems Exam Vitals Vital Signs Date Temp Pulse Resp B/P (MAP) Pulse Ox O2 O2 Flow FiO2 Time Delivery Rate 01/15/19 98.0 56 19 135/64 95 Room Air 08:27 (87) 01/14/19 21 20:19 Intake and Output 01/14/19 01/14/19 01/15/19 1515:00 23:00 07:00 IntakeIntake Total 1200 ml 1200 ml 700 ml OutputOutput Total 600 ml BalanceBalance 1200 ml 600 ml 700 ml Constitutional: well developed Head: normocephalic, atraumatic Neck: supple Respiratory: diminished breath sounds Cardiovascular: regular rate and rhythm Gastrointestinal: soft, non-tender Extremities: normal pulses Medications Medication Current Medications Miscellaneous Information (Pending [facility] Order For Wound Care) This patient cohen... PRN PRN XX WOUND CARE; Start 01/07/19 at 14:30 Acetaminophen/ Hydrocodone Bitart ([place] (5/325)) 1 tab Q4H PRN PO MODERATE PAIN LEVEL 4-6 Last administered on 01/13/19at 20:50; Admin Dose 1 TAB; Start 01/07/19 at 14:30 Acetaminophen/ Hydrocodone Bitart ([place] (5/325)) 2 tab Q4H PRN PO SEVERE PAIN LEVEL 7-10 Last administered on 01/14/19 20:42; Admin Dose 2 TAB; Start 01/07/19 at 16:30 Docusate Sodium (Colace) 100 mg BID PO Last administered on 01/15/19 08:43; Admin Dose 100 MG; Start 01/07/19 at 21:00 Senna (Senokot) 1 tab QHS PO Last administered on 01/14/19 20:37; Admin Dose 1 TAB; Start 01/07/19 at 21:00 Acetaminophen (Tylenol Tab) 650 mg Q4H PRN PO MILD PAIN(1-3)OR ELEVATED TEMP; Start 01/07/19 at 16:30 Bisacodyl (Dulcolax Supp) 10 mg DAILY PRN [place] CONSTIPATION; Start 01/07/19 at 16:30 Magnesium Hydroxide (Milk Of Mag) 30 ml BID PRN PO CONSTIPATION; Start 01/07/19 at 16:30 Lactulose (Enulose) 20 gm DAILY PRN PO CONSTIPATION; Start 01/07/19 at 16:30 Al Hydrox/Mg Hydrox/Simethicone (Mag-Al Plus) 15 ml Q4H PRN PO GASTROINTESTINAL UPSET; Start 01/07/19 at 16:30 Aspirin (Aspirin) 81 mg DAILY PO Last administered on 01/15/19 08:43; Admin Dose 81 MG; Start 01/08/19 at 09:00 Sodium Biphosphate/ Sodium Phosphate (Fleet Enema) 133 ml DAILY PRN [place] CONSTIPATION; Start 01/07/19 at 16:30 Guaifenesin/ Dextromethorphan (Robitussin Dm Liquid Cup) 10 ml Q8H PRN PO COUGH; Start 01/07/19 at 16:30 Metoprolol Tartrate (Lopressor) 12.5 mg BID PO Last administered on 01/14/19 08:27; Admin Dose 12.5 MG; Start 01/07/19 at 21:00 Multivitamins Therapeutic (Theragran) 1 tab DAILY PO Last administered on 01/15/19 08:45; Admin Dose 1 TAB; Start 01/08/19 at 09:00 Pregabalin (Lyrica) 50 mg DAILY PO Last administered on 01/15/19 08:45; Admin Dose 50 MG; Start 01/08/19 at 09:00 Pregabalin (Lyrica) 100 mg QHS PO Last administered on 01/14/19 20:37; Admin Dose 100 MG; Start 01/07/19 at 21:00 Zolpidem Tartrate (Ambien) 5 mg HS MAY REPEAT X 1 PRN PO INSOMNIA Last administered on 01/14/19 23:41; Admin Dose 5 MG; Start 01/07/19 at 16:30 Losartan Potassium (Cozaar) 100 mg DAILY PO Last administered on 01/15/19 08:44; Admin Dose 100 MG; Start 01/08/19 at 09:00 Rosuvastatin Calcium (Crestor) 40 mg QHS PO Last administered on 01/14/19 20:37; Admin Dose 40 MG; Start 01/07/19 at 21:00 Fluticasone/ Vilanterol (Breo Ellipta 100-25 Mcg Inh) 1 inh DAILY INH Last administered on 01/15/19 08:43; Admin Dose 1 INH; Start 01/08/19 at 09:00 Hydrochlorothiazide (Hydrochlorothiazide) 25 mg DAILY PO Last administered on 01/15/19 08:44; Admin Dose 25 MG; Start 01/08/19 at 09:00 Morphine Sulfate (morphine) 2 mg Q4H PRN IV BREAKTHROUGH PAIN Last administered on 01/12/19 08:47; Admin Dose 2 MG; Start 01/08/19 at 13:30 Acetaminophen/ Hydrocodone Bitart ([place] (5/325)) 1 tab BEFORE BREAKFAST PO Last administered on 01/15/19 06:40; Admin Dose 1 TAB; Start 01/09/19 at 07:00 Acetaminophen/ Hydrocodone Bitart ([place] (5/325)) 1 tab WITH LUNCH PO Last administered on 01/14/19 12:06; Admin Dose 1 TAB; Start 01/09/19 at 12:00 Lidocaine (Lidoderm) 1 patch DAILY TD Last administered on 01/15/19 08:46; Admin Dose 1 PATCH; Start 01/14/19 at 09:00 Alprazolam (Xanax) 0.25 mg Q8H PRN PO ANXIETY Last administered on 7/27/19at 08:45; Admin Dose 0.25 MG; Start 01/14/19 at 09:00 CHATA WILSON Jan 15, 2019 12:38
[2019-01-15 13:00] VITALS: BP 117/53; PULSE 65; RESP 18
[2019-01-15 13:01] VITALS: BP 111/53; PULSE 68; RESP 18
[2019-01-15] MEDS: morphine 2 MG INJ IV PRN (14:37)
[2019-01-15 20:10] VITALS: BP 107/40; PULSE 69; RESP 18
[2019-01-15] MEDS: ROSUVASTATIN CALCIUM 40 MG TABLET PO SCH (20:21)
[2019-01-15] MEDS: SENNA TAB PO SCH (20:22)
[2019-01-15] MEDS: HYDROCODONE/APAP (5/325) TAB PO PRN (20:29)
[2019-01-15] MEDS: ZOLPIDEM 5 MG TAB PO PRN (23:22)
[2019-01-16] MEDS: HYDROCODONE/APAP (5/325) TAB PO PRN ×3 (00:59→20:34)
[2019-01-16 02:22] VITALS: BP 106/51; PULSE 58; RESP 18
[2019-01-16] MEDS: HYDROCODONE/APAP (5/325) TAB PO SCH ×2 (06:27→11:44)
[2019-01-16 07:00] VITALS: BP 158/70; PULSE 55; RESP 18
[2019-01-16] MEDS: FLUTICASONE/VILANTEROL 100-25 INH SCH (08:32)
[2019-01-16] MEDS: DOCUSATE SODIUM 100 MG CAP PO SCH ×2 (08:33→20:29)
[2019-01-16] MEDS: ASPIRIN 81 MG TAB PO SCH (08:34)
[2019-01-16] MEDS: PREGABALIN 50 MG CAP PO SCH ×2 (08:34→20:29)
[2019-01-16] MEDS: HYDROCHLOROTHIAZIDE 12.5 MG CAP PO SCH (08:34)
[2019-01-16] MEDS: LOSARTAN 50 MG TAB PO SCH (08:35)
[2019-01-16] MEDS: MULTIVITAMINS THERAPEUTIC TAB PO SCH (08:35)
[2019-01-16] MEDS: LIDOCAINE 5% PATCH TD SCH (08:41)
[2019-01-16] MEDS: METOPROLOL 25 MG TAB PO SCH ×2 (09:00→20:32)
--- NOTE | 2019-01-16 12:29 | PN ---
Date/Time of Note Date/Time of Note DATE: 01/16/19 TIME: 12:28 Assessment/Plan VTE Prophylaxis Risk score (from Ns)>0 risk: 7 SCD applied (from Ns): Yes Pharmacological prophylaxis: LMWH Lines/Catheters IV Catheter Type (from Nrsg): Saline Lock Assessment/Plan Hospital Course - Mechanical LBP, s/p lumbar Hardware Removal (Rods/Screws), L3-S1 Decompression with ISF Placement by Dr Lobato on 01/03/19. Continue postoperative antibiotic, continue [place] and morphine as needed for pain and Zofran as needed for nausea. LSO brace when out of bed. Continue physical therapy. - HTN, patient is currently normotensive, continue metoprolol and hydrochlorothiazide. - Asthma, stable, continue Breo Ellipta as needed. - RA, no acute issues, patient gets injection with rituximab as an outpatient, follows with Dr. Saldivar in rheumatology consultation. - History of anterior retroperitoneal interbody fusion of L3-S1 by Dr. Lobato on 12/08/18. - History of left iliac artery thrombectomy on 12/08/[address] Ibrahim. Subjective 24 Hr Interval Summary Free Text/Dictation Patient is doing well with therapy Exam/Review of Systems Exam Vitals Vital Signs Date Temp Pulse Resp B/P (MAP) Pulse Ox O2 O2 Flow FiO2 Time Delivery Rate 01/16/19 98.1 55 18 158/70 95 Room Air 07:00 (99) 01/14/19 21 20:19 Intake and Output 01/15/19 01/15/19 01/16/19 1515:00 23:00 07:00 IntakeIntake Total 800 ml 960 ml BalanceBalance 800 ml 960 ml Constitutional: well developed Head: normocephalic, atraumatic Neck: supple Respiratory: diminished breath sounds Cardiovascular: regular rate and rhythm Gastrointestinal: soft, non-tender Extremities: normal pulses Medications Medication Current Medications Miscellaneous Information ([facility]) This patient cohen... PRN PRN XX WOUND CARE; Start 01/07/19 at 14:30 Acetaminophen/ Hydrocodone Bitart ([place] (5/325)) 1 tab Q4H PRN PO MODERATE PAIN LEVEL 4-6 Last administered on 01/16/19at 08:36; Admin Dose 1 TAB; Start 01/07/19 at 14:30 Acetaminophen/ Hydrocodone Bitart ([place] (5/325)) 2 tab Q4H PRN PO SEVERE PAIN LEVEL 7-10 Last administered on 01/16/19 00:59; Admin Dose 2 TAB; Start 01/07/19 at 16:30 Docusate Sodium (Colace) 100 mg BID PO Last administered on 01/16/19 08:33; Admin Dose 100 MG; Start 01/07/19 at 21:00 Senna (Senokot) 1 tab QHS PO Last administered on 01/15/19 20:22; Admin Dose 1 TAB; Start 01/07/19 at 21:00 Acetaminophen (Tylenol Tab) 650 mg Q4H PRN PO MILD PAIN(1-3)OR ELEVATED TEMP; Start 01/07/19 at 16:30 Bisacodyl (Dulcolax Supp) 10 mg DAILY PRN [place] CONSTIPATION; Start 01/07/19 at 16:30 Magnesium Hydroxide (Milk Of Mag) 30 ml BID PRN PO CONSTIPATION; Start 01/07/19 at 16:30 Lactulose (Enulose) 20 gm DAILY PRN PO CONSTIPATION; Start 01/07/19 at 16:30 Al Hydrox/Mg Hydrox/Simethicone (Mag-Al Plus) 15 ml Q4H PRN PO GASTROINTESTINAL UPSET; Start 01/07/19 at 16:30 Aspirin (Aspirin) 81 mg DAILY PO Last administered on 01/16/19 08:34; Admin Dose 81 MG; Start 01/08/19 at 09:00 Sodium Biphosphate/ Sodium Phosphate (Fleet Enema) 133 ml DAILY PRN [place] CONSTIPATION; Start 01/07/19 at 16:30 Guaifenesin/ Dextromethorphan (Robitussin Dm Liquid Cup) 10 ml Q8H PRN PO C OUGH; Start 01/07/19 at 16:30 Metoprolol Tartrate (Lopressor) 12.5 mg BID PO Last administered on 01/15/19 20:25; Admin Dose 12.5 MG; Start 01/07/19 at 21:00 Multivitamins Therapeutic (Theragran) 1 tab DAILY PO Last administered on 01/16/19 08:35; Admin Dose 1 TAB; Start 01/08/19 at 09:00 Pregabalin (Lyrica) 50 mg DAILY PO Last administered on 01/16/19 08:34; Admin Dose 50 MG; Start 01/08/19 at 09:00 Pregabalin (Lyrica) 100 mg QHS PO Last administered on 01/15/19 20:21; Admin Dose 100 MG; Start 01/07/19 at 21:00 Zolpidem Tartrate (Ambien) 5 mg HS MAY REPEAT X 1 PRN PO INSOMNIA Last administered on 01/15/19 23:22; Admin Dose 5 MG; Start 01/07/19 at 16:30 Losartan Potassium (Cozaar) 100 mg DAILY PO Last administered on 01/16/19 08:35; Admin Dose 100 MG; Start 01/08/19 at 09:00 Rosuvastatin Calcium (Crestor) 40 mg QHS PO Last administered on 01/15/19 20:21; Admin Dose 40 MG; Start 01/07/19 at 21:00 Fluticasone/ Vilanterol (Breo Ellipta 100-25 Mcg Inh) 1 inh DAILY INH Last administered on 01/16/19 08:32; Admin Dose 1 INH; Start 01/08/19 at 09:00 Hydrochlorothiazide (Hydrochlorothiazide) 25 mg DAILY PO Last administered on 01/16/19 08:34; Admin Dose 25 MG; Start 01/08/19 at 09:00 Morphine Sulfate (morphine) 2 mg Q4H PRN IV BREAKTHROUGH PAIN Last administered on 01/15/19 14:37; Admin Dose 2 MG; Start 01/08/19 at 13:30 Acetaminophen/ Hydrocodone Bitart ([place] (5/325)) 1 tab BEFORE BREAKFAST PO Last administered on 01/16/19 06:27; Admin Dose 1 TAB; Start 01/09/19 at 07:00 Acetaminophen/ Hydrocodone Bitart ([place] (5/325)) 1 tab WITH LUNCH PO Last administered on 01/16/19 11:44; Admin Dose 1 TAB; Start 01/09/19 at 12:00 Lidocaine (Lidoderm) 1 patch DAILY TD Last administered on 01/16/19 08:41; Admin Dose 1 PATCH; Start 01/14/19 at 09:00 Alprazolam (Xanax) 0.25 mg Q8H PRN PO ANXIETY Last administered on 01/15/19 08:45; Admin Dose 0.25 MG; Start 01/14/19 at 09:00 CHATA WILSON Jan 16, 2019 12:29
[2019-01-16 14:00] VITALS: BP 152/67; PULSE 65; RESP 18
[2019-01-16 20:00] VITALS: BP 145/64; PULSE 69; RESP 18
[2019-01-16] MEDS: SENNA TAB PO SCH (20:29)
[2019-01-16] MEDS: ROSUVASTATIN CALCIUM 40 MG TABLET PO SCH (20:29)
[2019-01-16] MEDS: ZOLPIDEM 5 MG TAB PO PRN (23:17)
[2019-01-17 02:00] VITALS: BP 127/71; PULSE 60; RESP 18
[2019-01-17] MEDS: HYDROCODONE/APAP (5/325) TAB PO SCH ×2 (06:37→12:43)
[2019-01-17 07:00] VITALS: BP 142/65; PULSE 58; RESP 18
[2019-01-17] MEDS: HYDROCHLOROTHIAZIDE 12.5 MG CAP PO SCH (09:00)
[2019-01-17] MEDS: HYDROCODONE/APAP (5/325) TAB PO PRN ×3 (09:31→22:03)
[2019-01-17] MEDS: ASPIRIN 81 MG TAB PO SCH (10:59)
[2019-01-17] MEDS: MULTIVITAMINS THERAPEUTIC TAB PO SCH (10:59)
[2019-01-17] MEDS: PREGABALIN 50 MG CAP PO SCH ×2 (11:00→20:20)
[2019-01-17] MEDS: FLUTICASONE/VILANTEROL 100-25 INH SCH (11:00)
[2019-01-17] MEDS: DOCUSATE SODIUM 100 MG CAP PO SCH ×2 (11:00→20:20)
[2019-01-17] MEDS: LOSARTAN 50 MG TAB PO SCH (11:10)
[2019-01-17] MEDS: METOPROLOL 25 MG TAB PO SCH ×2 (11:11→20:22)
[2019-01-17] MEDS: LIDOCAINE 5% PATCH TD SCH (12:44)
[2019-01-17 14:00] VITALS: BP 113/47; PULSE 61; RESP 18
--- NOTE | 2019-01-17 14:22 | PN ---
Date/Time of Note Date/Time of Note DATE: 01/17/19 TIME: 14:21 Assessment/Plan VTE Prophylaxis Risk score (from Nsg)>0 risk: 7 SCD applied (from Ns): No SCD contraindicated: other Pharmacological prophylaxis: LMWH Lines/Catheters IV Catheter Type (from Nrsg): Saline Lock Assessment/Plan Hospital Course - Mechanical LBP, s/p lumbar Hardware Removal (Rods/Screws), L3-S1 Decompression with ISF Placement by Dr Lobato on 01/03/19. Continue postoperative antibiotic, continue [place] and morphine as needed for pain and Zofran as needed for nausea. LSO brace when out of bed. Continue physical therapy. - HTN, patient is currently normotensive, continue metoprolol and hydrochlorothiazide. - Asthma, stable, continue Breo Ellipta as needed. - RA, no acute issues, patient gets injection with rituximab as an outpatient, follows with Dr. Saldivar in rheumatology consultation. - History of anterior retroperitoneal interbody fusion of L3-S1 by Dr. Lobato on 12/08/18. - History of left iliac artery thrombectomy on 12/08/[address] Ibrahim. Subjective 24 Hr Interval Summary Free Text/Dictation Patient doing well, has some pain in hip Exam/Review of Systems Exam Vitals Vital Signs Date Temp Pulse Resp B/P (MAP) Pulse Ox O2 O2 Flow FiO2 Time Delivery Rate 01/17/19 98.2 58 18 142/65 93 Room Air 07:00 (90) 01/14/19 21 20:19 Intake and Output 01/16/19 01/16/19 01/17/19 1515:00 23:00 07:00 IntakeIntake Total 1200 ml 240 ml OutputOutput Total 800 ml BalanceBalance 400 ml 240 ml Constitutional: well developed Head: normocephalic, atraumatic Neck: supple Respiratory: diminished breath sounds Cardiovascular: regular rate and rhythm Gastrointestinal: soft, non-tender Extremities: normal pulses Medications Medication Current Medications Miscellaneous Information ([facility] This patient cohen... PRN PRN XX WOUND CARE; Start 01/07/19 at 14:30 Acetaminophen/ Hydrocodone Bitart ([place] (5/325)) 1 tab Q4H PRN PO MODERATE PAIN LEVEL 4-6 Last administered on 01/16/19at 08:36; Admin Dose 1 TAB; Start 01/07/19 at 14:30 Acetaminophen/ Hydrocodone Bitart ([place] (5/325)) 2 tab Q4H PRN PO SEVERE PAIN LEVEL 7-10 Last administered on 01/17/19 09:31; Admin Dose 2 TAB; Start 01/07/19 at 16:30 Docusate Sodium (Colace) 100 mg BID PO Last administered on 01/17/19 11:00; Admin Dose 100 MG; Start 01/07/19 at 21:00 Senna (Senokot) 1 tab QHS PO Last administered on 01/16/19 20:29; Admin Dose 1 TAB; Start 01/07/19 at 21:00 Acetaminophen (Tylenol Tab) 650 mg Q4H PRN PO MILD PAIN(1-3)OR ELEVATED TEMP; Start 01/07/19 at 16:30 Bisacodyl (Dulcolax Supp) 10 mg DAILY PRN [place] CONSTIPATION; Start 01/07/19 at 16:30 Magnesium Hydroxide (Milk Of Mag) 30 ml BID PRN PO CONSTIPATION; Start 01/07/19 at 16:30 Lactulose (Enulose) 20 gm DAILY PRN PO CONSTIPATION; Start 01/07/19 at 16:30 Al Hydrox/Mg Hydrox/Simethicone (Mag-Al Plus) 15 ml Q4H PRN PO GASTROINTESTINAL UPSET; Start 01/07/19 at 16:30 Aspirin (Aspirin) 81 mg DAILY PO Last administered on 01/17/19 10:59; Admin Dose 81 MG; Start 01/08/19 at 09:00 Sodium Biphosphate/ Sodium Phosphate (Fleet Enema) 133 ml DAILY PRN [place] CONSTIPATION; Start 01/07/19 at 16:30 Guaifenesin/ Dextromethorphan (Robitussin Dm Liquid Cup) 10 ml Q8H PRN PO COUGH; Start 01/07/19 at 16:30 Metoprolol Tartrate (Lopressor) 12.5 mg BID PO Last administered on 01/16/19 20:32; Admin Dose 12.5 MG; Start 01/07/19 at 21:00 Multivitamins Therapeutic (Theragran) 1 tab DAILY PO Last administered on 01/17/19 10:59; Admin Dose 1 TAB; Start 01/08/19 at 09:00 Pregabalin (Lyrica) 50 mg DAILY PO Last administered on 01/17/19 11:00; Admin Dose 50 MG; Start 01/08/19 at 09:00 Pregabalin (Lyrica) 100 mg QHS PO Last administered on 01/16/19 20:29; Admin Dose 100 MG; Start 01/07/19 at 21:00 Zolpidem Tartrate (Ambien) 5 mg HS MAY REPEAT X 1 PRN PO INSOMNIA Last administered on 01/16/19 23:17; Admin Dose 5 MG; Start 01/07/19 at 16:30 Losartan Potassium (Cozaar) 100 mg DAILY PO Last administered on 01/17/19 11:10; Admin Dose 100 MG; Start 01/08/19 at 09:00 Rosuvastatin Calcium (Crestor) 40 mg QHS PO Last administered on 01/16/19 20:29; Admin Dose 40 MG; Start 01/07/19 at 21:00 Fluticasone/ Vilanterol (Breo Ellipta 100-25 Mcg Inh) 1 inh DAILY INH Last administered on 01/17/19 11:00; Admin Dose 1 INH; Start 01/08/19 at 09:00 Hydrochlorothiazide (Hydrochlorothiazide) 25 mg DAILY PO Last administered on 01/16/19 08:34; Admin Dose 25 MG; Start 01/08/19 at 09:00 Morphine Sulfate (morphine) 2 mg Q4H PRN IV BREAKTHROUGH PAIN Last administered on 01/15/19 14:37; Admin Dose 2 MG; Start 01/08/19 at 13:30 Acetaminophen/ Hydrocodone Bitart ([place] (5/325)) 1 tab BEFORE BREAKFAST PO Last administered on 01/17/19 06:37; Admin Dose 1 TAB; Start 01/09/19 at 07:00 Acetaminophen/ Hydrocodone Bitart ([place] (5/325)) 1 tab WITH LUNCH PO Last administered on 01/17/19 12:43; Admin Dose 1 TAB; Start 01/09/19 at 12:00 Lidocaine (Lidoderm) 1 patch DAILY TD Last administered on 01/17/19 12:44; Admin Dose 1 PATCH; Start 01/14/19 at 09:00 Alprazolam (Xanax) 0.25 mg Q8H PRN PO ANXIETY Last administered on 7/27/19at 08:45; Admin Dose 0.25 MG; Start 01/14/19 at 09:00 CHATA WILSON Jan 17, 2019 14:22
--- NOTE | 2019-01-17 16:37 | PN ---
Date/Time of Note Date/Time of Note DATE: 01/17/19 TIME: 16:35 Subjective Patient's family reports they will be available to assist at home Objective Vital Signs Date Temp Pulse Resp B/P (MAP) Pulse Ox O2 O2 Flow FiO2 Time Delivery Rate 01/17/19 98.2 61 18 113/47 90 Room Air 14:00 (69) 01/14/19 21 20:19 Intake and Output 01/16/19 01/16/19 01/17/19 1515:00 23:00 07:00 IntakeIntake Total 1200 ml 240 ml OutputOutput Total 800 ml BalanceBalance 400 ml 240 ml Exam sba ambulation pulm-cta Results/Medications Medications Current Medications Miscellaneous Information (Pending [facility] Order For Wound Care) This patient cohen... PRN PRN XX WOUND CARE; Start 01/07/19 at 14:30 Acetaminophen/ Hydrocodone Bitart ([place] (5/325)) 1 tab Q4H PRN PO MODERATE PAIN LEVEL 4-6 Last administered on 01/16/19at 08:36; Admin Dose 1 TAB; Start 01/07/19 at 14:30 Acetaminophen/ Hydrocodone Bitart ([place] (5/325)) 2 tab Q4H PRN PO SEVERE PAIN LEVEL 7-10 Last administered on 01/17/19at 09:31; Admin Dose 2 TAB; Start 01/07/19 at 16:30 Docusate Sodium (Colace) 100 mg BID PO Last administered on 01/17/19at 11:00; Admin Dose 100 MG; Start 01/07/19 at 21:00 Senna (Senokot) 1 tab QHS PO Last administered on 01/16/19at 20:29; Admin Dose 1 TAB; Start 01/07/19 at 21:00 Acetaminophen (Tylenol Tab) 650 mg Q4H PRN PO MILD PAIN(1-3)OR ELEVATED TEMP; Start 01/07/19 at 16:30 Bisacodyl (Dulcolax Supp) 10 mg DAILY PRN [place] CONSTIPATION; Start 01/07/19 at 16:30 Magnesium Hydroxide (Milk Of Mag) 30 ml BID PRN PO CONSTIPATION; Start 01/07/19 at 16:30 Lactulose (Enulose) 20 gm DAILY PRN PO CONSTIPATION; Start 01/07/19 at 16:30 Al Hydrox/Mg Hydrox/Simethicone (Mag-Al Plus) 15 ml Q4H PRN PO GASTROINTESTINAL UPSET; Start 01/07/19 at 16:30 Aspirin (Aspirin) 81 mg DAILY PO Last administered on 01/17/19 10:59; Admin Dose 81 MG; Start 01/08/19 at 09:00 Sodium Biphosphate/ Sodium Phosphate (Fleet Enema) 133 ml DAILY PRN [place] CONSTIPATION; Start 01/07/19 at 16:30 Guaifenesin/ Dextromethorphan (Robitussin Dm Liquid Cup) 10 ml Q8H PRN PO COUGH; Start 01/07/19 at 16:30 Metoprolol Tartrate (Lopressor) 12.5 mg BID PO Last administered on 01/16/19 20:32; Admin Dose 12.5 MG; Start 01/07/19 at 21:00 Multivitamins Therapeutic (Theragran) 1 tab DAILY PO Last administered on 01/17/19 10:59; Admin Dose 1 TAB; Start 01/08/19 at 09:00 Pregabalin (Lyrica) 50 mg DAILY PO Last administered on 01/17/19 11:00; Admin Dose 50 MG; Start 01/08/19 at 09:00 Pregabalin (Lyrica) 100 mg QHS PO Last administered on 01/16/19 20:29; Admin Dose 100 MG; Start 01/07/19 at 21:00 Zolpidem Tartrate (Ambien) 5 mg HS MAY REPEAT X 1 PRN PO INSOMNIA Last administered on 01/16/19 23:17; Admin Dose 5 MG; Start 01/07/19 at 16:30 Losartan Potassium (Cozaar) 100 mg DAILY PO Last administered on 01/17/19 11:10; Admin Dose 100 MG; Start 01/08/19 at 09:00 Rosuvastatin Calcium (Crestor) 40 mg QHS PO Last administered on 01/16/19 20:29; Admin Dose 40 MG; Start 01/07/19 at 21:00 Fluticasone/ Vilanterol (Breo Ellipta 100-25 Mcg Inh) 1 inh DAILY INH Last administered on 01/17/19 11:00; Admin Dose 1 INH; Start 01/08/19 at 09:00 Hydrochlorothiazide (Hydrochlorothiazide) 25 mg DAILY PO Last administered on 01/16/19 08:34; Admin Dose 25 MG; Start 01/08/19 at 09:00 Morphine Sulfate (morphine) 2 mg Q4H PRN IV BREAKTHROUGH PAIN Last administered on 01/15/19 14:37; Admin Dose 2 MG; Start 01/08/19 at 13:30 Acetaminophen/ Hydrocodone Bitart ([place] (5/325)) 1 tab BEFORE BREAKFAST PO Last administered on 01/17/19 06:37; Admin Dose 1 TAB; Start 01/09/19 at 07:00 Acetaminophen/ Hydrocodone Bitart ([place] (5/325)) 1 tab WITH LUNCH PO Last administered on 01/17/19 12:43; Admin Dose 1 TAB; Start 01/09/19 at 12:00 Lidocaine (Lidoderm) 1 patch DAILY TD Last administered on 01/17/19 12:44; Admin Dose 1 PATCH; Start 01/14/19 at 09:00 Alprazolam (Xanax) 0.25 mg Q8H PRN PO ANXIETY Last administered on 01/15/19 08:45; Admin Dose 0.25 MG; Start 01/14/19 at 09:00 Assessment/Plan Additional Assessment/Plan Rehab- Lumbosacral stenosis with lumbosacral polyradiculitis; Anterior posterior L3-S1 decompression/fusion; Polyarticular rheumatoid arthritis Continue rehab. Patient reports spasms have improved with decrease in asthma medication. Traumatic pain syndrome continue current meds Anemia secondary to acute blood loss. Hypertension. Chronic obstructive pulmonary disease. Obesity. Hypokalemia. GERD. h.o Right total knee arthroplasty. Status post left iliac artery thrombectomy. MARIE POSADA MD Jan 17, 2019 16:37
[2019-01-17 20:00] VITALS: BP 124/62; PULSE 59; RESP 18
[2019-01-17] MEDS: ROSUVASTATIN CALCIUM 40 MG TABLET PO SCH (20:20)
[2019-01-17] MEDS: SENNA TAB PO SCH (20:20)
[2019-01-17] MEDS: ZOLPIDEM 5 MG TAB PO PRN (23:38)
[2019-01-18 02:00] VITALS: BP 126/66; PULSE 55; RESP 17
[2019-01-18] MEDS: HYDROCODONE/APAP (5/325) TAB PO SCH ×2 (06:00→12:13)
[2019-01-18 07:30] VITALS: BP 125/54; PULSE 72; RESP 18
[2019-01-18] MEDS: LIDOCAINE 5% PATCH TD SCH (08:59)
[2019-01-18] MEDS: PREGABALIN 50 MG CAP PO SCH ×2 (08:59→20:16)
[2019-01-18] MEDS: FLUTICASONE/VILANTEROL 100-25 INH SCH (08:59)
[2019-01-18] MEDS: MULTIVITAMINS THERAPEUTIC TAB PO SCH (09:00)
[2019-01-18] MEDS: HYDROCHLOROTHIAZIDE 12.5 MG CAP PO SCH (09:00)
[2019-01-18] MEDS: LOSARTAN 50 MG TAB PO SCH (09:00)
[2019-01-18] MEDS: METOPROLOL 25 MG TAB PO SCH ×2 (09:00→20:21)
[2019-01-18] MEDS: DOCUSATE SODIUM 100 MG CAP PO SCH ×2 (09:00→20:16)
[2019-01-18] MEDS: ASPIRIN 81 MG TAB PO SCH (09:00)
[2019-01-18] MEDS: HYDROCODONE/APAP (5/325) TAB PO PRN ×3 (09:01→22:15)
[2019-01-18 14:00] VITALS: BP 109/51; PULSE 64; RESP 18
--- NOTE | 2019-01-18 15:07 | PN ---
Date/Time of Note Date/Time of Note DATE: 01/18/19 TIME: 15:07 Assessment/Plan VTE Prophylaxis Risk score (from Nsg)>0 risk: 6 SCD applied (from Ns): No SCD contraindicated: other Pharmacological prophylaxis: LMWH Lines/Catheters IV Catheter Type (from Nrsg): Saline Lock Assessment/Plan Hospital Course - Mechanical LBP, s/p lumbar Hardware Removal (Rods/Screws), L3-S1 Decompression with ISF Placement by Dr Lobato on 01/03/19. Continue postoperative antibiotic, continue [place] and morphine as needed for pain and Zofran as needed for nausea. LSO brace when out of bed. Continue physical therapy. - HTN, patient is currently normotensive, continue metoprolol and hydrochlorothiazide. - Asthma, stable, continue Breo Ellipta as needed. - RA, no acute issues, patient gets injection with rituximab as an outpatient, follows with Dr. Saldivar in rheumatology consultation. - History of anterior retroperitoneal interbody fusion of L3-S1 by Dr. Lobato on 12/08/18. - History of left iliac artery thrombectomy on 12/08/[address] Ibrahim. Subjective 24 Hr Interval Summary Free Text/Dictation Patient doing ok Exam/Review of Systems Exam Vitals Vital Signs Date Temp Pulse Resp B/P (MAP) Pulse Ox O2 O2 Flow FiO2 Time Delivery Rate 01/18/19 98.7 72 18 125/54 95 Room Air 07:30 (77) 01/14/19 21 20:19 Intake and Output 01/17/19 01/17/19 01/18/19 1515:00 23:00 07:00 IntakeIntake Total 1450 ml 400 ml OutputOutput Total 601 ml BalanceBalance 849 ml 400 ml Constitutional: well developed Head: normocephalic, atraumatic Neck: supple Respiratory: diminished breath sounds Cardiovascular: regular rate and rhythm Gastrointestinal: soft, non-tender Extremities: normal pulses Medications Medication Current Medications Miscellaneous Information [facility] This patient cohen... PRN PRN XX WOUND CARE; Start 01/07/19 at 14:30 Acetaminophen/ Hydrocodone Bitart ([place] (5/325)) 1 tab Q4H PRN PO MODERATE PAIN LEVEL 4-6 Last administered on 01/16/19at 08:36; Admin Dose 1 TAB; Start 01/07/19 at 14:30 Acetaminophen/ Hydrocodone Bitart ([place] (5/325)) 2 tab Q4H PRN PO SEVERE PAIN LEVEL 7-10 Last administered on 01/18/19 09:01; Admin Dose 2 TAB; Start 01/07/19 at 16:30 Docusate Sodium (Colace) 100 mg BID PO Last administered on 01/18/19 09:00; Admin Dose 100 MG; Start 01/07/19 at 21:00 Senna (Senokot) 1 tab QHS PO Last administered on 01/17/19 20:20; Admin Dose 1 TAB; Start 01/07/19 at 21:00 Acetaminophen (Tylenol Tab) 650 mg Q4H PRN PO MILD PAIN(1-3)OR ELEVATED TEMP; Start 01/07/19 at 16:30 Bisacodyl (Dulcolax Supp) 10 mg DAILY PRN [place] CONSTIPATION Last administered on 01/18/19 03:04; Admin Dose 10 MG; Start 01/07/19 at 16:30 Magnesium Hydroxide (Milk Of Mag) 30 ml BID PRN PO CONSTIPATION Last administered on 01/17/19 20:20; Admin Dose 30 ML; Start 01/07/19 at 16:30 Lactulose (Enulose) 20 gm DAILY PRN PO CONSTIPATION; Start 01/07/19 at 16:30 Al Hydrox/Mg Hydrox/Simethicone (Mag-Al Plus) 15 ml Q4H PRN PO GASTROINTESTINAL UPSET; Start 01/07/19 at 16:30 Aspirin (Aspirin) 81 mg DAILY PO Last administered on 01/18/19 09:00; Admin Dose 81 MG; Start 01/08/19 at 09:00 Sodium Biphosphate/ Sodium Phosphate (Fleet Enema) 133 ml DAILY PRN [place] CONSTIPATION; Start 01/07/19 at 16:30 Guaifenesin/ Dextromethorphan (Robitussin Dm Liquid Cup) 10 ml Q8H PRN PO COUGH; Start 01/07/19 at 16:30 Metoprolol Tartrate (Lopressor) 12.5 mg BID PO Last administered on 01/18/19 09:00; Admin Dose 12.5 MG; Start 01/07/19 at 21:00 Multivitamins Therapeutic (Theragran) 1 tab DAILY PO Last administered on 01/18/19 09:00; Admin Dose 1 TAB; Start 01/08/19 at 09:00 Pregabalin (Lyrica) 50 mg DAILY PO Last administered on 01/18/19 08:59; Admin Dose 50 MG; Start 01/08/19 at 09:00 Pregabalin (Lyrica) 100 mg QHS PO Last administered on 01/17/19 20:20; Admin Dose 100 MG; Start 01/07/19 at 21:00 Zolpidem Tartrate (Ambien) 5 mg HS MAY REPEAT X 1 PRN PO INSOMNIA Last admin istered on 01/17/19 23:38; Admin Dose 5 MG; Start 01/07/19 at 16:30 Losartan Potassium (Cozaar) 100 mg DAILY PO Last administered on 01/18/19 09:00; Admin Dose 100 MG; Start 01/08/19 at 09:00 Rosuvastatin Calcium (Crestor) 40 mg QHS PO Last administered on 01/17/19 20:20; Admin Dose 40 MG; Start 01/07/19 at 21:00 Fluticasone/ Vilanterol (Breo Ellipta 100-25 Mcg Inh) 1 inh DAILY INH Last administered on 01/18/19 08:59; Admin Dose 1 INH; Start 01/08/19 at 09:00 Hydrochlorothiazide (Hydrochlorothiazide) 25 mg DAILY PO Last administered on 01/18/19 09:00; Admin Dose 25 MG; Start 01/08/19 at 09:00 Morphine Sulfate (morphine) 2 mg Q4H PRN IV BREAKTHROUGH PAIN Last administered on 01/15/19 14:37; Admin Dose 2 MG; Start 01/08/19 at 13:30 Acetaminophen/ Hydrocodone Bitart ([place] (5/325)) 1 tab BEFORE BREAKFAST PO Last administered on 01/18/19 06:00; Admin Dose 1 TAB; Start 01/09/19 at 07:00 Acetaminophen/ Hydrocodone Bitart ([place] (5/325)) 1 tab WITH LUNCH PO Last administered on 01/18/19 12:13; Admin Dose 1 TAB; Start 01/09/19 at 12:00 Lidocaine (Lidoderm) 1 patch DAILY TD Last administered on 01/18/19 08:59; Admin Dose 1 PATCH; Start 01/14/19 at 09:00 Alprazolam (Xanax) 0.25 mg Q8H PRN PO ANXIETY Last administered on 01/15/19at 08:45; Admin Dose 0.25 MG; Start 01/14/19 at 09:00 CHATA WILSON Jan 18, 2019 15:07
--- NOTE | 2019-01-18 16:24 | PN ---
Date/Time of Note Date/Time of Note DATE: 01/18/19 TIME: 16:23 Subjective Patient comfortable Objective Vital Signs Date Temp Pulse Resp B/P (MAP) Pulse Ox O2 O2 Flow FiO2 Time Delivery Rate 01/18/19 98.7 72 18 125/54 95 Room Air 07:30 (77) 01/14/19 21 20:19 Intake and Output 01/17/19 01/17/19 01/18/19 1515:00 23:00 07:00 IntakeIntake Total 1450 ml 400 ml OutputOutput Total 601 ml BalanceBalance 849 ml 400 ml Exam pulm-cta bd-soft s ambulation Results/Medications Medications Current Medications Miscellaneous Information (Pending [facility] Order For [facility]) This patient cohen... PRN PRN XX WOUND CARE; Start 01/07/19 at 14:30 Acetaminophen/ Hydrocodone Bitart ([place] (5/325)) 1 tab Q4H PRN PO MODERATE PAIN LEVEL 4-6 Last administered on 01/16/19 08:36; Admin Dose 1 TAB; Start 01/07/19 at 14:30 Acetaminophen/ Hydrocodone Bitart ([place] (5/325)) 2 tab Q4H PRN PO SEVERE PAIN LEVEL 7-10 Last administered on 01/18/19 15:22; Admin Dose 2 TAB; Start 01/07/19 at 16:30 Docusate Sodium (Colace) 100 mg BID PO Last administered on 01/18/19 09:00; Admin Dose 100 MG; Start 01/07/19 at 21:00 Senna (Senokot) 1 tab QHS PO Last administered on 01/17/19 20:20; Admin Dose 1 TAB; Start 01/07/19 at 21:00 Acetaminophen (Tylenol Tab) 650 mg Q4H PRN PO MILD PAIN(1-3)OR ELEVATED TEMP; Start 01/07/19 at 16:30 Bisacodyl (Dulcolax Supp) 10 mg DAILY PRN [place] CONSTIPATION Last administered on 01/18/19 03:04; Admin Dose 10 MG; Start 01/07/19 at 16:30 Magnesium Hydroxide (Milk Of Mag) 30 ml BID PRN PO CONSTIPATION Last administered on 01/17/19 20:20; Admin Dose 30 ML; Start 01/07/19 at 16:30 Lactulose (Enulose) 20 gm DAILY PRN PO CONSTIPATION; Start 01/07/19 at 16:30 Al Hydrox/Mg Hydrox/Simethicone (Mag-Al Plus) 15 ml Q4H PRN PO GASTROINTESTINAL UPSET; Start 01/07/19 at 16:30 Aspirin (Aspirin) 81 mg DAILY PO Last administered on 01/18/19 09:00; Admin Dose 81 MG; Start 01/08/19 at 09:00 Sodium Biphosphate/ Sodium Phosphate (Fleet Enema) 133 ml DAILY PRN [place] CONSTIPATION; Start 01/07/19 at 16:30 Guaifenesin/ Dextromethorphan (Robitussin Dm Liquid Cup) 10 ml Q8H PRN PO C OUGH; Start 01/07/19 at 16:30 Metoprolol Tartrate (Lopressor) 12.5 mg BID PO Last administered on 01/18/19 09:00; Admin Dose 12.5 MG; Start 01/07/19 at 21:00 Multivitamins Therapeutic (Theragran) 1 tab DAILY PO Last administered on 01/18/19 09:00; Admin Dose 1 TAB; Start 01/08/19 at 09:00 Pregabalin (Lyrica) 50 mg DAILY PO Last administered on 01/18/19 08:59; Admin Dose 50 MG; Start 01/08/19 at 09:00 Pregabalin (Lyrica) 100 mg QHS PO Last administered on 01/17/19 20:20; Admin Dose 100 MG; Start 01/07/19 at 21:00 Zolpidem Tartrate (Ambien) 5 mg HS MAY REPEAT X 1 PRN PO INSOMNIA Last administered on 01/17/19 23:38; Admin Dose 5 MG; Start 01/07/19 at 16:30 Losartan Potassium (Cozaar) 100 mg DAILY PO Last administered on 01/18/19 09:00; Admin Dose 100 MG; Start 01/08/19 at 09:00 Rosuvastatin Calcium (Crestor) 40 mg QHS PO Last administered on 01/17/19 20:20; Admin Dose 40 MG; Start 01/07/19 at 21:00 Fluticasone/ Vilanterol (Breo Ellipta 100-25 Mcg Inh) 1 inh DAILY INH Last administered on 01/18/19 08:59; Admin Dose 1 INH; Start 01/08/19 at 09:00 Hydrochlorothiazide (Hydrochlorothiazide) 25 mg DAILY PO Last administered on 01/18/19 09:00; Admin Dose 25 MG; Start 01/08/19 at 09:00 Morphine Sulfate (morphine) 2 mg Q4H PRN IV BREAKTHROUGH PAIN Last administered on 01/15/19 14:37; Admin Dose 2 MG; Start 01/08/19 at 13:30 Acetaminophen/ Hydrocodone Bitart ([place] (5/325)) 1 tab BEFORE BREAKFAST PO Last administered on 01/18/19 06:00; Admin Dose 1 TAB; Start 01/09/19 at 07:00 Acetaminophen/ Hydrocodone Bitart ([place] (5/325)) 1 tab WITH LUNCH PO Last administered on 01/18/19 12:13; Admin Dose 1 TAB; Start 01/09/19 at 12:00 Lidocaine (Lidoderm) 1 patch DAILY TD Last administered on 01/18/19 08:59; Admin Dose 1 PATCH; Start 01/14/19 at 09:00 Alprazolam (Xanax) 0.25 mg Q8H PRN PO ANXIETY Last administered on 01/15/19 08:45; Admin Dose 0.25 MG; Start 01/14/19 at 09:00 Assessment/Plan Additional Assessment/Plan Rehab- Lumbosacral stenosis with lumbosacral polyradiculitis; Anterior posterior L3-S1 decompression/fusion; Polyarticular rheumatoid arthritis Great progress, home tomorrow Traumatic pain syndrome continue current meds Anemia secondary to acute blood loss. Hypertension. Chronic obstructive pulmonary disease. Obesity. Hypokalemia. GERD. h.o Right total knee arthroplasty. Status post left iliac artery thrombectomy. MARIE POSADA MD Jan 18, 2019 16:24
[2019-01-18] MEDS: morphine 2 MG INJ IV PRN (18:50)
[2019-01-18] MEDS: ROSUVASTATIN CALCIUM 40 MG TABLET PO SCH (20:16)
[2019-01-18 20:31] VITALS: BP 119/59; RESP 18
[2019-01-18] MEDS: SENNA TAB PO SCH (21:00)
[2019-01-18] MEDS: ZOLPIDEM 5 MG TAB PO PRN (23:08)
[2019-01-19 03:14] VITALS: BP 117/56; RESP 18
[2019-01-19] MEDS: HYDROCODONE/APAP (5/325) TAB PO SCH ×2 (06:42→11:51)
[2019-01-19 07:30] VITALS: BP 147/53; PULSE 63; RESP 18
[2019-01-19] MEDS: FLUTICASONE/VILANTEROL 100-25 INH SCH (08:40)
[2019-01-19] MEDS: LIDOCAINE 5% PATCH TD SCH (08:40)
[2019-01-19] MEDS: PREGABALIN 50 MG CAP PO SCH (08:41)
[2019-01-19] MEDS: DOCUSATE SODIUM 100 MG CAP PO SCH (08:41)
[2019-01-19] MEDS: HYDROCODONE/APAP (5/325) TAB PO PRN (08:41)
[2019-01-19] MEDS: MULTIVITAMINS THERAPEUTIC TAB PO SCH (08:41)
[2019-01-19] MEDS: METOPROLOL 25 MG TAB PO SCH (08:42)
[2019-01-19] MEDS: LOSARTAN 50 MG TAB PO SCH (08:42)
[2019-01-19] MEDS: ASPIRIN 81 MG TAB PO SCH (08:42)
[2019-01-19] MEDS: HYDROCHLOROTHIAZIDE 12.5 MG CAP PO SCH (08:43)
--- NOTE | 2019-01-19 11:11 | PN ---
Date/Time of Note Date/Time of Note DATE: 01/19/19 TIME: 11:10 Assessment/Plan VTE Prophylaxis Risk score (from Nsg)>0 risk: 4 SCD applied (from Ns): No SCD contraindicated: other Pharmacological prophylaxis: LMWH Lines/Catheters IV Catheter Type (from Nrsg): [place] Assessment/Plan Hospital Course - Mechanical LBP, s/p lumbar Hardware Removal (Rods/Screws), L3-S1 Decompression with ISF Placement by Dr Lobato on 01/03/19. Continue postoperative antibiotic, continue [place] and morphine as needed for pain and Zofran as needed for nausea. LSO brace when out of bed. Continue physical therapy. - HTN, patient is currently normotensive, continue metoprolol and hydrochlorothiazide. - Asthma, stable, continue Breo Ellipta as needed. - RA, no acute issues, patient gets injection with rituximab as an outpatient, follows with Dr. Saldivar in rheumatology consultation. - History of anterior retroperitoneal interbody fusion of L3-S1 by Dr. Lobato on 12/08/18. - History of left iliac artery thrombectomy on 12/08/[address] Ibrahim. Subjective 24 Hr Interval Summary Free Text/Dictation Patient is doing well, anticipating going home Exam/Review of Systems Exam Vitals Vital Signs Date Temp Pulse Resp B/P (MAP) Pulse Ox O2 O2 Flow FiO2 Time Delivery Rate 01/19/19 98.1 63 18 147/53 94 Room Air 07:30 (84) Intake and Output 01/18/19 01/18/19 01/19/19 1515:00 23:00 07:00 IntakeIntake Total 300 ml 1320 ml 1200 ml BalanceBalance 300 ml 1320 ml 1200 ml Constitutional: well developed Head: normocephalic, atraumatic Neck: supple Respiratory: clear to auscultation Cardiovascular: regular rate and rhythm Gastrointestinal: soft, non-tender Extremities: normal pulses Medications Medication Current Medications Miscellaneous Information (Pending [facility] Order For Wound Care) This patient cohen... PRN PRN XX WOUND CARE; Start 01/07/19 at 14:30 Acetaminophen/ Hydrocodone Bitart ([place] (5/325)) 1 tab Q4H PRN PO MODERATE PAIN LEVEL 4-6 Last administered on 01/16/19at 08:36; Admin Dose 1 TAB; Start 01/07/19 at 14:30 Acetaminophen/ Hydrocodone Bitart ([place] (5/325)) 2 tab Q4H PRN PO SEVERE PAIN LEVEL 7-10 Last administered on 01/19/19 08:41; Admin Dose 2 TAB; Start 01/07/19 at 16:30 Docusate Sodium (Colace) 100 mg BID PO Last administered on 01/19/19 08:41; Admin Dose 100 MG; Start 01/07/19 at 21:00 Senna (Senokot) 1 tab QHS PO Last administered on 01/17/19 20:20; Admin Dose 1 TAB; Start 01/07/19 at 21:00 Acetaminophen (Tylenol Tab) 650 mg Q4H PRN PO MILD PAIN(1-3)OR ELEVATED TEMP; Start 01/07/19 at 16:30 Bisacodyl (Dulcolax Supp) 10 mg DAILY PRN PA CONSTIPATION Last administered on 01/18/19 03:04; Admin Dose 10 MG; Start 01/07/19 at 16:30 Magnesium Hydroxide (Milk Of Mag) 30 ml BID PRN PO CONSTIPATION Last administered on 01/17/19 20:20; Admin Dose 30 ML; Start 01/07/19 at 16:30 Lactulose (Enulose) 20 gm DAILY PRN PO CONSTIPATION; Start 01/07/19 at 16:30 Al Hydrox/Mg Hydrox/Simethicone (Mag-Al Plus) 15 ml Q4H PRN PO GASTROINTESTINAL UPSET; Start 01/07/19 at 16:30 Aspirin (Aspirin) 81 mg DAILY PO Last administered on 01/19/19 08:42; Admin Dose 81 MG; Start 01/08/19 at 09:00 Sodium Biphosphate/ Sodium Phosphate (Fleet Enema) 133 ml DAILY PRN PA CONSTIPATION; Start 01/07/19 at 16:30 Guaifenesin/ Dextromethorphan (Robitussin Dm Liquid Cup) 10 ml Q8H PRN PO COUGH; Start 01/07/19 at 16:30 Metoprolol Tartrate (Lopressor) 12.5 mg BID PO Last administered on 01/19/19 08:42; Admin Dose 12.5 MG; Start 01/07/19 at 21:00 Multivitamins Therapeutic (Theragran) 1 tab DAILY PO Last administered on 01/19/19 08:41; Admin Dose 1 TAB; Start 01/08/19 at 09:00 Pregabalin (Lyrica) 50 mg DAILY PO Last administered on 01/19/19 08:41; Admin Dose 50 MG; Start 01/08/19 at 09:00 Pregabalin (Lyrica) 100 mg QHS PO Last administered on 01/18/19 20:16; Admin Dose 100 MG; Start 01/07/19 at 21:00 Zolpidem Tartrate (Ambien) 5 mg HS MAY REPEAT X 1 PRN PO INSOMNIA Last administered on 01/18/19 23:08; Admin Dose 5 MG; Start 01/07/19 at 16:30 Losartan Potassium (Cozaar) 100 mg DAILY PO Last administered on 01/19/19 08:42; Admin Dose 100 MG; Start 01/08/19 at 09:00 Rosuvastatin Calcium (Crestor) 40 mg QHS PO Last administered on 01/18/19 20:16; Admin Dose 40 MG; Start 01/07/19 at 21:00 Fluticasone/ Vilanterol (Breo Ellipta 100-25 Mcg Inh) 1 inh DAILY INH Last administered on 01/19/19 08:40; Admin Dose 1 INH; Start 01/08/19 at 09:00 Hydrochlorothiazide (Hydrochlorothiazide) 25 mg DAILY PO Last administered on 01/18/19 09:00; Admin Dose 25 MG; Start 01/08/19 at 09:00 Morphine Sulfate (morphine) 2 mg Q4H PRN IV BREAKTHROUGH PAIN Last administered on 01/18/19 18:50; Admin Dose 2 MG; Start 01/08/19 at 13:30 Acetaminophen/ Hydrocodone Bitart ([place] (5/325)) 1 tab BEFORE BREAKFAST PO Last administered on 01/19/19 06:42; Admin Dose 1 TAB; Start 01/09/19 at 07:00 Acetaminophen/ Hydrocodone Bitart ([place] (5/325)) 1 tab WITH LUNCH PO Last administered on 01/18/19 12:13; Admin Dose 1 TAB; Start 01/09/19 at 12:00 Lidocaine (Lidoderm) 1 patch DAILY TD Last administered on 01/19/19 08:40; Admin Dose 1 PATCH; Start 01/14/19 at 09:00 Alprazolam (Xanax) 0.25 mg Q8H PRN PO ANXIETY Last administered on 01/15/19at 08:45; Admin Dose 0.25 MG; Start 01/14/19 at 09:00 CHATA WILSON Jan 19, 2019 11:11
--- NOTE | 2019-01-19 13:54 | DS ---
Date/Time of Note Date/Time of Note DATE: 01/19/19 TIME: 13:45 Discharge Summary Admission/Discharge Info Admit Date/Time Jan 07, 2019 at 13:16 Discharge Date/Time Jan 19, 2019 at 13:22 Discharge Diagnosis 1. Lumbosacral stenosis with lumbosacral polyradiculitis.s/p Anterior posterior L3-S1 decompression/fusion. 2. Polyarticular rheumatoid arthritis. 3. Anemia 4. COPD 5. GERD 6. Hypertension.. 7. Osteoarthritis with History of Right total knee arthroplasty. 8. Status post left iliac artery thrombectomy. 9. Improvements in self care and mobility Patient Condition: Good Hospital Course The patient was admitted for comprehensive interdisciplinary rehabilitation and made steady functional gains from a Mod level to a SBA level for self care tasks and mobility including ambulating over 150 feet with the use of a FWW. Patient is being discharged home with the recommendation of home health PT, OT and RN follow up. The DC meds are per the medication reconciliation sheet. The disc harge equipment recommendations include: FWW, BSC, shower chair. The patient will follow up with PMD upon DC. Home Meds Reported Medications Zolpidem Tartrate* (Ambien*) 5 Mg Tablet, 5 MG PO QHS PRN for INSOMNIA, #30 TAB 01/03/19 Amiodarone Hcl* (Amiodarone Hcl*) 200 Mg Tablet, 200 MG PO DAILY, #30 TAB 01/03/19 Magnesium Hydroxide* (Milk Of Magnesia*) 400 Mg/5 Ml Oral.susp, 30 ML PO DAILY PRN for CONSTIPATION, ML 01/03/19 Bisacodyl (Dulcolax) 10 Mg Supp.rect, 10 MG RC DAILY PRN for CONSTIPATION, SUPP.RECT 01/03/19 Na Phos,M-B/Na Phos,Di-Ba (ENEMA [id number]) 133 Ml Enema, 133 ML RC EVERY 72 HOURS PRN for CONSTIPATION, ENEMA 01/03/19 Docusate Sodium* (Docusate Sodium*) 100 Mg Capsule, 100 MG PO BID, #60 CAP 01/03/19 Enoxaparin Sodium* (Enoxaparin Sodium*) 40 Mg/0.4 Ml Syringe, 40 MG SC BID, SYR 01/03/19 Hydrochlorothiazide* (Hydrochlorothiazide*) 25 Mg Tab, 25 MG PO DAILY, #30 TAB HOLD FOR SBP LESS THAN 110 OR HEART RATE LESS THAN 60 01/03/19 Losartan Potassium* (Losartan Potassium*) 100 Mg Tablet, 100 MG PO DAILY, TAB HOLD IF SBP LESS THAN 110 OR HR LESS THAN 60 01/03/19 Multivitamins* (Theragran*) 1 Tab Tab, 1 TAB PO DAILY, TAB 01/03/19 Hydrocodone/Acetaminophen ([place] 5-325 Tablet) 1 Each Tablet, 1 EACH PO Q4 PRN for PAIN, TAB 01/03/19 Protein Supplement (Promod) 946 Ml Liquid, 30 ML PO DAILY 01/03/19 Guaifenesin-Dextromethorphan* (Robitussin* DM) 100MG/10MG/5ML Syrup, 10 ML PO Q8 PRN for COUGH, ML 01/03/19 Pregabalin* (Lyrica*) 50 Mg Capsule, 100 MG PO QHS, CAP 12/07/18 Pregabalin* (Lyrica*) 50 Mg Capsule, 50 MG PO QAM, CAP 12/07/18 Metoprolol Tartrate* (Lopressor*) 25 Mg Tab, 12.5 MG PO BID, #60 TAB 12/07/18 Rosuvastatin Calcium* (Crestor*) 40 Mg Tablet, 40 MG PO QHS, #30 TAB 12/07/18 Aspirin* (Aspirin* Chew) 81 Mg Tab.chew, 81 MG PO DAILY, TAB.CHEW 12/07/18 Alprazolam* (Alprazolam*) 0.25 Mg Tablet, 0.25 MG PO TID PRN for ANXIETY, TAB 12/07/18 Amlodipine Besylate* (Amlodipine Besylate*) 10 Mg Tablet, 10 MG PO DAILY, #30 TAB 12/07/18 Fluticasone-Vilanterol (Breo Ellipta Inhaler) 100-25 Mcg/Actuation Aer.pow.ba, 1 PUFF INHALATION DAILY PRN for SHORTNESS OF BREATH, #1 INHALER 12/07/18 Primary Care Provider Not On Staff Doctor MARIE POSADA MD Jan 19, 2019 13:54
== END 2019-01-19 13:22 | disposition home health service (06) | DRG 552 ==
LOC: VRC 13:16
PROVIDERS: ADMIT Physical Medicine & Rehabilitation; ATTEND Internal Medicine
PROC: F07Z9FZ Gait Training/Functional Ambulation Treatment using Assistive, Adaptive, Supportive or Protective Equipment (ICD-10-PCS; principal; 2019-01-07)
PROC: F07Z5FZ Bed Mobility Treatment using Assistive, Adaptive, Supportive or Protective Equipment (ICD-10-PCS; 2019-01-07)
PROC: F07Z8FZ Transfer Training Treatment using Assistive, Adaptive, Supportive or Protective Equipment (ICD-10-PCS; 2019-01-07)
PROC: F08Z2FZ Grooming/Personal Hygiene Treatment using Assistive, Adaptive, Supportive or Protective Equipment (ICD-10-PCS; 2019-01-07)
PROC: F08Z0FZ Bathing/Showering Techniques Treatment using Assistive, Adaptive, Supportive or Protective Equipment (ICD-10-PCS; 2019-01-07)
PROC: F08Z1FZ Dressing Techniques Treatment using Assistive, Adaptive, Supportive or Protective Equipment (ICD-10-PCS; 2019-01-07)
DX: M48.07 Spinal stenosis, lumbosacral region (principal); F33.2 Major depressive disorder, recurrent severe without psychotic features; D62 Acute posthemorrhagic anemia; M54.17 Radiculopathy, lumbosacral region; Z98.1 Arthrodesis status; E87.6 Hypokalemia; I10 Essential (primary) hypertension; M81.0 Age-related osteoporosis without current pathological fracture; M06.89 Other specified rheumatoid arthritis, multiple sites; K21.9 Gastro-esophageal reflux disease without esophagitis; F41.9 Anxiety disorder, unspecified; J44.9 Chronic obstructive pulmonary disease, unspecified; Z96.651 Presence of right artificial knee joint; Z79.82 Long term (current) use of aspirin
CPT/HCPCS: 80048; 80053; 81001; 85025; 87081; 87086; 94640; 94664; 97110; 97112; 97116; 97150; 97163; 97530; 97535; J2270